=== PATIENT | female | born 1960 | race Caucasian/White ===

== ENCOUNTER 2019-06-28 13:17 | Emergency (ER) | payer OTHER, MEDICAID, SELFPAY ==
[2019-06-28 13:20] VITALS: BP 148/102; PULSE 70; RESP 16; TEMP 36.7; O2SAT 98; BMI 51.2
--- NOTE | 2019-06-28 13:37 | DI.CT.S_ITS ---
PROCEDURE: CT HEAD/BRAIN WO CON INDICATIONS: fall, left sided numbness x 1 week, drooling per patient TECHNIQUE: Noncontrast 4.5 mm thick angled axial sections acquired from the foramen magnum to the vertex, with coronal and sagittal reformats. For radiation dose reduction, the following was used: automated exposure control, adjustment of mA and/or kV according to patient size. COMPARISON: None. FINDINGS: Image quality: Excellent. CSF spaces: Basal cisterns are patent. No extra-axial fluid collections. The ventricles are symmetric in size and shape. Brain: No intracranial bleeds or masses. There is cerebral volume loss for age, with resultant ventricular and sulcal prominence. There are periventricular and deep white matter chronic small vessel ischemic changes. There is intracranial internal carotid artery atherosclerosis. Skull and face: Calvarium and visualized facial bones appear intact, without suspicious lesions. Sinuses: Visualized sinuses and mastoids are clear. IMPRESSION: CT head without acute intracranial abnormalities. No acute calvarial fracture. Age-related senescent changes and sequela of chronic small vessel ischemic disease. Dictated by: Thaddeus Domínguez M.D. on 06/28/2019 at 13:52 Approved by: Thaddeus Domínguez M.D. on 06/28/2019 at 13:55
[2019-06-28 14:09] LABS: Add Manual Diff / Slide Review NO; Basophils Absolute Auto 100 /uL (0-100); Basophils Percent Auto 0.8 % (0-2); Eosinophils Absolute Auto 300 /uL (0-450); Eosinophils Percent Auto 3.4 % (2-4); Hematocrit 35.5 % (36-46); Hemoglobin 12.1 g/dL (12.0-16.0); Lymphocytes Absolute Auto 2400 /uL (1100-4500); Lymphocytes Percent Auto 26.9 % (25-40); Mean Corpuscular HGB Conc 34.1 % (30-36); Mean Corpuscular Hemoglobin 31.9 PG (26-34); Mean Corpuscular Volume 93.5 fL (80-100); Monocytes Absolute Auto 600 /uL (0-900); Neutrophils Absolute Auto 5500 /uL (1500-7000); Neutrophils Percent Auto 61.9 % (50-75); Platelet Count 219 X10^3/uL (150-400); Red Cell Distribution Width 13.3 % (11.6-14.8); White Blood Cell Count 8.9 X10^3/uL (4.5-11.0)
[2019-06-28 14:16] LABS: Prothrombin Time 11.5 SECONDS (10.1-12.7)
[2019-06-28 14:18] LABS: PTT Partial Thromboplastin Tim 30 SECONDS (26.4-36.2)
[2019-06-28 14:21] LABS: HEMOLYSIS 17 (0-50); Sodium 141 mmol/L (137-145)
[2019-06-28 14:24] LABS: Alanine Aminotransferase 19 IU/L (9-52); Albumin 4.2 g/dL (3.5-5.0); Albumin Globulin Ratio 1.3 (1.0-2.8); Alkaline Phosphatase 31 U/L (38-126); Aspartate Aminotransferase 19 IU/L (14-36); Bilirubin Total 0.6 mg/dL (0.2-1.3); Blood Urea Nitrogen 20 mg/dL (7-17); Calcium 9.6 mg/dL (8.4-10.2); Carbon Dioxide 30 mmol/L (22-32); Chloride 100 mmol/L (98-107); Estimated Glomerular Filt Rate > 60.0 mL/min (>60); Globulin 3.3 g/dL (1.7-4.1); Glucose 131 mg/dL (80-110); Potassium 4.3 mmol/L (3.4-5.1); Total Protein 7.5 g/dL (6.3-8.2)
--- NOTE | 2019-06-28 14:42 | ED.NEUROSD ---
HPI - Neuro Symptoms/Deficit General Chief Complaint: Neuro Symptoms/Deficit Stated Complaint: Numbness in lft arm, leg, drooling, sent from dr Martinez Seen by Provider: 06/28/19 13:45 Source: patient and family (son) Limitations: no limitations History of Present Illness HPI Narrative: This is a 58-year-old female comes to the emergency department with complaint of falling out of bed a week ago Wednesday so 10 days ago. Patient states she had recently had an eye surgery for retinal bleed. She got into bed she felt very dizzy like the room was spinning. She had had history of vertigo in the past. She fell off the bed onto her left side. Since then she has felt like her left leg and arm have been tingly. And she has continued to have some sciatica pain in her left leg which is little bit worse. She has chronic neuropathy in her feet. She states she has been drooling intermittently on her right side. Patient states that she has generalized weakness but does not appreciate any right versus left-sided weakness and has been walking daily with a walker and doing extra steps on a workout step. Patient felt some chills but temperature was 97.6?. She has been nauseated constantly but states that that is a chronic issue. She has not been vomiting. She had diarrhea 4 times today and several times yesterday. No black or bright red blood in her stool. She had urine but it was cloudy. She states she has had some edema in her lower extremities intermittently and had had cellulitis and weeping blisters but that has improved. She states her vision has also continued to improve she has had some occasional floaters. She states initially she can only see light versus dark but now she can see 10 font on the computer, although reading gives her headache she states she has headache all the time. Patient has diabetes with neuropathy. Her A1c was 11 but she states that her fasting sugars have been 120s recently with daily sugars in the 150 range, she has hypertension, osteopenia, IBS and states she has a thickened heart but has had a cardiac catheterization x2 which was negative she has had a hernia repair, Tk fundoplication, hysterectomy and multiple ?tumors removed? she quit smoking in 2010. Occasional alcohol and no illicit. On Anticoagulants: Yes (ASA 325mg) Related Data Home Medications Medication Instructions Recorded Confirmed [place] 1 spray INTRANASAL DIRECTED 06/28/19 06/28/19 Vitamin D3 10,000 unit PO DAILY 06/28/19 06/28/19 aspirin 81 mg PO DAILY 06/28/19 06/28/19 calcium carbonate [Calcium 600] 600 mg PO DAILY 06/28/19 06/28/19 carvedilol 6.25 mg PO BID 06/28/19 06/28/19 coenzyme Q10 [Co Q-10] 100 mg PO QPM 06/28/19 06/28/19 empagliflozin [Jardiance] 25 mg PO DAILY 06/28/19 06/28/19 furosemide 80 mg PO DAILY 06/28/19 06/28/19 gabapentin 1,200 mg PO BID 06/28/19 06/28/19 glipizide 10 mg PO BID 06/28/19 06/28/19 insulin glargine [Lantus U-100 50 unit SUBCUT QPM 06/28/19 06/28/19 Insulin] insulin lispro [Humalog U-100 5 - 10 unit SUBCUT TID 06/28/19 06/28/19 Insulin] lisinopril 20 mg PO BID 06/28/19 06/28/19 potassium chloride 10 meq PO DAILY 06/28/19 06/28/19 rosuvastatin 5 mg PO BEDTIME 06/28/19 06/28/19 vitamin E 1 cap PO BEDTIME 06/28/19 06/28/19 Allergies Allergy/AdvReac Type Severity Reaction Status Date / Time amoxicillin [From Augmentin] Allergy Intermediate Hives Verified 06/28/19 13:32 azithromycin [From Zithromax] Allergy Intermediate Hives Verified 06/28/19 13:32 ciprofloxacin [From Cipro] Allergy Intermediate Rash Verified 06/28/19 13:32 clavulanic acid Allergy Intermediate Hives Verified 06/28/19 13:32 [From Augmentin] nitrofurantoin Allergy Intermediate Hives Verified 06/28/19 13:32 [From Macrobid] liraglutide [From Victoza] Allergy Unknown Verified 06/28/19 13:32 codeine AdvReac Intermediate Gastrointestinal Verified 06/28/19 13:32 Upset indomethacin [From Indocin] AdvReac Intermediate Gastrointestinal Verified 06/28/19 13:32 Upset metformin [From Glucophage] AdvReac Intermediate Gastrointestinal Verified 06/28/19 13:32 Upset Suamerk-Aph-Rvp Reductase AdvReac Intermediate Joint Pain Verified 06/28/19 13:32 Inhibitor Review of Systems Review of Systems ROS Unobtainable: All systems reviewed & are unremarkable except as noted in HPI and below Constitutional Constitutional: Denies chills, Denies fever(s), Denies frequent falls, Reports headache(s), Denies lethargy and Denies weakness Eyes Eyes: Reports change in vision (improving), Denies diplopia and Reports spots in vision ENT Ears, Nose, Mouth, and Throat: Reports as per HPI, Reports vertigo (resolved), Reports headache(s), Denies neck pain, Denies disequilibrium and Denies other (droop) Cardiovascular Cardiovascular: Denies chest pain, Denies syncope, Denies irregular heart rhythm, Denies lightheadedness, Denies palpitations, Denies dyspnea and Denies orthopnea Respiratory Respiratory: Denies change in phlegm color, Denies chest congestion, Denies cough and Denies dyspnea Gastrointestinal Gastrointestinal: Denies abdominal pain, Denies melena, Denies hematochezia, Denies change in bowel habits, Reports diarrhea, Denies nausea and Denies vomiting Genitourinary Genitourinary: Denies hematuria, Denies dysuria, Denies flank pain, Denies urinary incontinence, Denies urinary hesitancy, Denies urinary urgency and Reports other (cloudy urine) Musculoskeletal Musculoskeletal: Reports as per HPI, Denies back pain, Reports limited range of motion, Reports muscle weakness (generalized.), Denies neck pain, Denies numbness, Denies stiffness and Reports tingling Integumentary/Breasts Skin/Breast: Denies rash, Denies unusual bruising and Denies wounds Neurologic Neurologic: Reports as per HPI, Denies abnormal speech, Denies confusion, Reports vertigo (resolved), Denies syncope, Denies frequent falls, Reports headache(s), Denies focal weakness, Denies numbness, Reports radicular pain (left leg), Denies sensory deficit, Reports tingling, Denies disequilibrium and Denies weakness Psychiatric Psychiatric: Denies confusion Endocrine Endocrine: Denies palpitations [facility] Social History Smoking Status: Former smoker Social History Smoking Status: Former smoker Exam Narrative Exam Narrative: GEN: Obese female, alert and oriented x 3, patient appears to be in no acute distress. HEENT: Atraumatic, pupils are equal round reactive to light, extraocular movements are intact, nares are clear, no facial droop. Clear speech. HEART: Regular rate and rhythm without murmur, clicks, rubs. LUNGS:Lungs clear to auscultation, no wheezes, rales, crackles, chest moves symmetrically ABD:bowel sounds normal, soft, non-tender, no guarding, rebound, rigidity, no masses noted, no hepatosplenomegaly :No CVA tenderness MSCL: Non-tender, no muscle atrophy, muscles strength 5/5 upper and lower extremities, full range of motion, has pain with straight leg raise on the left. She is nontender to palpation of the greater trochanters, she has mild tenderness over the proximal femur. NEURO:CN 2-12 intact, sensation normal, reflexes 2/4 upper and lower extremities. finger nose finger test normal, heel gunderson test normal. SKIN: No petechiae, ecchymosis or other skin color changes. Initial Vital Signs Initial Vital Signs: Vital Signs Temperature 98.0 F 06/28/19 13:20 Pulse Rate 70 06/28/19 13:20 Respiratory Rate 16 06/28/19 13:20 Blood Pressure 148/102 H 06/28/19 13:20 Pulse Oximetry 98 06/28/19 13:20 Scores NIH Stroke Scale Level of Conciousness: Alert, keenly responsive Ask month/age: Answers both questions correctly. Open/close eyes, close hand: Performs both tasks correctly Best gaze horizontal: Normal Visual emerson: No visual loss Facial palsy: Normal symetrical movement Left arm drift: No drift for full 10 sec Right arm drift: No drift for full 10 sec Left leg drift: No drift for full 10 sec Right leg drift: No drift for full 10 sec Limb ataxia: Absent Sensory on face/arms/legs: Normal, no sensory loss Best language: No aphasia, normal Dysarthria: Normal Extinction or inattention: No abnormality Total NIH Stroke scale score: 0 Course Orders Ordered: ED Orders 06/28/19 13:33 EKG-12 Lead Stat 06/28/19 13:37 CT head/brain wo con Stat 06/28/19 13:55 Complete Blood Count AUTO DIFF Stat Comprehensive Metabolic Panel Stat Partial Thromboplastin Time Stat Prothrombin Time INR Stat 06/28/19 14:50 Urine Culture Stat Urine Microscopic Stat 06/28/19 15:10 XR chest 1V Stat XR hip w pel if done LT 2V Stat Vital Signs Vital signs: Vital Signs - 8 hr 06/28/19 13:20 06/28/19 15:00 06/28/19 15:45 Temperature 98.0 F Pulse Rate 70 69 68 Respiratory Rate 16 21 16 Blood Pressure 148/102 H Blood Pressure [Right Arm] 135/83 145/71 H Pulse Oximetry 98 98 95 06/28/19 16:30 06/28/19 17:03 Temperature Pulse Rate 67 68 Respiratory Rate 14 18 Blood Pressure 137/67 Blood Pressure [Right Arm] 137/57 L Pulse Oximetry 98 97 MDM - Neuro Symptoms/Deficit Lab Data Attestation: I reviewed the patient's lab results. Result diagrams: 06/28/19 13:55 06/28/19 13:55 Labs: Lab Results 06/28/19 06/28/19 06/28/19 Range/Units 13:55 13:55 13:55 WBC 8.9 (4.5-11.0) X10^3/uL RBC 3.80 L (4.0-5.2) X10^6/uL Hgb 12.1 (12.0-16.0) g/dL Hct 35.5 L (36-46) % MCV 93.5 (80-100) fL MCH 31.9 (26-34) PG MCHC 34.1 (30-36) % RDW 13.3 (11.6-14.8) % Plt Count 219 (150-400) X10^3/uL Neut % (Auto) 61.9 (50-75) % Lymph % (Auto) 26.9 (25-40) % Bradford % (Auto) 7.0 (3-14) % Eos % (Auto) 3.4 (2-4) % Baso % (Auto) 0.8 (0-2) % Neut # (Auto) 5500 (7462-4430) /uL Lymph # (Auto) 2400 (3746-2181) /uL Bradford # (Auto) 600 (0-900) /uL Eos # (Auto) 300 (0-450) /uL Baso # (Auto) 100 (0-100) /uL PT 11.5 (10.1-12.7) SECONDS INR 1.0 (0.9-1.3) APTT 30 (26.4-36.2) SECONDS Sodium 141 (137-145) mmol/L Potassium 4.3 (3.4-5.1) mmol/L Chloride 100 (98-107) mmol/L Carbon Dioxide 30 (22-32) mmol/L BUN 20 H (7-17) mg/dL Creatinine 0.80 (0.52-1.04) mg/dL Estimated GFR > 60.0 (>60) mL/min BUN/Creatinine Ratio 25.0 H (6-22) Glucose 131 H (80-110) mg/dL Calcium 9.6 (8.4-10.2) mg/dL Total Bilirubin 0.6 (0.2-1.3) mg/dL AST 19 (14-36) IU/L ALT 19 (9-52) IU/L Alkaline Phosphatase 31 L (38-126) U/L Total Protein 7.5 (6.3-8.2) g/dL Albumin 4.2 (3.5-5.0) g/dL Globulin 3.3 (1.7-4.1) g/dL Albumin/Globulin Ratio 1.3 (1.0-2.8) Urine RBC (0-5/HPF) Urine WBC (0-5/HPF) Ur Squamous Epith Cells (0-5/HPF) Urine Bacteria (None) Ur Culture Indicated? 06/28/19 Range/Units 14:50 WBC (4.5-11.0) X10^3/uL RBC (4.0-5.2) X10^6/uL Hgb (12.0-16.0) g/dL Hct (36-46) % MCV (80-100) fL MCH (26-34) PG MCHC (30-36) % RDW (11.6-14.8) % Plt Count (150-400) X10^3/uL Neut % (Auto) (50-75) % Lymph % (Auto) (25-40) % Bradford % (Auto) (3-14) % Eos % (Auto) (2-4) % Baso % (Auto) (0-2) % Neut # (Auto) (4183-9225) /uL Lymph # (Auto) (7652-1442) /uL Bradford # (Auto) (0-900) /uL Eos # (Auto) (0-450) /uL Baso # (Auto) (0-100) /uL PT (10.1-12.7) SECONDS INR (0.9-1.3) APTT (26.4-36.2) SECONDS Sodium (137-145) mmol/L Potassium (3.4-5.1) mmol/L Chloride (98-107) mmol/L Carbon Dioxide (22-32) mmol/L BUN (7-17) mg/dL Creatinine (0.52-1.04) mg/dL Estimated GFR (>60) mL/min BUN/Creatinine Ratio (6-22) Glucose (80-110) mg/dL Calcium (8.4-10.2) mg/dL Total Bilirubin (0.2-1.3) mg/dL AST (14-36) IU/L ALT (9-52) IU/L Alkaline Phosphatase (38-126) U/L Total Protein (6.3-8.2) g/dL Albumin (3.5-5.0) g/dL Globulin (1.7-4.1) g/dL Albumin/Globulin Ratio (1.0-2.8) Urine RBC 5-10/hpf H (0-5/HPF) Urine WBC 5-10/hpf H (0-5/HPF) Ur Squamous Epith Cells None seen (0-5/HPF) Urine Bacteria Moderate (10-30) H (None) Ur Culture Indicated? Specimen cultured Urine Dip Bedside Urine Glucose 500 mg/dl Bedside Urine Bilirubin - Negative Bedside Urine Ketone - Negative Urine Specific Chandler 1.015 Bedside Urine Occult Blood +/- Bedside Urine pH 6.0 Bedside Urine Protein - Negative Bedside Urine Urobilinogen - Negative Bedside Urine Nitrite - Negative Bedside Urine Leukocytes +++ [address] scan - head: Radiologist's impression: [address] [address] [address] Scan Report Signed Patient: Whitney Anderson LMR#: [id number] : 8Acct:[id number] Age/Sex: 58 / FDate of Service: 06/28/19 Loc: ED Accession Number: [id number] Procedure: CT head/brain wo con Ordering Provider: Jessika Finley D.O. PROCEDURE: CT HEAD/BRAIN WO CON INDICATIONS: fall, left sided numbness x 1 week, drooling per patient TECHNIQUE: Noncontrast 4.5 mm thick angled axial sections acquired from the foramen magnum to the vertex, with coronal and sagittal reformats. For radiation dose reduction, the following was used: automated exposure control, adjustment of mA and/or kV according to patient size. COMPARISON: None. FINDINGS: Image quality: Excellent. CSF spaces: Basal cisterns are patent. No extra-axial fluid collections. The ventricles are symmetric in size and shape. Brain: No intracranial bleeds or masses. There is cerebral volume loss for age, with resultant ventricular and sulcal prominence. There are periventricular and deep white matter chronic small vessel ischemic changes. There is intracranial internal carotid artery atherosclerosis. Skull and face: Calvarium and visualized facial bones appear intact, without suspicious lesions. Sinuses: Visualized sinuses and mastoids are clear. IMPRESSION: CT head without acute intracranial abnormalities. No acute calvarial fracture. Age-related senescent changes and sequela of chronic small vessel ischemic disease. Dictated by: Thaddeus Domínguez M.D. on 06/28/2019 at 13:52 Approved by: Thaddeus Domínguez M.D. on 06/28/2019 at 13:55 Chest x-ray: Radiologist's impression: [place] [id number] XRay Report Signed Patient: Whitney Anderson LMR#: [id number] : 8Acct:[id number] Age/Sex: 58 / FDate of Service: 06/28/19 Loc: ED Accession Number: [id number] Procedure: XR chest 1V Ordering Provider: Jessika Finley D.O. PROCEDURE: XR CHEST 1V INDICATIONS: fall, rib pain 1 week ago. TECHNIQUE: One view of the chest was acquired. COMPARISON: None. FINDINGS: Surgical changes and devices: None. Lungs and pleura: Lungs are abnormal with a generalized mild pulmonary edema pattern. No pleural effusions or pneumothorax. Mediastinum: Mediastinal contours appear normal. Heart size is globally enlarged, mildly. Bones and chest wall: No suspicious bony lesions. Overlying soft tissues appear unremarkable. IMPRESSION: Cardiomegaly with mild CHF, no pleural effusion found. No focal pneumonia seen. The clinical history indicates rib pain after trauma, and no rib fracture or pneumothorax can be identified. The patient body habitus is large, and the inspiratory volume is reduced. It is possible that the pulmonary edema intact is not present in that the appearance of the edema is artifactual related to the body habitus and reduced inspiration. Dictated by: Neville Amos M.D. on 06/28/2019 at 16:05 Approved by: Neville Amos M.D. on 06/28/2019 at 16:06 left hip xray: Radiologist's impression: [address] [address] XRay Report Signed Patient: Whitney Anderson LMR#: [id number] : 8Acct:[id number] Age/Sex: 58 / FDate of Service: 06/28/19 Loc: ED Accession Number: [id number] Procedure: XR hip w pel if done LT 2V Ordering Provider: Jessika Finley D.O. PROCEDURE: XR HIP W PEL IF DONE LT 2V INDICATIONS: right hip pain, s/p fall 1 week ago TECHNIQUE: AP pelvis with lateral view(s) of the left hip(s). COMPARISON: None. FINDINGS: Bones: No fractures or dislocations. Pelvic ring appears intact. No suspicious bony lesions. Soft tissues: The visualized bowel gas pattern is normal. No suspicious soft tissue calcifications. IMPRESSION: Large body habitus, and quality of visualization of the hip joints is somewhat limited. There appears to be moderate right sided hip joint osteoarthritis with lateral [id number]-[id number] articulation but only mild hip joint osteoarthritis on the left. Dictated by: Neville Amos M.D. on 06/28/2019 at 16:03 Approved by: Neville Amos M.D. on 06/28/2019 at 16:05 ECG Data Attestation: I personally reviewed and interpreted this ECG as follows: Interpretation: Sinus rhythm rate of 70 P are 158 QRS of 98 QTC of [address] changes appreciated. MDM Narrative Medical decision making narrative: Patient commands in with complaining of left upper and lower extremity tingling. Patient states symptoms started last Wednesday which is about 10 days ago. Patient's symptoms have not changed, no weakness that is lateralizing. On her NIH scale she is 0 without any change in sensation to light touch. Patient head CT is negative I would expect some changes 10 days out from initial symptomatology if she had had a stroke. Patient did have some pain with movement of her lower extremity and hip x-ray was ordered as she did have a fall. Patient has some [id number] changes that are arthritic but no fracture or dislocations. Chest x-ray shows cardiomegaly, with mild CHF although possibly that this is artifactual waited to body habitus and reduce inspiration. Patient has not had any symptoms consistent with CHF. Her lab work does not show any major electrolyte abnormalities. She does have a history of neuropathy bilateral lower extremities. She also has history of sciatica which would make sense by her lower extremities having some discomfort and tingling changes. This does not give us an exact reason why her upper extremity. We did discuss getting an MRI if she continues to have symptoms and to return if she is having any new or worsening symptoms. Discharge Plan Departure Patient Disposition: Home Clinical Impression: Numbness and tingling of left arm and leg Discharge Date/Time: 06/28/19 17:00 Instructions: DI for Numbness/tingling Activity Restrictions/Additional Instructions: Follow-up with your physician at your scheduled appointment. You can call for earlier appointment if you prefer. You can discussed with your physician about possibly getting MRI testing Continue your home medications as prescribed. You're urine culture is pending if positive you should expect a phone call regarding your results. Return to the emergency department for fevers greater 100.4 F, new difficulties with speech, new weakness, loss of sensation, passing out, lightheadedness, chest pain or pressure, shortness of breath or other new or concerning symptoms. Prescriptions: No Action carvedilol 6.25 mg tablet 6.25 mg PO BID RF: 0 lisinopril 20 mg tablet 20 mg PO BID RF: 0 glipizide 10 mg tablet 10 mg PO BID RF: 0 potassium chloride 10 mEq tablet extended release 10 meq PO DAILY RF: 0 rosuvastatin 5 mg tablet 5 mg PO BEDTIME RF: 0 Jardiance 25 mg tablet 25 mg PO DAILY RF: 0 Lantus U-100 Insulin 100 unit/mL solution 50 unit SUBCUT QPM RF: 0 aspirin 81 mg Tablet,Delayed Release (Dr/Ec) 81 mg PO DAILY RF: 0 calcium carbonate [Calcium 600] 600 mg calcium (1,500 mg) Tablet 600 mg PO DAILY RF: 0 gabapentin 300 mg capsule 1,200 mg PO BID RF: 0 insulin lispro [Humalog U-100 Insulin] 100 unit/mL solution 5 - 10 unit subcut TID RF: 0 coenzyme Q10 [Co Q-10] 100 mg Capsule 100 mg PO QPM RF: 0 [place] 1 spray intranasal DIRECTED RF: 0 vitamin E 1 cap PO BEDTIME RF: 0 furosemide 80 mg tablet 80 mg PO DAILY RF: 0 Vitamin D3 10,000 unit 10,000 unit PO DAILY RF: 0
[2019-06-28 15:00] VITALS: BP 135/83; PULSE 69; RESP 21; O2SAT 98
--- NOTE | 2019-06-28 15:10 | DI.RAD.S_ITS ---
PROCEDURE: XR CHEST 1V INDICATIONS: fall, rib pain 1 week ago. TECHNIQUE: One view of the chest was acquired. COMPARISON: None. FINDINGS: Surgical changes and devices: None. Lungs and pleura: Lungs are abnormal with a generalized mild pulmonary edema pattern. No pleural effusions or pneumothorax. Mediastinum: Mediastinal contours appear normal. Heart size is globally enlarged, mildly. Bones and chest wall: No suspicious bony lesions. Overlying soft tissues appear unremarkable. IMPRESSION: Cardiomegaly with mild CHF, no pleural effusion found. No focal pneumonia seen. The clinical history indicates rib pain after trauma, and no rib fracture or pneumothorax can be identified. The patient body habitus is large, and the inspiratory volume is reduced. It is possible that the pulmonary edema intact is not present in that the appearance of the edema is artifactual related to the body habitus and reduced inspiration. Dictated by: Neville Amos M.D. on 06/28/2019 at 16:05 Approved by: Neville Amos M.D. on 06/28/2019 at 16:06
--- NOTE | 2019-06-28 15:10 | DI.RAD.S_ITS ---
PROCEDURE: XR HIP W PEL IF DONE LT 2V INDICATIONS: right hip pain, s/p fall 1 week ago TECHNIQUE: AP pelvis with lateral view(s) of the left hip(s). COMPARISON: None. FINDINGS: Bones: No fractures or dislocations. Pelvic ring appears intact. No suspicious bony lesions. Soft tissues: The visualized bowel gas pattern is normal. No suspicious soft tissue calcifications. IMPRESSION: Large body habitus, and quality of visualization of the hip joints is somewhat limited. There appears to be moderate right sided hip joint osteoarthritis with lateral [id number] articulation but only mild hip joint osteoarthritis on the left. Dictated by: Neville Amos M.D. on 06/28/2019 at 16:03 Approved by: Neville Amos M.D. on 06/28/2019 at 16:05
[2019-06-28 15:36] LABS: Bacteria Urine Moderate (10-30); Culture Indicated Urine Specimen Cultured; RBC Urine 5-10/HPF (0-5/HPF); Squamous Epithelial Cell Urine None Seen (0-5/HPF); WBC Urine 5-10/HPF (0-5/HPF)
[2019-06-28 15:45] VITALS: BP 145/71; PULSE 68; RESP 16; O2SAT 95
[2019-06-28 16:30] VITALS: BP 137/57; PULSE 67; RESP 14; O2SAT 98
[2019-06-28 17:03] VITALS: BP 137/67; PULSE 68; RESP 18; O2SAT 97
== END 2019-06-28 17:00 | disposition home or self-care (01) ==
PROVIDERS: Emergency Provider Emergency Medicine; Family Provider Internal Medicine
DX: R20.2 Paresthesia of skin (principal); R20.0 Anesthesia of skin; R07.81 Pleurodynia; M25.551 Pain in right hip; W19.XXXA Unspecified fall, initial encounter
CPT/HCPCS: 36415; 36591; 70450; 71045; 73502; 80053; 81003; 81015; 85025; 85610; 85730; 87077; 87086; 87186; 93005; 99283; 99285

== ENCOUNTER 2020-08-07 14:30 | Outpatient (RCR) | payer OTHER, MEDICAID, SELFPAY ==
--- NOTE | 2020-06-14 16:00 | PT.OPPOC ---
Physical, Occupational & Speech Therapy At [facility] Current Diagnoses Other abnormalities of gait and mobility (06/14/20) Repeated falls (06/14/20) Dizziness and giddiness (06/14/20) Visit Care Team Role Provider Type Samara Alejandre PA-C Primary Care Provider Non-Staff Specialty: Medical Address: [address] [place] [address] [address], [place], [address] Email: Andrews Gomez MD Attending Provider Physician Referring Provider Specialty: Ear, Nose, Throat Address: [address] [place] [address], [id number] Email: [email or web address] Plan Of Care PT-OP-T Assessment and Plan Start: 06/17/20 09:29 Freq: Status: Active Protocol: Document 06/14/20 15:15 DCW (Rec: 06/17/20 10:16 DCW [id number]) Physical Therapy Assessment Rehab Potential Rehabilitation Potential Fair Evaluation Complexity Number of Personal Factors/Comorbidities 3 or More Number of Body Systems Impaired 4 or More Clinical Presentation at Evaluation Unstable Impairments Impairments Activity Tolerance,Balance, Functional Activities, Functional Mobility,Gait, Sensation,Soft Tissue Mobility ,Strength,Vestibular Other Concerns Fall Risk Yes, 37/56 Cleaning, Hx of multiple falls Goals Three Impairment Pt at an increased risk of falls, per Cleaning Balance scale Halfway Goal (LTG) Pt to score a 45/56 on the Cleaning Balance scale to demonstrate reduced risk of falls LTG Duration 08/23/20 Two Impairment Pt only able to stand on single leg 7 sec R and 3 sec L Decorator Mannequin Goal (LTG) Pt to stand SLS 15 seconds bilaterally LTG Duration 08/23/20 One Impairment Pt does not have an appropriate home exercise program Short Term Goal (STG) Pt to be independent and compliant with an appropriate HEP STG Duration 07/19/20 Assessment Summary Assessment Pt presents for a highly- complex PT evaluation, with multifactoral causes of imbalance/dizziness. Pt appears to have a decrease in vestibular function bilaterally, poor vision in her left eye, and DM II- induced neuropathy bilaterally , all of which affects her balance and stability. Due to time constraints, there are multiple tests that still need to be performed during her next visit, including DGI, Orthostatic BPs, and strength testing. Testing is significantly limited due to her ongoing left eye issues, which limit her positioning and her ability to participate in some of the vestibular tests. Pt should benefit from skilled therapy focusing on balance training, NMR, vestibular rehabilitation, and gait training. Physical Therapy Plan Frequency and Duration Frequency of Treatment 2x/Week Duration of Treatment 10 weeks Plan of Care Start Date 06/14/20 Plan of Care End Date 08/23/20 Therapeutic Interventions Therapeutic Interventions Balance Training,Home Exercise Program,Manual Therapy, Neuromuscular Re-education, Patient/Caregiver Education, Self-Care/Home Management, Therapeutic Activities, Therapeutic Exercises Next Visit Focus/Plan Next Note Type Treatment Note Next Visit Plan Orthostatic measurements, DGI, Strength testing, Balance training Plan of Care Dates Plan of Care Start Date 06/14/20 Plan of Care End Date 08/23/20 Electronically Signed by: Sandeep Alonso, PT 06/17/20 1017 Please Sign and Return: I have reviewed this Plan of Care and certify that the skilled therapy services above are required to meet the patient?s needs. Physician Signature Date Printed Name and Credentials Clinical Instructor Signature Printed Name and Credentials
--- NOTE | 2020-06-14 16:00 | PT.OIE ---
Current Diagnoses Other abnormalities of gait and mobility (06/14/20) Repeated falls (06/14/20) Dizziness and giddiness (06/14/20) Visit Care Team Role Provider Type Samara Alejandre PA-C Primary Care Provider Non-Staff Specialty: Medical Address: [facility] [address], [place], [address] Email: Andrews Gomez MD Attending Provider Physician Referring Provider Specialty: Ear, Nose, Throat Address: [address] [place] [address] [place], [address] Email: [email or web address] [facility] Initial Evaluation PT-OP-A Visit Information Start: 06/17/20 09:29 Freq: Status: Active Protocol: Document 06/14/20 15:15 DCW (Rec: 06/17/20 09:41 DCW [id number]) Out-Patient Physical Therapy Visit Information Visit Information Visit Type Initial Evaluation Visit Start Time 15:15 Visit Stop Time 16:00 Total Visit Minutes 45 Visit Number 1 Number of PRE[employer]ED [employer] TEAM MEMBER Visits 0 Evaluation Information Evaluation Date 06/14/20 PT-OP-B Current Condition Start: 06/17/20 09:29 Freq: Status: Active Protocol: Document 06/14/20 15:15 DCW (Rec: 06/17/20 09:41 DCW [id number]) Current Condition History of Current Condition Onset Date 10 year history Current Complaints Dizziness, imbalance, falls History of Current Condition Pt is a 59 year old female presenting with a 10 year history of imbalance and falls . Pt reports that when this began ten years ago, she had wildly out of control diabetes and blood pressure, which created a significant worsening of her symptoms. Pt notes that in the last decade, she has gotten them both under much better control, but she still has problems with dizziness and nausea. Pt especially has difficulty with standing up too fast, bending over, or walking across a parking lot or in a store without a cart or canes. Additionally, pt has a significant history of left eye problems, undergoing 5 eye surgeries over the last year, and she currently has a bubble on her eye, which causes pain and prevents her from lying supine, because that creates too much pressure. Pt was tested, and has a 50% blockage of her right carotid artery, although no one feels this is causing her problems. Pt reports she was diagnosed with orthostatic hypotension a number of years ago by a physical therapist, but then her physician disagreed with that assessment . Future Testing and Treatments Planned Audiogram on 06/18/20, follow- up with Dr Gomez later in the week Personal Factors Other Personal Factors That May Effect DM II /c LE neuropathy, vision Therapy/Recovery deficits, Hx of blood pressure instability PT-OP-C Subjective Start: 06/17/20 09:29 Freq: Status: Active Protocol: Document 06/14/20 15:15 DCW (Rec: 06/17/20 10:16 DCW [id number]) OP-PT Subjective Patient Comments Patient Comments I can't really lay down, and least not flat. I have a bubble on my left eye, so I can't lay down or bend forward , it puts too much pressure on it. Patient Questionnaires ABC- Activity Specific Balance Confidence Scale ABC Score 33.75% ABC Functional Impairment 60 to <80% Impaired (Score 21- 40) Dizziness Handicap Inventory DHI Score 62% DHI Functional Impairment 60 to 79% Impaired (Score 60- 79) PT-OP-D Balance Start: 06/17/20 09:29 Freq: Status: Active Protocol: Document 06/14/20 15:15 DCW (Rec: 06/17/20 10:16 DCW [id number]) OP-PT Balance Assessment Sitting Balance Static Sitting Balance Ability Normal Dynamic Sitting Balance Ability Good Standing Balance Static Standing Balance Ability Fair Balance Tests Cleaning Balance Test Cleaning Balance Test Score 37/56 Cleaning Impairment Rating 20 to 39% Impaired (Score 34- 44) Functional Reach Functional Reach Test 6 Functional Reach Impairment Rating 40 to <60% Impaired (Score 5-6 ) Single Limb Standing Single Limb- Right 3 sec Single Limb- Left 7 sec Cleaning Balance Assessment Evaluation Sitting to Standing Ability Independent w/Hands Unsupported Stance Safely- 2 minutes Sitting Unsupported, Feet on Floor Safely- 2 minutes Standing to Sitting Ability Assist, Control w/Hands Transfer Ability Safely, Hand Use Unsupported Stance- Eyes Closed Supervision, 10 seconds Unsupported Stance- Eyes Open Assist to attain,<15 secs Reaching Forward Standing Safely, 5 inches Pick- Up Object From Floor Within 2 inches, Unable Look Behind Shoulder - Standing Shifts Weight Well Turning 360 Degrees Turns slowly, but safely Unsupported Stance, Alternating Feet on 4 Steps w/Supervision Stair Unsupported Tandem Stance Small Step- 30 seconds Unilateral Leg Stance Lifts Leg/Holds > 3 secs Total Score Cleaning Total Score (out of 56 points) 37 Cleaning Impairment Rating 20 to 39% Impaired (Score 34- 44) Jones Fall Scale Copyright Permission PT-OP-O Vestibular Start: 06/17/20 09:29 Freq: Status: Active Protocol: Document 06/14/20 15:15 DCW (Rec: 06/17/20 10:16 DCW [id number]) Vestibular Assessment Screening Tests Vestibular Artery Screen Negative Auditory Tests Macdonald Test Within normal limits Rinne Test Negative Air Conduction Results Equal Visual Testing Smooth Pursuits Horizontal Negative Smooth Pursuits Vertical Negative Saccades Horizontal Negative Gaze Evoked Nystagmus With Fixation Negative Gaze Evoked Nystagmus Without Fixation Negative Heave Test Positive Bilateral Thrust Head Positive Bilateral Convergence Test Impaired Positional Testing Sidelying Test Negative Left,Negative Right Comments Vestibular Comments Thrust/Heave test: Positive bilaterally, appears to be more of an inattention than true positive, but pt has difficulty focusing on target. Convergence: Unable to test, pt does not use left eye for vision, does not converge. PT-OP-T Assessment and Plan Start: 06/17/20 09:29 Freq: Status: Active Protocol: Document 06/14/20 15:15 DCW (Rec: 06/17/20 10:16 DC [id number]) Physical Therapy Assessment Rehab Potential Rehabilitation Potential Fair Evaluation Complexity Number of Personal Factors/Comorbidities 3 or More Number of Body Systems Impaired 4 or More Clinical Presentation at Evaluation Unstable Impairments Impairments Activity Tolerance,Balance, Functional Activities, Functional Mobility,Gait, Sensation,Soft Tissue Mobility ,Strength,Vestibular Other Concerns Fall Risk Yes, 37/56 Cleaning, Hx of multiple falls Goals Three Impairment Pt at an increased risk of falls, per Cleaning Balance scale Alf Goal (LTG) Pt to score a 45/56 on the Cleaning Balance scale to demonstrate reduced risk of falls LTG Duration 08/23/20 Two Impairment Pt only able to stand on single leg 7 sec R and 3 sec L Alf Goal (LTG) Pt to stand SLS 15 seconds bilaterally LTG Duration 08/23/20 One Impairment Pt does not have an appropriate home exercise program Short Term Goal (STG) Pt to be independent and compliant with an appropriate HEP STG Duration 07/19/20 Assessment Summary Assessment Pt presents for a highly- complex PT evaluation, with multifactoral causes of imbalance/dizziness. Pt appears to have a decrease in vestibular function bilaterally, poor vision in her left eye, and DM II- induced neuropathy bilaterally , all of which affects her balance and stability. Due to time constraints, there are multiple tests that still need to be performed during her next visit, including DGI, Orthostatic BPs, and strength testing. Testing is significantly limited due to her ongoing left eye issues, which limit her positioning and her ability to participate in some of the vestibular tests. Pt should benefit from skilled therapy focusing on balance training, NMR, vestibular rehabilitation, and gait training. Physical Therapy Plan Frequency and Duration Frequency of Treatment 2x/Week Duration of Treatment 10 weeks Plan of Care Start Date 06/14/20 Plan of Care End Date 08/23/20 Therapeutic Interventions Therapeutic Interventions Balance Training,Home Exercise Program,Manual Therapy, Neuromuscular Re-education, Patient/Caregiver Education, Self-Care/Home Management, Therapeutic Activities, Therapeutic Exercises Next Visit Focus/Plan Next Note Type Treatment Note Next Visit Plan Orthostatic measurements, DGI, Strength testing, Balance training
--- NOTE | 2020-06-25 14:30 | PT.OTN ---
Current Diagnoses Other abnormalities of gait and mobility (06/28/20) Repeated falls (06/28/20) Dizziness and giddiness (06/28/20) Physical Therapy Treatment Note PT-OP-A Visit Information Start: 06/17/20 09:29 Freq: Status: Active Protocol: Document 07/09/20 13:45 DCW (Rec: 06/25/20 14:03 DCW [id number]) Out-Patient Physical Therapy Visit Information Visit Information Visit Type Treatment Note Visit Start Time 13:45 Visit Stop Time 14:30 Total Visit Minutes 45 Visit Number 2 Number of FACILITY COORDINATOR Visits 0 Evaluation Information Evaluation Date 06/14/20 PT-OP-B Current Condition Start: 06/17/20 09:29 Freq: Status: Active Protocol: Document 06/14/20 15:15 DCW (Rec: 06/17/20 09:41 DCW [id number]) Current Condition History of Current Condition Onset Date 10 year history Current Complaints Dizziness, imbalance, falls History of Current Condition Pt is a 59 year old female presenting with a 10 year history of imbalance and falls . Pt reports that when this began ten years ago, she had wildly out of control diabetes and blood pressure, which created a significant worsening of her symptoms. Pt notes that in the last decade, she has gotten them both under much better control, but she still has problems with dizziness and nausea. Pt especially has difficulty with standing up too fast, bending over, or walking across a parking lot or in a store without a cart or canes. Additionally, pt has a significant history of left eye problems, undergoing 5 eye surgeries over the last year, and she currently has a bubble on her eye, which causes pain and prevents her from lying supine, because that creates too much pressure. Pt was tested, and has a 50% blockage of her right carotid artery, although no one feels this is causing her problems. Pt reports she was diagnosed with orthostatic hypotension a number of years ago by a physical therapist, but then her physician disagreed with that assessment . Future Testing and Treatments Planned Audiogram on 06/18/20, follow- up with Dr Gomez later in the week Personal Factors Other Personal Factors That May Effect DM II /c LE neuropathy, vision Therapy/Recovery deficits, Hx of blood pressure instability PT-OP-C Subjective Start: 06/17/20 09:29 Freq: Status: Active Protocol: Document 07/09/20 13:45 DCW (Rec: 06/25/20 14:03 DCW [id number]) OP-PT Subjective Patient Comments Patient Comments I'm very weak today. PT-OP-D Balance Start: 06/17/20 09:29 Freq: Status: Active Protocol: Document 07/09/20 13:45 DCW (Rec: 06/25/20 14:03 DCW [id number]) Balance Tests Other Other Balance Tests Performed Orthostatic BPs: Sidelying - 120/62 Sitting - 114/70 Standing - 114/68 PT-OP-E Functional Tests Start: 06/25/20 14:03 Freq: Status: Active Protocol: Document 07/09/20 13:45 DCW (Rec: 06/25/20 14:31 DCW [id number]) Functional Tests Dynamic Gait Index (DGI) Score 10/17 DGI Impairment Rating 40 to <60% Impaired (Score 10- 14) PT-OP-M Strength Start: 06/25/20 14:03 Freq: Status: Active Protocol: Document 07/09/20 13:45 DCW (Rec: 06/25/20 14:31 DCW [id number]) Hip Strength Hip Manual Muscle Testing Right Flexion (L2) 4+ Good+ Abduction 4+ Good+ Adduction 4+ Good+ Left Flexion (L2) 3+ Fair+ Abduction 4+ Good+ Adduction 4+ Good+ Knee Strength Knee Manual Muscle Testing Right Flexion (S2) 4+ Good+ Extension (L3) 4+ Good+ Left Flexion (S2) 4+ Good+ Extension (L3) 4+ Good+ PT-OP-O Vestibular Start: 06/17/20 09:29 Freq: Status: Active Protocol: Document 06/14/20 15:15 DCW (Rec: 06/17/20 10:16 DCW [id number]) Vestibular Assessment Screening Tests Vestibular Artery Screen Negative Auditory Tests Macdonald Test Within normal limits Rinne Test Negative Air Conduction Results Equal Visual Testing Smooth Pursuits Horizontal Negative Smooth Pursuits Vertical Negative Saccades Horizontal Negative Gaze Evoked Nystagmus With Fixation Negative Gaze Evoked Nystagmus Without Fixation Negative Heave Test Positive Bilateral Thrust Head Positive Bilateral Convergence Test Impaired Positional Testing Sidelying Test Negative Left,Negative Right Comments Vestibular Comments Thrust/Heave test: Positive bilaterally, appears to be more of an inattention than true positive, but pt has difficulty focusing on target. Convergence: Unable to test, pt does not use left eye for vision, does not converge. PT-OP-Q Treatments Start: 06/17/20 09:29 Freq: Status: Active Protocol: Document 07/09/20 13:45 DCW (Rec: 06/25/20 14:31 DCW [id number]) Neuro Re-Education Treatment Balance Activities SLS Details SLS Equipment // bars Foam Stance Details NBOS Surface [place] Narrow JOSE Details EO/EC, Head Turns PT-OP-T Assessment and Plan Start: 06/17/20 09:29 Freq: Status: Active Protocol: Document 07/09/20 13:45 DCW (Rec: 06/25/20 14:31 DCW [id number]) Physical Therapy Assessment Impairments Impairments Activity Tolerance,Balance, Functional Activities, Functional Mobility,Gait, Sensation,Soft Tissue Mobility ,Strength,Vestibular Goals Three Impairment Pt at an increased risk of falls, per Cleaning Balance scale Softwood Faller Goal (LTG) Pt to score a 45/56 on the Cleaning Balance scale to demonstrate reduced risk of falls LTG Duration 08/23/20 Two Impairment Pt only able to stand on single leg 7 sec R and 3 sec L Softwood Faller Goal (LTG) Pt to stand SLS 15 seconds bilaterally LTG Duration 08/23/20 One Impairment Pt does not have an appropriate home exercise program Short Term Goal (STG) Pt to be independent and compliant with an appropriate HEP STG Duration 07/19/20 Assessment Summary Assessment Pt testing again shows limitations in balance, pt scores 12/24 on DGI, indicating an increased falls risk. Pt did well with balance exercises today, likely attempt to increase challenge next visit. Physical Therapy Plan Frequency and Duration Frequency of Treatment 2x/Week Duration of Treatment 10 weeks Plan of Care Start Date 06/14/20 Plan of Care End Date 08/23/20 Therapeutic Interventions Therapeutic Interventions Balance Training,Home Exercise Program,Manual Therapy, Neuromuscular Re-education, Patient/Caregiver Education, Self-Care/Home Management, Therapeutic Activities, Therapeutic Exercises Next Visit Focus/Plan Next Note Type Treatment Note Next Visit Plan Orthostatic measurements, DGI, Strength testing, Balance training
--- NOTE | 2020-06-28 14:35 | PT.OTN ---
Current Diagnoses Other abnormalities of gait and mobility (06/28/20) Repeated falls (06/28/20) Dizziness and giddiness (06/28/20) Physical Therapy Treatment Note PT-OP-A Visit Information Start: 06/17/20 09:29 Freq: Status: Active Protocol: Document 06/28/20 13:45 DCW (Rec: 06/28/20 14:34 DCW [id number]) Out-Patient Physical Therapy Visit Information Visit Information Visit Type Treatment Note Visit Start Time 13:45 Visit Stop Time 14:30 Total Visit Minutes 45 Visit Number 2 Number of BAG BUILDER Visits 0 Evaluation Information Evaluation Date 06/14/20 PT-OP-B Current Condition Start: 06/17/20 09:29 Freq: Status: Active Protocol: Document 06/14/20 15:15 DCW (Rec: 06/17/20 09:41 DCW [id number]) Current Condition History of Current Condition Onset Date 10 year history Current Complaints Dizziness, imbalance, falls History of Current Condition Pt is a 59 year old female presenting with a 10 year history of imbalance and falls . Pt reports that when this began ten years ago, she had wildly out of control diabetes and blood pressure, which created a significant worsening of her symptoms. Pt notes that in the last decade, she has gotten them both under much better control, but she still has problems with dizziness and nausea. Pt especially has difficulty with standing up too fast, bending over, or walking across a parking lot or in a store without a cart or canes. Additionally, pt has a significant history of left eye problems, undergoing 5 eye surgeries over the last year, and she currently has a bubble on her eye, which causes pain and prevents her from lying supine, because that creates too much pressure. Pt was tested, and has a 50% blockage of her right carotid artery, although no one feels this is causing her problems. Pt reports she was diagnosed with orthostatic hypotension a number of years ago by a physical therapist, but then her physician disagreed with that assessment . Future Testing and Treatments Planned Audiogram on 06/18/20, follow- up with Dr Gomez later in the week Personal Factors Other Personal Factors That May Effect DM II /c LE neuropathy, vision Therapy/Recovery deficits, Hx of blood pressure instability PT-OP-C Subjective Start: 06/17/20 09:29 Freq: Status: Active Protocol: Document 06/28/20 13:45 DCW (Rec: 06/28/20 14:34 DCW [id number]) OP-PT Subjective Patient Comments Patient Comments I have a lot of pain in my back, it kept me up most of the night. PT-OP-D Balance Start: 06/17/20 09:29 Freq: Status: Active Protocol: Document 06/25/20 13:45 DCW (Rec: 06/25/20 14:03 DCW [id number]) Balance Tests Other Other Balance Tests Performed Orthostatic BPs: Sidelying - 120/62 Sitting - 114/70 Standing - 114/68 PT-OP-E Functional Tests Start: 06/25/20 14:03 Freq: Status: Active Protocol: Document 06/25/20 13:45 DCW (Rec: 06/25/20 14:31 DCW [id number]) Functional Tests Dynamic Gait Index (DGI) Score 10/17 DGI Impairment Rating 40 to <60% Impaired (Score 10- 14) PT-OP-M Strength Start: 06/25/20 14:03 Freq: Status: Active Protocol: Document 06/25/20 13:45 DCW (Rec: 06/25/20 14:31 DCW [id number]) Hip Strength Hip Manual Muscle Testing Right Flexion (L2) 4+ Good+ Abduction 4+ Good+ Adduction 4+ Good+ Left Flexion (L2) 3+ Fair+ Abduction 4+ Good+ Adduction 4+ Good+ Knee Strength Knee Manual Muscle Testing Right Flexion (S2) 4+ Good+ Extension (L3) 4+ Good+ Left Flexion (S2) 4+ Good+ Extension (L3) 4+ Good+ PT-OP-O Vestibular Start: 06/17/20 09:29 Freq: Status: Active Protocol: Document 06/14/20 15:15 DCW (Rec: 06/17/20 10:16 DCW [id number]) Vestibular Assessment Screening Tests Vestibular Artery Screen Negative Auditory Tests Macdonald Test Within normal limits Rinne Test Negative Air Conduction Results Equal Visual Testing Smooth Pursuits Horizontal Negative Smooth Pursuits Vertical Negative Saccades Horizontal Negative Gaze Evoked Nystagmus With Fixation Negative Gaze Evoked Nystagmus Without Fixation Negative Heave Test Positive Bilateral Thrust Head Positive Bilateral Convergence Test Impaired Positional Testing Sidelying Test Negative Left,Negative Right Comments Vestibular Comments Thrust/Heave test: Positive bilaterally, appears to be more of an inattention than true positive, but pt has difficulty focusing on target. Convergence: Unable to test, pt does not use left eye for vision, does not converge. PT-OP-Q Treatments Start: 06/17/20 09:29 Freq: Status: Active Protocol: Document 06/28/20 13:45 DCW (Rec: 06/28/20 14:34 DCW [id number]) Gym Equipment Shuttle Balance Red Details Wide JOSE, Staggered Stance Therapeutic Exercises Standing Exercises 2 Standing Exercise Name Hamstring curls Side bilateral Resistance 2# Comments x20 1 Standing Exercise Name Toe taps Side bilateral Resistance 2# Equipment Used 6 step Comments x20 Other Exercises 1 Other Exercise Name Resisted ambulation Resistance Yellow Equipment Used T-band Reps/Minutes rail x2 each direction Comments Lateral, Fwd, Bkwd Neuro Re-Education Treatment Balance Activities Tandem Stance Details Tandem Stance Tandem Ambulation Details Tandem Amb SLS Details SLS Equipment // bars Foam Stance Details NBOS, Head Turns Surface [place] Narrow JOSE Details EO/EC, Head Turns PT-OP-T Assessment and Plan Start: 06/17/20 09:29 Freq: Status: Active Protocol: Document 06/28/20 13:45 DCW (Rec: 06/28/20 14:34 DCW [id number]) Physical Therapy Assessment Impairments Impairments Activity Tolerance,Balance, Functional Activities, Functional Mobility,Gait, Sensation,Soft Tissue Mobility ,Strength,Vestibular Goals Three Impairment Pt at an increased risk of falls, per Cleaning Balance scale Blueprint Cutter Goal (LTG) Pt to score a 45/56 on the Cleaning Balance scale to demonstrate reduced risk of falls LTG Duration 08/23/20 Two Impairment Pt only able to stand on single leg 7 sec R and 3 sec L Blueprint Cutter Goal (LTG) Pt to stand SLS 15 seconds bilaterally LTG Duration 08/23/20 One Impairment Pt does not have an appropriate home exercise program Short Term Goal (STG) Pt to be independent and compliant with an appropriate HEP STG Duration 07/19/20 Assessment Summary Assessment Pt did fairly well today, able to maintain balance during mild challenges. Physical Therapy Plan Frequency and Duration Frequency of Treatment 2x/Week Duration of Treatment 10 weeks Plan of Care Start Date 06/14/20 Plan of Care End Date 08/23/20 Therapeutic Interventions Therapeutic Interventions Balance Training,Home Exercise Program,Manual Therapy, Neuromuscular Re-education, Patient/Caregiver Education, Self-Care/Home Management, Therapeutic Activities, Therapeutic Exercises Next Visit Focus/Plan Next Note Type Treatment Note Next Visit Plan Orthostatic measurements, DGI, Strength testing, Balance training
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
--- NOTE | 2020-07-31 15:05 | PT.OTN ---
Current Diagnoses Other abnormalities of gait and mobility (07/31/20) Repeated falls (07/31/20) Dizziness and giddiness (07/31/20) Physical Therapy Treatment Note PT-OP-A Visit Information Start: 06/17/20 09:29 Freq: Status: Active Protocol: Document 07/31/20 14:30 DCW (Rec: 07/31/20 15:05 DCW [id number]) Out-Patient Physical Therapy Visit Information Visit Information Visit Type Treatment Note Visit Start Time 14:30 Visit Stop Time 15:00 Total Visit Minutes 30 Visit Number 5 Number of FELL CUTTER Visits 0 Evaluation Information Evaluation Date 06/14/20 PT-OP-B Current Condition Start: 06/17/20 09:29 Freq: Status: Active Protocol: Document 06/14/20 15:15 DCW (Rec: 06/17/20 09:41 DCW [id number]) Current Condition History of Current Condition Onset Date 10 year history Current Complaints Dizziness, imbalance, falls History of Current Condition Pt is a 59 year old female presenting with a 10 year history of imbalance and falls . Pt reports that when this began ten years ago, she had wildly out of control diabetes and blood pressure, which created a significant worsening of her symptoms. Pt notes that in the last decade, she has gotten them both under much better control, but she still has problems with dizziness and nausea. Pt especially has difficulty with standing up too fast, bending over, or walking across a parking lot or in a store without a cart or canes. Additionally, pt has a significant history of left eye problems, undergoing 5 eye surgeries over the last year, and she currently has a bubble on her eye, which causes pain and prevents her from lying supine, because that creates too much pressure. Pt was tested, and has a 50% blockage of her right carotid artery, although no one feels this is causing her problems. Pt reports she was diagnosed with orthostatic hypotension a number of years ago by a physical therapist, but then her physician disagreed with that assessment . Future Testing and Treatments Planned Audiogram on 06/18/20, follow- up with Dr Gomez later in the week Personal Factors Other Personal Factors That May Effect DM II /c LE neuropathy, vision Therapy/Recovery deficits, Hx of blood pressure instability PT-OP-C Subjective Start: 06/17/20 09:29 Freq: Status: Active Protocol: Document 07/31/20 14:30 DCW (Rec: 07/31/20 15:05 DCW [id number]) OP-PT Subjective Patient Comments Patient Comments I'm wobby. A very unsteady wobbly today. PT-OP-D Balance Start: 06/17/20 09:29 Freq: Status: Active Protocol: Document 06/25/20 13:45 DCW (Rec: 06/25/20 14:03 DCW [id number]) Balance Tests Other Other Balance Tests Performed Orthostatic BPs: Sidelying - 120/62 Sitting - 114/70 Standing - 114/68 PT-OP-E Functional Tests Start: 06/25/20 14:03 Freq: Status: Active Protocol: Document 06/25/20 13:45 DCW (Rec: 06/25/20 14:31 DCW [id number]) Functional Tests Dynamic Gait Index (DGI) Score 10/17 DGI Impairment Rating 40 to <60% Impaired (Score 10- 14) PT-OP-M Strength Start: 06/25/20 14:03 Freq: Status: Active Protocol: Document 06/25/20 13:45 DCW (Rec: 06/25/20 14:31 DCW [id number]) Hip Strength Hip Manual Muscle Testing Right Flexion (L2) 4+ Good+ Abduction 4+ Good+ Adduction 4+ Good+ Left Flexion (L2) 3+ Fair+ Abduction 4+ Good+ Adduction 4+ Good+ Knee Strength Knee Manual Muscle Testing Right Flexion (S2) 4+ Good+ Extension (L3) 4+ Good+ Left Flexion (S2) 4+ Good+ Extension (L3) 4+ Good+ PT-OP-O Vestibular Start: 06/17/20 09:29 Freq: Status: Active Protocol: Document 06/14/20 15:15 DCW (Rec: 06/17/20 10:16 DCW [id number]) Vestibular Assessment Screening Tests Vestibular Artery Screen Negative Auditory Tests Macdonald Test Within normal limits Rinne Test Negative Air Conduction Results Equal Visual Testing Smooth Pursuits Horizontal Negative Smooth Pursuits Vertical Negative Saccades Horizontal Negative Gaze Evoked Nystagmus With Fixation Negative Gaze Evoked Nystagmus Without Fixation Negative Heave Test Positive Bilateral Thrust Head Positive Bilateral Convergence Test Impaired Positional Testing Sidelying Test Negative Left,Negative Right Comments Vestibular Comments Thrust/Heave test: Positive bilaterally, appears to be more of an inattention than true positive, but pt has difficulty focusing on target. Convergence: Unable to test, pt does not use left eye for vision, does not converge. PT-OP-Q Treatments Start: 06/17/20 09:29 Freq: Status: Active Protocol: Document 07/31/20 14:30 DCW (Rec: 07/31/20 15:05 DCW [id number]) Gym Equipment Shuttle Balance Red Comments Wide JOSE (EO, EC, X1) Staggered Stance Therapeutic Exercises Standing Exercises 2 Standing Exercise Name Hamstring curls Side bilateral Resistance 4# R, 0# L d/t open sore on calf Comments x20 1 Standing Exercise Name Toe taps Side bilateral Resistance 4# R, 0# L d/t open sore on calf Equipment Used 6 step Comments x20 Other Exercises 1 Other Exercise Name Resisted ambulation Resistance Yellow Equipment Used T-band Reps/Minutes rail x2 each direction Comments Lateral, Fwd, Bkwd PT-OP-T Assessment and Plan Start: 06/17/20 09:29 Freq: Status: Active Protocol: Document 07/31/20 14:30 DCW (Rec: 07/31/20 15:05 DCW [id number]) Physical Therapy Assessment Impairments Impairments Activity Tolerance,Balance, Functional Activities, Functional Mobility,Gait, Sensation,Soft Tissue Mobility ,Strength,Vestibular Goals Three Impairment Pt at an increased risk of falls, per Cleaning Balance scale Fpc Goal (LTG) Pt to score a 45/56 on the Cleaning Balance scale to demonstrate reduced risk of falls LTG Duration 08/23/20 Two Impairment Pt only able to stand on single leg 7 sec R and 3 sec L Fpc Goal (LTG) Pt to stand SLS 15 seconds bilaterally LTG Duration 08/23/20 One Impairment Pt does not have an appropriate home exercise program Short Term Goal (STG) Pt to be independent and compliant with an appropriate HEP STG Duration 07/19/20 Assessment Summary Assessment Pt clearly fatiguing more quickly today, required increased rest breaks and showed less stability during balance challenges. Pt ended up admitting that she felt like crap, and decided that she would do better if she ended early. Physical Therapy Plan Frequency and Duration Frequency of Treatment 2x/Week Duration of Treatment 10 weeks Plan of Care Start Date 06/14/20 Plan of Care End Date 10/30/20 Therapeutic Interventions Therapeutic Interventions Balance Training,Home Exercise Program,Manual Therapy, Neuromuscular Re-education, Patient/Caregiver Education, Self-Care/Home Management, Therapeutic Activities, Therapeutic Exercises Next Visit Focus/Plan Next Note Type Treatment Note Next Visit Plan Orthostatic measurements, DGI, Strength testing, Balance training
--- NOTE | 2020-08-02 15:17 | PT.OTN ---
Current Diagnoses Other abnormalities of gait and mobility (08/02/20) Repeated falls (08/02/20) Dizziness and giddiness (08/02/20) Physical Therapy Treatment Note PT-OP-A Visit Information Start: 06/17/20 09:29 Freq: Status: Active Protocol: Document 08/02/20 14:30 DCW (Rec: 08/02/20 15:16 DCW [id number]) Out-Patient Physical Therapy Visit Information Visit Information Visit Type Treatment Note Visit Start Time 14:30 Visit Stop Time 15:15 Total Visit Minutes 45 Visit Number 6 Number of LIVESTOCK JUDGING COACH Visits 0 Evaluation Information Evaluation Date 06/14/20 PT-OP-B Current Condition Start: 06/17/20 09:29 Freq: Status: Active Protocol: Document 06/14/20 15:15 DCW (Rec: 06/17/20 09:41 DCW [id number]) Current Condition History of Current Condition Onset Date 10 year history Current Complaints Dizziness, imbalance, falls History of Current Condition Pt is a 59 year old female presenting with a 10 year history of imbalance and falls . Pt reports that when this began ten years ago, she had wildly out of control diabetes and blood pressure, which created a significant worsening of her symptoms. Pt notes that in the last decade, she has gotten them both under much better control, but she still has problems with dizziness and nausea. Pt especially has difficulty with standing up too fast, bending over, or walking across a parking lot or in a store without a cart or canes. Additionally, pt has a significant history of left eye problems, undergoing 5 eye surgeries over the last year, and she currently has a bubble on her eye, which causes pain and prevents her from lying supine, because that creates too much pressure. Pt was tested, and has a 50% blockage of her right carotid artery, although no one feels this is causing her problems. Pt reports she was diagnosed with orthostatic hypotension a number of years ago by a physical therapist, but then her physician disagreed with that assessment . Future Testing and Treatments Planned Audiogram on 06/18/20, follow- up with Dr Gomez later in the week Personal Factors Other Personal Factors That May Effect DM II /c LE neuropathy, vision Therapy/Recovery deficits, Hx of blood pressure instability PT-OP-C Subjective Start: 06/17/20 09:29 Freq: Status: Active Protocol: Document 08/02/20 14:30 DCW (Rec: 08/02/20 15:17 DCW [id number]) OP-PT Subjective Patient Comments Patient Comments Pt reports she is feeling much better today than she had been last visit. PT-OP-D Balance Start: 06/17/20 09:29 Freq: Status: Active Protocol: Document 06/25/20 13:45 DCW (Rec: 06/25/20 14:03 DCW [id number]) Balance Tests Other Other Balance Tests Performed Orthostatic BPs: Sidelying - 120/62 Sitting - 114/70 Standing - 114/68 PT-OP-E Functional Tests Start: 06/25/20 14:03 Freq: Status: Active Protocol: Document 06/25/20 13:45 DCW (Rec: 06/25/20 14:31 DCW [id number]) Functional Tests Dynamic Gait Index (DGI) Score 10/17 DGI Impairment Rating 40 to <60% Impaired (Score 10- 14) PT-OP-M Strength Start: 06/25/20 14:03 Freq: Status: Active Protocol: Document 06/25/20 13:45 DCW (Rec: 06/25/20 14:31 DCW [id number]) Hip Strength Hip Manual Muscle Testing Right Flexion (L2) 4+ Good+ Abduction 4+ Good+ Adduction 4+ Good+ Left Flexion (L2) 3+ Fair+ Abduction 4+ Good+ Adduction 4+ Good+ Knee Strength Knee Manual Muscle Testing Right Flexion (S2) 4+ Good+ Extension (L3) 4+ Good+ Left Flexion (S2) 4+ Good+ Extension (L3) 4+ Good+ PT-OP-O Vestibular Start: 06/17/20 09:29 Freq: Status: Active Protocol: Document 06/14/20 15:15 DCW (Rec: 06/17/20 10:16 DCW [id number]) Vestibular Assessment Screening Tests Vestibular Artery Screen Negative Auditory Tests Macdonald Test Within normal limits Rinne Test Negative Air Conduction Results Equal Visual Testing Smooth Pursuits Horizontal Negative Smooth Pursuits Vertical Negative Saccades Horizontal Negative Gaze Evoked Nystagmus With Fixation Negative Gaze Evoked Nystagmus Without Fixation Negative Heave Test Positive Bilateral Thrust Head Positive Bilateral Convergence Test Impaired Positional Testing Sidelying Test Negative Left,Negative Right Comments Vestibular Comments Thrust/Heave test: Positive bilaterally, appears to be more of an inattention than true positive, but pt has difficulty focusing on target. Convergence: Unable to test, pt does not use left eye for vision, does not converge. PT-OP-Q Treatments Start: 06/17/20 09:29 Freq: Status: Active Protocol: Document 08/02/20 14:30 DCW (Rec: 08/02/20 15:16 DCW [id number]) Gym Equipment Shuttle Balance Red Comments Wide JOSE (EO, EC) Staggered Stance Lateral Weight Shift Therapeutic Exercises Standing Exercises 3 Standing Exercise Name Heel stretch 2 Standing Exercise Name Hamstring curls Side bilateral Resistance 4# R, 0# L d/t open sore on calf Comments x20 1 Standing Exercise Name Toe taps Side bilateral Resistance 4# R, 0# L d/t open sore on calf Equipment Used 6 step Comments x20 Other Exercises 1 Other Exercise Name Resisted ambulation Resistance Yellow Equipment Used T-band Reps/Minutes rail x2 each direction Comments Lateral, Fwd, Bkwd Neuro Re-Education Treatment Balance Activities Tandem Stance Details Tandem Stance Tandem Ambulation Details Tandem Amb SLS Details SLS Equipment // bars Foam Stance Details NBOS Surface [place] Comments EO/EC Narrow JOSE Details EO/EC, Head Turns PT-OP-T Assessment and Plan Start: 06/17/20 09:29 Freq: Status: Active Protocol: Document 08/02/20 14:30 DCW (Rec: 08/02/20 15:16 DCW [id number]) Physical Therapy Assessment Impairments Impairments Activity Tolerance,Balance, Functional Activities, Functional Mobility,Gait, Sensation,Soft Tissue Mobility ,Strength,Vestibular Goals Three Impairment Pt at an increased risk of falls, per Cleaning Balance scale Piper Installer Goal (LTG) Pt to score a 45/56 on the Cleaning Balance scale to demonstrate reduced risk of falls LTG Duration 08/23/20 Two Impairment Pt only able to stand on single leg 7 sec R and 3 sec L Skilled Nursing Goal (LTG) Pt to stand SLS 15 seconds bilaterally LTG Duration 08/23/20 One Impairment Pt does not have an appropriate home exercise program Short Term Goal (STG) Pt to be independent and compliant with an appropriate HEP STG Duration 07/19/20 Assessment Summary Assessment Pt feeling much better today, able to tolerate full session. Pt unsure if she is seeing improvement with therapy, would like to work on her HEP over the weekend, and return Wednesday to determine if she would like to continue therapy or discharge. Physical Therapy Plan Frequency and Duration Frequency of Treatment 2x/Week Duration of Treatment 10 weeks Plan of Care Start Date 06/14/20 Plan of Care End Date 08/23/20 Therapeutic Interventions Therapeutic Interventions Balance Training,Home Exercise Program,Manual Therapy, Neuromuscular Re-education, Patient/Caregiver Education, Self-Care/Home Management, Therapeutic Activities, Therapeutic Exercises Next Visit Focus/Plan Next Note Type Treatment Note Next Visit Plan Orthostatic measurements, DGI, Strength testing, Balance training
--- NOTE | 2020-08-07 15:13 | PT.OTN ---
Current Diagnoses Other abnormalities of gait and mobility (08/07/20) Repeated falls (08/07/20) Dizziness and giddiness (08/07/20) Physical Therapy Treatment Note PT-OP-A Visit Information Start: 06/17/20 09:29 Freq: Status: Active Protocol: Document 08/07/20 14:30 DCW (Rec: 08/07/20 15:13 DCW [id number]) Out-Patient Physical Therapy Visit Information Visit Information Visit Type Discharge Summary Visit Start Time 14:30 Visit Stop Time 15:15 Total Visit Minutes 45 Visit Number 7 Number of SMOKE EATER Visits 0 Evaluation Information Evaluation Date 06/14/20 PT-OP-B Current Condition Start: 06/17/20 09:29 Freq: Status: Active Protocol: Document 06/14/20 15:15 DCW (Rec: 06/17/20 09:41 DCW [id number]) Current Condition History of Current Condition Onset Date 10 year history Current Complaints Dizziness, imbalance, falls History of Current Condition Pt is a 59 year old female presenting with a 10 year history of imbalance and falls . Pt reports that when this began ten years ago, she had wildly out of control diabetes and blood pressure, which created a significant worsening of her symptoms. Pt notes that in the last decade, she has gotten them both under much better control, but she still has problems with dizziness and nausea. Pt especially has difficulty with standing up too fast, bending over, or walking across a parking lot or in a store without a cart or canes. Additionally, pt has a significant history of left eye problems, undergoing 5 eye surgeries over the last year, and she currently has a bubble on her eye, which causes pain and prevents her from lying supine, because that creates too much pressure. Pt was tested, and has a 50% blockage of her right carotid artery, although no one feels this is causing her problems. Pt reports she was diagnosed with orthostatic hypotension a number of years ago by a physical therapist, but then her physician disagreed with that assessment . Future Testing and Treatments Planned Audiogram on 06/18/20, follow- up with Dr Gomez later in the week Personal Factors Other Personal Factors That May Effect DM II /c LE neuropathy, vision Therapy/Recovery deficits, Hx of blood pressure instability PT-OP-C Subjective Start: 06/17/20 09:29 Freq: Status: Active Protocol: Document 08/07/20 14:30 DCW (Rec: 08/07/20 15:13 DCW [id number]) OP-PT Subjective Patient Comments Patient Comments Pt reports that on Wednesday, she lost her balance and fell off the riser that she uses to get into and out of bed. Reports she landed on her right knee and hurt her right hip. Also, reports the blister on my calf is now an ulcer and is infected Per patient, ED told her to keep up with PT, we want you moving . Pt comes in today with a 4WW. PT-OP-D Balance Start: 06/17/20 09:29 Freq: Status: Active Protocol: Document 06/25/20 13:45 DCW (Rec: 06/25/20 14:03 DCW [id number]) Balance Tests Other Other Balance Tests Performed Orthostatic BPs: Sidelying - 120/62 Sitting - 114/70 Standing - 114/68 PT-OP-E Functional Tests Start: 06/25/20 14:03 Freq: Status: Active Protocol: Document 06/25/20 13:45 DCW (Rec: 06/25/20 14:31 DCW [id number]) Functional Tests Dynamic Gait Index (DGI) Score 10/17 DGI Impairment Rating 40 to <60% Impaired (Score 10- 14) PT-OP-M Strength Start: 06/25/20 14:03 Freq: Status: Active Protocol: Document 06/25/20 13:45 DCW (Rec: 06/25/20 14:31 DCW [id number]) Hip Strength Hip Manual Muscle Testing Right Flexion (L2) 4+ Good+ Abduction 4+ Good+ Adduction 4+ Good+ Left Flexion (L2) 3+ Fair+ Abduction 4+ Good+ Adduction 4+ Good+ Knee Strength Knee Manual Muscle Testing Right Flexion (S2) 4+ Good+ Extension (L3) 4+ Good+ Left Flexion (S2) 4+ Good+ Extension (L3) 4+ Good+ PT-OP-O Vestibular Start: 06/17/20 09:29 Freq: Status: Active Protocol: Document 06/14/20 15:15 DCW (Rec: 06/17/20 10:16 DCW [id number]) Vestibular Assessment Screening Tests Vestibular Artery Screen Negative Auditory Tests Macdonald Test Within normal limits Rinne Test Negative Air Conduction Results Equal Visual Testing Smooth Pursuits Horizontal Negative Smooth Pursuits Vertical Negative Saccades Horizontal Negative Gaze Evoked Nystagmus With Fixation Negative Gaze Evoked Nystagmus Without Fixation Negative Heave Test Positive Bilateral Thrust Head Positive Bilateral Convergence Test Impaired Positional Testing Sidelying Test Negative Left,Negative Right Comments Vestibular Comments Thrust/Heave test: Positive bilaterally, appears to be more of an inattention than true positive, but pt has difficulty focusing on target. Convergence: Unable to test, pt does not use left eye for vision, does not converge. PT-OP-Q Treatments Start: 06/17/20 09:29 Freq: Status: Active Protocol: Document 08/07/20 14:30 DCW (Rec: 08/07/20 15:13 DCW [id number]) Gym Equipment Shuttle Balance Red Comments Wide JOSE (EO, EC) Staggered Stance Lateral Weight Shift Therapeutic Exercises Standing Exercises 4 Standing Exercise Name Standing marching Side bilateral Resistance 5# R, 0# L 3 Standing Exercise Name Heel stretch Equipment Used TYRESE 2 Standing Exercise Name Hamstring curls Side bilateral Resistance 4# R, 0# L d/t open sore on calf Comments x20 1 Standing Exercise Name Toe taps Side bilateral Resistance 4# R, 0# L d/t open sore on calf Equipment Used 6 step Comments x20 Other Exercises 1 Other Exercise Name Resisted ambulation Resistance Yellow Equipment Used T-band Reps/Minutes rail x2 each direction Comments Lateral, Fwd, Bkwd Neuro Re-Education Treatment Balance Activities SLS Details SLS Equipment // bars Foam Stance Details NBOS Surface [place] Comments EO/EC PT-OP-T Assessment and Plan Start: 06/17/20 09:29 Freq: Status: Active Protocol: Document 08/07/20 14:30 DCW (Rec: 08/07/20 15:13 DCW [id number]) Physical Therapy Assessment Impairments Impairments Activity Tolerance,Balance, Functional Activities, Functional Mobility,Gait, Sensation,Soft Tissue Mobility ,Strength,Vestibular Goals Three Impairment Pt at an increased risk of falls, per Cleaning Balance scale Operator Command Support Systems Goal (LTG) Pt to score a 45/56 on the Cleaning Balance scale to demonstrate reduced risk of falls LTG Duration 08/23/20 Two Impairment Pt only able to stand on single leg 7 sec R and 3 sec L Senior Care Goal (LTG) Pt to stand SLS 15 seconds bilaterally LTG Duration 08/23/20 One Impairment Pt does not have an appropriate home exercise program Short Term Goal (STG) Pt to be independent and compliant with an appropriate HEP STG Duration 07/19/20 Assessment Summary Assessment At end of today's session, pt admitted that she has been having difficulty getting rides to therapy, and would prefer to attend PT closer to home in [place]. Notes she already has a referral for her neck to a therapy clinic near her house. Pt will be discharged from skilled therapy at this time. Physical Therapy Plan Frequency and Duration Frequency of Treatment 2x/Week Duration of Treatment 10 weeks Plan of Care Start Date 06/14/20 Plan of Care End Date 08/23/20 Therapeutic Interventions Therapeutic Interventions Balance Training,Home Exercise Program,Manual Therapy, Neuromuscular Re-education, Patient/Caregiver Education, Self-Care/Home Management, Therapeutic Activities, Therapeutic Exercises Discharge Physical Therapy Discharge Reasons Patient Request Next Visit Focus/Plan Next Note Type Discharge Summary
== END 2020-08-08 09:24 ==
LOC: PHYS 14:30
PROVIDERS: PCP Physician Assistant Medical; Referring Provider Otolaryngology; Visit Provider Otolaryngology
DX: R42 Dizziness and giddiness (principal); R26.89 Other abnormalities of gait and mobility; R29.6 Repeated falls
CPT/HCPCS: 97110; 97112; 97140; 97162

== ENCOUNTER → 2020-09-28 11:31 | Outpatient (CLI) | payer OTHER, MEDICAID, SELFPAY ==
[2020-09-28 12:26] LABS: COVID19 -Nasal RAPID Negative (Negative)
== END ==
PROVIDERS: PCP Physician Assistant Medical; Visit Provider Physician Assistant
DX: Z11.59 Encounter for screening for other viral diseases (principal)
CPT/HCPCS: 87635

== ENCOUNTER → 2020-11-23 09:41 | Outpatient (CLI) | payer OTHER, MEDICAID, SELFPAY ==
[2020-11-23 11:09] LABS: COVID19 -Nasal RAPID Negative (Negative)
== END ==
PROVIDERS: PCP Physician Assistant Medical; Visit Provider Physician Assistant
DX: Z20.822 Contact with and (suspected) exposure to COVID-19 (principal)
CPT/HCPCS: 87635

== ENCOUNTER → 2020-12-09 11:46 | Outpatient (CLI) | payer OTHER, MEDICAID, SELFPAY ==
[2020-12-09 12:53] LABS: COVID19 -Nasal RAPID Negative (Negative)
== END ==
PROVIDERS: PCP Physician Assistant Medical; Visit Provider Nurse Practitioner
DX: Z01.812 Encounter for preprocedural laboratory examination (principal); Z20.822 Contact with and (suspected) exposure to COVID-19
CPT/HCPCS: 87635

== ENCOUNTER 2021-06-07 08:16 | Inpatient (IN) | payer MEDICARE, MEDICAID, SELFPAY ==
[2021-06-07] VITALS (36 sets, daily range): BP systolic 103–170; BP diastolic 40–68; PULSE 59–82; RESP 9–33; TEMP 36.5–36.6; O2SAT 92–100; BMI 48.2
[2021-06-07] MEDS: HYDROMORPHONE 1 MG INJ 2 MG IM (08:35)
[2021-06-07] MEDS: SODIUM CHLORIDE 0.9% 1,000 ML 1000 ML IV ×4 (08:35→23:20)
--- NOTE | 2021-06-07 08:47 | DI.CT.S_ITS ---
PROCEDURE: CT ABDOMEN PELVIS WO CON INDICATIONS: severe abdominal pain TECHNIQUE: Noncontrast 5 mm thick sections acquired from the diaphragms to the symphysis. 5 mm coronal and sagittal reformats were then performed. For radiation dose reduction, the following was used: automated exposure control, adjustment of mA and/or kV according to patient size. COMPARISON: None. FINDINGS: Lower thorax: The lung bases are clear. Heart size normal. No hiatal hernia. Liver: Normal in size and attenuation. No contour deformity present. Biliary system: Cholecystectomy. No intra or extrahepatic bile duct dilation. Pancreas: Unremarkable without mass or inflammation evident. Spleen: 1.5 cm coarse splenic calcification probably reflects prior granulomatous disease. Adrenals: Normal morphology and density. Reproductive system: Unremarkable as visualized. Urinary system: Normal renal size and attenuation. No renal calculi, hydronephrosis, or solid mass present. Urinary bladder unremarkable. Gastrointestinal system: In the right lower quadrant, there is inflammatory change associated with several loops of small bowel, and there is a bilobed fluid collection measuring 6.7 by 3.2 cm overall closely associated with several adjacent bowel loops.. No evidence of obstruction. Bowel suture noted in the right lower quadrant associated with the cecum as well, and the appendix is not visualized, possibly reflecting prior appendectomy. Peritoneal spaces: There is a left-sided percutaneous peritoneal dialysis catheter noted associated with stippled free air. Vasculature: The IVC, aorta and iliac vasculature are unremarkable. Diffuse atherosclerotic vascular calcification noted involving the aorta and small vessels. Musculoskeletal: Normal bone mineralization. Degenerative disc disease and arthropathy noted in lower lumbar spine. No acute fractures. Abdominal wall intact without evidence of ventral or inguinal hernias. In the ventral right upper quadrant subcutaneous tissue, there is an encapsulated fluid collection measuring 1.5 x 4.6 x 3.6 cm. IMPRESSION: 1. Right lower quadrant inflammatory change associated with several loops of small bowel and a 6.7 x 3.2 cm bilobed fluid collection as above. Differential would include a right lower quadrant abscess and matted small bowel loops. Consider follow-up CT with IV and oral contrast to further evaluate. 2. Suture line in the right lower quadrant associated with the cecum consistent with prior appendectomy. 3. Stippled free air in the anterior abdomen probably related to percutaneous dialysis catheter. 4. Subcutaneous encapsulated fluid in the ventral right upper quadrant without adjacent inflammatory change probably reflects seroma from prior surgical intervention. Approved by: Karson Telles M.D. on 06/07/2021 at 10:01
--- NOTE | 2021-06-07 08:48 | DI.RAD.S_ITS ---
PROCEDURE: XR CHEST 1V INDICATIONS: line placement TECHNIQUE: One view of the chest was acquired. COMPARISON: [facility], CR, XR CHEST 1V, 06/28/2019, 15:11. FINDINGS: Heart size is enlarged. There is mild to moderate underlying vascular congestion. Low lung volumes accentuate pulmonary interstitium and heart size. No definitive pulmonary infiltrate. Right IJ central venous line tip at the cavoatrial junction. No pneumothorax. IMPRESSION: Right IJ central venous line tip at the cavoatrial junction. No pneumothorax. Low lung volumes accentuate pulmonary interstitium and heart size. Approved by: Karson Telles M.D. on 06/07/2021 at 9:39
[2021-06-07 08:54] LABS: PCO2 VBG 41.2 mmHg (45-50); PO2 VBG 36 mmHg (35-45); pH VBG 7.39 (7.33-7.43)
[2021-06-07 08:55] LABS: HCO3 VBG 25 mmol/L (23-28); Oxygen Saturation VBG 68 % (70-75); Total CO2 VBG 26 mmol/L (24-29)
[2021-06-07 09:08] LABS: Add Manual Diff / Slide Review NO; Basophils Absolute Auto 100 /uL (0-100); Basophils Percent Auto 0.7 % (0-2); Eosinophils Absolute Auto 200 /uL (0-450); Eosinophils Percent Auto 1.4 % (2-4); Hematocrit 27.6 % (36-46); Hemoglobin 9.1 g/dL (12.0-16.0); Lymphocytes Absolute Auto 1300 /uL (1100-4500); Mean Corpuscular HGB Conc 32.9 % (30-36); Mean Corpuscular Hemoglobin 30.5 PG (26-34); Mean Corpuscular Volume 92.6 fL (80-100); Monocytes Absolute Auto 1000 /uL (0-900); Monocytes Percent Auto 6.8 % (3-14); Neutrophils Absolute Auto 11600 /uL (1500-7000); Neutrophils Percent Auto 82.1 % (50-75); Platelet Count 267 X10^3/uL (150-400); Red Blood Cell Count 2.98 X10^6/uL (4.0-5.2); Red Cell Distribution Width 13.4 % (11.6-14.8); White Blood Cell Count 14.1 X10^3/uL (4.5-11.0)
[2021-06-07 09:27] LABS: Alanine Aminotransferase 10 IU/L (<35); Albumin 3.3 g/dL (3.5-5.0); Alkaline Phosphatase 37 U/L (38-126); Aspartate Aminotransferase 23 IU/L (14-36); BUN Creatinine Ratio 23.9 (6-22); Bilirubin Total 0.3 mg/dL (0.2-1.3); Blood Urea Nitrogen 45 mg/dL (7-17); Calcium 9.6 mg/dL (8.4-10.2); Carbon Dioxide 24 mmol/L (22-32); Chloride 101 mmol/L (98-107); Estimated Glomerular Filt Rate 27.1 mL/min (>60); Globulin 3.4 g/dL (1.7-4.1); Glucose 161 mg/dL (80-110); HEMOLYSIS < 15 (0-50); Lipase 156 U/L (23-300); Magnesium 2.4 mg/dL (1.6-2.3); Sodium 134 mmol/L (137-145); Total Protein 6.7 g/dL (6.3-8.2)
[2021-06-07 09:29] LABS: Potassium 6.1 mmol/L (3.4-5.1)
[2021-06-07 09:39] LABS: Troponin I < 0.012 ng/mL (0.01-0.034)
[2021-06-07 10:17] LABS: COVID19 - ADMIT (NP swab/PCR) Negative (Negative)
--- NOTE | 2021-06-07 10:28 | ED_ITS ---
HPI - GI Bleed General Chief complaint: GI Bleed Stated complaint: Syncope Time Seen by Provider: 06/07/21 08:17 Source: EMS Mode of arrival: EMS Limitations: physical limitation History of Present Illness HPI Narrative: 60-year-old woman with a history of poorly-controlled diabetes, history of gastric banding, hypertension, peripheral neuropathy, hyperlipidemia with a complicated appendicitis with surgical intervention at [facility] on May 13. Apparently there were complications with the appen dicitis she was treated with antibiotics she had of prolonged ICU stay and she was discharged with a drain remaining in place to [facility] long-term. At [facility] she apparently developed diarrhea which is been profuse and watery over the last 5 days. Today she had a syncopal episode on the toilet and was brought into [facility] for further evaluation. She is complaining of significant abdominal pain is obviously dehydrated continuing to watery bloody diarrhea. Related Data Home Medications Medication Instructions Recorded Confirmed Nose [place] 1 spray INTRANASAL DIRECTED 06/28/19 06/28/19 Vitamin D3 10,000 unit PO DAILY 06/28/19 06/28/19 aspirin 81 mg tablet,delayed 81 mg PO DAILY 06/28/19 06/28/19 release calcium carbonate 600 mg calcium 600 mg PO DAILY 06/28/19 06/28/19 (1,500 mg) tablet (Calcium) carvedilol 6.25 mg tablet 6.25 mg PO BID 06/28/19 06/28/19 coenzyme Q10 100 mg capsule (Co 100 mg PO QPM 06/28/19 06/28/19 Q-10) empagliflozin 25 mg tablet 25 mg PO DAILY 06/28/19 06/28/19 (Jardiance) furosemide 80 mg tablet 80 mg PO DAILY 06/28/19 06/28/19 gabapentin 300 mg capsule 1,200 mg PO BID 06/28/19 06/28/19 glipizide 10 mg tablet 10 mg PO BID 06/28/19 06/28/19 insulin glargine 100 unit/mL 50 unit SUBCUT QPM 06/28/19 06/28/19 subcutaneous solution (Lantus U-100 Insulin) insulin lispro 100 unit/mL 5 - 10 unit SUBCUT TID 06/28/19 06/28/19 subcutaneous solution (Humalog U-100 Insulin) lisinopril 20 mg tablet 20 mg PO BID 06/28/19 06/28/19 potassium chloride 10 mEq 10 meq PO DAILY 06/28/19 06/28/19 tablet,extended release rosuvastatin 5 mg tablet 5 mg PO BEDTIME 06/28/19 06/28/19 vitamin E 1 cap PO BEDTIME 06/28/19 06/28/19 Allergies Allergy/AdvReac Type Severity Reaction Status Date / Time amoxicillin [From Augmentin] Allergy Intermediate Hives Verified 06/28/19 13:32 azithromycin [From Zithromax] Allergy Intermediate Hives Verified 06/28/19 13:32 ciprofloxacin [From Cipro] Allergy Intermediate Rash Verified 06/28/19 13:32 clavulanic acid Allergy Intermediate Hives Verified 06/28/19 13:32 [From Augmentin] nitrofurantoin Allergy Intermediate Hives Verified 06/28/19 13:32 [From Macrobid] liraglutide [From Victoza] Allergy Unknown Verified 06/28/19 13:32 codeine AdvReac Intermediate Gastrointestinal Verified 06/28/19 13:32 Upset indomethacin [From Indocin] AdvReac Intermediate Gastrointestinal Verified 06/28/19 13:32 Upset metformin [From Glucophage] AdvReac Intermediate Gastrointestinal Verified 06/28/19 13:32 Upset Qvutlan-Bup-Cbb Reductase AdvReac Intermediate Joint Pain Verified 06/28/19 13:32 Inhibitor Review of Systems Review of Systems ROS Unobtainable: Unobtainable due to medical condition Patient History Medical History (Updated 06/07/21 @ 12:41 by Mary Hogan MD) Diabetes Hyperlipidemia Hypertension Surgical History (Updated 06/07/21 @ 12:14 by Mary Hogan MD) History of appendectomy Hx of cataract surgery Social History Smoking Status: Never smoker Smoking Status: Never smoker alcohol intake frequency: a few times a month Substance Use Type: does not use Exam Narrative Exam Narrative: General: Acutely ill-appearing, pale diaphoretic in obvious pain unable to cooperate fully with exam and history taking HEENT: Dry mucous membranes, normal sclera with reactive pupils, Neck: No JVD, supple Respiratory: Lungs are clear to auscultation, no wheezing no rales no rhonchi. Full and symmetrical air movement Cardiac: Regular rate and rhythm no murmurs no bruits Abdomen: Obese, diffusely tender, single JANAK drain in place, recent laparoscopic appendectomy incisions and trocar sites are free of infection Skin: Pale and diaphoretic Neurologic: Globally weak, Grossly neurologically intact with no obvious asymm etries or abnormalities Extremities: No trauma, Psych: Hurting him uncomfortable, unable/unwilling to cooperate with detailed history taking Initial Vital Signs Initial Vital Signs: Vital Signs Pulse Rate 59 L 06/07/21 09:00 Respiratory Rate 16 06/07/21 09:00 Blood Pressure 108/56 L 06/07/21 09:00 Pulse Oximetry 92 06/07/21 09:00 Procedures Central Line Placement Right IJ: Time of procedure: 08:00 Patient Placed on Monitor/Pulse Ox: Yes MD Prep: mask, gown and gloves Central Line Prep: Chlorhexidine scrub and sterile drapes applied Local Anesthetic: lidocaine 1% Amount of anesthesia used (mL): 4 Ultrasound Used for Placement: Yes Central Line Lumen Inserted: triple Post Procedure: sutured in place (Catheter retaining device used), good b lood return, all ports aspirated, flushed, capped and sterile dressing applied Post Procedure X-Ray: tip of catheter in good position and no pneumothorax seen Patient Tolerated Procedure: Well Complications: none Course Orders Ordered: ED Orders 06/07/21 08:30 GI Panel (Film Array) Stat 06/07/21 08:45 Venous Blood Gas Stat 06/07/21 08:47 CT abdomen pelvis wo con Stat 06/07/21 08:48 XR chest 1V Stat EKG-12 Lead Stat 06/07/21 09:00 Blood Culture Stat COVID19 - ADMIT (RESIDENT CARE ASSOCIATE swab/PCR) Stat Complete Blood Count AUTO DIFF Stat Comprehensive Metabolic Panel Stat Lactate (Lactic Acid) Stat Lipase Stat Magnesium Stat Troponin I Stat Type and Screen Stat 06/07/21 10:40 Urinalysis and Microscopic Stat Hydromorphone HCl (Hydromorphone 0.5 Mg Inj) 0.5 mg IV Q15MIN PRN PRN Reason: Pain, Last Admin: 06/07/21 12:40 Dose: 0.5 mg Documented by: Admin: 06/07/21 10:38 Dose: 0.5 mg Documented by: CHENCHO Vancomycin HCl (Vancomycin 125 Mg Capsule) 125 mg PO QID FELICE Last Admin: 06/07/21 13:03 Dose: 125 mg Documented by: CHENCHO Discontinued Medications Hydromorphone HCl (Hydromorphone 1 Mg Inj) 2 mg IM NOW ONE Stop: 06/07/21 08:30 Last Admin: 06/07/21 08:35 Dose: 2 mg Documented by: DYLAN Sodium Chloride (Normal Saline 0.9%) 1,000 mls @ 1,000 mls/hr IV BOLUS ONE Stop: 06/07/21 09:58 Last Infusion: 06/07/21 10:32 Dose: 0 mls/hr Documented by: Admin: 06/07/21 08:35 Dose: 1,000 mls/hr Documented by: DYLAN Sodium Chloride (Normal Saline 0.9%) 1,000 mls @ 1,000 mls/hr IV BOLUS ONE Stop: 06/07/21 11:38 Last Infusion: 06/07/21 13:17 Dose: 0 mls/hr Documented by: Admin: 06/07/21 12:00 Dose: 1,000 mls/hr Documented by: CHENCHO Ceftriaxone Sodium 2,000 mg/ (Sodium Chloride) 100 mls @ 200 mls/hr IV NOW ONE Stop: 06/07/21 12:44 Last Infusion: 06/07/21 14:20 Dose: 0 mls/hr Documented by: Admin: 06/07/21 13:03 Dose: 200 mls/hr Documented by: CHENCHO Metronidazole (Flagyl) 500 mg in 100 mls @ 100 mls/hr IV NOW ONE Stop: 06/07/21 13:42 Last Infusion: 06/07/21 14:21 Dose: 0 mls/hr Documented by: Admin: 06/07/21 13:03 Dose: 100 mls/hr Documented by: CHENCHO Ondansetron HCl (Ondansetron 4 Mg/2 Ml Inj) 4 mg IV NOW ONE Stop: 06/07/21 08:47 Last Admin: 06/07/21 10:33 Dose: 4 mg Documented by: CHENCHO Vital Signs Vital signs: Vital Signs - 8 hr 06/07/21 09:00 06/07/21 09:02 06/07/21 09:15 Pulse Rate 59 L 65 82 Respiratory Rate 16 22 17 Blood Pressure 108/56 L 108/56 L 110/57 L Pulse Oximetry 92 98 93 06/07/21 09:30 06/07/21 09:56 06/07/21 10:00 Pulse Rate 72 71 71 Respiratory Rate 16 13 Blood Pressure 129/60 Pulse Oximetry 93 94 100 06/07/21 10:03 06/07/21 10:30 06/07/21 10:38 Pulse Rate 71 70 68 Respiratory Rate 24 18 13 Blood Pressure 150/66 H 170/63 H 164/68 H Pulse Oximetry 100 97 100 06/07/21 11:00 06/07/21 11:01 06/07/21 11:30 Pulse Rate 69 69 70 Respiratory Rate 11 L 12 11 L Blood Pressure 132/56 L 136/60 Pulse Oximetry 100 100 100 06/07/21 12:00 06/07/21 12:01 06/07/21 12:30 Pulse Rate 66 66 72 Respiratory Rate 13 11 L 19 Blood Pressure 113/56 L Pulse Oximetry 100 100 100 06/07/21 12:31 06/07/21 13:00 06/07/21 13:01 Pulse Rate 74 71 71 Respiratory Rate 20 11 L 11 L Blood Pressure 138/62 140/60 Pulse Oximetry 100 100 100 06/07/21 13:30 06/07/21 13:31 06/07/21 14:00 Pulse Rate 71 70 73 Respiratory Rate 10 L 9 L 11 L Blood Pressure 108/51 L Pulse Oximetry 99 100 100 06/07/21 14:01 Pulse Rate 72 Respiratory Rate 10 L Blood Pressure 124/60 Pulse Oximetry 100 MDM - GI Bleed Lab Data Result diagrams: 06/07/21 09:00 06/07/21 09:00 Labs: Lab Results 06/07/21 06/07/21 06/07/21 Range/Units 08:30 08:45 09:00 WBC 14.1 H (4.5-11.0) X10^3/uL RBC 2.98 L (4.0-5.2) X10^6/uL Hgb 9.1 L (12.0-16.0) g/dL Hct 27.6 L (36-46) % MCV 92.6 (80-100) fL MCH 30.5 (26-34) PG MCHC 32.9 (30-36) % RDW 13.4 (11.6-14.8) % Plt Count 267 (150-400) X10^3/uL Neut % (Auto) 82.1 H (50-75) % Lymph % (Auto) 9.0 L (25-40) % [place] % (Auto) 6.8 (3-14) % Eos % (Auto) 1.4 L (2-4) % Baso % (Auto) 0.7 (0-2) % Neut # (Auto) 52960 H (3948-4200) /uL Lymph # (Auto) 1300 (2488-0347) /uL [place] # (Auto) 1000 H (0-900) /uL Eos # (Auto) 200 (0-450) /uL Baso # (Auto) 100 (0-100) /uL VBG pH 7.39 (7.33-7.43) VBG pCO2 41.2 L (45-50) mmHg VBG pO2 36 (35-45) mmHg VBG HCO3 25 (23-28) mmol/L VBG Total CO2 26 (24-29) mmol/L VBG O2 Saturation 68 L (70-75) % VBG Base Excess 0.0 (0-4) mmol/L Sodium (137-145) mmol/L Potassium (3.4-5.1) mmol/L Chloride (98-107) mmol/L Carbon Dioxide (22-32) mmol/L BUN (7-17) mg/dL Creatinine (0.52-1.04) mg/dL Estimated GFR (>60) mL/min BUN/Creatinine Ratio (6-22) Glucose (80-110) mg/dL Lactate (0.7-2.1) mmol/L Calcium (8.4-10.2) mg/dL Magnesium (1.6-2.3) mg/dL Total Bilirubin (0.2-1.3) mg/dL AST (14-36) IU/L ALT (<35) IU/L Alkaline Phosphatase (38-126) U/L Troponin I (0.01-0.034) ng/mL Total Protein (6.3-8.2) g/dL Albumin (3.5-5.0) g/dL Globulin (1.7-4.1) g/dL Albumin/Globulin Ratio (1.0-2.8) Lipase (23-300) U/L Urine Color Urine Appearance Urine pH (4.5-8.0) Ur Specific [place] (1.000-1.035) Urine Protein (Negative) Urine Glucose (UA) (Negative) g/dL Urine Ketones (NEGATIVE) Urine Occult Blood (Negative) Urine Nitrate (Negative) Urine Bilirubin (NEGATIVE) Urine Urobilinogen (0.2) E.U./dL Ur Leukocyte Esterase (NEGATIVE) Urine RBC (0-5/HPF) Urine WBC (0-5/HPF) Urine Bacteria (None) Ur Culture Indicated? Micro UA Comment Stl C. cayetanensis PCR Not detected (Not Detect) Stool Rotavirus (PCR) Not detected (Not Detect) Stool Adenovirus (PCR) Not detected (Not Detect) Stool Astrovirus (PCR) Not detected (Not Detect) Stool Cryptosporidium PCR Not detected (Not Detect) Stl E.coli Shiga Tox PCR Not detected (Not Detect) St Sh/Enteroin Ecoli PCR Not detected (Not Detect) Stool E coli O157 PCR Not detected (Not Detect) Stl Enterotoxigenic E PCR Not detected (Not Detect) Stool EPEC (PCR) Not detected (Not Detect) Stl E. histolytica PCR Not detected (Not Detect) Stool Giardia Lamblia PCR Not detected (Not Detect) Stool Sapovirus (PCR) Not detected (Not Detect) Stl P. shigelloides PCR Not detected (Not Detect) St Y.enterocolitica PCR Not detected (Not Detect) Stool Vibrio (PCR) Not detected (Not Detect) Stl Vibrio cholerae PCR Not detected (Not Detect) Stl Enteroaggr Ecoli PCR Not detected (Not Detect) Stl Norovirus GI/GII PCR Not detected (Not Detect) Campylobacter (PCR) Not detected (Not Detect) C. difficile Tox (PCR) Detected H (Not Detect) SARS-CoV-2 (PCR) (Negative) Salmonella (PCR) Not detected (Not Detect) Blood Type Antibody Screen 06/07/21 06/07/21 06/07/21 Range/Units 09:00 09:00 09:00 WBC (4.5-11.0) X10^3/uL RBC (4.0-5.2) X10^6/uL Hgb (12.0-16.0) g/dL Hct (36-46) % MCV (80-100) fL MCH (26-34) PG MCHC (30-36) % RDW (11.6-14.8) % Plt Count (150-400) X10^3/uL Neut % (Auto) (50-75) % Lymph % (Auto) (25-40) % [place] % (Auto) (3-14) % Eos % (Auto) (2-4) % Baso % (Auto) (0-2) % Neut # (Auto) (6161-5448) /uL Lymph # (Auto) (9843-2605) /uL [place] # (Auto) (0-900) /uL Eos # (Auto) (0-450) /uL Baso # (Auto) (0-100) /uL VBG pH (7.33-7.43) VBG pCO2 (45-50) mmHg VBG pO2 (35-45) mmHg VBG HCO3 (23-28) mmol/L VBG Total CO2 (24-29) mmol/L VBG O2 Saturation (70-75) % VBG Base Excess (0-4) mmol/L Sodium 134 L (137-145) mmol/L Potassium 6.1 H (3.4-5.1) mmol/L Chloride 101 (98-107) mmol/L Carbon Dioxide 24 (22-32) mmol/L BUN 45 H (7-17) mg/dL Creatinine 1.88 H (0.52-1.04) mg/dL Estimated GFR 27.1 L (>60) mL/min BUN/Creatinine Ratio 23.9 H (6-22) Glucose 161 H (80-110) mg/dL Lactate 1.0 (0.7-2.1) mmol/L Calcium 9.6 (8.4-10.2) mg/dL Magnesium 2.4 H (1.6-2.3) mg/dL Total Bilirubin 0.3 (0.2-1.3) mg/dL AST 23 (14-36) IU/L ALT 10 (<35) IU/L Alkaline Phosphatase 37 L (38-126) U/L Troponin I < 0.012 (0.01-0.034) ng/mL Total Protein 6.7 (6.3-8.2) g/dL Albumin 3.3 L (3.5-5.0) g/dL Globulin 3.4 (1.7-4.1) g/dL Albumin/Globulin Ratio 1.0 (1.0-2.8) Lipase 156 (23-300) U/L Urine Color Urine Appearance Urine pH (4.5-8.0) Ur Specific [place] (1.000-1.035) Urine Protein (Negative) Urine Glucose (UA) (Negative) g/dL Urine Ketones (NEGATIVE) Urine Occult Blood (Negative) Urine Nitrate (Negative) Urine Bilirubin (NEGATIVE) Urine Urobilinogen (0.2) E.U./dL Ur Leukocyte Esterase (NEGATIVE) Urine RBC (0-5/HPF) Urine WBC (0-5/HPF) Urine Bacteria (None) Ur Culture Indicated? Micro UA Comment Stl C. cayetanensis PCR (Not Detect) Stool Rotavirus (PCR) (Not Detect) Stool Adenovirus (PCR) (Not Detect) Stool Astrovirus (PCR) (Not Detect) Stool Cryptosporidium PCR (Not Detect) Stl E.coli Shiga Tox PCR (Not Detect) St Sh/Enteroin Ecoli PCR (Not Detect) Stool E coli O157 PCR (Not Detect) Stl Enterotoxigenic E PCR (Not Detect) Stool EPEC (PCR) (Not Detect) Stl E. histolytica PCR (Not Detect) Stool Giardia Lamblia PCR (Not Detect) Stool Sapovirus (PCR) (Not Detect) Stl P. shigelloides PCR (Not Detect) St Y.enterocolitica PCR (Not Detect) Stool Vibrio (PCR) (Not Detect) Stl Vibrio cholerae PCR (Not Detect) Stl Enteroaggr Ecoli PCR (Not Detect) Stl Norovirus GI/GII PCR (Not Detect) Campylobacter (PCR) (Not Detect) C. difficile Tox (PCR) (Not Detect) SARS-CoV-2 (PCR) (Negative) Salmonella (PCR) (Not Detect) Blood Type A Positive Antibody Screen Negative 06/07/21 06/07/21 Range/Units 09:00 10:40 WBC (4.5-11.0) X10^3/uL RBC (4.0-5.2) X10^6/uL Hgb (12.0-16.0) g/dL Hct (36-46) % MCV (80-100) fL MCH (26-34) PG MCHC (30-36) % RDW (11.6-14.8) % Plt Count (150-400) X10^3/uL Neut % (Auto) (50-75) % Lymph % (Auto) (25-40) % [place] % (Auto) (3-14) % Eos % (Auto) (2-4) % Baso % (Auto) (0-2) % Neut # (Auto) (1481-2099) /uL Lymph # (Auto) (1485-4791) /uL [place] # (Auto) (0-900) /uL Eos # (Auto) (0-450) /uL Baso # (Auto) (0-100) /uL VBG pH (7.33-7.43) VBG pCO2 (45-50) mmHg VBG pO2 (35-45) mmHg VBG HCO3 (23-28) mmol/L VBG Total CO2 (24-29) mmol/L VBG O2 Saturation (70-75) % VBG Base Excess (0-4) mmol/L Sodium (137-145) mmol/L Potassium (3.4-5.1) mmol/L Chloride (98-107) mmol/L Carbon Dioxide (22-32) mmol/L BUN (7-17) mg/dL Creatinine (0.52-1.04) mg/dL Estimated GFR (>60) mL/min BUN/Creatinine Ratio (6-22) Glucose (80-110) mg/dL Lactate (0.7-2.1) mmol/L Calcium (8.4-10.2) mg/dL Magnesium (1.6-2.3) mg/dL Total Bilirubin (0.2-1.3) mg/dL AST (14-36) IU/L ALT (<35) IU/L Alkaline Phosphatase (38-126) U/L Troponin I (0.01-0.034) ng/mL Total Protein (6.3-8.2) g/dL Albumin (3.5-5.0) g/dL Globulin (1.7-4.1) g/dL Albumin/Globulin Ratio (1.0-2.8) Lipase (23-300) U/L Urine Color Yellow Urine Appearance Clear Urine pH 5.0 (4.5-8.0) Ur Specific [place] <=1.005 (1.000-1.035) Urine Protein Negative (Negative) Urine Glucose (UA) Negative (Negative) g/dL Urine Ketones Negative (NEGATIVE) Urine Occult Blood Negative (Negative) Urine Nitrate Negative (Negative) Urine Bilirubin Negative (NEGATIVE) Urine Urobilinogen 0.2 (0.2) E.U./dL Ur Leukocyte Esterase Negative (NEGATIVE) Urine RBC None seen (0-5/HPF) Urine WBC None seen (0-5/HPF) Urine Bacteria None seen (None) Ur Culture Indicated? Cult not indicated Micro UA Comment Microscopic normal Stl C. cayetanensis PCR (Not Detect) Stool Rotavirus (PCR) (Not Detect) Stool Adenovirus (PCR) (Not Detect) Stool Astrovirus (PCR) (Not Detect) Stool Cryptosporidium PCR (Not Detect) Stl E.coli Shiga Tox PCR (Not Detect) St Sh/Enteroin Ecoli PCR (Not Detect) Stool E coli O157 PCR (Not Detect) Stl Enterotoxigenic E PCR (Not Detect) Stool EPEC (PCR) (Not Detect) Stl E. histolytica PCR (Not Detect) Stool Giardia Lamblia PCR (Not Detect) Stool Sapovirus (PCR) (Not Detect) Stl P. shigelloides PCR (Not Detect) St Y.enterocolitica PCR (Not Detect) Stool Vibrio (PCR) (Not Detect) Stl Vibrio cholerae PCR (Not Detect) Stl Enteroaggr Ecoli PCR (Not Detect) Stl Norovirus GI/GII PCR (Not Detect) Campylobacter (PCR) (Not Detect) C. difficile Tox (PCR) (Not Detect) SARS-CoV-2 (PCR) Negative (Negative) Salmonella (PCR) (Not Detect) Blood Type Antibody Screen Imaging Data Chest x-ray: Radiologist's Impression: FINDINGS: Heart size is enlarged. There is mild to moderate underlying vascular congestion. Low lung volumes accentuate pulmonary interstitium and heart size. No definitive pulmonary infiltrate. Right IJ central venous line tip at the cavoatrial junction. No pneumothorax. IMPRESSION: Right IJ central venous line tip at the cavoatrial junction. No pneumothorax. Low lung volumes accentuate pulmonary interstitium and heart size. Approved by: Karson Telles M.D. on 06/07/2021 at 9:39 CT scan - abdomen/pelvis: My Impression: note: drain from recent appendectomy - not percutaneous dialysis catheter Radiologist's Impression: FINDINGS: Lower thorax: The lung bases are clear. Heart size normal. No hiatal hernia. Liver: Normal in size and attenuation. No contour deformity present. Biliary system: Cholecystectomy. No intra or extrahepatic bile duct dilation. Pancreas: Unremarkable without mass or inflammation evident. Spleen: 1.5 cm coarse splenic calcification probably reflects prior granulomatous disease. Adrenals: Normal morphology and density. Reproductive system: Unremarkable as visualized. Urinary system: Normal renal size and attenuation. No renal calculi, hydronephrosis, or solid mass present. Urinary bladder unremarkable. Gastrointestinal system: In the right lower quadrant, there is inflammatory change associated with several loops of small bowel, and there is a bilobed fluid collection measuring 6.7 by 3.2 cm overall closely associated with several adjacent bowel loops.. No evidence of obstruction. Bowel suture noted in the right lower quadrant associated with the cecum as well, and the appendix is not visualized, possibly reflecting prior appendectomy. Peritoneal spaces: There is a left-sided percutaneous peritoneal dialysis catheter noted associated with stippled free air. Vasculature: The IVC, aorta and iliac vasculature are unremarkable. Diffuse atherosclerotic vascular calcification noted involving the aorta and small vessels. Musculoskeletal: Normal bone mineralization. Degenerative disc disease and arthropathy noted in lower lumbar spine. No acute fractures. Abdominal wall intact without evidence of ventral or inguinal hernias. In the ventral right upper quadrant subcuta neous tissue, there is an encapsulated fluid collection measuring 1.5 x 4.6 x 3.6 cm. IMPRESSION: 1. Right lower quadrant inflammatory change associated with several loops of small bowel and a 6.7 x 3.2 cm bilobed fluid collection as above. Differential would include a right lower quadrant abscess and matted small bowel loops. Consider follow-up CT with IV and oral contrast to further evaluate. 2. Suture line in the right lower quadrant associated with the cecum consistent with prior appendectomy. 3. Stippled free air in the anterior abdomen probably related to percutaneous dialysis catheter. 4. Subcutaneous encapsulated fluid in the ventral right upper quadrant without adjacent inflammatory change probably reflects seroma from prior surgical intervention. Approved by: Karson Telles M.D. on 06/07/2021 at 10:01 [facility] Narrative Medical decision making narrative: 60-year-old diabetic woman with complicated appendectomy on May 13 done at [facility] presents with profuse watery/bloody C diff positive diarrhea for the last 5 days, volume dehydrated with increasing abdominal pain. CT scan demonstrates the right lower quadrant abnormality 6.7 x 3.2 cm bilobed fluid collection that is presumably a postoperative abscess. White cell count is elevated however she is not septic and is responded nicely to fluid resuscitation. She is not needing intubation or pressors at this time. 1210 Care is reviewed with Dr. Pugh, surgeon on-call at [facility]. Given her already complex care with her appendectomy in prolonged recent ICU stay, presumed postoperative abscess that would best be managed with intervene with Interventional Radiology help and now Clostridium difficile as well as wor sening renal insufficiency(creatinine is 1.8, up from 0.8 6 months ago and 1.6 on discharge from the hospital last week) his recommendation is to transfer her to a tertiary care facility with immediate IR availability and ICU capacity if needed. 12:22 phone call to Yaneth Zheng, no bed capacity at all. Similar concerns at [facility] in [place] as well as [facility]. Will contact Intervent ional Radiology and see if they might be able to facilitate drain placement here at [facility] 1229 Boris Fisher, radiology reviews films and believes it would be percutaneously drainable however it is not yet developed enough to do the procedure today 1235 re-evaluated. Color is significantly better however she still having significant abdominal pain and continued profuse diarrhea. Close examination of the right upper quadrant abdominal wall and I a.m. unable to clinically find the small area of fluctuance appreciated on the CT scan. 1240 care is reviewed with Infectious Disease specialist, Dr. Petersen. Given the abscess and allergy list recommendation is ceftriaxone and Flagyl, given the significant Clostridium difficile recommendation is 125 mg 4 times a day of oral vancomycin to continue for 2 full weeks after completion of all IV antibiotics 105pm care is reviewed with general surgeon Dr. Lowe to discuss bed capacity issues throughout the entire regional network of [facility] to see if he would be willing to consider consult on her here at [facility] if additional options are not available. He states that he would but again recommends discussing with surgery at [facility] again 152pm again reviewed with Dr. Pugh, general surgeon [facility]. Diffic ulties with finding any appropriate bed capacity, need for IV antibiotics and observation with potential interventional radiology within the next 48 hours. States he will review with warehouse receiving clerk, but still recommends tertiary care facility transfer (again reiterated there were no tertiary care facility beds available now or anticipated within the next 12-24 hours at a minimum) 205pm returns call and warehouse receiving clerk has declined admission due to complexity and in appropriate resources with anticipated need for transfer in the near future 210 care is reviewed with [facility] hospitalist, Dr. Polo. Given capacity issues across the area will admit the patient for IV antibiotics for right lower quadrant abscess after recent appendectomy and Clostridium difficile without, bowel ischemia, ileus or megacolon, patient will be admitted to [facility] with Dr. Lowe as fundraising consultant 255pm care is reviewed with her son, Marco Anderson [phone]. Findings, concerns, interval development as well as lack of bed availability at tertiary care centers. Questions are answered. 400 continued significant bloody/watery diarrhea. Initial hemoglobin and hematocrit 9.1 and 27.6, hemoglobin had been 8.8 1 week ago at [facility]. With her fluid resuscitation and continued GI output secondary to her C diff, repeat H&H is ordered. In summary, 60-year-old woman with appendectomy immediate postop problems, prolonged ICU stay and now abscess formation with initial surgery at [facility], with concurrent C diff diarrhea without severe C diff colitis admitted at [facility] for both oral an IV antibiotic treatment further observation and may need transfer at some point in the next couple of days to tertiary care facility but currently no beds are available up and down the 1- 5 [place]. Critical Care Time Critical Care Time Critical Care Time: Yes Total Critical Care Time: 37 Attestation: Critical care time is separate from other billable procedures. There is a high probability of a significant, sudden or life-threatening deterioration that requires my full and direct attention, intervention and personal management. This critical care time includes consultation with family and other consulting doctors, review of records, and interpretation of data from labs, EKGs and imaging as well as managements of severe volume depletion, GI bleeding, severe abdominal pain with significant time spent in coordination of care Discharge Plan Departure Patient Disposition: Admitted As Inpatient Clinical Impression: Postoperative abscess, Acute renal insufficiency, C. difficile diarrhea Admit Date/Time: 06/07/21 14:12 Admit Provider: Hien Polo
[2021-06-07] MEDS: ONDANSETRON 4 MG/2 ML INJ IV ×2 (10:33→20:38)
[2021-06-07 10:37] LABS: Adenovirus F 40/41 Not Detected (Not Detect); Astrovirus Not Detected (Not Detect); Campylobacter Not Detected (Not Detect); Clostridium difficile toxin AB Detected (Not Detect); Cryptosporidium Not Detected (Not Detect); Cyclospora cayetanensis Not Detected (Not Detect); Entamoeba histolytica Not Detected (Not Detect); Enteroaggregative E.coli Not Detected (Not Detect); Enteropathogenic E.coli Not Detected (Not Detect); Enterotoxigenic E.coli It/st Not Detected (Not Detect); Giardia lamblia Not Detected (Not Detect); Norovirus GI/GII Not Detected (Not Detect); Plesiomonsa shigelloides Not Detected (Not Detect); Rotavirus A Not Detected (Not Detect); Salmonella Not Detected (Not Detect); Sapovirus Not Detected (Not Detect); Shiga-like toxin-prod E.coli Not Detected (Not Detect); Shigella/Enteroinvasive E.coli Not Detected (Not Detect); Vibrio Not Detected (Not Detect); Vibrio cholerae Not Detected (Not Detect); Yersinia enterocolitica Not Detected (Not Detect)
[2021-06-07] MEDS: HYDROMORPHONE 0.5 MG INJ IV ×3 (10:38→16:04)
[2021-06-07 10:44] LABS: Bacteria Urine None Seen; RBC Urine None Seen (0-5/HPF); WBC Urine None Seen (0-5/HPF)
--- NOTE | 2021-06-07 10:47 | PC.NURSE ---
Patient incontinent to bloody stool in bed, bed linens changed, patient cleaned.
[2021-06-07 11:07] LABS: Appearance Urine UA CLEAR; Bilirubin Urine UA NEGATIVE (NEGATIVE); Color Urine UA YELLOW; Glucose Urine UA NEGATIVE (Negative); Ketones Urine UA NEGATIVE (NEGATIVE); Leukocyte Esterase Urine UA NEGATIVE (NEGATIVE); Nitrite Urine UA NEGATIVE (Negative); Occult Blood Urine UA NEGATIVE (Negative); Protein Urine UA NEGATIVE (Negative); Specific Gravity Urine UA <=1.005 (1.000-1.035); Urobilinogen Urine UA 0.2 E.U./dL (0.2)
[2021-06-07 11:21] LABS: Culture Indicated Urine Cult Not Indicated; Urine Comments Microscopic Normal
[2021-06-07] MEDS: VANCOMYCIN 125 MG CAPSULE PO ×2 (13:03→17:40)
[2021-06-07] MEDS: cefTRIAXone 2,000 MG in SODIUM CHLORIDE 0.9% 100 ML 200 ML IV (13:03)
[2021-06-07] MEDS: metroNIDAZOLE 500 MG/100 ML PIGGYBACK 100 MG IV (13:03)
--- NOTE | 2021-06-07 15:03 | PC.NURSE ---
[facility]
[2021-06-07 16:19] LABS: Hematocrit 27.4 % (36-46)
--- NOTE | 2021-06-07 16:49 | P.CONS_ITS ---
History of Present Illness Consult details Chief complaint: Syncope Narrative: 60-year-old female with diabetes and morbid obesity admitted to the hospital for a intra-abdominal abscess. He she developed acute appendicitis underwent laparoscopic appendectomy with open umbilical hernia repair drainage of kimber[place] appendiceal abscess, 05/14/2021 at [facility]. During her hospitalization she developed acute kidney injury and bacteremia. She was discharged 05/19/21 to senior living facility. She has had 5 days of watery diarrhea at the nursing facility had a syncopal episode today and was t aken to the emergency room at [facility]. On arrival afebrile, WBC 14, hematocrit 27, potassium 6.1, creatinine 1.9 negative lactate and troponin stool demonstrate Clostridium difficile. CT abdomen pelvis demonstrates a foot 7 cm fluid collection in the right lower quadrant. Currently with complaint of abdominal pain in the lower mid abdomen, no nausea or vomiting. No chest pain, pressure or shortness of breath at rest. Perioperative relevant medical/surgical history 1. Morbid obesity BMI 48 2. Diabetes mellitus type 2 3. Acute kidney injury 4. Hypertension 5. Tk fundoplication 6. Umbilical and other unspecified abdominal wall ventral hernia repair Meds Home Medications and Allergies Home Medications Medication Instructions Recorded Confirmed Type Nose Wilmot 1 spray INTRANASAL DIRECTED 06/28/19 06/28/19 History Vitamin D3 10,000 unit PO DAILY 06/28/19 06/28/19 History aspirin 81 mg tablet,delayed 81 mg PO DAILY 06/28/19 06/28/19 History release calcium carbonate 600 mg calcium 600 mg PO DAILY 06/28/19 06/28/19 History (1,500 mg) tablet (Calcium) carvedilol 6.25 mg tablet 6.25 mg PO BID 06/28/19 06/28/19 History coenzyme Q10 100 mg capsule (Co 100 mg PO QPM 06/28/19 06/28/19 History Q-10) empagliflozin 25 mg tablet 25 mg PO DAILY 06/28/19 06/28/19 History (Jardiance) furosemide 80 mg tablet 80 mg PO DAILY 06/28/19 06/28/19 History gabapentin 300 mg capsule 1,200 mg PO BID 06/28/19 06/28/19 History glipizide 10 mg tablet 10 mg PO BID 06/28/19 06/28/19 History insulin glargine 100 unit/mL 50 unit SUBCUT QPM 06/28/19 06/28/19 History subcutaneous solution (Lantus U-100 Insulin) insulin lispro 100 unit/mL 5 - 10 unit SUBCUT TID 06/28/19 06/28/19 History subcutaneous solution (Humalog U-100 Insulin) lisinopril 20 mg tablet 20 mg PO BID 06/28/19 06/28/19 History potassium chloride 10 mEq 10 meq PO DAILY 06/28/19 06/28/19 History tablet,extended release rosuvastatin 5 mg tablet 5 mg PO BEDTIME 06/28/19 06/28/19 History vitamin E 1 cap PO BEDTIME 06/28/19 06/28/19 History Allergies Allergy/AdvReac Type Severity Reaction Status Date / Time amoxicillin [From Augmentin] Allergy Intermediate Hives Verified 06/28/19 13:32 azithromycin [From Zithromax] Allergy Intermediate Hives Verified 06/28/19 13:32 ciprofloxacin [From Cipro] Allergy Intermediate Rash Verified 06/28/19 13:32 clavulanic acid Allergy Intermediate Hives Verified 06/28/19 13:32 [From Augmentin] nitrofurantoin Allergy Intermediate Hives Verified 06/28/19 13:32 [From Macrobid] liraglutide [From Victoza] Allergy Unknown Verified 06/28/19 13:32 codeine AdvReac Intermediate Gastrointestinal Verified 06/28/19 13:32 Upset indomethacin [From Indocin] AdvReac Intermediate Gastrointestinal Verified 06/28/19 13:32 Upset metformin [From Glucophage] AdvReac Intermediate Gastrointestinal Verified 06/28/19 13:32 Upset Yvfevsh-Wgw-Mul Reductase AdvReac Intermediate Joint Pain Verified 06/28/19 13:32 Inhibitor Exam Vital Signs (past 8 hours): - 06/07/21 09:00 06/07/21 09:02 06/07/21 09:15 Pulse Rate 59 L 65 82 Respiratory Rate 16 22 17 Blood Pressure 108/56 L 108/56 L 110/57 L Pulse Oximetry 92 98 93 06/07/21 09:30 06/07/21 09:56 06/07/21 10:00 Pulse Rate 72 71 71 Respiratory Rate 16 13 Blood Pressure 129/60 Pulse Oximetry 93 94 100 06/07/21 10:03 06/07/21 10:30 06/07/21 10:38 Pulse Rate 71 70 68 Respiratory Rate 24 18 13 Blood Pressure 150/66 H 170/63 H 164/68 H Pulse Oximetry 100 97 100 06/07/21 11:00 06/07/21 11:01 06/07/21 11:30 Pulse Rate 69 69 70 Respiratory Rate 11 L 12 11 L Blood Pressure 132/56 L 136/60 Pulse Oximetry 100 100 100 06/07/21 12:00 06/07/21 12:01 06/07/21 12:30 Pulse Rate 66 66 72 Respiratory Rate 13 11 L 19 Blood Pressure 113/56 L Pulse Oximetry 100 100 100 06/07/21 12:31 06/07/21 13:00 06/07/21 13:01 Pulse Rate 74 71 71 Respiratory Rate 20 11 L 11 L Blood Pressure 138/62 140/60 Pulse Oximetry 100 100 100 06/07/21 13:30 06/07/21 13:31 06/07/21 14:00 Pulse Rate 71 70 73 Respiratory Rate 10 L 9 L 11 L Blood Pressure 108/51 L Pulse Oximetry 99 100 100 06/07/21 14:01 06/07/21 14:30 06/07/21 15:00 Pulse Rate 72 70 69 Respiratory Rate 10 L 12 11 L Blood Pressure 124/60 135/58 L Pulse Oximetry 100 100 100 06/07/21 15:01 Pulse Rate 70 Respiratory Rate 12 Blood Pressure 118/57 L Pulse Oximetry 100 Oxygen Delivery Method Room Air Narrative Exam Narrative: GENERAL-elderly woman BMI 48 appears uncomfortable HEENT-no scleral icterus, hearing intact NECK-no JVD, trachea midline CVS- regular rate, no peripheral edema RESP-unlabored respiratory effort, no audible wheezing GI-tender umbilicus no peritonitis, drain LLQ serous. Incisions CDI MSK-no cyanosis or clubbing, extremities without deformity SKIN-warm, dry NEURO-alert and oriented, no focal deficits PYSCH-Appropriate mood and affect Objective Labs Result Diagrams: 06/07/21 16:05 06/07/21 09:00 Labs: Laboratory Results - last 24 hr 06/07/21 06/07/21 06/07/21 08:30 08:45 09:00 WBC 14.1 H RBC 2.98 L Hgb 9.1 L Hct 27.6 L MCV 92.6 MCH 30.5 MCHC 32.9 RDW 13.4 Plt Count 267 Neut % (Auto) 82.1 H Lymph % (Auto) 9.0 L [facility] % (Auto) 6.8 Eos % (Auto) 1.4 L Baso % (Auto) 0.7 Neut # (Auto) 51241 H Lymph # (Auto) 1300 [facility] # (Auto) 1000 H Eos # (Auto) 200 Baso # (Auto) 100 VBG pH 7.39 VBG pCO2 41.2 L VBG pO2 36 VBG HCO3 25 VBG Total CO2 26 VBG O2 Saturation 68 L VBG Base Excess 0.0 Sodium Potassium Chloride Carbon Dioxide BUN Creatinine Estimated GFR BUN/Creatinine Ratio Glucose Lactate Calcium Magnesium Total Bilirubin AST ALT Alkaline Phosphatase Troponin I Total Protein Albumin Globulin Albumin/Globulin Ratio Lipase Urine Color Urine Appearance Urine pH Ur Specific [place] Urine Protein Urine Glucose (UA) Urine Ketones Urine Occult Blood Urine Nitrate Urine Bilirubin Urine Urobilinogen Ur Leukocyte Esterase Urine RBC Urine WBC Urine Bacteria Ur Culture Indicated? Micro UA Comment Stl C. cayetanensis PCR Not detected Stool Rotavirus (PCR) Not detected Stool Adenovirus (PCR) Not detected Stool Astrovirus (PCR) Not detected Stool Cryptosporidium PCR Not detected Stl E.coli Shiga Tox PCR Not detected St Sh/Enteroin Ecoli PCR Not detected Stool E coli O157 PCR Not detected Stl Enterotoxigenic E PCR Not detected Stool EPEC (PCR) Not detected Stl E. histolytica PCR Not detected Stool Giardia Lamblia PCR Not detected Stool Sapovirus (PCR) Not detected Stl P. shigelloides PCR Not detected St Y.enterocolitica PCR Not detected Stool Vibrio (PCR) Not detected Stl Vibrio cholerae PCR Not detected Stl Enteroaggr Ecoli PCR Not detected Stl Norovirus GI/GII PCR Not detected Campylobacter (PCR) Not detected C. difficile Tox (PCR) Detected H SARS-CoV-2 (PCR) Salmonella (PCR) Not detected Blood Type Antibody Screen 06/07/21 06/07/21 06/07/21 09:00 09:00 09:00 WBC RBC Hgb Hct MCV MCH MCHC RDW Plt Count Neut % (Auto) Lymph % (Auto) [facility]lor % (Auto) Eos % (Auto) Baso % (Auto) Neut # (Auto) Lymph # (Auto) [facility]lor # (Auto) Eos # (Auto) Baso # (Auto) VBG pH VBG pCO2 VBG pO2 VBG HCO3 VBG Total CO2 VBG O2 Saturation VBG Base Excess Sodium 134 L Potassium 6.1 H Chloride 101 Carbon Dioxide 24 BUN 45 H Creatinine 1.88 H Estimated GFR 27.1 L BUN/Creatinine Ratio 23.9 H Glucose 161 H Lactate 1.0 Calcium 9.6 Magnesium 2.4 H Total Bilirubin 0.3 AST 23 ALT 10 Alkaline Phosphatase 37 L Troponin I < 0.012 Total Protein 6.7 Albumin 3.3 L Globulin 3.4 Albumin/Globulin Ratio 1.0 Lipase 156 Urine Color Urine Appearance Urine pH Ur Specific [place] Urine Protein Urine Glucose (UA) Urine Ketones Urine Occult Blood Urine Nitrate Urine Bilirubin Urine Urobilinogen Ur Leukocyte Esterase Urine RBC Urine WBC Urine Bacteria Ur Culture Indicated? Micro UA Comment Stl C. cayetanensis PCR Stool Rotavirus (PCR) Stool Adenovirus (PCR) Stool Astrovirus (PCR) Stool Cryptosporidium PCR Stl E.coli Shiga Tox PCR St Sh/Enteroin Ecoli PCR Stool E coli O157 PCR Stl Enterotoxigenic E PCR Stool EPEC (PCR) Stl E. histolytica PCR Stool Giardia Lamblia PCR Stool Sapovirus (PCR) Stl P. shigelloides PCR St Y.enterocolitica PCR Stool Vibrio (PCR) Stl Vibrio cholerae PCR Stl Enteroaggr Ecoli PCR Stl Norovirus GI/GII PCR Campylobacter (PCR) C. difficile Tox (PCR) SARS-CoV-2 (PCR) Salmonella (PCR) Blood Type A Positive Antibody Screen Negative 06/07/21 06/07/21 06/07/21 09:00 10:40 16:05 WBC RBC Hgb 9.0 L Hct 27.4 L MCV MCH MCHC RDW Plt Count Neut % (Auto) Lymph % (Auto) [facility]lor % (Auto) Eos % (Auto) Baso % (Auto) Neut # (Auto) Lymph # (Auto) [facility]lor # (Auto) Eos # (Auto) Baso # (Auto) VBG pH VBG pCO2 VBG pO2 VBG HCO3 VBG Total CO2 VBG O2 Saturation VBG Base Excess Sodium Potassium Chloride Carbon Dioxide BUN Creatinine Estimated GFR BUN/Creatinine Ratio Glucose Lactate Calcium Magnesium Total Bilirubin AST ALT Alkaline Phosphatase Troponin I Total Protein Albumin Globulin Albumin/Globulin Ratio Lipase Urine Color Yellow Urine Appearance Clear Urine pH 5.0 Ur Specific [place] <=1.005 Urine Protein Negative Urine Glucose (UA) Negative Urine Ketones Negative Urine Occult Blood Negative Urine Nitrate Negative Urine Bilirubin Negative Urine Urobilinogen 0.2 Ur Leukocyte Esterase Negative Urine RBC None seen Urine WBC None seen Urine Bacteria None seen Ur Culture Indicated? Cult not indicated Micro UA Comment Microscopic normal Stl C. cayetanensis PCR Stool Rotavirus (PCR) Stool Adenovirus (PCR) Stool Astrovirus (PCR) Stool Cryptosporidium PCR Stl E.coli Shiga Tox PCR St Sh/Enteroin Ecoli PCR Stool E coli O157 PCR Stl Enterotoxigenic E PCR Stool EPEC (PCR) Stl E. histolytica PCR Stool Giardia Lamblia PCR Stool Sapovirus (PCR) Stl P. shigelloides PCR St Y.enterocolitica PCR Stool Vibrio (PCR) Stl Vibrio cholerae PCR Stl Enteroaggr Ecoli PCR Stl Norovirus GI/GII PCR Campylobacter (PCR) C. difficile Tox (PCR) SARS-CoV-2 (PCR) Negative Salmonella (PCR) Blood Type Antibody Screen Assessment & Plan Assessment and plan (1) Postoperative abscess: Status: Acute Assessment & Plan narrative: 60-year-old female morbidly obese, type 2 diabetes admitted with an intra-abdominal abscess 1 month following laparoscopic appendectomy at outside institution. She needs drainage of the intra-abdominal abscess. CT A/P reviewed demonstrates a 7 cm intra-abdominal abscess. According radiology fluid collection is not organized enough at this point for IR drainage. Recommended that we proceed with laparoscopic drainage of intra- abdominal abscess. -NPO IV fluids -review operative notes and hospital when received from transfer center -Clostridium difficile-antibiotic therapy, contact precaution -OR Friday 06/08 laparoscopic drainage of intra-abdominal abscess
--- NOTE | 2021-06-07 18:26 | PC.ADMIT ---
[email or web address] [place] 189 Admission Note: Patient admitted from the ER at 17:56 on 3 L oxygen via Nasal canula. Patient given call light and educated on use of call light. Patient on enteric precautions for C-diff. Brakes on bed are locked. The patient,Whitney Anderson,60 y/o, was given written information regarding hospital policies, unit procedures and contact persons. Patient's smoking status: Never smoker. Vital Signs - 8 hr 06/07/21 10:30 06/07/21 10:38 06/07/21 11:00 Pulse Rate 70 68 69 Respiratory Rate 18 13 11 L Blood Pressure 170/63 H 164/68 H Pulse Oximetry 97 100 100 06/07/21 11:01 06/07/21 11:30 06/07/21 12:00 Pulse Rate 69 70 66 Respiratory Rate 12 11 L 13 Blood Pressure 132/56 L 136/60 Pulse Oximetry 100 100 100 06/07/21 12:01 06/07/21 12:30 06/07/21 12:31 Pulse Rate 66 72 74 Respiratory Rate 11 L 19 20 Blood Pressure 113/56 L 138/62 Pulse Oximetry 100 100 100 06/07/21 13:00 06/07/21 13:01 06/07/21 13:30 Pulse Rate 71 71 71 Respiratory Rate 11 L 11 L 10 L Blood Pressure 140/60 Pulse Oximetry 100 100 99 06/07/21 13:31 06/07/21 14:00 06/07/21 14:01 Pulse Rate 70 73 72 Respiratory Rate 9 L 11 L 10 L Blood Pressure 108/51 L 124/60 Pulse Oximetry 100 100 100 06/07/21 14:30 06/07/21 15:00 06/07/21 15:01 Pulse Rate 70 69 70 Respiratory Rate 12 11 L 12 Blood Pressure 135/58 L 118/57 L Pulse Oximetry 100 100 100 06/07/21 15:30 06/07/21 15:31 06/07/21 16:00 Pulse Rate 74 73 59 L Respiratory Rate 33 H 27 H 31 H Blood Pressure 108/55 L Pulse Oximetry 94 100 100 06/07/21 16:30 06/07/21 17:00 06/07/21 17:30 Pulse Rate 70 75 75 Respiratory Rate 13 14 12 Blood Pressure 112/54 L 118/56 L 129/59 L Pulse Oximetry 100 100 100
--- NOTE | 2021-06-07 20:32 | PM.HP.1 ---
History of Present Illness History of Present Illness Date Patient Seen: 06/07/21 Time Patient Seen: 19:36 Chief complaint: Syncope Narrative: Patient is a 60-year-old woman Whitney Anderson with a history of poorly-controlled diabetes, history of gastric banding, hypertension, peripheral neuropathy, hyperlipidemia with a complicated appendicitis with surgical intervention. she developed acute appendicitis underwent laparoscopic appendectomy with open umbilical hernia repair drainage of mar appendiceal abscess, 05/14/2021 at [facility]. During her hospitalization she developed acute kidney injury and bacteremia. She was discharged 05/19/21 to snf facility. She has had 5 days of watery diarrhea at the nursing facility had a syncopal episode today and was taken to the emergency room at [facility]. Upon admit patient is afebrile, WBC 14, neutrophils 11,600, hematocrit 27, potassium 6.1, creatinine 1.9 negative lactate and troponin stool demonstrate Clostridium difficile. CT abdomen pelvis demonstrates a foot 7 cm fluid collection in the right lower quadrant. Currently with complaint of abdominal pain in the lower mid abdomen, having severe nausea but no vomiting. Patient denies chest pain, pressure or shortness of breath at rest, fever, body aches, or chills. Dr. Lowe consulted on the patient in the ED and is planning to take patient to surgery tomorrow to drain mar appendicecal abscess. Patient admitted with acute respiratory failure, Sepsis with PATRICK, positive Cdiff, and abdominal abscess. Patient History Medical History Diabetes Hyperlipidemia Hypertension Surgical History History of appendectomy Hx of cataract surgery Family & Social History Family History Mother Diabetes mellitus Hypertension Father Stroke Coronary atherosclerosis of artery bypass graft Social History: Prior Living Arrangements Skilled Nurse Facility Safety & Behavioral: Feels Safe in Current Yes Environment Been Physically Hurt or No Threatened By a Person Suicidal Ideation Description None Tobacco & Substance use: Smoking Status Never smoker alcohol intake frequency a few times a month Substance Use Type does not use Meds Home Medications and Allergies Home Medications Medication Instructions Recorded Confirmed Type aspirin 81 mg tablet,delayed 81 mg PO DAILY 06/28/19 06/07/21 History release calcium carbonate 600 mg calcium 600 mg PO DAILY 06/28/19 06/07/21 History (1,500 mg) tablet (Calcium) carvedilol 6.25 mg tablet 6.25 mg PO BID 06/28/19 06/07/21 History coenzyme Q10 100 mg capsule (Co 200 mg PO DAILY 06/28/19 06/07/21 History Q-10) furosemide 80 mg tablet 80 mg PO DAILY 06/28/19 06/07/21 History glipizide 10 mg tablet 10 mg PO BID 06/28/19 06/07/21 History insulin glargine 100 unit/mL 36 unit SUBCUT BEDTIME 06/28/19 06/07/21 History subcutaneous solution (Lantus U-100 Insulin) lisinopril 20 mg tablet 20 mg PO DAILY 06/28/19 06/07/21 History potassium chloride 10 mEq 10 meq PO BID 06/28/19 06/07/21 History tablet,extended release rosuvastatin 5 mg tablet 5 mg PO BEDTIME 06/28/19 06/07/21 History meclizine 12.5 mg tablet 12.5 mg PO DAILY 06/07/21 06/07/21 History montelukast 10 mg tablet 10 mg PO DAILY 06/07/21 06/07/21 History multivitamin with minerals 1 cap PO DAILY 06/07/21 06/07/21 History nystatin 100,000 unit/gram topical 1 applic TOPICAL BID 06/07/21 06/07/21 History powder oxybutynin chloride 5 mg tablet 5 mg PO BEDTIME 06/07/21 06/07/21 History Allergies Allergy/AdvReac Type Severity Reaction Status Date / Time egg Allergy Severe Anaphylaxis Verified 06/07/21 23:36 amoxicillin [From Augmentin] Allergy Intermediate Hives Verified 06/28/19 13:32 azithromycin [From Zithromax] Allergy Intermediate Hives Verified 06/28/19 13:32 ciprofloxacin [From Cipro] Allergy Intermediate Rash Verified 06/28/19 13:32 clavulanic acid Allergy Intermediate Hives Verified 06/28/19 13:32 [From Augmentin] nitrofurantoin Allergy Intermediate Hives Verified 06/28/19 13:32 [From Macrobid] liraglutide [From Victoza] Allergy Unknown Verified 06/28/19 13:32 codeine AdvReac Intermediate Gastrointestinal Verified 06/28/19 13:32 Upset gluten AdvReac Intermediate Gastrointestinal Verified 06/07/21 23:37 Upset indomethacin [From Indocin] AdvReac Intermediate Gastrointestinal Verified 06/28/19 13:32 Upset metformin [From Glucophage] AdvReac Intermediate Gastrointestinal Verified 06/28/19 13:32 Upset mushroom AdvReac Intermediate Gastrointestinal Verified 06/07/21 23:38 Upset shellfish derived AdvReac Intermediate Gastrointestinal Verified 06/07/21 23:38 Upset [id number] Reductase AdvReac Intermediate Joint Pain Verified 06/28/19 13:32 Inhibitor Review of Systems Review of Systems Narrative: All 12 point systems reviewed with the patient and are negative except otherwise documented. Exam Vital Signs (past 8 hours): - 06/07/21 13:00 06/07/21 13:01 06/07/21 13:30 Temperature Pulse Rate 71 71 71 Respiratory Rate 11 L 11 L 10 L Blood Pressure 140/60 Pulse Oximetry 100 100 99 06/07/21 13:31 06/07/21 14:00 06/07/21 14:01 Temperature Pulse Rate 70 73 72 Respiratory Rate 9 L 11 L 10 L Blood Pressure 108/51 L 124/60 Pulse Oximetry 100 100 100 06/07/21 14:30 06/07/21 15:00 06/07/21 15:01 Temperature Pulse Rate 70 69 70 Respiratory Rate 12 11 L 12 Blood Pressure 135/58 L 118/57 L Pulse Oximetry 100 100 100 06/07/21 15:30 06/07/21 15:31 06/07/21 16:00 Temperature Pulse Rate 74 73 59 L Respiratory Rate 33 H 27 H 31 H Blood Pressure 108/55 L Pulse Oximetry 94 100 100 06/07/21 16:30 06/07/21 17:00 06/07/21 17:30 Temperature Pulse Rate 70 75 75 Respiratory Rate 13 14 12 Blood Pressure 112/54 L 118/56 L 129/59 L Pulse Oximetry 100 100 100 06/07/21 17:55 06/07/21 19:24 Temperature 97.9 F Pulse Rate 81 Respiratory Rate 24 Blood Pressure 141/60 H Pulse Oximetry 100 100 Oxygen Delivery Method Nasal Cannula Oxygen Flow Rate 0 Narrative Exam Narrative: General: Acutely ill-appearing, pale diaphoretic in obvious pain unable to cooperate fully with exam and history taking HEENT: Dry mucous membranes, normal sclera with reactive pupils, Neck: No JVD, supple Respiratory: Lungs are clear to auscultation in all emerson, no wheezing no rales no rhonchi. Full and symmetrical air movement Cardiac: Regular rate and rhythm no murmurs no bruits Abdomen: Obese, diffusely tender, single JANAK drain in place, recent laparoscopic appendectomy incisions and trocar sites are free of infection, hyperactive BS in all 4 quadrants. Skin: Pale and diaphoretic Neurologic: Globally weak, Grossly neurologically intact with no obvious asymmetries or abnormalities Extremities: No trauma, Psych: In pain uncomfortable, unable/unwilling to cooperate with detailed history taking Objective Labs Result Diagrams: 06/07/21 16:05 06/07/21 09:00 Labs: Laboratory Results - last 24 hr 06/07/21 06/07/21 06/07/21 08:30 08:45 09:00 WBC 14.1 H RBC 2.98 L Hgb 9.1 L Hct 27.6 L MCV 92.6 MCH 30.5 MCHC 32.9 RDW 13.4 Plt Count 267 Neut % (Auto) 82.1 H Lymph % (Auto) 9.0 L Sully % (Auto) 6.8 Eos % (Auto) 1.4 L Baso % (Auto) 0.7 Neut # (Auto) 66035 H Lymph # (Auto) 1300 Sully # (Auto) 1000 H Eos # (Auto) 200 Baso # (Auto) 100 VBG pH 7.39 VBG pCO2 41.2 L VBG pO2 36 VBG HCO3 25 VBG Total CO2 26 VBG O2 Saturation 68 L VBG Base Excess 0.0 Sodium Potassium Chloride Carbon Dioxide BUN Creatinine Estimated GFR BUN/Creatinine Ratio Glucose Lactate Calcium Magnesium Total Bilirubin AST ALT Alkaline Phosphatase Troponin I Total Protein Albumin Globulin Albumin/Globulin Ratio Lipase Urine Color Urine Appearance Urine pH Ur Specific [place] Urine Protein Urine Glucose (UA) Urine Ketones Urine Occult Blood Urine Nitrate Urine Bilirubin Urine Urobilinogen Ur Leukocyte Esterase Urine RBC Urine WBC Urine Bacteria Ur Culture Indicated? Micro UA Comment Stl C. cayetanensis PCR Not detected Stool Rotavirus (PCR) Not detected Stool Adenovirus (PCR) Not detected Stool Astrovirus (PCR) Not detected Stool Cryptosporidium PCR Not detected Stl E.coli Shiga Tox PCR Not detected St Sh/Enteroin Ecoli PCR Not detected Stool E coli O157 PCR Not detected Stl Enterotoxigenic E PCR Not detected Stool EPEC (PCR) Not detected Stl E. histolytica PCR Not detected Stool Giardia Lamblia PCR Not detected Stool Sapovirus (PCR) Not detected Stl P. shigelloides PCR Not detected St Y.enterocolitica PCR Not detected Stool Vibrio (PCR) Not detected Stl Vibrio cholerae PCR Not detected Stl Enteroaggr Ecoli PCR Not detected Stl Norovirus GI/GII PCR Not detected Campylobacter (PCR) Not detected C. difficile Tox (PCR) Detected H SARS-CoV-2 (PCR) Salmonella (PCR) Not detected Blood Type Antibody Screen 06/07/21 06/07/21 06/07/21 09:00 09:00 09:00 WBC RBC Hgb Hct MCV MCH MCHC RDW Plt Count Neut % (Auto) Lymph % (Auto) Sully % (Auto) Eos % (Auto) Baso % (Auto) Neut # (Auto) Lymph # (Auto) Sully # (Auto) Eos # (Auto) Baso # (Auto) VBG pH VBG pCO2 VBG pO2 VBG HCO3 VBG Total CO2 VBG O2 Saturation VBG Base Excess Sodium 134 L Potassium 6.1 H Chloride 101 Carbon Dioxide 24 BUN 45 H Creatinine 1.88 H Estimated GFR 27.1 L BUN/Creatinine Ratio 23.9 H Glucose 161 H Lactate 1.0 Calcium 9.6 Magnesium 2.4 H Total Bilirubin 0.3 AST 23 ALT 10 Alkaline Phosphatase 37 L Troponin I < 0.012 Total Protein 6.7 Albumin 3.3 L Globulin 3.4 Albumin/Globulin Ratio 1.0 Lipase 156 Urine Color Urine Appearance Urine pH Ur Specific [place] Urine Protein Urine Glucose (UA) Urine Ketones Urine Occult Blood Urine Nitrate Urine Bilirubin Urine Urobilinogen Ur Leukocyte Esterase Urine RBC Urine WBC Urine Bacteria Ur Culture Indicated? Micro UA Comment Stl C. cayetanensis PCR Stool Rotavirus (PCR) Stool Adenovirus (PCR) Stool Astrovirus (PCR) Stool Cryptosporidium PCR Stl E.coli Shiga Tox PCR St Sh/Enteroin Ecoli PCR Stool E coli O157 PCR Stl Enterotoxigenic E PCR Stool EPEC (PCR) Stl E. histolytica PCR Stool Giardia Lamblia PCR Stool Sapovirus (PCR) Stl P. shigelloides PCR St Y.enterocolitica PCR Stool Vibrio (PCR) Stl Vibrio cholerae PCR Stl Enteroaggr Ecoli PCR Stl Norovirus GI/GII PCR Campylobacter (PCR) C. difficile Tox (PCR) SARS-CoV-2 (PCR) Salmonella (PCR) Blood Type A Positive Antibody Screen Negative 06/07/21 06/07/21 06/07/21 09:00 10:40 16:05 WBC RBC Hgb 9.0 L Hct 27.4 L MCV MCH MCHC RDW Plt Count Neut % (Auto) Lymph % (Auto) Sully % (Auto) Eos % (Auto) Baso % (Auto) Neut # (Auto) Lymph # (Auto) Sully # (Auto) Eos # (Auto) Baso # (Auto) VBG pH VBG pCO2 VBG pO2 VBG HCO3 VBG Total CO2 VBG O2 Saturation VBG Base Excess Sodium Potassium Chloride Carbon Dioxide BUN Creatinine Estimated GFR BUN/Creatinine Ratio Glucose Lactate Calcium Magnesium Total Bilirubin AST ALT Alkaline Phosphatase Troponin I Total Protein Albumin Globulin Albumin/Globulin Ratio Lipase Urine Color Yellow Urine Appearance Clear Urine pH 5.0 Ur Specific [place] <=1.005 Urine Protein Negative Urine Glucose (UA) Negative Urine Ketones Negative Urine Occult Blood Negative Urine Nitrate Negative Urine Bilirubin Negative Urine Urobilinogen 0.2 Ur Leukocyte Esterase Negative Urine RBC None seen Urine WBC None seen Urine Bacteria None seen Ur Culture Indicated? Cult not indicated Micro UA Comment Microscopic normal Stl C. cayetanensis PCR Stool Rotavirus (PCR) Stool Adenovirus (PCR) Stool Astrovirus (PCR) Stool Cryptosporidium PCR Stl E.coli Shiga Tox PCR St Sh/Enteroin Ecoli PCR Stool E coli O157 PCR Stl Enterotoxigenic E PCR Stool EPEC (PCR) Stl E. histolytica PCR Stool Giardia Lamblia PCR Stool Sapovirus (PCR) Stl P. shigelloides PCR St Y.enterocolitica PCR Stool Vibrio (PCR) Stl Vibrio cholerae PCR Stl Enteroaggr Ecoli PCR Stl Norovirus GI/GII PCR Campylobacter (PCR) C. difficile Tox (PCR) SARS-CoV-2 (PCR) Negative Salmonella (PCR) Blood Type Antibody Screen Assessment & Plan Assessment & Plan narrative: Patient is a 60-year-old woman Whitney Blackmer with a history of poorly-controlled diabetes, history of gastric banding, hypertension, peripheral neuropathy, hyperlipidemia with a complicated appendicitis with surgical intervention. she developed acute appendicitis underwent laparoscopic appendectomy with open umbilical hernia repair drainage of mar appendiceal abscess, 05/14/2021 at [facility]. During her hospitalization she developed acute kidney injury and bacteremia. Patient admitted with acute respiratory failure with hypoxia, sepsis with PATRICK, positive C diff infection, and abdominal abscess from 05/14/21 surgical procedure. Patient to have surgical intervention tomorrow by Dr. Lowe IV fluid hydration and antibiotics. 1. Acute respiratory failure with hypoxia, acute, present on admission -patient requiring oxygen currently on 2.5 L nasal cannula for an O2 saturation of 98%. VBG is a: PCO2 41.2, O2 saturation 68% -will attempt tapering of oxygen postoperatively 2. Positive C difficile colitis, acute, present on admission - stool demonstrate Clostridium difficile. -vital signs Q 4 hours, strict I&O Q shift, daily weights, diet: NPO, activity as tolerated -Flagyl 500 mg t.i.d. 3. Sepsis with PATRICK/bacteremia possibly secondary to abdominal abscess, acute, present on admission (surgery tomorrow for Mar appendicecal abscess) -Secondary complication of surgical appendectomy at [facility] 05/14/2021 WBC 14, hematocrit 27, potassium 6.1, creatinine 1.88, negative lactate and troponin. GFR 27.1, SOFA:5, without septic shock -CT abdomen pelvis demonstrates a foot 7 cm fluid collection in the right lower quadrant. -monitor for septic shock, respiratory arrest -Dr. Lowe consulted on the patient in the ED and is planned to take patient to surgery tomorrow for mar appendicecal abscess. -NPO After Midnight-sips of water, ice chips meds- until midnight -pain control, antiemetics -normal saline bolus 1000 cc x3 followed by NS at 100 cc/hour -oral vancomycin 125 mg p.o. q.i.d., Rocephin 1 g IV q.day -hold patient's Lasix 80 mg q.day, & potassium 4. Essential hypertension, chronic, well controlled, present on admission -continue patient's lisinopril and carvedilol 4. Insulin-dependent type 2 diabetes, with secondary hyperlipidemia, acute on chronic, present on admission -admitting glucose 161, A1C ordered, BS check Q6 while NPO, once patient is able to eat- ACHS -continuing patient's Lantus 36 units at bedtime, placed on diabetic protocol, low-dose sliding scale -continue patient's rosuvastatin -hold patient's glipizide Code status: Full code Surrogate decision maker: Paddy SHANKRA COVID PCR: Negative COVID vaccination: Moderna February 2021 DVT/VTE prophylaxis: Medication contraindicated due to surgery, SCDs only Estimated length of stay: Greater than 2 midnights due to complexity of current condition, comorbidities and surgical intervention. I have utilized all available immediate resources to obtain, update, or review the patient's current medications. I confirmed that the patient's advanced care plan is present, Code status is documented and/or surrogate decision maker is listed in the patient's medical record. Scores GCS Jess coma scale eye opening: Spontaneous Jess coma scale verbal response: Confused Jess coma scale motor response: Localising Jess coma scale total score: 13 Wells' Criteria for PE Clinical signs and symptoms of DVT: No PE is #1 Dx or equally likely: No Heart rate > 100: No Immobilization at least 3 days or surg in previous 4 weeks: Yes History of PE or DVT: No Hemoptysis: No Malignancy w/Treatment within 6 months or palliative: No Wells' PE Score total: 1.5 Quality MIPS - Admit I confirm the patient?s Advance Care Plan is present, Code status is documented, Surrogate decision maker is in patient?s record [If Yes, STOP here]: Yes
[2021-06-07] MEDS: SODIUM CHLORIDE 0.9% 1,000 ML 100 ML IV (20:37)
[2021-06-07] MEDS: KETOROLAC 30 MG/ML VIAL IV (20:38)
--- NOTE | 2021-06-07 21:23 | PC.NURSE ---
Addendum entered by Madhavi De Oliveira R.N. 06/07/21 23:08: RANJIT Raymundo aware of BP 103/40 and HR 68. Pt had to be awoken for vital sign check as per request by hospitalist Zackary. No further retching or moaning by pt. Liter bolus #2 infusing as per verbal order by hospitalist. Addendum entered by Madhavi De Oliveira R.N. 06/07/21 22:54: Clarified with RANJIT Raymundo pt to receive 36 units Lantus this hs. RANJIT Raymundo states to proceed with administration for blood sugar 201. Original Note: Pt moaning and c/o nausea with dry heaving following receipt of ice chips upon request. Held po antibiotics and RANJIT Raymundo informed. Administered zofran and toradol as per emar to manage nausea and pain. Bolus in progress as ordered. Labs drawn via central line. BL calf scd's in place.
[2021-06-07 21:24] LABS: Hematocrit 26.6 % (36-46); Hemoglobin 8.8 g/dL (12.0-16.0)
[2021-06-07 21:36] LABS: Hemoglobin A1C% w Est Avg Glu 6.5 % (4.0-6.0)
[2021-06-07] MEDS: SCOPOLAMINE 1 PATCH TOP (22:13)
[2021-06-07] MEDS: INSULIN LISPRO 100 UNIT/ML 3ML VIAL SUBCUT (22:18)
[2021-06-07] MEDS: INSULIN GLARGINE 100 UNIT/ML 3ML PEN 36 UNIT SUBCUT (22:20)
[2021-06-08] VITALS (22 sets, daily range): BP systolic 108–144; BP diastolic 26–68; PULSE 75–84; RESP 16–24; TEMP 36.2–37.2; O2SAT 96–100
[2021-06-08] MEDS: MECLIZINE HCL 12.5 MG TABLET PO (00:59)
[2021-06-08] MEDS: HYDROMORPHONE 1 MG INJ IV (01:00)
[2021-06-08 03:13] LABS: Add Manual Diff / Slide Review NO; Basophils Absolute Auto 100 /uL (0-100); Basophils Percent Auto 0.8 % (0-2); Eosinophils Absolute Auto 0 /uL (0-450); Eosinophils Percent Auto 0.2 % (2-4); Hematocrit 25.1 % (36-46); Hemoglobin 8.3 g/dL (12.0-16.0); Lymphocytes Absolute Auto 900 /uL (1100-4500); Lymphocytes Percent Auto 12.3 % (25-40); Mean Corpuscular HGB Conc 32.9 % (30-36); Mean Corpuscular Hemoglobin 30.6 PG (26-34); Mean Corpuscular Volume 92.9 fL (80-100); Monocytes Absolute Auto 900 /uL (0-900); Monocytes Percent Auto 12.1 % (3-14); Neutrophils Absolute Auto 5700 /uL (1500-7000); Neutrophils Percent Auto 74.6 % (50-75); Platelet Count 195 X10^3/uL (150-400); Red Cell Distribution Width 13.7 % (11.6-14.8); White Blood Cell Count 7.6 X10^3/uL (4.5-11.0)
[2021-06-08 03:17] LABS: Alanine Aminotransferase 9 IU/L (<35); Albumin 2.7 g/dL (3.5-5.0); Albumin Globulin Ratio 0.9 (1.0-2.8); Alkaline Phosphatase 27 U/L (38-126); Aspartate Aminotransferase 20 IU/L (14-36); BUN Creatinine Ratio 30.3 (6-22); Bilirubin Total 0.2 mg/dL (0.2-1.3); Blood Urea Nitrogen 46 mg/dL (7-17); Calcium 7.8 mg/dL (8.4-10.2); Carbon Dioxide 22 mmol/L (22-32); Chloride 111 mmol/L (98-107); Estimated Glomerular Filt Rate 34.7 mL/min (>60); Glucose 144 mg/dL (80-110); HEMOLYSIS < 15 (0-50); Potassium 4.9 mmol/L (3.4-5.1); Sodium 137 mmol/L (137-145); Total Protein 5.7 g/dL (6.3-8.2)
[2021-06-08 03:31] LABS: INR 1.3 (0.9-1.3); Prothrombin Time 14.6 SECONDS (10.1-12.7)
[2021-06-08 03:33] LABS: PTT Partial Thromboplastin Tim 28 SECONDS (26.4-36.2)
[2021-06-08] MEDS: SODIUM CHLORIDE 0.9% 1,000 ML 100 ML IV ×2 (07:05→11:45)
--- NOTE | 2021-06-08 08:22 | PM.PN.1 ---
Subjective Subjective Date Patient Seen: 06/08/21 Time Patient Seen: 09:44 Interval history: She is seen today to follow-up her recent syncope, C diff infection, bacteremia, appendectomy and abdominal abscess. She has gone to surgery this morning with Dr. Lowe for treatment of her 6 x 7 x 3.2 cm abdominal abscess. The white count is 7.6 with a hemoglobin low at 8.3. The INR is 1.3. The creatinine has dropped from 1.88 down to 1.52 and the albumin is low at 2.7. Exam Vital Signs (past 8 hours): - 06/08/21 01:16 06/08/21 02:40 06/08/21 03:00 Temperature 98.7 F Pulse Rate 75 Respiratory Rate Blood Pressure 120/66 Pulse Oximetry 100 100 06/08/21 05:26 Temperature 99.0 F Pulse Rate 83 Respiratory Rate 16 Blood Pressure 108/51 L Pulse Oximetry 96 Oxygen Delivery Method Nasal Cannula Oxygen Flow Rate 2 Narrative Exam Narrative: She is alert and oriented x3 but is quite sedated by pain medication and her abscess/infection. No apparent distress She appears quite weak. Abdomen is obese, mild diffuse tenderness is present Heart is regular rate and rhythm murmur Lungs are clear to auscultation bilaterally Extremities have no ankle edema. Objective Labs Result Diagrams: 06/08/21 02:56 06/08/21 02:50 Labs: Laboratory Results - last 24 hr 06/07/21 06/07/21 06/07/21 08:30 08:45 09:00 WBC 14.1 H RBC 2.98 L Hgb 9.1 L Hct 27.6 L MCV 92.6 MCH 30.5 MCHC 32.9 RDW 13.4 Plt Count 267 Neut % (Auto) 82.1 H Lymph % (Auto) 9.0 L [place] % (Auto) 6.8 Eos % (Auto) 1.4 L Baso % (Auto) 0.7 Neut # (Auto) 22561 H Lymph # (Auto) 1300 [place] # (Auto) 1000 H Eos # (Auto) 200 Baso # (Auto) 100 PT INR APTT VBG pH 7.39 VBG pCO2 41.2 L VBG pO2 36 VBG HCO3 25 VBG Total CO2 26 VBG O2 Saturation 68 L VBG Base Excess 0.0 Sodium Potassium Chloride Carbon Dioxide BUN Creatinine Estimated GFR BUN/Creatinine Ratio Glucose Hemoglobin A1c Lactate Calcium Magnesium Total Bilirubin AST ALT Alkaline Phosphatase Troponin I Total Protein Albumin Globulin Albumin/Globulin Ratio Lipase Urine Color Urine Appearance Urine pH Ur Specific [place] Urine Protein Urine Glucose (UA) Urine Ketones Urine Occult Blood Urine Nitrate Urine Bilirubin Urine Urobilinogen Ur Leukocyte Esterase Urine RBC Urine WBC Urine Bacteria Ur Culture Indicated? Micro UA Comment Stl C. cayetanensis PCR Not detected Stool Rotavirus (PCR) Not detected Stool Adenovirus (PCR) Not detected Stool Astrovirus (PCR) Not detected Stool Cryptosporidium PCR Not detected Stl E.coli Shiga Tox PCR Not detected St Sh/Enteroin Ecoli PCR Not detected Stool E coli O157 PCR Not detected Stl Enterotoxigenic E PCR Not detected Stool EPEC (PCR) Not detected Stl E. histolytica PCR Not detected Stool Giardia Lamblia PCR Not detected Stool Sapovirus (PCR) Not detected Stl P. shigelloides PCR Not detected St Y.enterocolitica PCR Not detected Stool Vibrio (PCR) Not detected Stl Vibrio cholerae PCR Not detected Stl Enteroaggr Ecoli PCR Not detected Stl Norovirus GI/GII PCR Not detected Campylobacter (PCR) Not detected C. difficile Tox (PCR) Detected H SARS-CoV-2 (PCR) Salmonella (PCR) Not detected Blood Type Antibody Screen 06/07/21 06/07/21 06/07/21 09:00 09:00 09:00 WBC RBC Hgb Hct MCV MCH MCHC RDW Plt Count Neut % (Auto) Lymph % (Auto) [place] % (Auto) Eos % (Auto) Baso % (Auto) Neut # (Auto) Lymph # (Auto) [place] # (Auto) Eos # (Auto) Baso # (Auto) PT INR APTT VBG pH VBG pCO2 VBG pO2 VBG HCO3 VBG Total CO2 VBG O2 Saturation VBG Base Excess Sodium 134 L Potassium 6.1 H Chloride 101 Carbon Dioxide 24 BUN 45 H Creatinine 1.88 H Estimated GFR 27.1 L BUN/Creatinine Ratio 23.9 H Glucose 161 H Hemoglobin A1c Lactate 1.0 Calcium 9.6 Magnesium 2.4 H Total Bilirubin 0.3 AST 23 ALT 10 Alkaline Phosphatase 37 L Troponin I < 0.012 Total Protein 6.7 Albumin 3.3 L Globulin 3.4 Albumin/Globulin Ratio 1.0 Lipase 156 Urine Color Urine Appearance Urine pH Ur Specific [place] Urine Protein Urine Glucose (UA) Urine Ketones Urine Occult Blood Urine Nitrate Urine Bilirubin Urine Urobilinogen Ur Leukocyte Esterase Urine RBC Urine WBC Urine Bacteria Ur Culture Indicated? Micro UA Comment Stl C. cayetanensis PCR Stool Rotavirus (PCR) Stool Adenovirus (PCR) Stool Astrovirus (PCR) Stool Cryptosporidium PCR Stl E.coli Shiga Tox PCR St Sh/Enteroin Ecoli PCR Stool E coli O157 PCR Stl Enterotoxigenic E PCR Stool EPEC (PCR) Stl E. histolytica PCR Stool Giardia Lamblia PCR Stool Sapovirus (PCR) Stl P. shigelloides PCR St Y.enterocolitica PCR Stool Vibrio (PCR) Stl Vibrio cholerae PCR Stl Enteroaggr Ecoli PCR Stl Norovirus GI/GII PCR Campylobacter (PCR) C. difficile Tox (PCR) SARS-CoV-2 (PCR) Salmonella (PCR) Blood Type A Positive Antibody Screen Negative 06/07/21 06/07/21 06/07/21 09:00 10:40 16:05 WBC RBC Hgb 9.0 L Hct 27.4 L MCV MCH MCHC RDW Plt Count Neut % (Auto) Lymph % (Auto) [place] % (Auto) Eos % (Auto) Baso % (Auto) Neut # (Auto) Lymph # (Auto) [place] # (Auto) Eos # (Auto) Baso # (Auto) PT INR APTT VBG pH VBG pCO2 VBG pO2 VBG HCO3 VBG Total CO2 VBG O2 Saturation VBG Base Excess Sodium Potassium Chloride Carbon Dioxide BUN Creatinine Estimated GFR BUN/Creatinine Ratio Glucose Hemoglobin A1c Lactate Calcium Magnesium Total Bilirubin AST ALT Alkaline Phosphatase Troponin I Total Protein Albumin Globulin Albumin/Globulin Ratio Lipase Urine Color Yellow Urine Appearance Clear Urine pH 5.0 Ur Specific [place] <=1.005 Urine Protein Negative Urine Glucose (UA) Negative Urine Ketones Negative Urine Occult Blood Negative Urine Nitrate Negative Urine Bilirubin Negative Urine Urobilinogen 0.2 Ur Leukocyte Esterase Negative Urine RBC None seen Urine WBC None seen Urine Bacteria None seen Ur Culture Indicated? Cult not indicated Micro UA Comment Microscopic normal Stl C. cayetanensis PCR Stool Rotavirus (PCR) Stool Adenovirus (PCR) Stool Astrovirus (PCR) Stool Cryptosporidium PCR Stl E.coli Shiga Tox PCR St Sh/Enteroin Ecoli PCR Stool E coli O157 PCR Stl Enterotoxigenic E PCR Stool EPEC (PCR) Stl E. histolytica PCR Stool Giardia Lamblia PCR Stool Sapovirus (PCR) Stl P. shigelloides PCR St Y.enterocolitica PCR Stool Vibrio (PCR) Stl Vibrio cholerae PCR Stl Enteroaggr Ecoli PCR Stl Norovirus GI/GII PCR Campylobacter (PCR) C. difficile Tox (PCR) SARS-CoV-2 (PCR) Negative Salmonella (PCR) Blood Type Antibody Screen 06/07/21 06/07/21 06/08/21 16:05 21:15 02:50 WBC RBC Hgb 8.8 L Hct 26.6 L MCV MCH MCHC RDW Plt Count Neut % (Auto) Lymph % (Auto) [place] % (Auto) Eos % (Auto) Baso % (Auto) Neut # (Auto) Lymph # (Auto) [place] # (Auto) Eos # (Auto) Baso # (Auto) PT 14.6 H INR 1.3 APTT 28 VBG pH VBG pCO2 VBG pO2 VBG HCO3 VBG Total CO2 VBG O2 Saturation VBG Base Excess Sodium Potassium Chloride Carbon Dioxide BUN Creatinine Estimated GFR BUN/Creatinine Ratio Glucose Hemoglobin A1c 6.5 H Lactate Calcium Magnesium Total Bilirubin AST ALT Alkaline Phosphatase Troponin I Total Protein Albumin Globulin Albumin/Globulin Ratio Lipase Urine Color Urine Appearance Urine pH Ur Specific [place] Urine Protein Urine Glucose (UA) Urine Ketones Urine Occult Blood Urine Nitrate Urine Bilirubin Urine Urobilinogen Ur Leukocyte Esterase Urine RBC Urine WBC Urine Bacteria Ur Culture Indicated? Micro UA Comment Stl C. cayetanensis PCR Stool Rotavirus (PCR) Stool Adenovirus (PCR) Stool Astrovirus (PCR) Stool Cryptosporidium PCR Stl E.coli Shiga Tox PCR St Sh/Enteroin Ecoli PCR Stool E coli O157 PCR Stl Enterotoxigenic E PCR Stool EPEC (PCR) Stl E. histolytica PCR Stool Giardia Lamblia PCR Stool Sapovirus (PCR) Stl P. shigelloides PCR St Y.enterocolitica PCR Stool Vibrio (PCR) Stl Vibrio cholerae PCR Stl Enteroaggr Ecoli PCR Stl Norovirus GI/GII PCR Campylobacter (PCR) C. difficile Tox (PCR) SARS-CoV-2 (PCR) Salmonella (PCR) Blood Type Antibody Screen 06/08/21 06/08/21 06/08/21 02:50 02:50 02:56 WBC 7.6 RBC 2.70 L Hgb Cancelled 8.3 L Hct Cancelled 25.1 L MCV 92.9 MCH 30.6 MCHC 32.9 RDW 13.7 Plt Count 195 Neut % (Auto) 74.6 Lymph % (Auto) 12.3 L [place] % (Auto) 12.1 Eos % (Auto) 0.2 L Baso % (Auto) 0.8 Neut # (Auto) 5700 Lymph # (Auto) 900 L [place] # (Auto) 900 Eos # (Auto) 0 Baso # (Auto) 100 PT INR APTT VBG pH VBG pCO2 VBG pO2 VBG HCO3 VBG Total CO2 VBG O2 Saturation VBG Base Excess Sodium 137 Potassium 4.9 D Chloride 111 H Carbon Dioxide 22 BUN 46 H Creatinine 1.52 H Estimated GFR 34.7 L BUN/Creatinine Ratio 30.3 H Glucose 144 H Hemoglobin A1c Lactate Calcium 7.8 L Magnesium 2.0 Total Bilirubin 0.2 AST 20 ALT 9 Alkaline Phosphatase 27 L Troponin I Total Protein 5.7 L Albumin 2.7 L Globulin 3.0 Albumin/Globulin Ratio 0.9 L Lipase Urine Color Urine Appearance Urine pH Ur Specific [place] Urine Protein Urine Glucose (UA) Urine Ketones Urine Occult Blood Urine Nitrate Urine Bilirubin Urine Urobilinogen Ur Leukocyte Esterase Urine RBC Urine WBC Urine Bacteria Ur Culture Indicated? Micro UA Comment Stl C. cayetanensis PCR Stool Rotavirus (PCR) Stool Adenovirus (PCR) Stool Astrovirus (PCR) Stool Cryptosporidium PCR Stl E.coli Shiga Tox PCR St Sh/Enteroin Ecoli PCR Stool E coli O157 PCR Stl Enterotoxigenic E PCR Stool EPEC (PCR) Stl E. histolytica PCR Stool Giardia Lamblia PCR Stool Sapovirus (PCR) Stl P. shigelloides PCR St Y.enterocolitica PCR Stool Vibrio (PCR) Stl Vibrio cholerae PCR Stl Enteroaggr Ecoli PCR Stl Norovirus GI/GII PCR Campylobacter (PCR) C. difficile Tox (PCR) SARS-CoV-2 (PCR) Salmonella (PCR) Blood Type Antibody Screen [facility] Medical History Diabetes Hyperlipidemia Hypertension Surgical History History of appendectomy Hx of cataract surgery Family History Mother Diabetes mellitus Hypertension Father Stroke Coronary atherosclerosis of artery bypass graft Social History Smoking Status: Never smoker Assessment & Plan Assessment & Plan narrative: Patient is a 60-year-old female with a history of poorly-controlled diabetes, history of gastric banding, hypertension, peripheral neuropathy, hyperlipidemia with a complicated appendicitis with surgical intervention. she developed acute appendicitis underwent laparoscopic appendectomy with open umbilical hernia repair and drainage of kimberli appendiceal abscess, 05/14/2021 at [facility]. During her hospitalization she developed acute kidney injury and bacteremia. Patient is now admitted with acute respiratory failure with hypoxia, sepsis with PATRICK, positive C diff infection, and abdominal abscess from her 05/14/21 surgical procedure. 1. Acute respiratory failure with hypoxia, acute, present on admission -patient was requiring oxygen at admission with 2.5 L nasal cannula for an O2 saturation of 98%. -Attempt tapering of oxygen postoperatively 2. Positive C difficile colitis, acute, present on admission - stool demonstrate Clostridium difficile. -Flagyl 500 mg PO t.i.d and PO Vancomycin, plan to stop Flagyl on 06/09 if continues to do well. 3. Sepsis with PATRICK/bacteremia possibly secondary to abdominal abscess, acute, present on admission -Secondary complication of surgical appendectomy at [facility] 05/14/2021 -CT abdomen pelvis demonstrated a 6.7 by 3.2 cm fluid collection in the right lower quadrant. -Dr. Lowe took her for surgery on 06/08. -pain control, antiemetics -NS at 100 cc/hour -oral vancomycin 125 mg p.o. q.i.d., Rocephin 1 g IV q.day -hold patient's Lasix 80 mg q.day, & potassium 4. Essential hypertension, chronic, well controlled, present on admission -continue patient's lisinopril and carvedilol 4. Insulin-dependent type 2 diabetes, with secondary hyperlipidemia, acute on chronic, present on admission -admitting glucose 161, A1C 6.5, BS check Q6 while NPO, once patient is able to eat- ACHS -continuing patient's Lantus 36 units at bedtime, placed on diabetic protocol, low-dose sliding scale -continue patient's rosuvastatin -hold patient's glipizide Code status: Full code Surrogate decision maker: Paddy Anderson Son POA COVID PCR: Negative COVID vaccination: Moderna February 2021 DVT/VTE prophylaxis: Medication contraindicated due to surgery, SCDs only
[2021-06-08] MEDS: LACTATED RINGERS 1,000 ML 42 ML IV (09:20)
--- NOTE | 2021-06-08 10:01 | SUR.OPER ---
Supine on padded OR bed, head on pillow, arms secured on padded arm boards at <90 degrees abduction, legs uncrossed, safety belt at thigh, tape over blanket over lower legs.
[2021-06-08] MEDS: BUPIVACAINE 0.25% (PF) VIAL 30 ML INJ (10:16)
--- NOTE | 2021-06-08 10:46 | SUR.PHASEI ---
1044 Recovered in OR 3 due to C-diff. Patient on her bed, continuous monitoring, O2 at 2LNP.
--- NOTE | 2021-06-08 10:54 | PM.OP.1 ---
Operative Date/Time/Diagnoses Date of procedure: 06/08/21 Time of procedure: 10:54 Pre-op diagnosis: Intra-abdominal fluid collection Post-op diagnosis: same Procedure & Clinicians Procedure: Diagnostic laparoscopy, drainage of intra-abdominal fluid collection Same procedure as scheduled: Yes Indications: 60-year-old female multiple prior abdominal surgeries 1 month status post laparoscopic appendectomy at outside facility for perforated appendicitis presents with abdominal pain and a 7 cm intra-abdominal fluid collection Surgeon: Ben Lowe Anesthesia Type: General Operative Notes Findings: Numerous intra abdominal adhesions. Organizing fluid collection in the mid upper abdomen, minimal. Purulence mostly retained hematoma Specimen(s): other (Intra-abdominal fluid) Estimated Blood Loss (mL): 20 Procedure in detail: Patient was brought to the operating room placed supine on the table. Bilateral lower extremity compression devices were applied. She received preoperative antibiotics on the floor prior to arrival. General anesthesia was induced she was intubated with an endotracheal tube. She was then prepped and draped in sterile fashion including removal of the prior left-sided abdominal drain. Time-out was performed. Began by making a skin incision at the left upper quadrant where the previous drain had been placed. The fascia was exposed and then the 11 mm trocar was then advanced through the fascia and into the abdomen with the camera inserted through the trocar under direct visualization. Abdomen was insufflated. The abdomen was notable for numerous adhesions involving the midline the umbilicus right lower quadrant and the upper abdomen. These adhesions were carefully taking down, an additional 5 mm port was placed in the left upper quadrant as well as the right lower quadrant. There were multiple pockets of organizing fluid collection along the midline and principally in the upper abdomen. The adhesions in the upper abdomen near the stomach at the liver were carefully lysed and there was a sizable fluid collection here which contained minimal purulent material mostly old hematoma. The area was suctioned and sent for culture was then copiously irrigated and gently debrided. A 19 [place] Paulino drain was then placed through the prior left upper quadrant incision to lay within the pre gin of the foot were as fluid collection secured with a nylon suture. The skin incisions were then irrigated and then closed with ambrocio. Patient tolerated the procedure well extubated transferred to recovery room stable condition. Complications: none Post-operative Condition: stable Disposition: Acute Care
[2021-06-08] MEDS: METOCLOPRAMIDE 10 MG/2 ML INJ IV (10:58)
[2021-06-08] MEDS: HYDROMORPHONE 2 MG INJ IV ×2 (10:59→11:06)
--- NOTE | 2021-06-08 11:02 | SUR.PHASEI ---
glucose was [address] arrival to recover the patient in the OR.
--- NOTE | 2021-06-08 11:08 | SUR.PHASEI ---
second dose of pain medication given. Patient states that the first dose didn't change the pain, but her behavior indicated improvement. No longer coughing (nausea?) after medication. Eyes closed, occasionally moaning, mostly quiet.
--- NOTE | 2021-06-08 11:22 | SUR.PHASEI ---
O2 90% room air, returned to 2LNP, Sat improved to 95%. Dozing quietly
--- NOTE | 2021-06-08 12:06 | SUR.PHASEI ---
1139 Left lateral dressings changed prior to detarting from the OR; Dr. Lowe aware. Abdoomen remains slightly firm; Dr. Lowe checked abdomen prior to departing for the floor. RN was informed up arrival to room 206, bed remains elevated at RN request, she will also give the call light. VSS, SCD's on, O2 at 2LNP.Dressings remain CDI other that a dime size shadow around drain site. Patient moaning intermittently as she did when going over the bumps during transfer. No further questions from the RN or patient. No further c/o nausea after the medications. She was mostly sleeping prior to transfer.
--- NOTE | 2021-06-08 12:10 | CM.DANOTE ---
DCP: Case received, EMR reviewed and checked on patient. She was moaning and uncomfortable, laying in bed. Was able to find out that patient came from [facility], and was able to obtain further information from Hanh at [facility]. DCP assessment completed with information currently available. Patient is a 60 year old female who admitted yesterday afternoon to the care of the hospitalist team. PCP: Dr. Samara Alejandre. Payer: confirmed: Medicaid. Patient was sent here to the hospital via ambulance from [facility]. Patient had been at the facility, and was developing increased pain, weakness, following a recent surgery for appendix removal. Patient had prior, gone to [facility] for appendicitis, and developed acute kidney injury and bacteremia. A surgical drain was placed, and she was sent to [facility] for rehab. Patient is here with diagnosis of acute respiratory failure, sepsis, PATRICK, and absess. She will be having surgery today. Spoke to Hanh at [facility]. She indicated that patient was getting close to discharge. Mentioned that her baseline status is one person assist, she has been able to ambulate with walker. Hanh indicated that they can accept patient back when she is medically stable. P: DCP to continue to follow. Patient is medically unstable at this time, but the goal is to get her back to [facility] for rehab, once she is stable. Karina Dubose RN/Transmissions Systems Operator
--- NOTE | 2021-06-08 12:34 | PC.NURSE ---
Patient arrived back to the floor at 1145 from PACU. VSS. 100% on 2L NC. Lap sites intact, minimal drainage noted on LUQ dressing. BS active x 4. JANAK intact and compressed. SCD's on bilaterally. Continuous pulse ox remains on. Fluids running. Patient denies pain at this time. Abdomen is distended, firm, MD aware per PACU nurse. Moore patent, draining clear urine.
[2021-06-08] MEDS: ASPIRIN EC 81 MG TABLET PO (13:40)
[2021-06-08] MEDS: CALCIUM CARBONATE 600 MG TABLET PO (13:40)
[2021-06-08] MEDS: cefTRIAXone 1,000 MG in SODIUM CHLORIDE 0.9% 100 ML 200 ML IV (13:41)
[2021-06-08] MEDS: MONTELUKAST 10 MG TABLET PO (13:41)
[2021-06-08] MEDS: NYSTATIN POWDER 15GM 1 APPLIC TOP ×2 (13:41→21:51)
[2021-06-08] MEDS: VANCOMYCIN 125 MG CAPSULE PO ×3 (13:42→21:29)
[2021-06-08] MEDS: POTASSIUM CHLORIDE 10 MEQ TAB PO (13:42)
[2021-06-08] MEDS: metroNIDAZOLE 500 MG TABLET PO ×2 (14:53→21:29)
[2021-06-08] MEDS: HYDROMORPHONE 0.5 MG INJ IV (16:01)
--- NOTE | 2021-06-08 16:27 | PC.NURSE ---
Pt lying in bed continuously moaning. 02 @ 1L per nc oxygen level per continuos monitor 100% while awake. Pt does not use words, but moans continually. Encouraged conversation and to rate pain level. Pt reports pain to legs BL with scd's inflation, c/o abdominal pain 04/03. Keeps eyes closed and does not meet this junior underwriter's gaze. Provided with water per request and encouraged to reach for this and do for self as able. Medicated with 0.5 mg iv dilaudid as per emar. Pt's moaning ceases and trial of room air fails when pt desats with sedation. Pt rouses easily to voice and does admit to h/o sleep apnea. Replaced 02 @ 2L/min and oxygen level increases to 100%. Scd's off at this time and will reapproach and reattempt.
[2021-06-08] MEDS: OXYBUTYNIN 5 MG TABLET PO (21:29)
[2021-06-08] MEDS: INSULIN GLARGINE 100 UNIT/ML 3ML PEN 36 UNIT SUBCUT (21:30)
--- NOTE | 2021-06-08 22:59 | PC.NURSE ---
Clarified with RANJIT Raymundo, give 36 U Lantus with BS 107.
[2021-06-09] VITALS (15 sets, daily range): BP systolic 120–164; BP diastolic 52–83; PULSE 69–82; RESP 12–24; TEMP 36.2–36.9; O2SAT 96–100
[2021-06-09] MEDS: HYDROMORPHONE 0.5 MG INJ IV ×4 (00:13→12:45)
[2021-06-09 06:56] LABS: INR 1.3 (0.9-1.3); Prothrombin Time 14.9 SECONDS (10.1-12.7)
[2021-06-09 06:59] LABS: PTT Partial Thromboplastin Tim 27 SECONDS (26.4-36.2)
[2021-06-09 07:04] LABS: Alanine Aminotransferase 29 IU/L (<35); Albumin 2.5 g/dL (3.5-5.0); Albumin Globulin Ratio 0.8 (1.0-2.8); Alkaline Phosphatase 27 U/L (38-126); Aspartate Aminotransferase 45 IU/L (14-36); BUN Creatinine Ratio 31.3 (6-22); Bilirubin Total 0.1 mg/dL (0.2-1.3); Blood Urea Nitrogen 30 mg/dL (7-17); Calcium 7.9 mg/dL (8.4-10.2); Carbon Dioxide 22 mmol/L (22-32); Chloride 113 mmol/L (98-107); Estimated Glomerular Filt Rate 58.9 mL/min (>60); Globulin 3.1 g/dL (1.7-4.1); Glucose 102 mg/dL (80-110); HEMOLYSIS < 15 (0-50); Potassium 4.7 mmol/L (3.4-5.1); Sodium 138 mmol/L (137-145); Total Protein 5.6 g/dL (6.3-8.2)
[2021-06-09 07:07] LABS: Add Manual Diff / Slide Review NO; Basophils Absolute Auto 0 /uL (0-100); Basophils Percent Auto 0.4 % (0-2); Eosinophils Absolute Auto 100 /uL (0-450); Eosinophils Percent Auto 1.5 % (2-4); Hematocrit 22.4 % (36-46); Hemoglobin 7.2 g/dL (12.0-16.0); Lymphocytes Absolute Auto 1500 /uL (1100-4500); Lymphocytes Percent Auto 15.9 % (25-40); Mean Corpuscular HGB Conc 32.4 % (30-36); Mean Corpuscular Hemoglobin 30.3 PG (26-34); Mean Corpuscular Volume 93.7 fL (80-100); Monocytes Absolute Auto 1100 /uL (0-900); Monocytes Percent Auto 11.3 % (3-14); Neutrophils Absolute Auto 6600 /uL (1500-7000); Neutrophils Percent Auto 70.9 % (50-75); Platelet Count 190 X10^3/uL (150-400); Red Blood Cell Count 2.39 X10^6/uL (4.0-5.2); Red Cell Distribution Width 13.8 % (11.6-14.8); White Blood Cell Count 9.3 X10^3/uL (4.5-11.0)
[2021-06-09] MEDS: SODIUM CHLORIDE 0.9% 1,000 ML 100 ML IV ×2 (07:26→20:35)
--- NOTE | 2021-06-09 07:48 | PM.PNPO.1 ---
Subjective Subjective Date Patient Seen: 06/09/21 Time Patient Seen: 07:48 Interval history: Incisional pain. Tolerated clears. Gram stain no organisms. Exam Vital Signs (past 8 hours): - 06/09/21 00:00 06/09/21 04:00 Temperature 98.4 F 98.4 F Pulse Rate 79 78 Respiratory Rate 22 18 Blood Pressure 132/83 137/52 L Pulse Oximetry 100 100 Oxygen Delivery Method Nasal Cannula Oxygen Flow Rate 2.5 Narrative Exam Narrative: Gen-Adult woman morbid obesity no distress Abdomen-Appropriately tender to palpation. Incisions CDI. Drain LUQ Serosanginous no purulence. Objective Labs Result Diagrams: 06/09/21 06:38 06/09/21 06:38 Labs: Laboratory Results - last 24 hr 06/09/21 06/09/21 06/09/21 06:38 06:38 06:38 WBC 9.3 RBC 2.39 L Hgb 7.2 L Hct 22.4 L MCV 93.7 MCH 30.3 MCHC 32.4 RDW 13.8 Plt Count 190 Neut % (Auto) 70.9 Lymph % (Auto) 15.9 L [place] % (Auto) 11.3 Eos % (Auto) 1.5 L Baso % (Auto) 0.4 Neut # (Auto) 6600 Lymph # (Auto) 1500 [place] # (Auto) 1100 H Eos # (Auto) 100 Baso # (Auto) 0 PT 14.9 H INR 1.3 APTT 27 Sodium 138 Potassium 4.7 Chloride 113 H Carbon Dioxide 22 BUN 30 H Creatinine 0.96 Estimated GFR 58.9 L BUN/Creatinine Ratio 31.3 H Glucose 102 Calcium 7.9 L Total Bilirubin 0.1 L AST 45 H ALT 29 Alkaline Phosphatase 27 L Total Protein 5.6 L Albumin 2.5 L Globulin 3.1 Albumin/Globulin Ratio 0.8 L PFSH Medical History Diabetes Hyperlipidemia Hypertension Surgical History History of appendectomy Hx of cataract surgery Family History Mother Diabetes mellitus Hypertension Father Stroke Coronary atherosclerosis of artery bypass graft Social History Smoking Status: Never smoker Assessment & Plan Post-op Postoperative Procedures: Procedures Operation Date: 06/08/21 09:00 Actual Procedure Side Surgeon p Laparoscopic drainage of intraabdominal abscess Ben Lowe MD Postoperative plan narrative: 60F sp appendectomy 1 month ago OSH admitted for intra abdominal fluid collection and C Diff. Laparoscopic drainage of intra abdominal fluid collection yesterday, mostly old hematoma, no saundra purulence. Gram stain no organisms. Can likely discharge back to facility with drain when medically clear. No further surgical needs. F/u final cultures although suspect sterile fluid collection. May follow up with her primary surgeon at [facility] Advance diet as tolerated
[2021-06-09] MEDS: ASPIRIN EC 81 MG TABLET PO (09:18)
[2021-06-09] MEDS: MONTELUKAST 10 MG TABLET PO (09:18)
[2021-06-09] MEDS: FUROSEMIDE 40 MG TABLET 80 MG PO (09:18)
[2021-06-09] MEDS: MULTIVITAMIN 1 TABLET 1 TAB PO (09:18)
[2021-06-09] MEDS: VANCOMYCIN 125 MG CAPSULE PO ×4 (09:19→20:42)
[2021-06-09] MEDS: NYSTATIN POWDER 15GM 1 APPLIC TOP ×2 (09:19→20:41)
[2021-06-09] MEDS: POTASSIUM CHLORIDE 10 MEQ TAB PO ×2 (09:19→20:42)
[2021-06-09] MEDS: CALCIUM CARBONATE 600 MG TABLET PO (09:19)
[2021-06-09] MEDS: metroNIDAZOLE 500 MG TABLET PO (09:19)
--- NOTE | 2021-06-09 11:19 | CM.DPC ---
DCP Cont: Discussed patient during team rounds. Dr. Bailey has not yet seen patient yet today, and will be determined if she is ready to go back to [facility]. Updated Hanh at [facility], who has been following patient, and her concern is the level of her HGB that is down, and she is still getting IV pain medications. Let her know that this therapeutic case manager will continue to update her. P: DCP to continue to follow, and will update Hanh at [facility] regarding her status. Karina Dubose RN/Barbed Wire Machine Operator
[2021-06-09] MEDS: cefTRIAXone 1,000 MG in SODIUM CHLORIDE 0.9% 100 ML 200 ML IV (12:38)
[2021-06-09 13:09] LABS: C difficie Toxins A and B, EIA Negative (Negative)
--- NOTE | 2021-06-09 14:05 | P.PN_ITS ---
Subjective Subjective Date Patient Seen: 06/09/21 Time Patient Seen: 09:00 Interval history: She currently has no pain. However she has not been eating much. She says she is tired and just wants to sleep. Exam Vital Signs (past 8 hours): - 06/09/21 07:50 06/09/21 08:00 06/09/21 09:57 Temperature 97.1 F L Pulse Rate 76 Respiratory Rate 12 Blood Pressure 121/58 L Pulse Oximetry 99 99 99 06/09/21 11:02 06/09/21 11:47 06/09/21 12:00 Temperature 97.1 F L Pulse Rate 75 Respiratory Rate 12 Blood Pressure 141/55 H Pulse Oximetry 98 98 100 Oxygen Delivery Method Room Air Oxygen Flow Rate 1 Narrative Exam Narrative: GEN: alert and oriented x3, but sleepy likely from pain medications and infection, no acute distress ABD: Abdomen is obese, mild diffuse tenderness is present CV: regular rate and rhythm murmur PULM: clear to auscultation bilaterally EXT: no edema. Objective Labs Result Diagrams: 06/09/21 06:38 06/09/21 06:38 Labs: Laboratory Results - last 24 hr 06/07/21 06/07/21 06/09/21 08:30 09:00 06:38 WBC 9.3 RBC 2.39 L Hgb 7.2 L Hct 22.4 L MCV 93.7 MCH 30.3 MCHC 32.4 RDW 13.8 Plt Count 190 Neut % (Auto) 70.9 Lymph % (Auto) 15.9 L [place] % (Auto) 11.3 Eos % (Auto) 1.5 L Baso % (Auto) 0.4 Neut # (Auto) 6600 Lymph # (Auto) 1500 [place] # (Auto) 1100 H Eos # (Auto) 100 Baso # (Auto) 0 PT INR APTT Sodium Potassium Chloride Carbon Dioxide BUN Creatinine Estimated GFR BUN/Creatinine Ratio Glucose Calcium Total Bilirubin AST ALT Alkaline Phosphatase Total Protein Albumin Globulin Albumin/Globulin Ratio C. diff Toxin A&B (EIA) Negative Blood Type A Positive Antibody Screen Negative Crossmatch See Detail 06/09/21 06/09/21 06:38 06:38 WBC RBC Hgb Hct MCV MCH MCHC RDW Plt Count Neut % (Auto) Lymph % (Auto) [place] % (Auto) Eos % (Auto) Baso % (Auto) Neut # (Auto) Lymph # (Auto) [place] # (Auto) Eos # (Auto) Baso # (Auto) PT 14.9 H INR 1.3 APTT 27 Sodium 138 Potassium 4.7 Chloride 113 H Carbon Dioxide 22 BUN 30 H Creatinine 0.96 Estimated GFR 58.9 L BUN/Creatinine Ratio 31.3 H Glucose 102 Calcium 7.9 L Total Bilirubin 0.1 L AST 45 H ALT 29 Alkaline Phosphatase 27 L Total Protein 5.6 L Albumin 2.5 L Globulin 3.1 Albumin/Globulin Ratio 0.8 L C. diff Toxin A&B (EIA) Blood Type Antibody Screen Crossmatch [facility] Medical History Diabetes Hyperlipidemia Hypertension Surgical History History of appendectomy Hx of cataract surgery Family History Mother Diabetes mellitus Hypertension Father Stroke Coronary atherosclerosis of artery bypass graft Social History Smoking Status: Never smoker Assessment & Plan Assessment & Plan narrative: 60W with PMH of poorly-controlled diabetes, history of gastric banding, hypertension, peripheral neuropathy, hyperlipidemia with recent complicated appendicitis for which she underwent laparoscopic appendecto my with open umbilical hernia repair and drainage of kimberli appendiceal abscess, 05/14/2021 at [facility]. During her hospitalization she developed acute kidney injury and bacteremia. Patient is now admitted with acute respiratory failure with hypoxia, sepsis with PATRICK, positive C diff infection, and abdominal abscess from her 05/14/21 surgical procedure. 1. Acute respiratory failure with hypoxia, acute, present on admission -patient was requiring oxygen at admission with 2.5 L nasal cannula for an O2 saturation of 98%. -Attempt tapering of oxygen postoperatively -etiology is possibly from atelectasis post-operatively, patient also has presumed CLAIRE and does not use CPAP 2. Positive C difficile colitis, acute, present on admission - stool demonstrate Clostridium difficile. - PO Vancomycin, plan to stop 2 weeks after finishing IV antibiotics 3. Sepsis with PATRICK/bacteremia possibly secondary to abdominal abscess, acute, present on admission -Secondary complication of surgical appendectomy at [facility] 05/14/2021 -CT abdomen pelvis demonstrated a 6.7 by 3.2 cm fluid collection in the right lower quadrant. -Dr. Lowe took her for surgery on 06/08. -pain control, antiemetics -NS at 100 cc/hour -Rocephin 1 g IV q.day, IV flagyl -follow up outpatient records for bacteremia to determine course of IV antibiotics -PATRICK resolved 4. Essential hypertension, chronic, well controlled, present on admission -continue patient's lisinopril and carvedilol -restart lasix 06/09 4. Insulin-dependent type 2 diabetes, with secondary hyperlipidemia, acute on chronic, present on admission -admitting glucose 161, A1C 6.5, BS check Q6 while NPO, once patient is able to eat- ACHS -continuing patient's Lantus 36 units at bedtime, placed on diabetic protocol, low-dose sliding scale -continue patient's rosuvastatin -hold patient's glipizide Code status: Full code Surrogate decision maker: Paddy Anderson Son POA COVID PCR: Negative COVID vaccination: Moderna February 2021 DVT/VTE prophylaxis: Medication contraindicated due to surgery, SCDs only
--- NOTE | 2021-06-09 14:09 | DI.RAD.S_ITS ---
PROCEDURE: XR CHEST 1V INDICATIONS: hypoxemia TECHNIQUE: One view of the chest was acquired. COMPARISON: [facility], CR, XR CHEST 1V, 06/07/2021, 9:18. FINDINGS: Surgical changes and devices: Surgical clips project over the left breast. Surgical drain projects over the upper abdomen.. Lungs and pleura: Patchy opacities noted in the lung bases bilaterally which could represent atelectasis or pneumonia. There is cephalization of pulmonary vasculature suspicious for CHF. No pleural effusions or pneumothorax. Mediastinum: Mediastinal contours appear normal. Heart is enlarged Bones and chest wall: No suspicious bony lesions. Overlying soft tissues appear unremarkable. IMPRESSION: 1. Cephalization pulmonary vascular suspicious for CHF. 2. Patchy opacities in the lung bases bilaterally compatible with atelectasis versus pneumonia. Dictated by: Maribell Reaves MD, PhD on 06/09/2021 at 15:06 Approved by: Maribell Reaves MD, PhD on 06/09/2021 at 15:11
[2021-06-09] MEDS: metroNIDAZOLE 500 MG/100 ML PIGGYBACK 100 MG IV (16:57)
[2021-06-09] MEDS: OXYBUTYNIN 5 MG TABLET PO (20:43)
--- NOTE | 2021-06-09 22:29 | PC.NURSE ---
Addendum entered by Siobhan Resendiz R.N. 06/09/21 22:42: Pt abdomen round, two dsg CDI, changed the destiny dsg x 1 this evening 2 PA to [facility] Original Note: Pt requires lots of encouragement to move Moans when in discomfort. Med w/ Dilaudid IVP x 2 w/relief. IVF infusing into the RIJ as per orders w/ incidence. CBG 88 AC & 80 HS, no coverage required. Call light w/in reach, bed alarm on for pt safety. Continue w/plan of care.
[2021-06-10] VITALS (13 sets, daily range): BP systolic 146–162; BP diastolic 58–66; PULSE 68–84; RESP 18–24; TEMP 36.2–36.6; O2SAT 92–97
[2021-06-10] MEDS: HYDROMORPHONE 0.5 MG INJ IV ×3 (00:13→06:55)
[2021-06-10] MEDS: metroNIDAZOLE 500 MG/100 ML PIGGYBACK 100 MG IV ×3 (00:14→16:58)
[2021-06-10] MEDS: SODIUM CHLORIDE 0.9% 1,000 ML 100 ML IV (06:56)
[2021-06-10 07:00] LABS: Add Manual Diff / Slide Review NO; Basophils Absolute Auto 100 /uL (0-100); Basophils Percent Auto 0.6 % (0-2); Eosinophils Absolute Auto 500 /uL (0-450); Hemoglobin 7.6 g/dL (12.0-16.0); Lymphocytes Absolute Auto 1700 /uL (1100-4500); Lymphocytes Percent Auto 17.5 % (25-40); Mean Corpuscular HGB Conc 33.3 % (30-36); Mean Corpuscular Hemoglobin 30.6 PG (26-34); Mean Corpuscular Volume 91.9 fL (80-100); Monocytes Absolute Auto 1000 /uL (0-900); Neutrophils Absolute Auto 6500 /uL (1500-7000); Neutrophils Percent Auto 66.9 % (50-75); Platelet Count 199 X10^3/uL (150-400); Red Cell Distribution Width 13.7 % (11.6-14.8); White Blood Cell Count 9.7 X10^3/uL (4.5-11.0)
[2021-06-10 07:11] LABS: Alanine Aminotransferase 19 IU/L (<35); Albumin 2.5 g/dL (3.5-5.0); Albumin Globulin Ratio 0.8 (1.0-2.8); Alkaline Phosphatase 31 U/L (38-126); Aspartate Aminotransferase 21 IU/L (14-36); BUN Creatinine Ratio 27.4 (6-22); Bilirubin Total 0.2 mg/dL (0.2-1.3); Blood Urea Nitrogen 20 mg/dL (7-17); Calcium 8.2 mg/dL (8.4-10.2); Carbon Dioxide 22 mmol/L (22-32); Chloride 112 mmol/L (98-107); Estimated Glomerular Filt Rate > 60.0 mL/min (>60); Glucose 105 mg/dL (80-110); HEMOLYSIS < 15 (0-50); Potassium 4.6 mmol/L (3.4-5.1); Sodium 137 mmol/L (137-145); Total Protein 5.5 g/dL (6.3-8.2)
[2021-06-10] MEDS: POTASSIUM CHLORIDE 10 MEQ TAB PO ×2 (09:13→20:46)
[2021-06-10] MEDS: MONTELUKAST 10 MG TABLET PO (09:13)
[2021-06-10] MEDS: VANCOMYCIN 125 MG CAPSULE PO ×4 (09:13→20:46)
[2021-06-10] MEDS: CALCIUM CARBONATE 600 MG TABLET PO (09:13)
[2021-06-10] MEDS: MULTIVITAMIN 1 TABLET 1 TAB PO (09:14)
[2021-06-10] MEDS: FUROSEMIDE 40 MG TABLET 80 MG PO (09:14)
[2021-06-10] MEDS: ASPIRIN EC 81 MG TABLET PO (09:14)
[2021-06-10] MEDS: NYSTATIN POWDER 15GM 1 APPLIC TOP (09:15)
[2021-06-10] MEDS: OXYCODONE IR 5 MG TABLET PO ×2 (10:45→15:54)
[2021-06-10] MEDS: ONDANSETRON 4 MG/2 ML INJ IV ×2 (10:45→15:55)
--- NOTE | 2021-06-10 11:05 | CM.DPC ---
Addendum entered by Teagan Becerra LPN 06/10/21 13:56: Insurance update: in course of EMR review noted that insurance was updated by admission counselor on 06/08 as Medicare and Medicaid. Received a call from pt's son Paddy, listed as POC. Checked in with pt to make sure it was ok to speak with him and found her moaning and tearful, stating she was in a great deal of pain. this whole thing has been just terrible. She said her nurse was aware of her current pain levels. Dr. Wiley was also alerted to same and said he was aware and was ordering some tests. At pt's ok placed a call to Paddy. Went over the plan for return to [facility] when pt is stable for same. He says his mother does have chronic pain at baseline and so any new pain is more difficult for her to bear. He says that she had been doing well at [facility] and was almost ready to d/c back to her apartment. Pt has [facility] caregivers , Paddy says this is with an agency called [facility] and he is hopeful that pt will d/c to home also with HH. He was uncertain if [facility] had this information. March/ was updated. Stated that pt had been very much able to speak for herself at the facility but that HH would likely be ordered. P: remains: return to [facility] when stable for same. Original Note: DCP: continued: case received, EMR reviewed. Plan to return to [facility] when stable for same noted. Pt remains with need for IV pain medication. Confirmed with March/[facility] that pt will need to be doing well overnight on oral pain meds before being stable to admit to their facility. Discussed same with Dr. Bailey in [place] who agreed that this was an appropriate request. P: remains: return to [facility] when stable for same. Will need updated - COVID test.
[2021-06-10] MEDS: cefTRIAXone 1,000 MG in SODIUM CHLORIDE 0.9% 100 ML 200 ML IV (13:07)
[2021-06-10] MEDS: ENOXAPARIN 40 MG/0.4 ML SYRINGE SUBCUT ×2 (13:07→20:46)
--- NOTE | 2021-06-10 13:12 | DI.CT.S_ITS ---
PROCEDURE: CT ABDOMEN PELVIS WO CON INDICATIONS: appendicitis c/b abscess, s/p drainage, now worse abd pain TECHNIQUE: Noncontrast 5 mm thick sections acquired from the diaphragms to the symphysis. 5 mm coronal and sagittal reformats were then performed. For radiation dose reduction, the following was used: automated exposure control, adjustment of mA and/or kV according to patient size. COMPARISON: [facility], CT, CT ABDOMEN PELVIS WO CON, 06/07/2021, 9:44. FINDINGS: Image quality: There is beam hardening artifact limiting evaluation. ABDOMEN: Lung bases: There are small bilateral pleural effusions with associated compressive atelectasis. Heart size is borderline enlarged. Solid organs: Noncontrast evaluation of the liver demonstrates no focal hepatic lesions. The gallbladder is surgically absent. Pancreas is normal in contours. Spleen is normal in size. No adrenal nodules. The kidneys demonstrate no hydronephrosis. Nonspecific perinephric stranding redemonstrated bilaterally. Peritoneum and bowel: There is intraluminal fluid throughout the small and large bowel with scattered air-fluid levels but no abnormal distention or transition point to suggest obstruction. The findings compatible with an adynamic ileus. There is a loculated bilobed collection redemonstrated in the right lower quadrant measuring approximately 5.1 x 3.4 cm in transverse dimension, similar in size to the prior study given differences in configuration of the collection. There is adjacent inflammatory fat stranding. Find or ngs again likely represent an abscess collection. There is nonspecific intraluminal calcification within the collection. A percutaneous catheter is redemonstrated with the tip in the right mid abdomen likely related to peritoneal dialysis. There are few small foci of intraperitoneal free air likely related to the dialysis catheter. There is minimal free fluid. Nodes and vessels: No retroperitoneal or mesenteric adenopathy by size criteria. Aorta and inferior vena cava are normal in caliber. Miscellaneous: No ventral hernias. There is a loculated peripherally enhancing subcutaneous collection within the right ventral abdominal wall measuring up to 5.1 x 1.9 cm in transverse dimension, similar in size to the prior study. There is mild fat stranding along the ventral abdominal wall inferiorly which is nonspecific but may reflect infection/cellulitis. PELVIS: Genitourinary: Bladder wall thickness is normal. There is a small amount of gas within the bladder. Miscellaneous: No inguinal hernias or adenopathy. Bones: No suspicious bony lesions. No vertebral body compression fractures. IMPRESSION: 1. Persistent bilobed loculated fluid collection in the right lower quadrant suspicious for an abscess which appears similar in size compared to the prior study. 2. Air-fluid levels demonstrated throughout nondilated loops of small and large bowel likely reflecting an ileus. No definite obstruction. 3. Peritoneal dialysis catheter redemonstrated with associated small foci of free air. 4. Intraluminal gas within the bladder may reflect sequelae of catheterization or infection from a gas-forming organism. 5. Small bilateral pleural effusions with associated compressive atelectasis. Dictated by: Daren Chilel M.D. on 06/10/2021 at 13:55 Approved by: Daren Chilel M.D. on 06/10/2021 at 14:10
--- NOTE | 2021-06-10 15:59 | PM.PN.1 ---
Subjective Subjective Date Patient Seen: 06/10/21 Time Patient Seen: 12:00 Interval history: Today she is complaining of abdominal pain, bloating, nausea. She did get a repeat CT scan which shows no significant change in biloculated fluid collection. She does have air fluid levels in the bowel with no evidence of obstruction. Most likely ileus. She has not had a bowel movement today, she is passing gas. Exam Vital Signs (past 8 hours): - 06/10/21 08:00 06/10/21 11:00 06/10/21 12:00 Temperature 97.9 F 97.1 F L Pulse Rate 79 72 Respiratory Rate 18 18 Blood Pressure 148/60 H 158/58 H Pulse Oximetry 92 92 92 06/10/21 15:31 Temperature 97.6 F Pulse Rate 83 Respiratory Rate 20 Blood Pressure 154/64 H Pulse Oximetry 95 Oxygen Delivery Method Room Air Oxygen Flow Rate 2 Narrative Exam Narrative: GEN: alert and oriented x3, but sleepy likely from pain medications and infection, no acute distress ABD: Abdomen is obese, mild diffuse tenderness is present, slightly distended, decreased bowel sounds, drain in place CV: regular rate and rhythm murmur PULM: clear to auscultation bilaterally EXT: no edema. Objective Labs Result Diagrams: 06/10/21 06:45 06/10/21 06:45 Labs: Laboratory Results - last 24 hr 06/07/21 06/10/21 06/10/21 09:00 06:45 06:45 WBC 9.7 RBC 2.50 L Hgb 7.6 L Hct 23.0 L MCV 91.9 MCH 30.6 MCHC 33.3 RDW 13.7 Plt Count 199 Neut % (Auto) 66.9 Lymph % (Auto) 17.5 L [place] % (Auto) 10.0 Eos % (Auto) 5.0 H Baso % (Auto) 0.6 Neut # (Auto) 6500 Lymph # (Auto) 1700 [place] # (Auto) 1000 H Eos # (Auto) 500 H Baso # (Auto) 100 Sodium 137 Potassium 4.6 Chloride 112 H Carbon Dioxide 22 BUN 20 H Creatinine 0.73 Estimated GFR > 60.0 BUN/Creatinine Ratio 27.4 H Glucose 105 Calcium 8.2 L Total Bilirubin 0.2 AST 21 ALT 19 Alkaline Phosphatase 31 L Total Protein 5.5 L Albumin 2.5 L Globulin 3.0 Albumin/Globulin Ratio 0.8 L Crossmatch See Detail PFSH Medical History Diabetes Hyperlipidemia Hypertension Surgical History History of appendectomy Hx of cataract surgery Family History Mother Diabetes mellitus Hypertension Father Stroke Coronary atherosclerosis of artery bypass graft Social History Smoking Status: Never smoker Assessment & Plan Assessment & Plan narrative: 60W with PMH of poorly-controlled diabetes, history of gastric banding, hypertension, peripheral neuropathy, hyperlipidemia with recent complicated appendicitis for which she underwent laparoscopic appendectomy with open umbilical hernia repair and drainage of kimberli appendiceal abscess, 05/14/2021 at [facility]. During her hospitalization she developed acute kidney injury and UTI. Patient is now admitted with acute respiratory failure with hypoxia, sepsis with PATRICK, positive C diff infection, and abdominal abscess from her 05/14/21 surgical procedure. 1. Acute respiratory failure with hypoxia, acute, present on admission -patient was requiring oxygen at admission with 2.5 L nasal cannula for an O2 saturation of 98%. -Attempt tapering of oxygen postoperatively -etiology is possibly from atelectasis post-operatively, patient also has presumed CLAIRE and does not use CPAP -chest xray shows possible fluid in lung likely from fluid resuscitation, will given increased dose of lasix 2. Positive C difficile colitis, acute, present on admission - stool demonstrate Clostridium difficile. - PO Vancomycin, plan to stop 2 weeks after finishing IV antibiotics 3. Sepsis with PATRICK/bacteremia possibly secondary to abdominal abscess now with post-operative ileus -Secondary complication of surgical appendectomy at [facility] 05/14/2021 -CT abdomen pelvis demonstrated a 6.7 by 3.2 cm fluid collection in the right lower quadrant. -Dr. Lowe took her for surgery on 06/08 and collection grossly appeared to be more likely hematoma -cultures negative to date -pain control, antiemetics -IV fluids stopped -Rocephin 1 g IV q.day, IV flagyl -follow up outpatient records for bacteremia to determine course of IV antibiotics, with records arriving patient documented to have bactiuria not bacteremia -PATRICK resolved -continue with advancing diet as tolerated for ileus -limit opiates -check potassium and magnesium as can contribute to ileus 4. Essential hypertension, chronic, well controlled, present on admission -continue patient's lisinopril and carvedilol -restart lasix 06/09 5. Insulin-dependent type 2 diabetes, with secondary hyperlipidemia, acute on chronic, present on admission -admitting glucose 161, A1C 6.5, BS check Q6 while NPO, once patient is able to eat- ACHS -continuing patient's Lantus 36 units at bedtime, placed on diabetic protocol, low-dose sliding scale -continue patient's rosuvastatin -hold patient's glipizide Code status: Full code Surrogate decision maker: Paddy SHANKAR DVT/VTE prophylaxis: SCDs
[2021-06-10] MEDS: FUROSEMIDE 40 MG/4 ML VIAL IV (16:58)
[2021-06-10] MEDS: OXYBUTYNIN 5 MG TABLET PO (20:46)
[2021-06-10] MEDS: INSULIN GLARGINE 100 UNIT/ML 3ML PEN 36 UNIT SUBCUT (21:04)
[2021-06-10] MEDS: glipiZIDE 5 MG TABLET 10 MG PO (21:10)
--- NOTE | 2021-06-10 22:14 | PC.NURSE ---
Pt condition remains essentially unchanged. Med for discomfort several times w/ relief. Repositioned more frequently, pt states she feels better. RIJ intact/patent Call light w/in reach, bed alarm on for pt safety. Continue w/plan of care.
[2021-06-11] VITALS (16 sets, daily range): BP systolic 139–178; BP diastolic 61–72; PULSE 69–86; RESP 16–20; TEMP 35.9–36.7; O2SAT 93–100
[2021-06-11] MEDS: metroNIDAZOLE 500 MG/100 ML PIGGYBACK 100 MG IV ×4 (00:23→23:53)
[2021-06-11] MEDS: OXYCODONE IR 5 MG TABLET PO ×3 (00:28→23:47)
--- NOTE | 2021-06-11 00:55 | PC.NURSE ---
Addendum entered by Suzan Jerome R.N. 06/11/21 07:00: Patient uses 1-2L NC at night since she threw and broke her CPAP machine. Patient used 1L throughout the night and was taken off around 0500 since O2 was at 99%. At 0700 patients O2 decreased to 80% and 1L was replaced on the patient. Patients O2 increased to 98%. This RN left the patient on 1L since she plans to sleep a little longer this morning. Will inform oncoming RN that patient can be RA while awake. Addendum entered by Suzan Jerome R.N. 06/11/21 06:20: At 0344 patients BG was 63, patient was given an Ensure from the [employer], 30 min later the BG was 58, patient was given 120 mL of Apple Juice from this RN, at recheck patient was 60, a lollipop was given to the patient but the patient did not like the taste and a jello cup was requested, at the recheck 30 min later the BG was 81. RANJIT Cook, was notified with no other orders given at this time. Patient is resting in bed with no other complaints at this time. Original Note: At 2330, Patients Paulino Drain Dressing was saturated with serosanguineous drainage, this RN removed old dressing and replaced with fresh gauze and tape at 2335. Will monitor for increase draining at site.
[2021-06-11] MEDS: METOCLOPRAMIDE 10 MG/2 ML INJ 5 MG IV ×4 (01:45→23:46)
[2021-06-11 05:17] LABS: Hematocrit 24.1 % (36-46); Mean Corpuscular Hemoglobin 30.1 PG (26-34); Mean Corpuscular Volume 91.3 fL (80-100); Platelet Count 246 X10^3/uL (150-400); Red Blood Cell Count 2.64 X10^6/uL (4.0-5.2); Red Cell Distribution Width 13.8 % (11.6-14.8); White Blood Cell Count 10.1 X10^3/uL (4.5-11.0)
[2021-06-11 05:23] LABS: BUN Creatinine Ratio 20.9 (6-22); Blood Urea Nitrogen 18 mg/dL (7-17); Calcium 8.2 mg/dL (8.4-10.2); Carbon Dioxide 23 mmol/L (22-32); Chloride 110 mmol/L (98-107); Estimated Glomerular Filt Rate > 60.0 mL/min (>60); Glucose 61 mg/dL (80-110); HEMOLYSIS < 15 (0-50); Magnesium 1.8 mg/dL (1.6-2.3); Potassium 4.2 mmol/L (3.4-5.1); Sodium 137 mmol/L (137-145)
[2021-06-11] MEDS: ONDANSETRON 4 MG/2 ML INJ IV (09:39)
[2021-06-11] MEDS: ENOXAPARIN 40 MG/0.4 ML SYRINGE SUBCUT ×2 (10:16→21:18)
[2021-06-11] MEDS: NYSTATIN POWDER 15GM 1 APPLIC TOP (10:18)
--- NOTE | 2021-06-11 12:49 | P.PN_ITS ---
Subjective Subjective Date Patient Seen: 06/11/21 Time Patient Seen: 09:00 Interval history: She still has nausea. She feels somewhat better than yesterday. She has no bowel movement today. She is passing gas. Very little abdominal pain. Exam Vital Signs (past 8 hours): - 06/11/21 07:00 06/11/21 08:00 06/11/21 08:16 Temperature 97.1 F L Pulse Rate 69 Respiratory Rate 18 Blood Pressure 158/67 H Pulse Oximetry 99 97 96 06/11/21 11:52 Temperature Pulse Rate Respiratory Rate Blood Pressure Pulse Oximetry 97 Oxygen Delivery Method Room Air Oxygen Flow Rate 1 Narrative Exam Narrative: GEN: alert and oriented x3, but sleepy likely from pain me dications and infection, no acute distress ABD: Abdomen is obese, mild diffuse tenderness is present, slightly distended, decreased bowel sounds, drain in place CV: regular rate and rhythm murmur PULM: clear to auscultation bilaterally EXT: no edema. Objective Labs Result Diagrams: 06/11/21 05:00 06/11/21 05:00 Labs: Laboratory Results - last 24 hr 06/11/21 06/11/21 05:00 05:00 WBC 10.1 RBC 2.64 L Hgb 8.0 L Hct 24.1 L MCV 91.3 MCH 30.1 MCHC 33.0 RDW 13.8 Plt Count 246 Sodium 137 Potassium 4.2 Chloride 110 H Carbon Dioxide 23 BUN 18 H Creatinine 0.86 Estimated GFR > 60.0 BUN/Creatinine Ratio 20.9 Glucose 61 L Calcium 8.2 L Magnesium 1.8 PFSH Medical History Diabetes Hyperlipidemia Hypertension Surgical History History of appendectomy Hx of cataract surgery Family History Mother Diabetes mellitus Hypertension Father Stroke Coronary atherosclerosis of artery bypass graft Social History Smoking Status: Never smoker Assessment & Plan Assessment & Plan narrative: 60W with PMH of poorly-controlled diabetes, history of gastric banding, hypertension, peripheral neuropathy, hyperlipidemia with recent complicated appendicitis for which she underwent laparoscopic appendectomy with open umbilical hernia repair and drainage of kimberli appendiceal abscess, 05/14/2021 at [facility]. During her hospitalization she developed acute kidney injury and UTI. Patient is now admitted with acute respiratory failure with hypoxia, sepsis with PATRICK, positive C diff infection, and abdominal abscess from her 05/14/21 surgical procedure. 1. Acute respiratory failure with hypoxia, acute, present on admission -patient was requiring oxygen at admission with 2.5 L nasal cannula for an O2 saturation of 98%. -Attempt tapering of oxygen postoperatively -etiology is possibly from atelectasis post-operatively, patient also has presum ed CLAIRE and does not use CPAP -chest xray shows possible fluid in lung likely from fluid resuscitation, will given increased dose of lasix 2. Positive C difficile colitis, acute, present on admission - stool demonstrate Clostridium difficile. - PO Vancomycin, plan to stop 2 weeks after finishing IV antibiotics 3. Sepsis with PATRICK/bacteremia possibly secondary to abdominal abscess now with post-operative ileus -Secondary complication of surgical appendectomy at [facility] 05/14/2021 -CT abdomen pelvis demonstrated a 6.7 by 3.2 cm fluid collection in the right lower quadrant. -Dr. Lowe took her for surgery on 06/08 and collection grossly appeared to be more likely hematoma -cultures negative to date -pain control, antiemetics -IV fluids stopped -Rocephin 1 g IV q.day, IV flagyl -follow up outpatient records for bacteremia to determine course of IV antibiotics, with records arriving patient documented to have bactiuria not bacteremia -PATRICK resolved -continue with advancing diet as tolerated for ileus -limit opiates -check potassium and magnesium as can contribute to ileus 4. Essential hypertension, chronic, well controlled, present on admission -continue patient's lisinopril and carvedilol -restart lasix 06/09 5. Insulin-dependent type 2 diabetes, with secondary hyperlipidemia, acute on chronic, present on admission -admitting glucose 161, A1C 6.5, BS check Q6 while NPO, once patient is able to eat- ACHS -continuing patient's Lantus 36 units at bedtime, placed on diabetic protocol, low-dose sliding scale -continue patient's rosuvastatin -hold patient's glipizide Code status: Full code Surrogate decision maker: Paddy Orellana POA DVT/VTE prophylaxis: SCDs
[2021-06-11] MEDS: LORazepam 2 MG/ML INJ 0.5 MG IV (13:21)
[2021-06-11] MEDS: cefTRIAXone 1,000 MG in SODIUM CHLORIDE 0.9% 100 ML 200 ML IV (13:22)
[2021-06-11] MEDS: MAGNESIUM SULFATE 2 GM/50 ML PIGGYBACK IV (14:21)
[2021-06-11] MEDS: ASPIRIN EC 81 MG TABLET PO (14:30)
[2021-06-11] MEDS: POTASSIUM CHLORIDE 10 MEQ TAB PO ×2 (14:30→21:18)
[2021-06-11] MEDS: MULTIVITAMIN 1 TABLET 1 TAB PO (14:30)
[2021-06-11] MEDS: FUROSEMIDE 40 MG TABLET 80 MG PO (14:30)
[2021-06-11] MEDS: VANCOMYCIN 125 MG CAPSULE PO ×3 (14:30→21:18)
[2021-06-11] MEDS: OXYBUTYNIN 5 MG TABLET PO (21:18)
--- NOTE | 2021-06-11 23:35 | PC.NURSE ---
Josh at 2100 was held due to blood sugar of 98 and recent low trend.
[2021-06-12 04:00] VITALS: O2SAT 93
[2021-06-12 05:05] VITALS: BP 164/72; PULSE 75; RESP 20; TEMP 36.9; O2SAT 93
[2021-06-12 05:30] LABS: BUN Creatinine Ratio 20.3 (6-22); Blood Urea Nitrogen 15 mg/dL (7-17); Carbon Dioxide 22 mmol/L (22-32); Chloride 108 mmol/L (98-107); Estimated Glomerular Filt Rate > 60.0 mL/min (>60); Glucose 81 mg/dL (80-110); HEMOLYSIS < 15 (0-50); Potassium 3.9 mmol/L (3.4-5.1); Sodium 134 mmol/L (137-145)
[2021-06-12 08:00] VITALS: BP 144/63; PULSE 75; RESP 16; TEMP 36.9; O2SAT 94
[2021-06-12] MEDS: metroNIDAZOLE 500 MG/100 ML PIGGYBACK 100 MG IV (09:16)
[2021-06-12] MEDS: ASPIRIN EC 81 MG TABLET PO (09:17)
[2021-06-12] MEDS: ENOXAPARIN 40 MG/0.4 ML SYRINGE SUBCUT (09:17)
[2021-06-12] MEDS: FUROSEMIDE 40 MG TABLET 80 MG PO (09:17)
[2021-06-12] MEDS: POTASSIUM CHLORIDE 10 MEQ TAB PO (09:17)
[2021-06-12] MEDS: CALCIUM CARBONATE 600 MG TABLET PO (09:17)
[2021-06-12] MEDS: VANCOMYCIN 125 MG CAPSULE PO ×2 (09:18→13:32)
[2021-06-12] MEDS: MONTELUKAST 10 MG TABLET PO (09:18)
[2021-06-12] MEDS: MULTIVITAMIN 1 TABLET 1 TAB PO (09:18)
[2021-06-12] MEDS: METOCLOPRAMIDE 10 MG/2 ML INJ 5 MG IV (09:18)
--- NOTE | 2021-06-12 09:38 | CM.DPC ---
Addendum entered by Karina Dubose R.N. 06/12/21 12:33: Patient reluctant to go back to [facility], due to her medical situation. This pigment weigher and nurse, Luis, went into room to discuss with patient. Let her know that there are no other facilities available at this time, and reminded her that patient will be there on a temporary basis. Her goal is to move with her daughter in [place]. At this time, she is willing to go. Orders still need to be confirmed. Gave nurseLuis, the phone number of [facility] to give report, for IV meds are in question. Already have the COVID results in. Original time of pickle water pump operator was 1315, but asked March if time can be pushed back until 1330, and she will check on this and call back. Addendum entered by Karina Dubose R.N. 06/12/21 10:31: Discussed patient during team rounds, and hospitalist indicated that patient should be ready to go back to [facility] today. It is uncertain if she will go back with drain at this time, Updated Hanh at [facility], who stated that they can pick her up between [id number]. She will need updated COVID test. Updated nurseLuis. Original Note: DCP Cont: Discussed patient during team rounds. She developed an ileus, and not ready for discharge. Updated Hanh at [facility], and let her know that she will be updated. Will discuss at team rounds this am, and will update Hanh today after team round. P: DCP to continue to follow. Plan is back to [facility] when she is deemed medically stable. Karina Dubose RN/Respooler
[2021-06-12] MEDS: SODIUM CHLORIDE 0.9% 250 ML 21 ML IV (09:42)
[2021-06-12 11:25] VITALS: BP 170/78; PULSE 80; RESP 20; TEMP 37.1; O2SAT 95
[2021-06-12] MEDS: ONDANSETRON 4 MG/2 ML INJ IV (11:43)
[2021-06-12] MEDS: SODIUM CHLORIDE 0.9% FLUSH 10 ML IV (11:43)
[2021-06-12] MEDS: NYSTATIN POWDER 15GM 1 APPLIC TOP ×2 (11:49)
[2021-06-12 11:51] LABS: COVID19 - ADMIT (NP swab/PCR) Negative (Negative)
--- NOTE | 2021-06-12 11:59 | P.DS_ITS ---
History of Present Illness History of Present Illness Chief complaint: Syncope Narrative: Per Krystle Raymundo: Patient is a 60-year-old woman Whitney Anderson with a history of poorly- controlled diabetes, history of gastric banding, hypertension, peripheral neuropathy, hyperlipidemia with a complicated appendicitis with surgical intervention. she developed acute appendicitis underwent laparoscopic appendectomy with open umbilical hernia repair drainage of kimberli appendiceal abscess, 05/14/2021 at [facility]. During her hospitalization she developed acute kidney injury and bacteremia. [facility] She has had 5 days of watery diarrhea at the nursing facility had a syncopal episode today and was taken to the emergency room at [facility]. Upon admit patient is afebrile, WBC 14, neutrophils 11,600, hematocrit 27, potassium 6.1, creatinine 1.9 negative lactate and troponin stool demonstrate Clostridium difficile. CT abdomen pelvis demonstrates a foot 7 cm fluid collection in the right lower quadrant. Currently with complaint of abdominal pain in the lower mid abdomen, having severe nausea but no vomiting. Patient denies chest pain, pressure or shortness of breath at rest, fever, body aches, or chills. Dr. Lowe consulted on the patient in the ED and is planning to take patient to surgery tomorrow to drain kimberli appendicecal abscess. Patient admitted with acute respiratory failure, Sepsis with PATRICK, positive Cdiff, and abdominal abscess. Discharge Providers Provider Date of admission: 06/07/21 14:12 Discharge Date: 06/12/21 Primary care physician: Samara Alejandre PA-C Consults: 06/07/21 18:57 Consult to Dietitian, Adult Routine Comment: Reason For Exam: obesity, diabetic 06/07/21 19:31 Consult to Physician Routine Comment: Consulting Provider: Ben Lowe Reason for consultation: Post appy abdominal abscess Discharge provider: Ant Bailey MD Summary Hospital Course Discharge Diagnosis: 1. C diff colitis with sepsis 2. Abdominal collection as complication from recent appendicitis and abdominal abscess 3. Ileus 4. Acute respirattory failure from atelectasis, IV fluid, and presumed CLAIRE not on CPAP 5. HTN 6. Type 2 Diabetes on insulin with hypoglycemia 7. Morbid obesity 8. PATRICK 9. Anemia Hospital Course: Please note previous records noted bacteremia on previous hospitalization, but upon review of records it appears patient had bactiuria. Ms. Anderson was admitted with findings of possible fluid collection noted on CT scan after surgery recently for appendicitis and abscess and [facility]. She had a laprascopic drainage which noted no saundra purulence and mostly adhesions and old hematoma. She was continued on IV antibiotics during her admission here and these were discontinued on discharge as her gram stain and cultures remained negative. In addition she was treated for C diff colitis. She had improvement in her diarrhea, but as she was again on antibiotics here for concern for abscess, she should have 14 days of oral vancomycin upon discharge to ensure adequate treatment. Post operatively she did have hypoxemia that resolved. It was likely multifactorial from fluid overload from significant IV fluids she initially received, and from post surgical atelectasis and possible CLAIRE given her body habitus. She should consider outpatient sleep study. She had PATRICK which improved with IV fluids. She also had ileus after her operation, either from post-operative vs opiates vs c diff infection. However, she was placed on liquids, her opiates were decreased and on discharge she was feeling much improved and having bowel movements. She is discharged to snf, to continue with a drain per surgery, and to follow up her surgeon at [facility] Dr. Pugh. In the hospital she had anemia and required 1U of PRBC, this was probably secondary to blood loss during surgery. She also had episodes of hypoglycemia due to poor appetite and her insulin was decreased from 36U to 26U and can likely be increased as her diet improves. Exam Vital Signs (past 8 hours): Oxygen Delivery Method Room Air Oxygen Flow Rate 0 Narrative Exam Narrative: GEN: alert and oriented x3, but sleepy likely from pain medicati ons and infection, no acute distress ABD: Abdomen is obese, mild diffuse tenderness is present, slightly distended, decreased bowel sounds, drain in place CV: regular rate and rhythm murmur PULM: clear to auscultation bilaterally EXT: no edema. Objective Labs Result Diagrams: 06/11/21 05:00 06/12/21 05:10 [facility] Medical History Diabetes Hyperlipidemia Hypertension Surgical History History of appendectomy Hx of cataract surgery Family History Mother Diabetes mellitus Hypertension Father Stroke Coronary atherosclerosis of artery bypass graft Social History Smoking Status: Never smoker Discharge Plan Discharge Plan Patient Disposition: SNF Provider Discharge Comment: Ms. Anderson came in with syncope after having significant diarrhea. She had been diagnosed with c diff. Here she had a CT scan that showed possible abscess, however it was mostly old hematoma from previous surgery. She did get a blood transfusion. She did not grow any bacteria in the wound. She had ileus after the surgery and that has improved. She should be on c diff treatment with oral vancomycin for 2 more weeks through 06/27. She should follow up with her [facility]. She was supposed to follow up 06/12, but she was still in the hospital so this needs to be arranged. Surgeon at [facility] recommended leaving the drain in place. She had some episode of low blood sugar because she was not eating normally and her insulin was dropped from 26U from her normal of 36U and may need to be increased as she eats more. Discharge orders & Medications Prescriptions: New vancomycin 125 mg Capsule 125 mg PO QID Qty: 56 RF: 0 oxycodone 5 mg Tablet 5 mg PO Q4HR PRN (Reason: Pain, Moderate (4-6)) Qty: 10 RF: 0 Lantus Solostar U-100 Insulin 100 unit/mL (3 mL) Insulin Pen 26 unit SUBCUT BEDTIME Qty: 3 RF: 0 ondansetron HCl [Zofran] 4 mg tablet 4 mg PO Q8H PRN (Reason: nausea and vomiting) Qty: 14 RF: 0 metoclopramide HCl [Reglan] 10 mg tablet 5 mg PO Q6H PRN (Reason: nausea and vomiting) Qty: 14 RF: 0 Continued meclizine 12.5 mg Tablet 12.5 mg PO DAILY RF: 0 montelukast 10 mg Tablet 10 mg PO DAILY RF: 0 multivitamin with minerals Capsule 1 cap PO DAILY RF: 0 oxybutynin chloride 5 mg Tablet 5 mg PO BEDTIME RF: 0 nystatin 100,000 unit/gram Powder 1 applic TOPICAL BID RF: 0 carvedilol 6.25 mg tablet 6.25 mg PO BID RF: 0 lisinopril 20 mg tablet 20 mg PO DAILY RF: 0 glipizide 10 mg tablet 10 mg PO BID RF: 0 potassium chloride 10 mEq tablet extended release 10 meq PO BID RF: 0 rosuvastatin 5 mg tablet 5 mg PO BEDTIME RF: 0 Lantus U-100 Insulin 100 unit/mL solution 36 unit SUBCUT BEDTIME RF: 0 aspirin 81 mg Tablet,Delayed Release (Dr/Ec) 81 mg PO DAILY RF: 0 calcium carbonate [Calcium 600] 600 mg calcium (1,500 mg) Tablet 600 mg PO DAILY RF: 0 coenzyme Q10 [Co Q-10] 100 mg Capsule 200 mg PO DAILY RF: 0 furosemide 80 mg tablet 80 mg PO DAILY RF: 0 Follow up/Referrals: Samara Alejandre PA-C [Primary Care Provider] - Discharge Health Status Multidrug resistant organism: Other Precautions: Contact Diet/Activity/Treatments Diet: Carb-consistent/Diabetic Liquid consistency: Normal/Thin Food texture: Regular [facility] Reason for rehabilitation: Post-operative therapy Rehab type: Physical therapy and Occupational therapy Visit Report/Discharge Packet Instructions: DI for Antibiotic -- associated Colitis -- C difficile, DI for Ileus, DI for [facility], [facility]: Wound Care Stand Alone Forms: Surgery Discharge Discharge Data Primary Care Provider: Samara Alejandre [facility] The patient has current or prior documentation of left ventricular ejection fraction (LVEF) less than 40%, or moderate or severely depressed left ventricular systolic function.: No
--- NOTE | 2021-06-12 15:47 | PC.NURSE ---
Patient discharge to [facility]. Triple lumen neckline dc'd intact, aptient tolerated well. Spoke with patient's son Marco over the phone in room with patient present per her request, discussed discharge. Patient and her son would like her to follow up with [facility] instead of returning to [facility] surgeons, this desire relayed to Vangie at [facility] to help patient establish follow up appointment. Paulino drain remains in place, emptied by BOX LIDDER and insertion site cleansed and sterile dressing applied. Patient had concern over her eye drops being ordered, Vangie at [facility] also verified that they have patient's eye drops and prescriptions available. Patient discharged to [facility], with her goal of care to ultimately be to return to home with one of her family members.
== END 2021-06-12 14:30 | DRG 853 ==
LOC: ED 09:18 → AC 14:12
PROVIDERS: Internal Medicine; Nurse Practitioner Family; Surgery; Admitting Provider Internal Medicine; Emergency Provider Emergency Medicine; PCP Physician Assistant Medical; Referring Provider Emergency Medicine; Visit Provider Internal Medicine
PROC: 0WCG4ZZ Extirpation of Matter from Peritoneal Cavity, Percutaneous Endoscopic Approach (ICD-10-PCS; principal; 2021-06-08 09:00)
DX: A41.9 Sepsis, unspecified organism (principal); J96.01 Acute respiratory failure with hypoxia; K91.871 Postprocedural hematoma of a digestive system organ or structure following other procedure; N17.9 Acute kidney failure, unspecified; A04.72 Enterocolitis due to Clostridium difficile, not specified as recurrent; Z68.42 Body mass index [BMI] 45.0-49.9, adult; K56.7 Ileus, unspecified; J98.11 Atelectasis; D62 Acute posthemorrhagic anemia; R65.20 Severe sepsis without septic shock; K66.0 Peritoneal adhesions (postprocedural) (postinfection); E86.0 Dehydration; E87.70 Fluid overload, unspecified; E66.01 Morbid (severe) obesity due to excess calories; E11.65 Type 2 diabetes mellitus with hyperglycemia; E11.42 Type 2 diabetes mellitus with diabetic polyneuropathy; Z79.4 Long term (current) use of insulin; I10 Essential (primary) hypertension; E78.5 Hyperlipidemia, unspecified; Z20.822 Contact with and (suspected) exposure to COVID-19; G47.33 Obstructive sleep apnea (adult) (pediatric)
CPT/HCPCS: 36415; 36430; 36556; 36592; 49322; 51702; 71045; 74176; 80048; 80053; 81001; 82805; 82962; 83036; 83605; 83690; 83735; 84484; 85014; 85018; 85025; 85027; 85610; 85730; 86850; 86900; 86901; 87040; 87070; 87075; 87176; 87205; 87324; 87507; 87635; 93005; 94760; 96361; 96365; 96368; 96372; 96375; 99222; 99285; 99291; C9803; P9016; J0330; J0696; J1170; J1642; J1650; J1815; J1885; J1940; J2060; J2250; J2405; J2704; J2765; J3010; J3475

== ENCOUNTER 2021-06-22 15:03 | Inpatient (IN) | payer MEDICARE, MEDICAID, SELFPAY ==
[2021-06-07 15:33] VITALS: BMI 48.2
[2021-06-22] VITALS (32 sets, daily range): BP systolic 104–164; BP diastolic 39–84; PULSE 59–80; RESP 14–26; TEMP 36.4–38.8; O2SAT 92–100; BMI 48.8
--- NOTE | 2021-06-22 15:21 | DI.CT.S_ITS ---
PROCEDURE: CT ABDOMEN PELVIS WO CON INDICATIONS: pain recent surgery with ab abcess TECHNIQUE: Noncontrast 5 mm thick sections acquired from the diaphragms to the symphysis. 5 mm coronal and sagittal reformats were then performed. For radiation dose reduction, the following was used: automated exposure control, adjustment of mA and/or kV according to patient size. COMPARISON: [facility], CT, CT ABDOMEN PELVIS WO [facility], 06/10/2021, 13:14. FINDINGS: Image quality: Excellent. Bibasilar atelectasis. No pleural effusion. Normal heart size. Normal appearance of the liver. Surgically absent gallbladder. Normal appearance of the pancreas and adrenal glands. Benign-appearing dystrophic calcification unchanged in the superior margin of the spleen. No kidney stones or hydronephrosis. Normal appearance of the ureters. Bladder is under distended. No hiatal hernia. No small bowel obstruction . Postsurgical changes of the proximal colon. Layering fluid throughout the colon. Uterus is anteverted. Ovaries not definitely visualized. Again seen is a hypodense structure in the right lower abdomen measuring approximately 4.3 x 4.3 x 3.2 centimeter on today's study. Structure has surrounding inflammatory changes in the adjacent fat. Additionally, this structure appears near the terminus of the right ovarian vein acute at least partially contained the right ovary if intact. No free air. Interval removal of previously seen peritoneal catheter. Mildly enlarged retroperitoneal lymph node measuring 1.3 centimeter short axis. (series 2, image 46). Aorta and inferior vena cava are normal in caliber. No acute bony abnormality. Degenerative changes of the spine. IMPRESSION: 1. Continued presence of a heterogeneous fluid collection in the right lower abdomen, slightly decreased in size from prior and remaining concerning for abscess. Additionally, the right ovary which is difficult to identify may be in this region if intact. 2. Small right anterior abdominal wall fluid collection, possibly infectious. 3. Layering fluid throughout the colon may reflect a diarrheal illness. 4. Mildly enlarged retroperitoneal lymph node, likely reactive. Dictated by: Radhames Chang M.D. on 06/22/2021 at 15:49 Approved by: Radhames Chang M.D. on 06/22/2021 at 16:05
--- NOTE | 2021-06-22 15:21 | DI.RAD.S_ITS ---
PROCEDURE: XR CHEST 1V INDICATIONS: weakenss fever TECHNIQUE: One view of the chest was acquired. COMPARISON: [facility], CR, XR CHEST 1V, 06/09/2021, 14:14. FINDINGS: Surgical changes and devices: None. Lungs and pleura: No focal consolidation. No pleural effusions or pneumothorax. Mediastinum: Moderate cardiomegaly. Calcified aortic knob.. Bones and chest wall: No suspicious bony lesions. Overlying soft tissues appear unremarkable. IMPRESSION: Moderate cardiomegaly. Dictated by: Radhames Chang M.D. on 06/22/2021 at 14:51 Approved by: Radhames Chang M.D. on 06/22/2021 at 14:53
--- NOTE | 2021-06-22 15:46 | PC.NURSE ---
US guided IV placed by Dr Gomez
[2021-06-22 15:53] LABS: Add Manual Diff / Slide Review NO; Basophils Absolute Auto 0 /uL (0-100); Basophils Percent Auto 0.3 % (0-2); Eosinophils Absolute Auto 200 /uL (0-450); Eosinophils Percent Auto 1.8 % (2-4); Lymphocytes Absolute Auto 1400 /uL (1100-4500); Lymphocytes Percent Auto 13.4 % (25-40); Mean Corpuscular HGB Conc 32.9 % (30-36); Mean Corpuscular Hemoglobin 29.6 PG (26-34); Monocytes Absolute Auto 1000 /uL (0-900); Monocytes Percent Auto 9.4 % (3-14); Neutrophils Absolute Auto 7900 /uL (1500-7000); Neutrophils Percent Auto 75.1 % (50-75); Platelet Count 289 X10^3/uL (150-400); Red Blood Cell Count 2.25 X10^6/uL (4.0-5.2); Red Cell Distribution Width 15.1 % (11.6-14.8); White Blood Cell Count 10.5 X10^3/uL (4.5-11.0)
--- NOTE | 2021-06-22 15:53 | ED_ITS ---
HPI - Weakness General Chief complaint: Weakness Stated complaint: Weakness Time Seen by Provider: 06/22/21 15:21 Source: patient and EMS Mode of arrival: EMS Limitations: no limitations History of Present Illness HPI Narrative: Female with history of poorly-controlled diabetes, gastric banding, hypertension, peripheral neuropathy, hyperlipidemia, complicated appendicitis a with surgery at [facility] on May 13 and to have abdominal abscess 06/07/2021 along with bacteremia and C diff. She was hos pitalized here for 5 days and treated with antibiotics. She presents today with generalized weakness. She says her legs are so weak they gave out from under her. She is currently febrile with a fever of 101. She denies any chest pain or cough. She says she is having some abdominal pain it hurt to ride in the back of the ambulance. Related Data Home Medications Medication Instructions Recorded Confirmed aspirin 81 mg tablet,delayed 81 mg PO DAILY 06/28/19 06/22/21 release calcium carbonate 600 mg calcium 600 mg PO DAILY 06/28/19 06/22/21 (1,500 mg) tablet (Calcium) carvedilol 6.25 mg tablet 6.25 mg PO BID 06/28/19 06/22/21 coenzyme Q10 100 mg capsule (Co 200 mg PO DAILY 06/28/19 06/22/21 Q-10) furosemide 80 mg tablet 80 mg PO DAILY 06/28/19 06/22/21 glipizide 10 mg tablet 10 mg PO BID 06/28/19 06/22/21 lisinopril 20 mg tablet 20 mg PO DAILY 06/28/19 06/22/21 potassium chloride 10 mEq 10 meq PO BID 06/28/19 06/22/21 tablet,extended release rosuvastatin 5 mg tablet 5 mg PO BEDTIME 06/28/19 06/22/21 meclizine 12.5 mg tablet 12.5 mg PO DAILY 06/07/21 06/22/21 montelukast 10 mg tablet 10 mg PO DAILY 06/07/21 06/22/21 multivitamin with minerals 1 cap PO DAILY 06/07/21 06/22/21 nystatin 100,000 unit/gram topical 1 applic TOPICAL BID 06/07/21 06/22/21 powder oxybutynin chloride 5 mg tablet 5 mg PO BEDTIME 06/07/21 06/22/21 gabapentin 600 mg tablet 600 mg PO TID 06/16/21 06/22/21 insulin lispro 100 unit/mL 3 unit SUBCUT TID ml 06/16/21 06/22/21 subcutaneous pen (Humalog KwikPen (U-100) Insulin) melatonin 3 mg capsule 3 mg PO BEDTIME PRN 06/16/21 06/22/21 Previous Rx's Medication Instructions Recorded insulin glargine 100 unit/mL (3 26 unit SUBCUT BEDTIME #3 ml 06/12/21 mL) subcutaneous pen (Lantus Solostar U-100 Insulin) metoclopramide HCl 10 mg tablet 5 mg PO Q6H PRN #14 tab 06/12/21 (Reglan) ondansetron HCl 4 mg tablet 4 mg PO Q8H PRN #14 tab 06/12/21 (Zofran) oxycodone 5 mg tablet 5 mg PO Q4HR PRN #10 tab 06/12/21 vancomycin 125 mg capsule 125 mg PO QID #56 cap 06/12/21 Allergies Allergy/AdvReac Type Severity Reaction Status Date / Time egg Allergy Severe Anaphylaxis Verified 06/16/21 15:06 amoxicillin [From Augmentin] Allergy Intermediate Hives Verified 06/16/21 15:06 azithromycin [From Zithromax] Allergy Intermediate Hives Verified 06/16/21 15:06 ciprofloxacin [From Cipro] Allergy Intermediate Rash Verified 06/16/21 15:06 clavulanic acid Allergy Intermediate Hives Verified 06/16/21 15:06 [From Augmentin] nitrofurantoin Allergy Intermediate Hives Verified 06/16/21 15:06 [From Macrobid] liraglutide [From Victoza] Allergy Unknown Verified 06/16/21 15:06 codeine AdvReac Intermediate Gastrointestinal Verified 06/16/21 15:06 Upset gluten AdvReac Intermediate Gastrointestinal Verified 06/16/21 15:06 Upset indomethacin [From Indocin] AdvReac Intermediate Gastrointestinal Verified 06/16/21 15:06 Upset metformin [From Glucophage] AdvReac Intermediate Gastrointestinal Verified 06/16/21 15:06 Upset mushroom AdvReac Intermediate Gastrointestinal Verified 06/16/21 15:06 Upset shellfish derived AdvReac Intermediate Gastrointestinal Verified 06/16/21 15:06 Upset [id number]-Pyx Reductase AdvReac Intermediate Joint Pain Verified 06/16/21 15:06 Inhibitor Review of Systems Review of Systems ROS Unobtainable: All systems reviewed & are unremarkable except as noted in HPI and below Constitutional Constitutional: Denies body ache(s), Denies chills, Reports fatigue, Reports fever(s) and Denies headache(s) Eyes Eyes: Denies blurry vision ENT Ears, Nose, Mouth, and Throat: Denies headache(s) Cardiovascular Cardiovascular: Denies chest pain and Denies edema Respiratory Respiratory: Denies cough and Denies pain with cough Gastrointestinal Gastrointestinal: Denies nausea and Denies vomiting Genitourinary Genitourinary: Denies urinary incontinence and Denies urinary hesitancy Musculoskeletal Musculoskeletal: Denies back pain Integumentary/Breasts Skin/Breast: Denies rash Neurologic Neurologic: Denies abnormal speech and Denies headache(s) Endocrine Endocrine: Reports fatigue Patient History Medical History Diabetes Hyperlipidemia Hypertension Surgical History History of appendectomy Hx of cataract surgery Family History Mother Diabetes mellitus Hypertension Father Stroke Coronary atherosclerosis of artery bypass graft Social History household members: other Smoking Status: Never smoker Smoking Status: Never smoker alcohol intake frequency: a few times a month Substance Use Type: does not use Exam Initial Vital Signs Initial Vital Signs: Vital Signs Temperature 100 F H 06/22/21 15:15 Pulse Rate 74 06/22/21 15:15 Respiratory Rate 18 06/22/21 15:15 Blood Pressure 135/77 06/22/21 15:15 Pulse Oximetry 97 06/22/21 15:15 GENERAL: Alert 60-year-old BMI 48 appears pale and weak HEENT: Head atraumatic,EOMI, pupils reactive, face symmetric, moist mucous membranes CARDIOVASCULAR: Regular rate and rhythm without murmurs, rubs or gallops. RESPIRATORY: Breath sounds equal bilaterally, no wheezes rales or rhonchi. ABDOMEN: Soft, mild lower abdominal pain and discomfort. Mostly healing surgical RECTAL: Guaiac-negative hemorrhoids present nontender EXTREMITIES: Normal range of motion, no clubbing or edema. Neurovascularly intact NEUROLOGICAL: Alert and oriented x4. SKIN: Healing wounds on abdomen there is 1 wound left upper quadrant that is pink with very mild drainage no surrounding erythema no fluctuation. Small scratch noted left calf. Course Orders Ordered: ED Orders 06/22/21 15:12 COVID19 - ADMIT (G[employer] PROVER swab/PCR) Stat 06/22/21 15:21 CT abdomen pelvis wo con Stat XR chest 1V Stat EKG-12 Lead Stat 06/22/21 15:45 Complete Blood Count AUTO DIFF Stat Comprehensive Metabolic Panel Stat Lactate (Lactic Acid) Stat Packed Cells Stat Procalcitonin Stat Troponin & CK Cardiac Panel Stat Type and Screen Stat 06/22/21 16:00 Blood Culture Stat 06/22/21 16:25 Urinalysis and Microscopic Stat 06/22/21 17:45 Consult After Hours PICC Line RN Stat 06/22/21 18:00 Consult to General Surgery Stat Discontinued Medications Acetaminophen (Acetaminophen 325 Mg Tablet) 975 mg PO NOW ONE Stop: 06/22/21 16:22 Last Admin: 06/22/21 16:36 Dose: 975 mg Documented by: KAREN Dextrose (Dextrose 50 % In Water 25 Gm/50 Ml Syringe) 25 gm IV NOW ONE Stop: 06/22/21 18:21 Last Admin: 06/22/21 18:18 Dose: 25 gm Documented by: KAREN Ceftriaxone Sodium 1,000 mg/ (Sodium Chloride) 100 mls @ 200 mls/hr IV NOW ONE Stop: 06/22/21 17:44 Last Admin: 06/22/21 18:05 Dose: Not Given Documented by: KAREN Metronidazole (Flagyl) 500 mg in 100 mls @ 100 mls/hr IV NOW ONE Stop: 06/22/21 18:58 Ceftriaxone Sodium 2,000 mg/ (Sodium Chloride) 100 mls @ 200 mls/hr IV NOW ONE Stop: 06/22/21 18:01 Vital Signs Vital signs: Vital Signs - 8 hr 06/22/21 15:15 06/22/21 15:24 06/22/21 15:30 Temperature 100 F H Pulse Rate 68 68 75 Respiratory Rate 20 20 20 Blood Pressure 135/77 135/77 138/64 Pulse Oximetry 97 95 96 06/22/21 16:00 06/22/21 16:12 06/22/21 16:34 Temperature 101.9 F H Pulse Rate 80 79 Respiratory Rate 22 22 Blood Pressure 140/58 L Pulse Oximetry 95 97 06/22/21 16:36 06/22/21 16:45 06/22/21 17:00 Temperature 101.9 F H Pulse Rate 80 79 Respiratory Rate 22 24 Blood Pressure 127/84 Pulse Oximetry 99 95 06/22/21 17:01 06/22/21 17:02 06/22/21 17:03 Temperature 99.9 F H Pulse Rate 79 79 79 Respiratory Rate 20 18 22 Blood Pressure 164/70 H 164/70 H 144/66 H Pulse Oximetry 95 94 06/22/21 17:06 06/22/21 17:15 06/22/21 17:23 Temperature 99.9 F H 99.9 F H Pulse Rate 79 79 77 Respiratory Rate 18 26 H 23 Blood Pressure 144/66 H 136/52 L 125/56 L Pulse Oximetry 92 94 06/22/21 17:28 06/22/21 17:30 06/22/21 17:45 Temperature 98.9 F Pulse Rate 69 76 73 Respiratory Rate 20 23 21 Blood Pressure 143/65 H 129/60 138/65 Pulse Oximetry 94 99 06/22/21 17:58 06/22/21 18:00 Temperature 99.9 F H Pulse Rate 72 Respiratory Rate 22 Blood Pressure 139/63 Pulse Oximetry 100 MDM - Weakness Lab Data Result diagrams: 06/22/21 15:45 06/22/21 15:45 Labs: Lab Results 06/22/21 06/22/21 06/22/21 Range/Units 15:12 15:45 15:45 WBC 10.5 (4.5-11.0) X10^3/uL RBC 2.25 L (4.0-5.2) X10^6/uL Hgb 6.7 L* (12.0-16.0) g/dL Hct 20.3 L* (36-46) % MCV 90.0 (80-100) fL MCH 29.6 (26-34) PG MCHC 32.9 (30-36) % RDW 15.1 H (11.6-14.8) % Plt Count 289 (150-400) X10^3/uL Neut % (Auto) 75.1 H (50-75) % Lymph % (Auto) 13.4 L (25-40) % Dickson % (Auto) 9.4 (3-14) % Eos % (Auto) 1.8 L (2-4) % Baso % (Auto) 0.3 (0-2) % Neut # (Auto) 7900 H (6810-9429) /uL Lymph # (Auto) 1400 (6314-6064) /uL Dickson # (Auto) 1000 H (0-900) /uL Eos # (Auto) 200 (0-450) /uL Baso # (Auto) 0 (0-100) /uL Sodium 130 L (137-145) mmol/L Potassium 5.8 H (3.4-5.1) mmol/L Chloride 101 (98-107) mmol/L Carbon Dioxide 25 (22-32) mmol/L BUN 20 H (7-17) mg/dL Creatinine 2.04 H (0.52-1.04) mg/dL Estimated GFR 24.7 L (>60) mL/min BUN/Creatinine Ratio 9.8 (6-22) Glucose 78 L (80-110) mg/dL Lactate (0.7-2.1) mmol/L Calcium 8.7 (8.4-10.2) mg/dL Total Bilirubin 0.2 (0.2-1.3) mg/dL AST 16 (14-36) IU/L ALT 9 (<35) IU/L Alkaline Phosphatase 30 L (38-126) U/L Total Creatine Kinase 49 (30-135) U/L CK-MB (CK-2) TNP CK-MB (CK-2) Rel Index TNP Troponin I < 0.012 (0.01-0.034) ng/mL Total Protein 6.5 (6.3-8.2) g/dL Albumin 3.1 L (3.5-5.0) g/dL Globulin 3.4 (1.7-4.1) g/dL Albumin/Globulin Ratio 0.9 L (1.0-2.8) Procalcitonin 0.08 (<0.5) ng/mL Urine Color Urine Appearance Urine pH (4.5-8.0) Ur Specific Alexis (1.000-1.035) Urine Protein (Negative) Urine Glucose (UA) (Negative) g/dL Urine Ketones (NEGATIVE) Urine Occult Blood (Negative) Urine Nitrate (Negative) Urine Bilirubin (NEGATIVE) Urine Urobilinogen (0.2) E.U./dL Ur Leukocyte Esterase (NEGATIVE) Urine RBC (0-5/HPF) Urine WBC (0-5/HPF) Ur Squamous Epith Cells (0-5/HPF) Urine Bacteria (None) Ur Culture Indicated? SARS-CoV-2 (PCR) Negative (Negative) Blood Type Antibody Screen Crossmatch 06/22/21 06/22/21 06/22/21 Range/Units 15:45 15:45 16:25 WBC (4.5-11.0) X10^3/uL RBC (4.0-5.2) X10^6/uL Hgb (12.0-16.0) g/dL Hct (36-46) % MCV (80-100) fL MCH (26-34) PG MCHC (30-36) % RDW (11.6-14.8) % Plt Count (150-400) X10^3/uL Neut % (Auto) (50-75) % Lymph % (Auto) (25-40) % Dickson % (Auto) (3-14) % Eos % (Auto) (2-4) % Baso % (Auto) (0-2) % Neut # (Auto) (6617-4977) /uL Lymph # (Auto) (4027-9979) /uL Dickson # (Auto) (0-900) /uL Eos # (Auto) (0-450) /uL Baso # (Auto) (0-100) /uL Sodium (137-145) mmol/L Potassium (3.4-5.1) mmol/L Chloride (98-107) mmol/L Carbon Dioxide (22-32) mmol/L BUN (7-17) mg/dL Creatinine (0.52-1.04) mg/dL Estimated GFR (>60) mL/min BUN/Creatinine Ratio (6-22) Glucose (80-110) mg/dL Lactate 1.8 (0.7-2.1) mmol/L Calcium (8.4-10.2) mg/dL Total Bilirubin (0.2-1.3) mg/dL AST (14-36) IU/L ALT (<35) IU/L Alkaline Phosphatase (38-126) U/L Total Creatine Kinase (30-135) U/L CK-MB (CK-2) CK-MB (CK-2) Rel Index Troponin I (0.01-0.034) ng/mL Total Protein (6.3-8.2) g/dL Albumin (3.5-5.0) g/dL Globulin (1.7-4.1) g/dL Albumin/Globulin Ratio (1.0-2.8) Procalcitonin (<0.5) ng/mL Urine Color Yellow Urine Appearance Clear Urine pH 5.0 (4.5-8.0) Ur Specific Alexis 1.015 (1.000-1.035) Urine Protein Trace H (Negative) Urine Glucose (UA) Negative (Negative) g/dL Urine Ketones Negative (NEGATIVE) Urine Occult Blood 1+ H (Negative) Urine Nitrate Negative (Negative) Urine Bilirubin Negative (NEGATIVE) Urine Urobilinogen 0.2 (0.2) E.U./dL Ur Leukocyte Esterase Negative (NEGATIVE) Urine RBC 0-1/hpf (0-5/HPF) Urine WBC None seen (0-5/HPF) Ur Squamous Epith Cells 0-1 /hpf (0-5/HPF) Urine Bacteria None seen (None) Ur Culture Indicated? Cult not indicated SARS-CoV-2 (PCR) (Negative) Blood Type A Positive Antibody Screen Negative Crossmatch See Detail Point of Care Testing Glucose POC [address] scan - abdomen/pelvis: Radiologist Impression: PROCEDURE: CT ABDOMEN PELVIS WO CON INDICATIONS: pain recent surgery with ab abcess TECHNIQUE: Noncontrast 5 mm thick sections acquired from the diaphragms to the symphysis. 5 mm coronal and sagittal reformats were then performed. For radiation dose reduction, the following was used: automated exposure control, adjustment of mA and/or kV according to patient size. COMPARISON: [facility], CT, CT ABDOMEN PELVIS WO CON, 06/10/2021, 13:14. FINDINGS: Image quality: Excellent. Bibasilar atelectasis. No pleural effusion. Normal heart size. Normal appearance of the liver. Surgically absent gallbladder. Normal appearance of the pancreas and adrenal glands. Benign-appearing dystrophic calcification unchanged in the superior margin of the spleen. No kidney stones or hydronephrosis. Normal appearance of the ureters. Bladder is under distended. No hiatal hernia. No small bowel obstruction . Postsurgical changes of the proximal colon. Layering fluid throughout the colon. Uterus is anteverted. Ovaries not definitely visualized. Again seen is a hypodense structure in the right lower abdomen measuring approximately 4.3 x 4.3 x 3.2 centimeter on today's study. Structure has surrounding inflammatory changes in the adjacent fat. Additionally, this structure appears near the terminus of the right ovarian vein acute at least partially contained the right ovary if intact. No free air. Interval removal of previously seen peritoneal catheter. Mildly enlarged retroperitoneal lymph node measuring 1.3 centimeter short axis. (series 2, image 46). Aorta and inferior vena cava are normal in caliber. No acute bony abnormality. Degenerative changes of the spine. IMPRESSION: 1. Continued presence of a heterogeneous fluid collection in the right lower abdomen, slightly decreased in size from prior and remaining concerning for abscess. Additionally, the right ovary which is difficult to identify may be in this region if intact. 2. Small right anterior abdominal wall fluid collection, possibly infectious. 3. Layering fluid throughout the colon may reflect a diarrheal illness. 4. Mildly enlarged retroperitoneal lymph node, likely reactive. Dictated by: Radhames Chang M.D. on 06/22/2021 at 15:49 Approved by: Radhames Chang M.D. on 06/22/2021 at 16:05 Chest x-ray: Radiologist Impression: PROCEDURE: XR CHEST 1V INDICATIONS: weakenss fever TECHNIQUE: One view of the chest was acquired. COMPARISON: [facility], , XR CHEST 1V, 06/09/2021, 14:14. FINDINGS: Surgical changes and devices: None. Lungs and pleura: No focal consolidation. No pleural effusions or pneumothorax. Mediastinum: Moderate cardiomegaly. Calcified aortic knob.. Bones and chest wall: No suspicious bony lesions. Overlying soft tissues appear unremarkable. IMPRESSION: Moderate cardiomegaly. Dictated by: Radhames Chang M.D. on 06/22/2021 at 14:51 ECG Data Interpretation: Sinus rhythm rate 81 OR interval 212 QRS [address] changes or T-wave inversions MDM Narrative Medical decision making narrative: She is a difficult IV start I did get a peripheral IV in her left arm using ultrasound guidance. Patient presents with generalized weakness fever and pale. Concern for infection. Chest x-ray and urine are negative. Concerning for intra-abdominal pathology. CT does show a right lower quadrant probable fluid collection along with anterior wall fluid collection. Due to patient's creatinine and renal function CT was done without contrast. Patient's renal function has significantly worsened since her last visit prior on 06/12/2021 was 0.7 today it is 2.0. She is also found to be anemic with a hemoglobin of 6.7 hematocrit 20.3 previously 8.0/24. Unclear where her blood loss is her rectal is hemoccult negative. She is hemodynamically stable she is not tachycardic or hypotensive. Patient also has a known infection of C diff and continues to be on oral vancomycin. Patient has multiple allergies to medications and she has a concurrent C diff infection. Previous antibiotics for Rocephin and Flagyl these are ordered again. Dr. Morrison surgery has been updated on patient's symptoms test results and new CT results. Concern that abscess may need to be drained again. Agrees with antibiotics and recommends admitting to hospitalist with multiple comorbidities and acute issues. Dr. polo updated on patient's symptoms and test results and happily accepted patient. PICC team consulted. Discharge Plan Departure Patient Disposition: Admitted As Inpatient Clinical Impression: Abdominal abscess Admit Date/Time: 06/22/21 18:01 Admit Provider: Hien Polo
[2021-06-22 15:54] LABS: Hematocrit 20.3 % (36-46); Hemoglobin 6.7 g/dL (12.0-16.0)
[2021-06-22 16:05] LABS: Lactate (Lactic Acid) 1.8 mmol/L (0.7-2.1)
[2021-06-22 16:06] LABS: Alanine Aminotransferase 9 IU/L (<35); Albumin 3.1 g/dL (3.5-5.0); Albumin Globulin Ratio 0.9 (1.0-2.8); Alkaline Phosphatase 30 U/L (38-126); Aspartate Aminotransferase 16 IU/L (14-36); BUN Creatinine Ratio 9.8 (6-22); Bilirubin Total 0.2 mg/dL (0.2-1.3); Blood Urea Nitrogen 20 mg/dL (7-17); Calcium 8.7 mg/dL (8.4-10.2); Carbon Dioxide 25 mmol/L (22-32); Chloride 101 mmol/L (98-107); Creatine Kinase 49 U/L (30-135); Estimated Glomerular Filt Rate 24.7 mL/min (>60); Globulin 3.4 g/dL (1.7-4.1); Glucose 78 mg/dL (80-110); HEMOLYSIS < 15 (0-50); Sodium 130 mmol/L (137-145); Total Protein 6.5 g/dL (6.3-8.2)
[2021-06-22 16:08] LABS: Potassium 5.8 mmol/L (3.4-5.1)
[2021-06-22 16:18] LABS: Troponin I < 0.012 ng/mL (0.01-0.034)
[2021-06-22 16:23] LABS: Procalcitonin 0.08 ng/mL (<0.5)
[2021-06-22 16:28] LABS: Bacteria Urine None Seen; WBC Urine None Seen (0-5/HPF)
[2021-06-22 16:29] LABS: Appearance Urine UA CLEAR; Bilirubin Urine UA NEGATIVE (NEGATIVE); Color Urine UA YELLOW; Glucose Urine UA NEGATIVE (Negative); Ketones Urine UA NEGATIVE (NEGATIVE); Leukocyte Esterase Urine UA NEGATIVE (NEGATIVE); Nitrite Urine UA NEGATIVE (Negative); Occult Blood Urine UA 1+ (Negative); Protein Urine UA TRACE (Negative); Specific Gravity Urine UA 1.015 (1.000-1.035); Urobilinogen Urine UA 0.2 E.U./dL (0.2)
[2021-06-22 16:33] LABS: COVID19 - ADMIT (NP swab/PCR) Negative (Negative)
[2021-06-22] MEDS: ACETAMINOPHEN 325 MG TABLET 975 MG PO (16:36)
[2021-06-22 16:41] LABS: Culture Indicated Urine Cult Not Indicated; RBC Urine 0-1/HPF (0-5/HPF); Squamous Epithelial Cell Urine 0-1 /HPF (0-5/HPF)
[2021-06-22] MEDS: DEXTROSE 50 % IN WATER 25 GM/50 ML SYRINGE IV (18:18)
[2021-06-22] MEDS: cefTRIAXone 2,000 MG in SODIUM CHLORIDE 0.9% 100 ML 200 ML IV (20:02)
[2021-06-22 20:54] LABS: Magnesium 2.1 mg/dL (1.6-2.3); Phosphorous 4.6 mg/dL (2.8-4.1)
[2021-06-22] MEDS: VANCOMYCIN 125 MG CAPSULE PO (21:27)
[2021-06-22] MEDS: LACTATED RINGERS 1,000 ML 100 ML IV (21:27)
[2021-06-22] MEDS: carvediloL 3.125 MG TABLET 6.25 MG PO (21:27)
[2021-06-22] MEDS: metroNIDAZOLE 500 MG TABLET PO (21:28)
[2021-06-22] MEDS: PANTOPRAZOLE 40 MG VIAL IV (21:28)
[2021-06-22] MEDS: ATORVASTATIN 20 MG TABLET 10 MG PO (21:28)
[2021-06-22] MEDS: metroNIDAZOLE 500 MG/100 ML PIGGYBACK 100 MG IV (21:36)
[2021-06-23] VITALS (14 sets, daily range): BP systolic 107–126; BP diastolic 48–99; PULSE 59–80; RESP 18–20; TEMP 36.4–37.4; O2SAT 92–100
--- NOTE | 2021-06-23 | DI.US.S_ITS ---
PROCEDURE: US ABDOMEN LIMITED INDICATIONS: RIGHT ANTERIOR ABDOMINAL WALL DRAIN - DIAGNOSTIC. TECHNIQUE: Real-time focused scanning was performed of the abdomen, with image documentation. COMPARISON: [facility], CT, CT ABDOMEN PELVIS WO CON, 06/22/2021, 16:18. [facility], CT, CT ABDOMEN PELVIS WO CON, 06/10/2021, 13:14. [facility], CT, CT ABDOMEN PELVIS WO CON, 06/07/2021, 9:44. FINDINGS: In the area of the findings described on the comparison CT , there is 3.1 x 6.0 x 1.6 cm hypoechoic and heterogeneous mass with internal vascularity. This corresponds to the CT appearance however no drainable fluid collection is seen, therefore no aspiration was attempted Incidentally noted simple appearing 1.5 cm fluid collection in the area. IMPRESSION: Heterogeneous mass involving the right upper abdominal wall(corresponding to the appearance on the prior comparison CTs), demonstrating internal vascularity. Therefore, no drainage was attempted. Findings are non-specific however cannot exclude metastatic or malignant soft tissue mass therefore recommend clinical correlation and management. Findings (including all critical results) and recommendations were personally telephoned and discussed with Dr. Morrison on 06-23-21 16:25 Dictated by: Preston Cook M.D. on 06/23/2021 at 16:22 Approved by: Preston Cook M.D. on 06/23/2021 at 16:26
--- NOTE | 2021-06-23 01:50 | P.HP_ITS ---
History of Present Illness History of Present Illness Date Patient Seen: 06/22/21 Time Patient Seen: 20:41 Chief complaint: Weakness Narrative: Patient is a 60-year-old woman Whitney Anderson with a history of poorly-controlled diabetes, history of gastric banding, hypertension, peripheral neuropathy, hyperlipidemia with a complicated appendicitis with surgical inte rvention. she developed acute appendicitis underwent laparoscopic appendectomy with open umbilical hernia repair drainage of mar appendiceal abscess, 05/14/2021 at [facility]. During her hospitalization she developed acute kidney injury and bactiuria. She was discharged 05/19/21 to shelter facility. She has had developed 5 days of watery diarrhea at the nursing facility had a syncopal episode and was readmitted to [facility] on 06/07- 06/12/2021 for diff colitis with sepsis, abdominal collection as complication from recent appendicitis and abdominal abscess, Ileus, acute respirattory failure from atelectasis, and presumed CLAIRE. Dr. Lowe performed a laparoscopic drainage of intra-abdominal fluid collection. Patient had follow- up with final drain removal on 06/16/2021 and was recovering well. Patient returned to [facility] ED today complaining of generalized weakness, legs are so weak they gave out from under her. She was febrile with a fever of 101. She was short of breath and desatting in the ED was placed on 2 L nasal cannula. She denied any chest pain or cough. Upon admit patient is lying in bed, pale, and moaning during most of the exam. Patient unwilling to open her eyes, is alert and orientated to self and place unable to assess any further. Patient demonstrates pain and discomfort all over, but denies chest pain, shortness of breath-though on 2 L nasal cannula patient is not normally on O2 at home. Patient does not participate in HPI or ROS adequately, this is unchanged from previous exam and admit. Patient demonstrates significantly less pain and discomfort than previous admit, she is not diaphoretic, only complaining of a mild diffuse abdominal discomfort, denies nausea, vomiting, or chills. Upon admit patient's vital signs stabilized but continues to require 2-3 L nasal cannula. Patient's WBCs are WNL, does have positive neutrophils# [id number], patient does present with significant anemia HGB 6.7, HCT 20.3, MCV platelets WNL. Patient denies melena, hematemesis, or hematuria, recent illness, injury or trauma beyond the above-stated. Unable to determine cause at this time, suspect possible intra-abdominal bleeding. Patient was typed and crossed (A+) in ED and 2 units ordered for transfusion. Mild hyponatremia sodium 130, with PATRICK BUN 20, potassium 5.8, creatinine 2.04 this is a significant increase from last recorded creatinine of 0.74, GFR significantly decreased 24.7, last> 60, glucose 78, lactate WNL albumin 3.1, procalcitonin WNL, UA WNL. Patient's EKG sinus rhythm with a ventricular rate o f [address] or T-wave changes, Hemoccult in the ED was negative, chest x-ray demonstrated moderate cardiomegaly. ABD /Pelvis CT demonstrated Continued presence of a heterogeneous fluid collection in the right lower abdomen, slightly decreased in size from prior and remaining concerning for abscess with a small right anterior abdominal wall fluid collection, possibly infectious, and layering fluid throughout the colon that may reflect a diarrheal illness. Dr. Morrison will graciously consult on the case and was notified in the ED. Patient admitted for acute respiratory failure with hypoxia, PATRICK, due to recurrence of intra-abdominal abscess, with anemia and mild hyponatremia. Patient History Medical History Diabetes Hyperlipidemia Hypertension Surgical History History of appendectomy Hx of cataract surgery Family & Social History Family History Mother Diabetes mellitus Hypertension Father Stroke Coronary atherosclerosis of artery bypass graft Social History: household members other Prior Living Arrangements House Safety & Behavioral: Feels Safe in Current Yes Environment Been Physically Hurt or No Threatened By a Person Suicidal Ideation Description None Suicide Plan Description No Plan Tobacco & Substance use: Smoking Status Never smoker alcohol intake frequency a few times a month Substance Use Type does not use Meds Home Medications and Allergies Home Medications Medication Instructions Recorded Confirmed Type aspirin 81 mg tablet,delayed 81 mg PO DAILY 06/28/19 06/22/21 History release calcium carbonate 600 mg calcium 600 mg PO DAILY 06/28/19 06/22/21 History (1,500 mg) tablet (Calcium) carvedilol 6.25 mg tablet 6.25 mg PO BID 06/28/19 06/22/21 History coenzyme Q10 100 mg capsule (Co 200 mg PO DAILY 06/28/19 06/22/21 History Q-10) furosemide 80 mg tablet 80 mg PO DAILY 06/28/19 06/22/21 History glipizide 10 mg tablet 10 mg PO BID 06/28/19 06/22/21 History lisinopril 20 mg tablet 20 mg PO DAILY 06/28/19 06/22/21 History potassium chloride 10 mEq 10 meq PO BID 06/28/19 06/22/21 History tablet,extended release rosuvastatin 5 mg tablet 5 mg PO BEDTIME 06/28/19 06/22/21 History meclizine 12.5 mg tablet 12.5 mg PO DAILY 06/07/21 06/22/21 History montelukast 10 mg tablet 10 mg PO DAILY 06/07/21 06/22/21 History multivitamin with minerals 1 cap PO DAILY 06/07/21 06/22/21 History nystatin 100,000 unit/gram topical 1 applic TOPICAL BID 06/07/21 06/22/21 History powder oxybutynin chloride 5 mg tablet 5 mg PO BEDTIME 06/07/21 06/22/21 History insulin glargine 100 unit/mL (3 26 unit SUBCUT BEDTIME #3 ml 06/12/21 06/22/21 Rx mL) subcutaneous pen (Lantus Solostar U-100 Insulin) metoclopramide HCl 10 mg tablet 5 mg PO Q6H PRN #14 tab 06/12/21 06/22/21 Rx (Reglan) ondansetron HCl 4 mg tablet 4 mg PO Q8H PRN #14 tab 06/12/21 06/22/21 Rx (Zofran) oxycodone 5 mg tablet 5 mg PO Q4HR PRN #10 tab 06/12/21 06/22/21 Rx vancomycin 125 mg capsule 125 mg PO QID #56 cap 06/12/21 06/22/21 Rx gabapentin 600 mg tablet 600 mg PO TID 06/16/21 06/22/21 History insulin lispro 100 unit/mL 3 unit SUBCUT TID ml 06/16/21 06/22/21 History subcutaneous pen (Humalog KwikPen (U-100) Insulin) melatonin 3 mg capsule 3 mg PO BEDTIME PRN 06/16/21 06/22/21 History Allergies Allergy/AdvReac Type Severity Reaction Status Date / Time egg Allergy Severe Anaphylaxis Verified 06/16/21 15:06 amoxicillin [From Augmentin] Allergy Intermediate Hives Verified 06/16/21 15:06 azithromycin [From Zithromax] Allergy Intermediate Hives Verified 06/16/21 15:06 ciprofloxacin [From Cipro] Allergy Intermediate Rash Verified 06/16/21 15:06 clavulanic acid Allergy Intermediate Hives Verified 06/16/21 15:06 [From Augmentin] nitrofurantoin Allergy Intermediate Hives Verified 06/16/21 15:06 [From Macrobid] liraglutide [From Victoza] Allergy Unknown Verified 06/16/21 15:06 codeine AdvReac Intermediate Gastrointestinal Verified 06/16/21 15:06 Upset gluten AdvReac Intermediate Gastrointestinal Verified 06/16/21 15:06 Upset indomethacin [From Indocin] AdvReac Intermediate Gastrointestinal Verified 06/16/21 15:06 Upset metformin [From Glucophage] AdvReac Intermediate Gastrointestinal Verified 06/16/21 15:06 Upset mushroom AdvReac Intermediate Gastrointestinal Verified 06/16/21 15:06 Upset shellfish derived AdvReac Intermediate Gastrointestinal Verified 06/16/21 15:06 Upset [id number] Reductase AdvReac Intermediate Joint Pain Verified 06/16/21 15:06 Inhibitor Review of Systems Review of Systems Narrative: All 12 point systems reviewed with the patient and are negative except otherwise documented. Exam Vital Signs (past 8 hours): - 06/22/21 17:58 06/22/21 18:00 06/22/21 18:15 Temperature 99.9 F H Pulse Rate 72 70 Respiratory Rate 22 20 Blood Pressure 139/63 150/67 H Pulse Oximetry 100 99 06/22/21 18:30 06/22/21 18:31 06/22/21 18:44 Temperature Pulse Rate 66 67 68 Respiratory Rate 20 22 21 Blood Pressure 118/68 150/68 H Pulse Oximetry 99 99 100 06/22/21 18:45 06/22/21 19:00 06/22/21 19:20 Temperature 98.9 F 98.6 F Pulse Rate 69 69 72 Respiratory Rate 21 22 18 Blood Pressure 143/65 H 143/65 H 117/63 Pulse Oximetry 100 100 93 06/22/21 19:30 06/22/21 22:33 06/22/21 23:00 Temperature 98.6 F 97.5 F L Pulse Rate 66 62 60 Respiratory Rate 18 14 18 Blood Pressure 117/63 112/39 L 106/45 L Pulse Oximetry 100 100 99 06/22/21 23:35 06/22/21 23:40 Temperature 97.6 F 97.6 F Pulse Rate 61 59 L Respiratory Rate 18 18 Blood Pressure 104/44 L 104/44 L Pulse Oximetry 99 Oxygen Delivery Method Room Air Oxygen Flow Rate 2 Narrative Exam Narrative: General:Patient is an obese female mildly ill-appearing, pale, not diaphoretic, unwilling to open her eyes and actively participate in HPI or ROS. The patient is selectively answers questions with the majority of the exam she is moaning in pain. HEENT: Normocephalic, atraumatic, mucous membranes are moist. Neck is supple and symmetric, trachea is midline, no adenopathy, no thyroid enlargement, no masses palpated. Negative for JVD Chest: no nasal flaring, retractions, or tachypneic labored Lungs: Auscultation of all lung emerson are clear without adventitious sounds, wheezes, rhonchi, or rales. Cardio: regular rate and rhythm without murmur, rubs, or gallops, no carotid bruit, no cardiac pulsations present. Abdomen: Soft diffuse generalized tenderness. Bowel sounds are hypoactive in all 4 quadrants, no CVA tenderness. Distention appears equal to last admit 06/07/21 Musculoskeletal: Globally weak, globally neurologically intact with no obvious deformity, crepitus, effusions, cyanosis, clubbing or edema present. Full range of motion intact radial and pedal pulses are normal. Skin: Warm dry pale and intact without rashes, ulcerations or petechiae. Neuro: Alert and orientated x3, sensation to touch intact, no gross deficits noted of cranial nerves observed. Psychological: Patient unwilling to fully participate in HPI in ROS. Unchanged from previous visit. Objective Labs Result Diagrams: 06/22/21 15:45 06/22/21 15:45 Labs: Laboratory Results - last 24 hr 06/22/21 06/22/21 06/22/21 15:12 15:45 15:45 WBC 10.5 RBC 2.25 L Hgb 6.7 L* Hct 20.3 L* MCV 90.0 MCH 29.6 MCHC 32.9 RDW 15.1 H Plt Count 289 Neut % (Auto) 75.1 H Lymph % (Auto) 13.4 L Caswell % (Auto) 9.4 Eos % (Auto) 1.8 L Baso % (Auto) 0.3 Neut # (Auto) 7900 H Lymph # (Auto) 1400 Caswell # (Auto) 1000 H Eos # (Auto) 200 Baso # (Auto) 0 Sodium 130 L Potassium 5.8 H Chloride 101 Carbon Dioxide 25 BUN 20 H Creatinine 2.04 H Estimated GFR 24.7 L BUN/Creatinine Ratio 9.8 Glucose 78 L Lactate Calcium 8.7 Phosphorus Magnesium Total Bilirubin 0.2 AST 16 ALT 9 Alkaline Phosphatase 30 L Total Creatine Kinase 49 CK-MB (CK-2) TNP CK-MB (CK-2) Rel Index TNP Troponin I < 0.012 Total Protein 6.5 Albumin 3.1 L Globulin 3.4 Albumin/Globulin Ratio 0.9 L Procalcitonin 0.08 Urine Color Urine Appearance Urine pH Ur Specific [place] Urine Protein Urine Glucose (UA) Urine Ketones Urine Occult Blood Urine Nitrate Urine Bilirubin Urine Urobilinogen Ur Leukocyte Esterase Urine RBC Urine WBC Ur Squamous Epith Cells Urine Bacteria Ur Culture Indicated? SARS-CoV-2 (PCR) Negative Blood Type Antibody Screen Crossmatch 06/22/21 06/22/21 06/22/21 15:45 15:45 15:45 WBC RBC Hgb Hct MCV MCH MCHC RDW Plt Count Neut % (Auto) Lymph % (Auto) Caswell % (Auto) Eos % (Auto) Baso % (Auto) Neut # (Auto) Lymph # (Auto) Caswell # (Auto) Eos # (Auto) Baso # (Auto) Sodium Potassium Chloride Carbon Dioxide BUN Creatinine Estimated GFR BUN/Creatinine Ratio Glucose Lactate 1.8 Calcium Phosphorus 4.6 H Magnesium 2.1 Total Bilirubin AST ALT Alkaline Phosphatase Total Creatine Kinase CK-MB (CK-2) CK-MB (CK-2) Rel Index Troponin I Total Protein Albumin Globulin Albumin/Globulin Ratio Procalcitonin Urine Color Urine Appearance Urine pH Ur Specific [place] Urine Protein Urine Glucose (UA) Urine Ketones Urine Occult Blood Urine Nitrate Urine Bilirubin Urine Urobilinogen Ur Leukocyte Esterase Urine RBC Urine WBC Ur Squamous Epith Cells Urine Bacteria Ur Culture Indicated? SARS-CoV-2 (PCR) Blood Type A Positive Antibody Screen Negative Crossmatch See Detail 06/22/21 16:25 WBC RBC Hgb Hct MCV MCH MCHC RDW Plt Count Neut % (Auto) Lymph % (Auto) Caswell % (Auto) Eos % (Auto) Baso % (Auto) Neut # (Auto) Lymph # (Auto) Caswell # (Auto) Eos # (Auto) Baso # (Auto) Sodium Potassium Chloride Carbon Dioxide BUN Creatinine Estimated GFR BUN/Creatinine Ratio Glucose Lactate Calcium Phosphorus Magnesium Total Bilirubin AST ALT Alkaline Phosphatase Total Creatine Kinase CK-MB (CK-2) CK-MB (CK-2) Rel Index Troponin I Total Protein Albumin Globulin Albumin/Globulin Ratio Procalcitonin Urine Color Yellow Urine Appearance Clear Urine pH 5.0 Ur Specific [place] 1.015 Urine Protein Trace H Urine Glucose (UA) Negative Urine Ketones Negative Urine Occult Blood 1+ H Urine Nitrate Negative Urine Bilirubin Negative Urine Urobilinogen 0.2 Ur Leukocyte Esterase Negative Urine RBC 0-1/hpf Urine WBC None seen Ur Squamous Epith Cells 0-1 /hpf Urine Bacteria None seen Ur Culture Indicated? Cult not indicated SARS-CoV-2 (PCR) Blood Type Antibody Screen Crossmatch Assessment & Plan Assessment & Plan narrative: Patient is a 60-year-old woman Whitney Blackanum with a history of poorly-controlled diabetes, history of gastric banding, hypertension, peripheral neuropathy, hyperlipidemia with a complicated appendicitis with surgical intervention. she developed acute appendicitis underwent laparoscopic appendectomy with open umbilical hernia repair drainage of mar appendiceal abscess, 05/14/2021 at [facility]. During her hospitalization she developed acute kidney injury and bactiuria. She was discharged 05/19/21 to shelter facility. She has had developed 5 days of watery diarrhea at the nursing facility had a syncopal episode and was readmitted to [facility] on 06/07/2021 for diff colitis with sepsis with PATRICK, abdominal collection as complication from recent appendicitis and abdominal abscess, Ileus, acute respirattory failure from atelectasis, and presumed CLAIRE. Dr. Lowe performed a laparoscopic drainage of intra-abdominal fluid collection, and patient was d/c 06/12/2021. Patient had outpatient follow-up with Dr. Lowe, drain removal on 06/16/2021 and was recovering well. Patient was readmitted today with acute respiratory failure with hypoxia, acute anemia, PATRICK, C diff infection, and recurrence of intra-abdominal abscess. 1. Acute respiratory failure with hypoxia, acute, present on admission -patient requiring oxygen currently on 2.0 L nasal cannula for an O2 saturation of 93%. Patient not on O2 at home. -will attempt tapering of oxygen as soon as possible. -suspect acute respiratory failure secondary to atelectasis, possible CLAIRE, and complicated by acute onset anemia. 2. Anemia, acute, present on admission -etiology unclear patient demonstrates no melena, hematemesis, hematuria or any other sources of active bleeding. Occult blood negative. -admitting HGB 6.7, HCT 20.3 -patient typed and crossed in ED blood type: A positive, 2 units were ordered for transfusion -will repeat H&H following 2nd unit transfusion. -midline placed in ED 3. PATRICK without sepsis or shock, with hyponatremia mild, possibly secondary to intra- abdominal abscess reoccurance, acute, present on admission (Mar appendicecal abscess)- stable -Secondary complication of surgical appendectomy at [facility] 05/14/2021 - Dr. Lowe performed a laparoscopic drainage of intra-abdominal fluid collection 06/08/2021- drain removal 06/16/2021 -temp 101? WBC WNL, neutrophils#[id number], potassium 5.8, creatinine 2.04 last was 0.74, negative lactate and troponin. GFR 24.7, last was >60, SOFA:2 -Na+130. Fluids: NS@60cc/hr -monitor for septic shock, respiratory arrest -Dr. Morrison notified in the ED and will consult regarding mar appendicecal abscess. -NPO After Midnight-sips of water, ice chips meds- until midnight -pain control, antiemetics -BS check Q6hrs while NPO - Rocephin 1 g IV q.day -hold patient's Lasix 80 mg q.day, & potassium 4. Positive C difficile colitis, acute on chronic, present on admission - stool demonstrate Clostridium difficile.- 06/07/2021 -vital signs Q 4 hours, strict I&O Q shift, daily weights, diet: NPO, activity as tolerated - Flagyl 500 mg t.i.d.oral vancomycin 125 mg p.o. q.i.d. 5. Essential hypertension, chronic, well controlled, present on admission -continue patient's lisinopril and carvedilol 6. Insulin-dependent type 2 diabetes, with secondary hyperlipidemia, acute on chronic, present on admission -admitting glucose 78, A1C ordered, BS check Q6 while NPO, once patient is able to eat- ACHS -continuing patient's Lantus 26 units at bedtime, placed on diabetic protocol, low-dose sliding scale -continue patient's rosuvastatin -hold patient's glipizide 7. Obesity as evidence by BMI of 48.8, acute on chronic, present on admission -consideration will be given to dietary counseling Code status: Full code Surrogate decision maker: Paddy RANKINJosie COVID PCR: Negative COVID vaccination: Moderna February 2021 DVT/VTE prophylaxis: Medication contraindicated due to surgery, SCDs only Estimated length of stay: Greater than 2 midnights due to complexity of current condition, comorbidities and surgical intervention. I have utilized all available immediate resources to obtain, update, or review the patient's current medications. I confirmed that the patient's advanced care plan is present, Code status is documented and/or surrogate decision maker is listed in the patient's medical record.
--- NOTE | 2021-06-23 02:44 | PM.PEDHP.1 ---
History of Present Illness History of Present Illness Date Patient Seen: 06/23/21 Chief complaint: Weakness Narrative: Readmitted from SNF where she was placed recently. Compliant of weakness, documented fever. H/o lap appy for ruptured appendicitis at [facility], admitted [place] after discharge from [facility] with IAA and recieved Lap washout (Chrissy). Acquired C dif for which she is still positive for. + abdominal tenderness w/o guarding at RLQ and incisions. Pale. Washout showed infected hematoma which explains her progressive anemia on this admission and weakness. CT scan shows persistent fluid collection in RLQ (4.3 cm) and new Subcutaneous collection, both suspect for infection however her WBC is normal. Patient History Medical History Diabetes Hyperlipidemia Hypertension Surgical History History of appendectomy Hx of cataract surgery Family & Social History Family History Mother Diabetes mellitus Hypertension Father Stroke Coronary atherosclerosis of artery bypass graft Tobacco & Substance Use Smoking Status: Never smoker Meds Home Medications and Allergies Home Medications Medication Instructions Recorded Confirmed Type aspirin 81 mg tablet,delayed 81 mg PO DAILY 06/28/19 06/22/21 History release calcium carbonate 600 mg calcium 600 mg PO DAILY 06/28/19 06/22/21 History (1,500 mg) tablet (Calcium) carvedilol 6.25 mg tablet 6.25 mg PO BID 06/28/19 06/22/21 History coenzyme Q10 100 mg capsule (Co 200 mg PO DAILY 06/28/19 06/22/21 History Q-10) furosemide 80 mg tablet 80 mg PO DAILY 06/28/19 06/22/21 History glipizide 10 mg tablet 10 mg PO BID 06/28/19 06/22/21 History lisinopril 20 mg tablet 20 mg PO DAILY 06/28/19 06/22/21 History potassium chloride 10 mEq 10 meq PO BID 06/28/19 06/22/21 History tablet,extended release rosuvastatin 5 mg tablet 5 mg PO BEDTIME 06/28/19 06/22/21 History meclizine 12.5 mg tablet 12.5 mg PO DAILY 06/07/21 06/22/21 History montelukast 10 mg tablet 10 mg PO DAILY 06/07/21 06/22/21 History multivitamin with minerals 1 cap PO DAILY 06/07/21 06/22/21 History nystatin 100,000 unit/gram topical 1 applic TOPICAL BID 06/07/21 06/22/21 History powder oxybutynin chloride 5 mg tablet 5 mg PO BEDTIME 06/07/21 06/22/21 History insulin glargine 100 unit/mL (3 26 unit SUBCUT BEDTIME #3 ml 06/12/21 06/22/21 Rx mL) subcutaneous pen (Lantus Solostar U-100 Insulin) metoclopramide HCl 10 mg tablet 5 mg PO Q6H PRN #14 tab 06/12/21 06/22/21 Rx (Reglan) ondansetron HCl 4 mg tablet 4 mg PO Q8H PRN #14 tab 06/12/21 06/22/21 Rx (Zofran) oxycodone 5 mg tablet 5 mg PO Q4HR PRN #10 tab 06/12/21 06/22/21 Rx vancomycin 125 mg capsule 125 mg PO QID #56 cap 06/12/21 06/22/21 Rx gabapentin 600 mg tablet 600 mg PO TID 06/16/21 06/22/21 History insulin lispro 100 unit/mL 3 unit SUBCUT TID ml 06/16/21 06/22/21 History subcutaneous pen (Humalog KwikPen (U-100) Insulin) melatonin 3 mg capsule 3 mg PO BEDTIME PRN 06/16/21 06/22/21 History Allergies Allergy/AdvReac Type Severity Reaction Status Date / Time egg Allergy Severe Anaphylaxis Verified 06/16/21 15:06 amoxicillin [From Augmentin] Allergy Intermediate Hives Verified 06/16/21 15:06 azithromycin [From Zithromax] Allergy Intermediate Hives Verified 06/16/21 15:06 ciprofloxacin [From Cipro] Allergy Intermediate Rash Verified 06/16/21 15:06 clavulanic acid Allergy Intermediate Hives Verified 06/16/21 15:06 [From Augmentin] nitrofurantoin Allergy Intermediate Hives Verified 06/16/21 15:06 [From Macrobid] liraglutide [From Victoza] Allergy Unknown Verified 06/16/21 15:06 codeine AdvReac Intermediate Gastrointestinal Verified 06/16/21 15:06 Upset gluten AdvReac Intermediate Gastrointestinal Verified 06/16/21 15:06 Upset indomethacin [From Indocin] AdvReac Intermediate Gastrointestinal Verified 06/16/21 15:06 Upset metformin [From Glucophage] AdvReac Intermediate Gastrointestinal Verified 06/16/21 15:06 Upset mushroom AdvReac Intermediate Gastrointestinal Verified 06/16/21 15:06 Upset shellfish derived AdvReac Intermediate Gastrointestinal Verified 06/16/21 15:06 Upset Pippolu-Wxk-Mlk Reductase AdvReac Intermediate Joint Pain Verified 06/16/21 15:06 Inhibitor Review of Systems Review of Systems Narrative: still having loose stools ROS: Yes All systems reviewed with the patient and are negative except as otherwise documented Exam - Pediatric Vital Signs Vital Signs: Vital Signs Temp Pulse Resp BP Pulse Ox 100 F H 74 18 135/77 97 06/22/21 15:15 06/22/21 15:15 06/22/21 15:15 06/22/21 15:15 06/22/21 15:15 General Appearance General appearance: ill appearing and no distress Constitutional Constitutional: overweight HEENT Head: normocephalic Lungs Auscultation: clear and equal Cardiovascular Pulse volume: normal Cardiovascular: regular rate and tachycardic Gastrointestinal Abdomen: other (obese, non tender) Neurological Neurological: CN II-XII intact and decreased strength Psychiatric Psychiatric: other (depressed affect) Additional Exam Additional findings: no skin changes or palpable abscess of right abdominal wall exam unreliable due to size. Objective Labs Result Diagrams: 06/23/21 04:15 06/23/21 03:05 Labs: Laboratory Results - last 24 hr 06/22/21 06/22/21 06/22/21 15:12 15:45 15:45 WBC 10.5 RBC 2.25 L Hgb 6.7 L* Hct 20.3 L* MCV 90.0 MCH 29.6 MCHC 32.9 RDW 15.1 H Plt Count 289 Neut % (Auto) 75.1 H Lymph % (Auto) 13.4 L Emmons % (Auto) 9.4 Eos % (Auto) 1.8 L Baso % (Auto) 0.3 Neut # (Auto) 7900 H Lymph # (Auto) 1400 Emmons # (Auto) 1000 H Eos # (Auto) 200 Baso # (Auto) 0 Sodium 130 L Potassium 5.8 H Chloride 101 Carbon Dioxide 25 BUN 20 H Creatinine 2.04 H Estimated GFR 24.7 L BUN/Creatinine Ratio 9.8 Glucose 78 L Lactate Calcium 8.7 Phosphorus Magnesium Total Bilirubin 0.2 AST 16 ALT 9 Alkaline Phosphatase 30 L Total Creatine Kinase 49 CK-MB (CK-2) TNP CK-MB (CK-2) Rel Index TNP Troponin I < 0.012 Total Protein 6.5 Albumin 3.1 L Globulin 3.4 Albumin/Globulin Ratio 0.9 L Procalcitonin 0.08 Urine Color Urine Appearance Urine pH Ur Specific [place] Urine Protein Urine Glucose (UA) Urine Ketones Urine Occult Blood Urine Nitrate Urine Bilirubin Urine Urobilinogen Ur Leukocyte Esterase Urine RBC Urine WBC Ur Squamous Epith Cells Urine Bacteria Ur Culture Indicated? SARS-CoV-2 (PCR) Negative Blood Type Antibody Screen Crossmatch 06/22/21 06/22/21 06/22/21 15:45 15:45 15:45 WBC RBC Hgb Hct MCV MCH MCHC RDW Plt Count Neut % (Auto) Lymph % (Auto) Emmons % (Auto) Eos % (Auto) Baso % (Auto) Neut # (Auto) Lymph # (Auto) Emmons # (Auto) Eos # (Auto) Baso # (Auto) Sodium Potassium Chloride Carbon Dioxide BUN Creatinine Estimated GFR BUN/Creatinine Ratio Glucose Lactate 1.8 Calcium Phosphorus 4.6 H Magnesium 2.1 Total Bilirubin AST ALT Alkaline Phosphatase Total Creatine Kinase CK-MB (CK-2) CK-MB (CK-2) Rel Index Troponin I Total Protein Albumin Globulin Albumin/Globulin Ratio Procalcitonin Urine Color Urine Appearance Urine pH Ur Specific [place] Urine Protein Urine Glucose (UA) Urine Ketones Urine Occult Blood Urine Nitrate Urine Bilirubin Urine Urobilinogen Ur Leukocyte Esterase Urine RBC Urine WBC Ur Squamous Epith Cells Urine Bacteria Ur Culture Indicated? SARS-CoV-2 (PCR) Blood Type A Positive Antibody Screen Negative Crossmatch See Detail 06/22/21 16:25 WBC RBC Hgb Hct MCV MCH MCHC RDW Plt Count Neut % (Auto) Lymph % (Auto) Emmons % (Auto) Eos % (Auto) Baso % (Auto) Neut # (Auto) Lymph # (Auto) Emmons # (Auto) Eos # (Auto) Baso # (Auto) Sodium Potassium Chloride Carbon Dioxide BUN Creatinine Estimated GFR BUN/Creatinine Ratio Glucose Lactate Calcium Phosphorus Magnesium Total Bilirubin AST ALT Alkaline Phosphatase Total Creatine Kinase CK-MB (CK-2) CK-MB (CK-2) Rel Index Troponin I Total Protein Albumin Globulin Albumin/Globulin Ratio Procalcitonin Urine Color Yellow Urine Appearance Clear Urine pH 5.0 Ur Specific [place] 1.015 Urine Protein Trace H Urine Glucose (UA) Negative Urine Ketones Negative Urine Occult Blood 1+ H Urine Nitrate Negative Urine Bilirubin Negative Urine Urobilinogen 0.2 Ur Leukocyte Esterase Negative Urine RBC 0-1/hpf Urine WBC None seen Ur Squamous Epith Cells 0-1 /hpf Urine Bacteria None seen Ur Culture Indicated? Cult not indicated SARS-CoV-2 (PCR) Blood Type Antibody Screen Crossmatch Assessment & Plan Assessment & Plan narrative: US guided drainage of abdominal wall fluid, send for culture Bowel rest no required Intra abdominal fluid collection will need transfer for IR drain if it clinically behaves like abscess that does not respond with antibiotics Cdif per medical team agree with antibiotic selection. COVID-19 COVID-19 status: Negative Time Spent With Patient Time with patient: 25 - 35 minutes
[2021-06-23] MEDS: VANCOMYCIN 125 MG CAPSULE PO ×4 (02:50→20:14)
--- NOTE | 2021-06-23 02:58 | PC.NURSE ---
Addendum entered by Suzan Jerome R.N. 06/23/21 06:24: Patients BG at 0245 was 80, patients daughter in the room stated that her mom normally is symptomatic with 80 and below. Provider RANJIT Raymundo was notified due to patient being NPO. Verbal okay was given for patient to have some orange juice. 2cc of orange juice was given and at the 30 min recheck the patients BG was 101. Original Note: Provider RANJIT Raymundo called this RN with orders to DC LR @ 100 mL/hr and to start NS @ 60 mL/hr. Orders repeated and verified. No other requests at this time.
[2021-06-23] MEDS: SODIUM CHLORIDE 0.9% 1,000 ML 60 ML IV (03:15)
[2021-06-23 03:27] LABS: INR 1.3 (0.9-1.3)
[2021-06-23 03:29] LABS: PTT Partial Thromboplastin Tim 26 SECONDS (26.4-36.2)
[2021-06-23 03:30] LABS: Alanine Aminotransferase 8 IU/L (<35); Albumin 2.8 g/dL (3.5-5.0); Albumin Globulin Ratio 0.9 (1.0-2.8); Alkaline Phosphatase 29 U/L (38-126); Aspartate Aminotransferase 16 IU/L (14-36); BUN Creatinine Ratio 10.7 (6-22); Bilirubin Total 0.5 mg/dL (0.2-1.3); Blood Urea Nitrogen 20 mg/dL (7-17); Calcium 8.3 mg/dL (8.4-10.2); Carbon Dioxide 25 mmol/L (22-32); Chloride 101 mmol/L (98-107); Estimated Glomerular Filt Rate 27.3 mL/min (>60); Globulin 3.2 g/dL (1.7-4.1); Glucose 84 mg/dL (80-110); HEMOLYSIS < 15 (0-50); Sodium 130 mmol/L (137-145)
[2021-06-23 04:20] LABS: Hemoglobin 7.5 g/dL (12.0-16.0)
[2021-06-23 04:23] LABS: Hematocrit 22.6 % (36-46)
[2021-06-23] MEDS: PANTOPRAZOLE DR 40 MG TABLET PO ×2 (06:40→20:17)
--- NOTE | 2021-06-23 09:18 | PC.NURSE ---
Day shift: Per Dr Melani zurita for Pt to have AM meds.
[2021-06-23] MEDS: lisinopriL 20 MG TABLET PO (09:27)
[2021-06-23] MEDS: carvediloL 3.125 MG TABLET 6.25 MG PO ×2 (09:27→20:14)
[2021-06-23] MEDS: POTASSIUM CHLORIDE 10 MEQ TAB PO ×2 (09:27→20:17)
[2021-06-23] MEDS: metroNIDAZOLE 500 MG TABLET PO ×3 (09:27→20:17)
[2021-06-23] MEDS: SODIUM CHLORIDE 0.9% FLUSH 10 ML IV ×2 (09:28→22:10)
--- NOTE | 2021-06-23 15:03 | PC.NURSE ---
Day shift: Pt off unit for procedure at approx 1500.
--- NOTE | 2021-06-23 15:54 | PC.NURSE ---
Addendum entered by Cecilia Queen R.N. 06/23/21 16:27: OK per Dr. Polo to give vanco and metronidazole that were originally due at 1500. She and she put in order for heart healthy diet. Original Note: Patient brought back to AC unit after 20 minutes. I was told by day shift RN that it wasnt what they were expecting. Informed Dr. Polo and she will determine next steps as patient is requesting food and drink.
[2021-06-23] MEDS: ONDANSETRON 4 MG ODT PO (16:04)
[2021-06-23] MEDS: prednisoLONE OPHTH SUSP 1 DROPS EYE-LEFT ×4 (16:04→22:11)
--- NOTE | 2021-06-23 16:29 | PC.NURSE ---
Patient brought back up to AC from US guided needle aspiration after 20 minutes. Was told by day shift RN that it was not what they expected and they brought her back. Informed Dr. Polo and she was going to review and determine diet as patient is requesting food and drink. Dr. Polo ordered heart healthy diet and OK'd to give 1500 vanco and metronidazole a little late as patient was off unit and unclear about PO status. Patient also complaining of nausea so given zofran.
--- NOTE | 2021-06-23 18:17 | DI.RAD.S_ITS ---
PROCEDURE: XR CHEST 1V INDICATIONS: chf TECHNIQUE: One view of the chest was acquired. COMPARISON: [facility], CR, XR CHEST 1V, 06/22/2021, 15:30. FINDINGS: Surgical changes and devices: None. Lungs and pleura: Mildly increased interstitial markings. No consolidation. No pleural effusions or pneumothorax. Mediastinum: Mediastinal contours appear normal. Heart size is normal. Bones and chest wall: No suspicious bony lesions. Overlying soft tissues appear unremarkable. IMPRESSION: Mildly increased interstitial markings in both lungs, which can indicate pulmonary edema. Dictated by: Carlos Fatima M.D. on 06/23/2021 at 19:26 Approved by: Carlos Fatima M.D. on 06/23/2021 at 19:26
[2021-06-23 19:22] LABS: Hematocrit 22.1 % (36-46); Hemoglobin 7.4 g/dL (12.0-16.0)
[2021-06-23 19:43] LABS: NT-proBNP (BNP-Adult 18+) 2040 pg/mL (<125)
--- NOTE | 2021-06-23 20:04 | PM.PN.1 ---
Subjective Subjective Interval history: 60 y/o female admitted with weakness, dehydration, acute renal failure, anemia and possible intraabdominal infection Exam Vital Signs (past 8 hours): - 06/23/21 12:08 06/23/21 16:00 Temperature 99.4 F Pulse Rate 80 Respiratory Rate 20 Blood Pressure 126/99 H Pulse Oximetry 95 94 Oxygen Delivery Method Room Air Oxygen Flow Rate 0 Narrative Exam Narrative: Patient feels a bit better today. She has no complaints of pain She looks short of breath Const Other: obese ill appearing female Resp Other: Lungs: decreased breath sounds with scattered crackles Cardio Other: RRR nl Sl S2 2/6 dudley GI Other: Abdomen: obese/ soft/ non tender/ non distended, healed surgical scars Extrem Other: 2+ edema Objective Labs Result Diagrams: 06/23/21 19:10 06/23/21 03:05 Labs: Laboratory Results - last 24 hr 06/22/21 06/22/21 06/23/21 15:45 15:45 03:05 WBC 10.9 RBC 1.89 L Hgb 5.6 L* Hct 17.0 L* MCV 89.8 MCH 29.7 MCHC 33.1 RDW 14.9 H Plt Count 279 Neut % (Auto) 69.5 Lymph % (Auto) 17.1 L Floyd % (Auto) 9.8 Eos % (Auto) 2.9 Baso % (Auto) 0.7 Neut # (Auto) 7600 H Lymph # (Auto) 1900 Floyd # (Auto) 1100 H Eos # (Auto) 300 Baso # (Auto) 100 RBC Morphology Not Reportable PT INR APTT Sodium Potassium Chloride Carbon Dioxide BUN Creatinine Estimated GFR BUN/Creatinine Ratio Glucose Calcium Phosphorus 4.6 H Magnesium 2.1 Total Bilirubin AST ALT Alkaline Phosphatase NT-Pro-B Natriuret Pep Total Protein Albumin Globulin Albumin/Globulin Ratio Blood Type A Positive Antibody Screen Negative Crossmatch See Detail 06/23/21 06/23/21 06/23/21 03:05 03:05 04:15 WBC RBC Hgb 7.5 L Hct 22.6 L MCV MCH MCHC RDW Plt Count Neut % (Auto) Lymph % (Auto) Floyd % (Auto) Eos % (Auto) Baso % (Auto) Neut # (Auto) Lymph # (Auto) Floyd # (Auto) Eos # (Auto) Baso # (Auto) RBC Morphology PT 15.0 H INR 1.3 APTT 26 L Sodium 130 L Potassium 5.0 Chloride 101 Carbon Dioxide 25 BUN 20 H Creatinine 1.87 H Estimated GFR 27.3 L BUN/Creatinine Ratio 10.7 Glucose 84 Calcium 8.3 L Phosphorus Magnesium Total Bilirubin 0.5 AST 16 ALT 8 Alkaline Phosphatase 29 L NT-Pro-B Natriuret Pep Total Protein 6.0 L Albumin 2.8 L Globulin 3.2 Albumin/Globulin Ratio 0.9 L Blood Type Antibody Screen Crossmatch 06/23/21 06/23/21 19:10 19:10 WBC RBC Hgb 7.4 L Hct 22.1 L MCV MCH MCHC RDW Plt Count Neut % (Auto) Lymph % (Auto) Floyd % (Auto) Eos % (Auto) Baso % (Auto) Neut # (Auto) Lymph # (Auto) Floyd # (Auto) Eos # (Auto) Baso # (Auto) RBC Morphology PT INR APTT Sodium Potassium Chloride Carbon Dioxide BUN Creatinine Estimated GFR BUN/Creatinine Ratio Glucose Calcium Phosphorus Magnesium Total Bilirubin AST ALT Alkaline Phosphatase NT-Pro-B Natriuret Pep 2040 H Total Protein Albumin Globulin Albumin/Globulin Ratio Blood Type Antibody Screen Crossmatch [facility] Medical History Diabetes Hyperlipidemia Hypertension Surgical History History of appendectomy Hx of cataract surgery Family History Mother Diabetes mellitus Hypertension Father Stroke Coronary atherosclerosis of artery bypass graft Social History household members: other Smoking Status: Never smoker Assessment & Plan Assessment & Plan narrative: 60-year-old woman Whitney Anderson with a history of poorly-controlled diabetes, history of gastric banding, hypertension, peripheral neuropathy, hyperlipidemia with a complicated appendicitis with surgical intervention. she developed acute appendicitis underwent laparoscopic appendectomy with open umbilical hernia repair drainage of mar appendiceal abscess, 05/14/2021 at [facility]. During her hospitalization she developed acute kidney injury and bactiuria. She was discharged 05/19/21 to intermediate facility. She has had developed 5 days of watery diarrhea at the nursing facility had a syncopal episode and was readmitted to [facility] on 06/07/2021 for diff colitis with sepsis with PATRICK, abdominal collection as complication from recent appendicitis and abdominal abscess, Ileus, acute respirattory failure from atelectasis, and presumed CLAIRE. Dr. Lowe performed a laparoscopic drainage of intra-abdominal fluid collection, and patient was d/c 06/12/2021. Patient had outpatient follow-up with Dr. Lowe, drain removal on 06/16/2021 and was recovering well. Patient was readmitted today with acute respiratory failure with hypoxia, acute anemia, PATRICK, C diff infection, and recurrence of intra-abdominal abscess. 1. Acute respiratory failure with hypoxia, acute, present on admission -patient requiring oxygen currently on 2.0 L nasal cannula for an O2 saturation of 93%. Patient not on O2 at home. -will attempt tapering of oxygen as soon as possible. -suspect acute respiratory failure secondary to atelectasis, possible CLAIRE, and complicated by acute onset anemia. -patient has known CLAIRE/OHS, but does not wear Cpap, patient known to be hypoxic when sleeping, improved with oxygen 2. Anemia, acute, present on admission -etiology unclear patient demonstrates no melena, hematemesis, hematuria or any other sources of active bleeding. Occult blood negative. -admitting HGB 6.7, HCT 20.3 -patient typed and crossed in ED blood type: A positive, 2 units were ordered for transfusion -will repeat H&H following 2nd unit transfusion. -midline placed in ED -symptomatic, H/H 7.4-22, will monitor, no further transfusions now 3. PATRICK without sepsis or shock, with hyponatremia mild, possibly secondary to intra- abdominal abscess reoccurance, acute, present on admission (Mar appendicecal abscess)- stable -Secondary complication of surgical appendectomy at [facility] 05/14/2021 - Dr. Lowe performed a laparoscopic drainage of intra-abdominal fluid collection 06/08/2021- drain removal 06/16/2021 -temp 101? WBC WNL, neutrophils#[id number], potassium 5.8, creatinine 2.04 last was 0.74, negative lactate and troponin. GFR 24.7, last was >60, SOFA:2 -Na+130. will follow, - -Dr. Morrison notified in the ED and will consult regarding mar appendicecal abscess. -NPO After Midnight-sips of water, ice chips meds- until midnight -pain control, antiemetics -BS check Q6hrs while NPO - Rocephin 1 g IV q.day, continue flagyl 4. Positive C difficile colitis, acute on chronic, present on admission - stool demonstrate Clostridium difficile.- 06/07/2021 -vital signs Q 4 hours, strict I&O Q shift, daily weights, diet: NPO, activity as tolerated -continue oral vanco 5. Essential hypertension, chronic, well controlled, present on admission -continue patient's lisinopril and carvedilol 6. Insulin-dependent type 2 diabetes, with secondary hyperlipidemia, acute on chronic, present on admission -admitting glucose 78, A1C ordered, BS check Q6 while NPO, once patient is able to eat- ACHS -continuing patient's Lantus 26 units at bedtime, placed on diabetic protocol, low-dose sliding scale -continue patient's rosuvastatin -hold patient's glipizide 7. Obesity as evidence by BMI of 48.8, acute on chronic, present on admission -consideration will be given to dietary counseling I have utilized all available resources to review, update, and confirm patients current medications.
[2021-06-23] MEDS: cefTRIAXone 1,000 MG in SODIUM CHLORIDE 0.9% 100 ML 200 ML IV (20:10)
[2021-06-23] MEDS: ATORVASTATIN 20 MG TABLET 10 MG PO (20:15)
[2021-06-23] MEDS: OXYCODONE IR 5 MG TABLET PO ×2 (20:15→22:11)
[2021-06-23] MEDS: MELATONIN 3 MG TABLET PO (20:16)
[2021-06-24] VITALS (14 sets, daily range): BP systolic 96–121; BP diastolic 37–67; PULSE 56–65; RESP 16–19; TEMP 36.3–37.1; O2SAT 91–100
[2021-06-24] MEDS: VANCOMYCIN 125 MG CAPSULE PO ×4 (02:05→21:18)
[2021-06-24 05:04] LABS: Add Manual Diff / Slide Review NO; Basophils Absolute Auto 100 /uL (0-100); Basophils Percent Auto 0.5 % (0-2); Eosinophils Absolute Auto 200 /uL (0-450); Eosinophils Percent Auto 1.9 % (2-4); Hematocrit 22.2 % (36-46); Hemoglobin 7.2 g/dL (12.0-16.0); Lymphocytes Absolute Auto 2000 /uL (1100-4500); Lymphocytes Percent Auto 18.2 % (25-40); Mean Corpuscular HGB Conc 32.3 % (30-36); Mean Corpuscular Hemoglobin 29.4 PG (26-34); Mean Corpuscular Volume 90.7 fL (80-100); Monocytes Absolute Auto 1100 /uL (0-900); Monocytes Percent Auto 10.2 % (3-14); Neutrophils Absolute Auto 7600 /uL (1500-7000); Neutrophils Percent Auto 69.2 % (50-75); Platelet Count 245 X10^3/uL (150-400); Red Blood Cell Count 2.45 X10^6/uL (4.0-5.2); Red Cell Distribution Width 15.1 % (11.6-14.8); White Blood Cell Count 10.9 X10^3/uL (4.5-11.0)
[2021-06-24 05:12] LABS: INR 1.5 (0.9-1.3); Prothrombin Time 16.7 SECONDS (10.1-12.7)
[2021-06-24 05:15] LABS: PTT Partial Thromboplastin Tim 25 SECONDS (26.4-36.2)
[2021-06-24 05:16] LABS: Alanine Aminotransferase 7 IU/L (<35); Albumin 2.7 g/dL (3.5-5.0); Albumin Globulin Ratio 0.8 (1.0-2.8); Alkaline Phosphatase 27 U/L (38-126); Aspartate Aminotransferase 15 IU/L (14-36); Bilirubin Total 0.2 mg/dL (0.2-1.3); Blood Urea Nitrogen 22 mg/dL (7-17); Calcium 8.2 mg/dL (8.4-10.2); Carbon Dioxide 24 mmol/L (22-32); Chloride 104 mmol/L (98-107); Globulin 3.2 g/dL (1.7-4.1); Glucose 108 mg/dL (80-110); HEMOLYSIS < 15 (0-50); Sodium 131 mmol/L (137-145); Total Protein 5.9 g/dL (6.3-8.2)
[2021-06-24 05:19] LABS: Potassium 5.8 mmol/L (3.4-5.1)
[2021-06-24 05:21] LABS: Prealbumin 8.7 mg/dL (17.6-36.0)
[2021-06-24] MEDS: prednisoLONE OPHTH SUSP 1 DROPS EYE-LEFT ×8 (05:59→21:10)
[2021-06-24] MEDS: PANTOPRAZOLE DR 40 MG TABLET PO ×2 (06:00→21:18)
[2021-06-24] MEDS: metroNIDAZOLE 500 MG TABLET PO ×2 (08:06→14:17)
[2021-06-24] MEDS: carvediloL 3.125 MG TABLET 6.25 MG PO ×2 (08:06→21:12)
[2021-06-24] MEDS: SODIUM CHLORIDE 0.9% FLUSH 10 ML IV ×2 (08:06→21:15)
[2021-06-24] MEDS: lisinopriL 20 MG TABLET PO (08:08)
--- NOTE | 2021-06-24 10:19 | CM.DPNOTE ---
Addendum entered by Suni Copeland R.N. 06/24/21 10:30: DC assessment note continues: I: Medicare and Medicaid P: DC SNF ([facility] reviewing) Vs Home with HH reestablished- patient does not know who [facility] set up to be HH provider- CM will follow up with [facility] and verify HH provider. Patients daughter would prefer sending patient to [facility] v[facility] Home with HH at this time Suni Copeland Original Note: DC Assessment note: Patient is a 60 yr old female who was admitted for anemia - patient is a readmit following DC earlier this month. patient was DC to [facility] 06/12/21 for SNF services and was then DC to [facility] 06/20/21. Patient does [place] use of [facility], was DC from [facility] to her daughters home as a 1 person assist. CM met with patient at the bedside and explained CM role. Patient stated understanding - Patient was alert and oriented however very tired and looks pale and unwell. Patients daughter was present during meeting with CM to disscuss plan for DC. Patients daughter expressed concerns for her Catheter cleanliness and her concerns were communicated with patients RN. Patient at baseline lives with a roommate. but has been with her daughter since DC from [facility] 06/20/21 Patient stated she is open to going back to [facility] if it is determined she needs SNF, CM contacted Hanh at [facility] and she is reviewing for potential DC plan. CM also disscussed HH with patient and she stated that was her preferred plan but is open to either. Suni Copeland CM, art history instructor Planning/Care Management CM Discharge Assessment Start: 06/24/21 10:07 Freq: Status: Active Protocol: Document 06/24/21 10:07 (Rec: 06/24/21 10:19 [id number]) Discharge Planning Assessment Assigned Stockbroker Suni Copeland RN DPOA/Assigned Designee Name Paddy DIAZ)- SON Contact Information [phone] Advance Directives? No History Provided By Patient,Family Member,Medical Record Has Patient been admitted in last 30 Yes days? Comment Mal was last admitted 06/08 Prior Living Arrangements Apartment/Condo Comment Patient lives independently [place] [facility] [place] with roomate- but was currently staying at [facility] to daughters house on wednesday Household Members other Independent with ADL's No: daughter helped with ADLs Is patient alert and oriented? Yes: However very groggy when talking with CM Caregiver for Another No Comment Dose not use DME Patient/Family Preference [facility] Facility,Home with Home Health Comment pending OT evaluation Discharge Plan [facility] Transportation Arrangement Facility Referrals Initiated [facility] Additional Comment Called [facility] at [facility] who is reviewing patient for possible placement if needed PT evaluation pending If patient plan is home with home health If SNF not needed patient has : Has signed face to face form been agreed to home with HH completed? Medicare Choice List Provided Yes SNF/HH Preference [facility] Contact Name/Phone March [phone] Has Agency SNF been contacted Yes Whiteboard Updated in Patient Room with Yes name and ext. # of Stockbroker Review Status In Process Next Review Type Continued Stay Review
[2021-06-24] MEDS: ACETAMINOPHEN 325 MG TABLET 650 MG PO ×2 (11:20→21:20)
[2021-06-24] MEDS: ONDANSETRON 4 MG ODT PO ×2 (11:20→19:38)
[2021-06-24] MEDS: INSULIN LISPRO 100 UNIT/ML 3ML VIAL SUBCUT ×2 (12:34→16:56)
--- NOTE | 2021-06-24 12:34 | CM.DPNOTE ---
Kirsty, [facility] called and said they are following her. Please contact them if pt. is discharged. Yumiko Osborne CM Asst.
[2021-06-24 12:45] LABS: Appearance Urine UA TURBID; Bilirubin Urine UA 1+ (NEGATIVE); Color Urine UA YELLOW; Glucose Urine UA TRACE g/dL (Negative); Ketones Urine UA TRACE (NEGATIVE); Leukocyte Esterase Urine UA 2+ (NEGATIVE); Nitrite Urine UA NEGATIVE (Negative); Occult Blood Urine UA 3+ (Negative); Protein Urine UA 3+ (Negative); Specific Gravity Urine UA 1.025 (1.000-1.035); Urobilinogen Urine UA 0.2 E.U./dL (0.2); pH Urine UA 5.5 (4.5-8.0)
[2021-06-24 12:46] LABS: Ictotest Urine Negative (Negative); RBC Urine 30-100/HPF (0-5/HPF); WBC Urine >100/HPF (0-5/HPF)
[2021-06-24 12:47] LABS: Bacteria Urine Many (>30); Culture Indicated Urine Specimen Cultured
--- NOTE | 2021-06-24 16:10 | PT.IIE ---
Medical History (Last Reviewed 06/23/21 @ 02:24 by Krystle Raymundo [facility]) Diabetes Hyperlipidemia Hypertension Physical Therapy Inpatient Evaluation/Re-Eval M1 PT/OT-IP Prior Functional Status Start: 06/24/21 17:54 Freq: NEEDED Status: Active Protocol: Document 06/24/21 16:10 AB (Rec: 06/24/21 18:08 AB [id number]) Medical Review Prior Functional Status Medical History Reviewed Yes Communication pt is drowsy but able to follow directions Mobility and Gait daughter in room and provided some info regarding pt. daughter stated that pt was hospitalized ~ 1 month ago due to appendicitis and was d/c to SNF and went home. pt has just been home for ~ 2days and now back to the hospital. pt was independent with all mobilities prior to first hospitalization and was using a 4WW for ambulation at all times. Social History Household Members other Living Arrangements House Number of Floors (Floors) One Floor Number of Stairs To Enter/Railing? ramp to enter Home Environment High Toilet,Walk in Shower, Built-In Shower Seat,Ramp Home Equipment Four Wheel Walker,Hand Held Shower,Grab Bars In Shower Additional Social History Comment has an adjustable bed without rails M2 PT-IP Current Condition Start: 06/24/21 17:54 Freq: NEEDED Status: Active Protocol: Document 06/24/21 16:10 AB (Rec: 06/24/21 18:08 AB [email or web address]) Physical Therapy Current Condition Current Condition Evaluation Date 06/24/21 Treatment Diagnosis sepsis; PATRICK;abdominal abscess; c-diff; difficulty in walking Onset Date 06/22/21 Precautions Other Precautions contact precautions(c-diff) M3 PT-IP Subjective Start: 06/24/21 17:54 Freq: NEEDED Status: Active Protocol: Document 06/24/21 16:10 AB (Rec: 06/24/21 18:08 AB [email or web address]) Subjective Physical Therapy Visit Type Type Initial Evaluation Visit Start Time 16:10 Visit Stop Time 16:55 Total Visit Minutes 45 Number of SCOOPER Visits 0 Physical Therapy Visit Comments Patient Comments agreeable to do PT Therapy Pain Assessment Pain When Pain Assessed At Rest Pain Present Pain Present Pain Reported Location Lower Back Intensity 4 Scale Used increases with mobility Pain Management Techniques Distraction,Modification of Treatment,Re-positioning, Timing of Activity with Medications M4 PT-IP Mobility and Gait Start: 06/24/21 17:54 Freq: NEEDED Status: Active Protocol: Document 06/24/21 16:10 AB (Rec: 06/24/21 18:08 AB [id number]) PT-Bed Mobility Assessment Rolling Type of Rolling Roll to Left Level of Assist Maximal Assistance,1 Person Assistance,2 Person Assistance Supine to Sit Supine to Sit 1 Person Assistance,2 Person Assistance,Head of Bed Elevated,Bedrails Scooting Scooting to Edge of Bed Dependent PT-Transfer Assessment Sit to and From Stand Sit to and from Stand Maximum Assistance,2 Person Assistance,Use of Upper Extremities Equipment Transfer Assistive Device Front Wheeled Walker Orthotic/Prosthetic Devices or Brace: No Transfers Transfer Destination Chair Transfer Ability Level of Assist Maximum Assistance,2 Person Assistance,Use of Upper Extremities Comments Mobility Comments Dr. Polo just saw the pt and stated that pt will receive another unit of blood but is ok to mobilize with PT. pt agreed to do PT. agreed to sit on EOB but refuse to stand. completed supine to with HOB elevated max A x 1-2 and max cues and also used bed rail to assist. initial max A for sitting balance and after positioning min A and max cues. pt sat on EOB without c/o dizziness. BP 96/ 41. pt was able to sit on EOB for ~ 5 min. pt stated that she wants to sit on the chair and stated that she will try to stand. completed sit to stand max A and max cues. completed step transfer using FWW to the chair max A x 2 and max cues. total A x 2 for positioning on the chair. call light and table placed within reach. Gait Assessment Comments Gait Comments unable at this time PT-Balance Assessment Sitting Balance and Reactions Static Sitting Balance Ability Fair Dynamic Sitting Balance Ability Fair Standing Balance and Reactions Static Standing Balance Ability Poor Dynamic Standing Balance Ability Poor Device Used FWW M5 PT-IP Objective Assessments Start: 06/24/21 17:54 Freq: NEEDED Status: Active Protocol: Document 06/24/21 16:10 AB (Rec: 06/24/21 18:08 AB [id number]) Orientation Orientation/Cognition Level of Alertness Lethargic Orientation Name Safety Awareness Decreased Safety Awareness Memory Description Short Term Impaired Strength Lower Extremity Strength Assessment Bilaterally Impaired Hip 3-/5 Knee 3+/5 Muscle Tone Muscle Tone WNL Yes M6 PT-IP Treatment Start: 06/24/21 17:54 Freq: NEEDED Status: Active Protocol: Document 06/24/21 16:10 AB (Rec: 06/24/21 18:08 AB [email or web address]) Physical Therapy Treatment Education Education Provided Safety M7 PT-IP Assessment and Plan Start: 06/24/21 17:54 Freq: NEEDED Status: Active Protocol: Document 06/24/21 16:10 AB (Rec: 06/24/21 18:08 AB [email or web address]) PT Summary Assessment and Plan Potential Rehabilitation Potential Fair Status of Condition at Evaluation Evolving Summary Impairments Pain,ROM,Strength,Balance, Coordination,Sensation,Tone, Cognition,Bed Mobility, Transfers,Gait,Activity Tolerance Assessment Summary pt requiring max Ax 2 with mobility and unable to ambulate at this time. recommending mechanical lift transfer when mobilizing with nurses' at this time due to pt 's decrease activity tolerance affecting mobility. pt will require SNF rehab to improve overall strength and independence. Goals Bed Mobility Goal Minimal Assistance Transfer Goal Minimal Assistance,Front Wheeled Walker Gait Goal Minimal Assistance,Front Wheel Walker Gait Distance 50 Other Goals improve bed mobility, transfers using FWW SBA, ambulation using FWW SBA 100 ft Days to Meet Goals 10 Frequency of Treatment Frequency Of Treatment Once a Day Treatment Plan Physical Therapy Treatment Plan Bed Mobility Training,Transfer Training,Gait Training, Therapeutic Exercise,Balance Retraining,Discharge Planning, Hot or Cold Pack,Neuromuscular Re-ed,Coordination Retraining Precautions Other Precautions contact precautions(c-diff) Recommendations To Nursing Amount of Assist Needed Mechanical Lift Discharge Recommendations PT Discharge Recommendations SNF Rehab Transportation Needs at Discharge Wheelchair/Cabulance,Stretcher /Ambulance
--- NOTE | 2021-06-24 16:32 | P.PN_ITS ---
Subjective Subjective Date Patient Seen: 06/24/21 Time Patient Seen: 16:33 Interval history: No acute events overnight. Tolerating diet no abdominal pain. No fever. Exam Vital Signs (past 8 hours): - 06/24/21 11:47 06/24/21 12:00 06/24/21 14:58 Temperature 98.0 F Pulse Rate 60 Respiratory Rate 16 Blood Pressure 112/42 L Pulse Oximetry 98 92 93 Oxygen Delivery Method Room Air Oxygen Flow Rate 0 Narrative Exam Narrative: General alert oriented no acute distress Abdomen obese nontender Objective Labs Result Diagrams: 06/24/21 04:50 06/24/21 04:50 Labs: Laboratory Results - last 24 hr 06/22/21 06/23/21 06/23/21 15:45 19:10 19:10 WBC RBC Hgb 7.4 L Hct 22.1 L MCV MCH MCHC RDW Plt Count Neut % (Auto) Lymph % (Auto) [place] % (Auto) Eos % (Auto) Baso % (Auto) Neut # (Auto) Lymph # (Auto) [place] # (Auto) Eos # (Auto) Baso # (Auto) PT INR APTT Sodium Potassium Chloride Carbon Dioxide BUN Creatinine Estimated GFR BUN/Creatinine Ratio Glucose Calcium Total Bilirubin AST ALT Alkaline Phosphatase C-Reactive Protein NT-Pro-B Natriuret Pep 2040 H Total Protein Albumin Globulin Albumin/Globulin Ratio Prealbumin Urine Color Urine Appearance Urine pH Ur Specific [place] Urine Protein Urine Glucose (UA) Urine Ketones Urine Occult Blood Urine Nitrate Urine Bilirubin Ur Bilirubin Confirm Urine Urobilinogen Ur Leukocyte Esterase Urine RBC Urine WBC Urine Bacteria Ur Culture Indicated? Crossmatch See Detail 06/24/21 06/24/21 06/24/21 04:50 04:50 04:50 WBC 10.9 RBC 2.45 L Hgb 7.2 L Hct 22.2 L MCV 90.7 MCH 29.4 MCHC 32.3 RDW 15.1 H Plt Count 245 Neut % (Auto) 69.2 Lymph % (Auto) 18.2 L [place] % (Auto) 10.2 Eos % (Auto) 1.9 L Baso % (Auto) 0.5 Neut # (Auto) 7600 H Lymph # (Auto) 2000 [place] # (Auto) 1100 H Eos # (Auto) 200 Baso # (Auto) 100 PT 16.7 H INR 1.5 H APTT 25 L Sodium 131 L Potassium 5.8 H Chloride 104 Carbon Dioxide 24 BUN 22 H Creatinine 1.83 H Estimated GFR 28.0 L BUN/Creatinine Ratio 12.0 Glucose 108 Calcium 8.2 L Total Bilirubin 0.2 AST 15 ALT 7 Alkaline Phosphatase 27 L C-Reactive Protein 8.0 H NT-Pro-B Natriuret Pep Total Protein 5.9 L Albumin 2.7 L Globulin 3.2 Albumin/Globulin Ratio 0.8 L Prealbumin 8.7 L Urine Color Urine Appearance Urine pH Ur Specific [place] Urine Protein Urine Glucose (UA) Urine Ketones Urine Occult Blood Urine Nitrate Urine Bilirubin Ur Bilirubin Confirm Urine Urobilinogen Ur Leukocyte Esterase Urine RBC Urine WBC Urine Bacteria Ur Culture Indicated? Crossmatch 06/24/21 11:29 WBC RBC Hgb Hct MCV MCH MCHC RDW Plt Count Neut % (Auto) Lymph % (Auto) [place] % (Auto) Eos % (Auto) Baso % (Auto) Neut # (Auto) Lymph # (Auto) [place] # (Auto) Eos # (Auto) Baso # (Auto) PT INR APTT Sodium Potassium Chloride Carbon Dioxide BUN Creatinine Estimated GFR BUN/Creatinine Ratio Glucose Calcium Total Bilirubin AST ALT Alkaline Phosphatase C-Reactive Protein NT-Pro-B Natriuret Pep Total Protein Albumin Globulin Albumin/Globulin Ratio Prealbumin Urine Color Yellow Urine Appearance Turbid Urine pH 5.5 Ur Specific [place] 1.025 Urine Protein 3+ H Urine Glucose (UA) Trace H Urine Ketones Trace H Urine Occult Blood 3+ H Urine Nitrate Negative Urine Bilirubin 1+ H Ur Bilirubin Confirm Negative Urine Urobilinogen 0.2 Ur Leukocyte Esterase 2+ H Urine RBC 30-100/hpf H Urine WBC >100/hpf H Urine Bacteria Many (>30) H Ur Culture Indicated? Specimen cultured Crossmatch [facility] Medical History Diabetes Hyperlipidemia Hypertension Surgical History History of appendectomy Hx of cataract surgery Family History Mother Diabetes mellitus Hypertension Father Stroke Coronary atherosclerosis of artery bypass graft Social History household members: other Smoking Status: Never smoker Assessment & Plan Assessment & Plan narrative: 60-year-old female with recent complicated appendectomy performed at an outside institution admitted to the hospital for anemia. Reviewed the CT abdomen pelvis from the medicine flowed demonstrates fully intra-abdominal fluid collection in the right lower quadrant. She was taken to the operating room a week ago for drainage of similar intra-abdominal fluid collection microbiology resulted in no organisms admission not on antibiotics. she was afebrile white blood cell count 11 and without abdominal pain. I do not think this is a active intra-abdominal infection I suspect she has a sterile hematoma as she did previously. No need for antibiotic therapy for intra-abdominal fluid collection. No need for percutaneous or surgical drainage. will sign off at this time please contact with questions.
[2021-06-24] MEDS: OXYCODONE IR 5 MG TABLET PO (18:06)
--- NOTE | 2021-06-24 19:51 | P.PN_ITS ---
Subjective Subjective Interval history: 60-year-old female admitted to the hospital for progressive weakness, following intra-abdominal surgery, and short stay at [facility]. Patient continues to have poor appetite. She continues to be significantly weak. She did receive 2 units of packed RBCs and had improvement of her hemoglobin from 6-7. Dr. Lowe reviewed her CT of her abdomen and feels that there is no drainable collection of abscess. There was concern that there may be a formed hematoma. Patient remains weak. Urinalysis abnormal, sent for culture Exam Vital Signs (past 8 hours): - 06/24/21 12:00 06/24/21 14:58 06/24/21 16:00 Temperature 98.0 F Pulse Rate 60 Respiratory Rate 16 Blood Pressure 112/42 L Pulse Oximetry 92 93 94 06/24/21 16:45 06/24/21 17:38 Temperature 97.4 F L 97.4 F L Pulse Rate 56 L 56 L Respiratory Rate 19 19 Blood Pressure 96/41 L 96/41 L Pulse Oximetry 91 Oxygen Delivery Method Room Air Oxygen Flow Rate 0 Narrative Exam Narrative: Ill-appearing female lying in bed Resp Other: Decreased breath sounds, with occasional scattered crackle Cardio Other: Cardiac exam: Regular rate and rhythm normal S1-S2 GI Other: Abdomen: Obese, mildly tender to palpation, no rebound tenderness, no board-like rigidity Skin Other: Left upper extremity significant ecchymoses from PICC line placement, patient has bilateral edema of the upper and lower extremity Objective Labs Result Diagrams: 06/24/21 04:50 06/24/21 04:50 Labs: Laboratory Results - last 24 hr 06/22/21 06/24/21 06/24/21 15:45 04:50 04:50 WBC 10.9 RBC 2.45 L Hgb 7.2 L Hct 22.2 L MCV 90.7 MCH 29.4 MCHC 32.3 RDW 15.1 H Plt Count 245 Neut % (Auto) 69.2 Lymph % (Auto) 18.2 L [place] % (Auto) 10.2 Eos % (Auto) 1.9 L Baso % (Auto) 0.5 Neut # (Auto) 7600 H Lymph # (Auto) 2000 [place] # (Auto) 1100 H Eos # (Auto) 200 Baso # (Auto) 100 PT 16.7 H INR 1.5 H APTT 25 L Sodium Potassium Chloride Carbon Dioxide BUN Creatinine Estimated GFR BUN/Creatinine Ratio Glucose Calcium Total Bilirubin AST ALT Alkaline Phosphatase C-Reactive Protein Total Protein Albumin Globulin Albumin/Globulin Ratio Prealbumin Urine Color Urine Appearance Urine pH Ur Specific [place] Urine Protein Urine Glucose (UA) Urine Ketones Urine Occult Blood Urine Nitrate Urine Bilirubin Ur Bilirubin Confirm Urine Urobilinogen Ur Leukocyte Esterase Urine RBC Urine WBC Urine Bacteria Ur Culture Indicated? Blood Type A Positive Antibody Screen Negative Crossmatch See Detail 06/24/21 06/24/21 04:50 11:29 WBC RBC Hgb Hct MCV MCH MCHC RDW Plt Count Neut % (Auto) Lymph % (Auto) [place] % (Auto) Eos % (Auto) Baso % (Auto) Neut # (Auto) Lymph # (Auto) [place] # (Auto) Eos # (Auto) Baso # (Auto) PT INR APTT Sodium 131 L Potassium 5.8 H Chloride 104 Carbon Dioxide 24 BUN 22 H Creatinine 1.83 H Estimated GFR 28.0 L BUN/Creatinine Ratio 12.0 Glucose 108 Calcium 8.2 L Total Bilirubin 0.2 AST 15 ALT 7 Alkaline Phosphatase 27 L C-Reactive Protein 8.0 H Total Protein 5.9 L Albumin 2.7 L Globulin 3.2 Albumin/Globulin Ratio 0.8 L Prealbumin 8.7 L Urine Color Yellow Urine Appearance Turbid Urine pH 5.5 Ur Specific [place] 1.025 Urine Protein 3+ H Urine Glucose (UA) Trace H Urine Ketones Trace H Urine Occult Blood 3+ H Urine Nitrate Negative Urine Bilirubin 1+ H Ur Bilirubin Confirm Negative Urine Urobilinogen 0.2 Ur Leukocyte Esterase 2+ H Urine RBC 30-100/hpf H Urine WBC >100/hpf H Urine Bacteria Many (>30) H Ur Culture Indicated? Specimen cultured Blood Type Antibody Screen Crossmatch [facility] Medical History Diabetes Hyperlipidemia Hypertension Surgical History History of appendectomy Hx of cataract surgery Family History Mother Diabetes mellitus Hypertension Father Stroke Coronary atherosclerosis of artery bypass graft Social History household members: other Smoking Status: Never smoker Assessment & Plan Assessment & Plan narrative: 60-year-old woman Whitney Anderson with a history of poorly-controlled diabetes, history of gastric banding, hypertension, peripheral neuropathy, hyperlipidemia with a complicated appendicitis with surgical intervention. she developed acute appendicitis underwent laparoscopic appendectomy with open umbilical hernia repair drainage of mar appendiceal abscess, 05/14/2021 at [facility]. During her hospitalization she developed acute kidney injury and bactiuria. She was [facility] She has had developed 5 days of watery diarrhea at the nursing facility had a syncopal episode and was readmitted to [facility] on 06/07/2021 for diff colitis with sepsis with PATRICK, abdominal collection as complication from recent appendicitis and abdominal abscess, Ileus, acute respirattory failure from atelectasis, and presumed CLAIRE. Dr. Lowe performed a laparoscopic drainage of intra-abdominal fluid collection, and patient was d/c 06/12/2021. Patient had outpatient follow-up with Dr. Lowe, drain removal on 06/16/2021 and was recovering well. Patient was readmitted today with acute respiratory failure with hypoxia, acute anemia, PATRICK, C diff infection, and recurrence of intra-abdominal abscess. 1. Acute respiratory failure with hypoxia, acute, present on admission -patient requiring oxygen currently on 2.0 L nasal cannula for an O2 saturation of 93%. Patient not on O2 at home. -will attempt tapering of oxygen as soon as possible. -suspect acute respiratory failure secondary to atelectasis, possible CLAIRE, and complicated by acute onset anemia. -patient has known CLAIRE/OHS, but does not wear Cpap, patient known to be hypoxic when sleeping, improved with oxygen - oxygenation improved 2. Anemia, acute, present on admission -etiology unclear patient demonstrates no melena, hematemesis, hematuria or any other sources of active bleeding. Occult blood negative. -admitting HGB 6.7, HCT 20.3 -patient typed and crossed in ED blood type: A positive, 2 units were ordered for transfusion -will repeat H&H following 2nd unit transfusion. -midline placed in ED -symptomatic, H/H 7.4-22, patient continues to be very weak -?organized intrabominal hematoma, transfuse 1 unit this evening 3. PATRICK without sepsis or shock, with hyponatremia mild, possibly secondary to intra- abdominal abscess reoccurance, acute, present on admission (Mar ap pendicecal abscess)- stable -Secondary complication of surgical appendectomy at [facility] 05/14/2021 - Dr. Lowe performed a laparoscopic drainage of intra-abdominal fluid collection 06/08/2021- drain removal 06/16/2021 -temp 101? WBC WNL, neutrophils#[id number], potassium 5.8, creatinine 2.04 last was 0.74, negative lactate and troponin. GFR 24.7, last was >60, SOFA:2 -Na+130. will follow, -resume lasix -follow creatinine -low urine output - -Dr. Morrison notified in the ED and will consult regarding mar appendicecal abscess. -NPO After Midnight-sips of water, ice chips meds- until midnight -pain control, antiemetics -BS check Q6hrs while NPO - no intrabdominal infection 4. Positive C difficile colitis, acute on chronic, present on admission - stool demonstrate Clostridium difficile.- 06/07/2021 -vital signs Q 4 hours, strict I&O Q shift, daily weights, diet: NPO, activity as tolerated -continue oral vanco 5. Essential hypertension, chronic, well controlled, present on admission -continue patient's lisinopril and carvedilol 6. Insulin-dependent type 2 diabetes, with secondary hyperlipidemia, acute on chronic, present on admission -admitting glucose 78, A1C ordered, BS check Q6 while NPO, once patient is able to eat- ACHS -continuing patient's Lantus 26 units at bedtime, placed on diabetic protocol, low-dose sliding scale -continue patient's rosuvastatin -hold patient's glipizide 7. Obesity as evidence by BMI of 48.8, acute on chronic, present on admission -consideration will be given to dietary counseling, despite this patient with poor appetite 8. U/A highly suggestive of infection -resume ceftriaxone, await urine culture
[2021-06-24 20:32] LABS: HEMOLYSIS < 15 (0-50)
[2021-06-24 20:34] LABS: Iron < 10 ug/dL (37-170)
[2021-06-24 20:42] LABS: Total Iron Binding Capacity 140 ug/dL (265-497); Transferrin 101 mg/dL (206-381)
[2021-06-24 20:49] LABS: Percent Iron Saturation < 7 % (15-50)
[2021-06-24] MEDS: cefTRIAXone 1,000 MG in SODIUM CHLORIDE 0.9% 100 ML 200 ML IV (21:10)
[2021-06-24] MEDS: ATORVASTATIN 20 MG TABLET 10 MG PO (21:11)
[2021-06-24] MEDS: INSULIN GLARGINE 100 UNIT/ML 3ML PEN 26 UNIT SUBCUT (21:13)
--- NOTE | 2021-06-24 22:06 | PC.NURSE ---
Addendum entered by Taylor Suarez R.N. 06/24/21 23:36: Bilateral LE +2 pitting edema with intact, scattered blisters to bilateral gunderson areas. Addendum entered by Taylor Suarez R.N. 06/24/21 23:32: pt restless in bed and requesting assistance with repositioning. SOLE PAINTER and myself utilizing pillows and the bed to help reposition and rotate pt. Original Note: Evening shift note. I assumed responsibility of patient at 1900. pt AO and receptive to care. pt is anxious and moans often before communicating needs. States she is not using her hands because she does not want to contaminate anything. I informed her that she can use her hands and encouraged her to wash them with soap and water often. pt has RUE mid-line infusing blood products at start of shift. DC'ed blood around 1999, pt tolerated well. IV ABX infusion started and has since completed. pt arabella transfer from chair to bed at 1900. Reporting pain to bilateral LE and coccyx, 650mg Tylenol administered. CBG at 2030 150, no coverage. Tele sinus philip. Moore draining to gravity with frothy, straw/lev colored urine, IV ABX initiated for UTI. Daughter Mary, left for the night but active it pt care. Hx of c.diff but no BM since admission. Prednisone eye drops Q2H but pt declining if she is asleep. Educated pt on how to use bed so she can manipulate.
[2021-06-25] VITALS (15 sets, daily range): BP systolic 106–133; BP diastolic 46–87; PULSE 53–67; RESP 16–20; TEMP 36.2–36.7; O2SAT 88–100
[2021-06-25] MEDS: prednisoLONE OPHTH SUSP 1 DROPS EYE-LEFT ×7 (00:02→21:09)
[2021-06-25] MEDS: OXYCODONE IR 5 MG TABLET PO ×2 (00:22→10:57)
[2021-06-25] MEDS: VANCOMYCIN 125 MG CAPSULE PO ×4 (03:59→20:29)
[2021-06-25] MEDS: SODIUM CHLORIDE 0.9% FLUSH 10 ML IV ×3 (04:00→20:33)
[2021-06-25 04:45] LABS: Hematocrit 24.3 % (36-46); Mean Corpuscular Hemoglobin 28.9 PG (26-34); Mean Corpuscular Volume 87.5 fL (80-100); Platelet Count 217 X10^3/uL (150-400); Red Blood Cell Count 2.78 X10^6/uL (4.0-5.2); Red Cell Distribution Width 16.7 % (11.6-14.8)
[2021-06-25 04:48] LABS: INR 1.6 (0.9-1.3); Prothrombin Time 18.1 SECONDS (10.1-12.7)
[2021-06-25 04:51] LABS: PTT Partial Thromboplastin Tim 23 SECONDS (26.4-36.2)
[2021-06-25 04:52] LABS: Add Manual Diff / Slide Review YES
[2021-06-25 06:32] LABS: Alanine Aminotransferase 9 IU/L (<35); Albumin 2.7 g/dL (3.5-5.0); Albumin Globulin Ratio 0.8 (1.0-2.8); Alkaline Phosphatase 28 U/L (38-126); Aspartate Aminotransferase 22 IU/L (14-36); BUN Creatinine Ratio 12.4 (6-22); Bilirubin Total 0.4 mg/dL (0.2-1.3); Blood Urea Nitrogen 29 mg/dL (7-17); Calcium 8.2 mg/dL (8.4-10.2); Carbon Dioxide 23 mmol/L (22-32); Chloride 101 mmol/L (98-107); Estimated Glomerular Filt Rate 21.2 mL/min (>60); Globulin 3.2 g/dL (1.7-4.1); Glucose 113 mg/dL (80-110); HEMOLYSIS 22 (0-50); Sodium 129 mmol/L (137-145); Total Protein 5.9 g/dL (6.3-8.2)
--- NOTE | 2021-06-25 06:39 | PC.NURSE ---
NOC Pt has been challenging to participate in her own care this shift, needs significant enc in order to do any type of self care. Education provided re: improved outcomes with participating in self care. I am too sick I can't do any of that Requesting Pt assist in reposition. Trapeze/overhead lift provided. You can do it for me Education again provided as such. Reposition for comfort, only with patient assist, as physically she is quite capable. Pt continues with confusion/forgetfulness at times. What am I even doing here? Diaphoretic, checked CBG 151, and 118 this shift. Afebrile. Pt continues with discomfort when woke, requesting to sleep if able. Oxy PO x1 Requests that eye drops be held if asleep. 1L NC placed for Spo2 88% at rest. Add-Pt reporting SOB generalized pain @ 0000, Enc DB & C, Spo2 100% on 1L, Denies chest pain, this occurance was after repositioning onto back, at Pt request. HOB elevated with improved WOB. Pt continues with eyes closed during assessment unless directly told to open. Im too tired and sick
[2021-06-25 06:56] LABS: Potassium 5.9 mmol/L (3.4-5.1)
[2021-06-25 07:46] LABS: Neutrophils Absolute Manual 5200 /uL (3000-5900); Total Cells Counted 100
[2021-06-25 07:47] LABS: RBC Morphology Normal Morphology
[2021-06-25] MEDS: PANTOPRAZOLE DR 40 MG TABLET PO ×2 (08:49→20:29)
[2021-06-25] MEDS: carvediloL 3.125 MG TABLET 6.25 MG PO ×2 (08:50→20:29)
--- NOTE | 2021-06-25 11:45 | PT.IPTN ---
Current Diagnoses Infection following a procedure, organ and space surgical site, initial encounter (06/22/21) Physical Therapy Treatment Note M2 PT-IP Current Condition Start: 06/24/21 17:54 Freq: NEEDED Status: Active Protocol: Document 06/25/21 11:45 MA (Rec: 06/25/21 11:53 MA [email or web address]) Physical Therapy Current Condition Current Condition Evaluation Date 06/24/21 Treatment Diagnosis sepsis; PATRICK;abdominal abscess; c-diff; difficulty in walking Onset Date 06/22/21 Precautions Other Precautions contact precautions(c-diff) M3 PT-IP Subjective Start: 06/24/21 17:54 Freq: NEEDED Status: Active Protocol: Document 06/25/21 11:45 MA (Rec: 06/25/21 11:53 MA [email or web address]) Subjective Physical Therapy Visit Type Type Treatment Note Visit Start Time 11:15 Visit Stop Time 11:45 Total Visit Minutes 30 Number of AUDIT CONTROL CLERK Visits 1 Physical Therapy Visit Comments Patient Comments Agreeable to PT and sitting up in room chair Therapy Pain Assessment Pain When Pain Assessed At Rest Pain Present Pain Present Pain Reported M4 PT-IP Mobility and Gait Start: 06/24/21 17:54 Freq: NEEDED Status: Active Protocol: Document 06/25/21 11:45 MA (Rec: 06/25/21 11:53 MA [email or web address]) PT-Bed Mobility Assessment Rolling Type of Rolling Roll to Left Level of Assist Maximal Assistance,1 Person Assistance,2 Person Assistance Supine to Sit Supine to Sit 1 Person Assistance,2 Person Assistance,Head of Bed Elevated,Bedrails Scooting Scooting to Edge of Bed Maximum Assistance,Dependent PT-Transfer Assessment Sit to and From Stand Sit to and from Stand Maximum Assistance,2 Person Assistance,Use of Upper Extremities Equipment Transfer Assistive Device Front Wheeled Walker Orthotic/Prosthetic Devices or Brace: No Transfers Transfer Destination Chair Transfer Ability Level of Assist Maximum Assistance,2 Person Assistance,Use of Upper Extremities Comments Mobility Comments Pt is able to move in bed MAX A varying from 1-2 person assist. She is Max A initially scooting to EOB, then has pain and becomes dependent. She is able to stand MAX Ax1 today and ambulate 2 ft to chair Max Ax2. She has difficulty lifting RLE and states that it stopped working on her two days ago. Pt stood a second time from chair Max Ax2 for pericare and then was positioned with waffle cushion under sacrum for pain management. Gait Assessment Comments Gait Comments unable at this time PT-Balance Assessment Sitting Balance and Reactions Static Sitting Balance Ability Fair Dynamic Sitting Balance Ability Fair Standing Balance and Reactions Static Standing Balance Ability Poor Dynamic Standing Balance Ability Poor Device Used FWW M5 PT-IP Objective Assessments Start: 06/24/21 17:54 Freq: NEEDED Status: Active Protocol: Document 06/24/21 16:10 AB (Rec: 06/24/21 18:08 AB [id number]) Orientation Orientation/Cognition Level of Alertness Lethargic Orientation Name Safety Awareness Decreased Safety Awareness Memory Description Short Term Impaired Strength Lower Extremity Strength Assessment Bilaterally Impaired Hip 3-/5 Knee 3+/5 Muscle Tone Muscle Tone WNL Yes M6 PT-IP Treatment Start: 06/24/21 17:54 Freq: NEEDED Status: Active Protocol: Document 06/25/21 11:45 MA (Rec: 06/25/21 11:53 MA [email or web address]) Physical Therapy Treatment Exercises Exercises Ankle Pumps,Seated Knee Flexion/Extension Education Education Provided Safety Other Treatments Other Treatment Performed Had pt perform ankle pumps and LAQ seated in chair. Encouraged pt to perform ankle pumps throughout the day and try SLR when supine in bed. She is unable to complete SLR when reclined in chair due to pain. M7 PT-IP Assessment and Plan Start: 06/24/21 17:54 Freq: NEEDED Status: Active Protocol: Document 06/25/21 11:45 MA (Rec: 06/25/21 11:53 MA [email or web address]) PT Summary Assessment and Plan Potential Rehabilitation Potential Fair Status of Condition at Evaluation Evolving Summary Impairments Pain,ROM,Strength,Balance, Coordination,Sensation,Tone, Cognition,Bed Mobility, Transfers,Gait,Activity Tolerance Assessment Summary Pt requiring max Ax 1-2 with bed mobility and unable to ambulate at this time. Transferred pt to chair Max A x2 with waffle cushion under sacrum for pain managemnet. Had pt perform seated LAQ and ankle pumps before reclining pt. Encouraged pt to keep moving throughout the day for improving strength and LE circulation. Pt will require SNF rehab to improve overall strength and independence once d/c. Goals Bed Mobility Goal Minimal Assistance Transfer Goal Minimal Assistance,Front Wheeled Walker Gait Goal Minimal Assistance,Front Wheel Walker Gait Distance 50 Other Goals improve bed mobility, transfers using FWW SBA, ambulation using FWW SBA 100 ft Days to Meet Goals 10 Frequency of Treatment Frequency Of Treatment Once a Day Treatment Plan Physical Therapy Treatment Plan Bed Mobility Training,Transfer Training,Gait Training, Therapeutic Exercise,Balance Retraining,Discharge Planning, Hot or Cold Pack,Neuromuscular Re-ed,Coordination Retraining Precautions Other Precautions contact precautions(c-diff) Recommendations To Nursing Amount of Assist Needed Mechanical Lift Discharge Recommendations PT Discharge Recommendations SNF Rehab Transportation Needs at Discharge Wheelchair/Cabulance,Stretcher /Ambulance
--- NOTE | 2021-06-25 14:13 | DIET.CONS ---
Dietary Consultation Note Admission Date: 06/22/2021 18:01 Assessment: 60y F admitted for weakness and prolonged wound healing referred to nutrition for poor appetite. Pt has multiple food allergies: egg, gluten, mushrooms and multiple food sensitivities: dairy, shellfish limiting food choices during hospital and SNF stay. Additionally, pt is feeling weak and food not tasting good. Pts creatinine elevated at 2.3. Pt consuming 50% of past 3 meals. While at SNF pt eating fruit c yogurt, bananas. States only sugary things taste good to me right now. Ht: 154.94 cm Wt: 117.208 kg BMI: 48.8 UBW: 119kg Last BM: 06/25/21 (06/25/21 13:01) MNA: 13 Fredo Score: 13 Diet: 06/23/21 Lunch Carbohydrate Consistent Diet Diet Modifications: carb control. No eggs, dairy or gluten (Allergies) Safety Tray needed?: No Carbohydrate level: Medium (3 CHO) Bedtime snack: Yes 06/23/21 Dinner Heart Healthy Diet Diet Modifications: Sodium Level: 2 gm Sodium Percent of last meal consumed (last 48h) Percent Meal Consumed 50% 06/25/21 13:24 Percent Meal Consumed 50% 06/25/21 10:00 Percent Meal Consumed 50% 06/24/21 08:30 Labs: RBC 2.78 X10^6/uL (4.0-5.2) L 06/25/21 04:20 Hgb 8.0 g/dL (12.0-16.0) L 06/25/21 04:20 Hct 24.3 % (36-46) L 06/25/21 04:20 Creatinine 2.33 mg/dL (0.52-1.04) H 06/25/21 04:20 Lactate 1.8 mmol/L (0.7-2.1) 06/22/21 15:45 Iron < 10 ug/dL (37-170) L 06/23/21 19:10 % Saturation < 7 % (15-50) L 06/23/21 19:10 NT-Pro-B Natriuret Pep 2040 pg/mL (<125) H 06/23/21 19:10 Interventions: 1. Educated pt and her daughter, Mary, on nutrients for healing including protein, Vit A, C, zinc. Educated pt on role of high sugar intake o delayed wound healing in DM2. Pt trialed ONS Ren and likes flavor, willing to drink BID while hospitalized and pts daughter will purchase case for SNF use. Discussed soy yogurt c berries, lees soups like chili as good options for healing. 2. Went over menu taking care to identify food choices which fit pts dietary needs. Monitoring/Evaluations: POs
--- NOTE | 2021-06-25 14:21 | P.PN_ITS ---
Subjective Subjective Interval history: The patient is a 60-year-old female admitted to the hospital after discharge from [facility]. The patient was found to be markedly anemic, fatigue, with generalized malaise. CT of the abdomen did show some abnormal findings. However it was felt that these did not guaiac require interventional drainage or surgical intervention. The patient was markedly ane eliseo on admission with a hemoglobin of 6, she received 3 units of blood with a hemoglobin now of 8.4. In addition she had a PICC line placed in the left arm and has sustained a significant hematoma in the left upper extremity. She also has a Moore catheter placed in place with significant milky drainage. However urine cultures have been negative. She has been afebrile. Her white count has been normal. Patient is currently on treatment for C diff. This was due to discontinue in and on June 26. Patient is at times tearful over her slow progress. She does not have any abdominal pain. She does complain of left upper extremity pain Exam Vital Signs (past 8 hours): - 06/25/21 07:00 06/25/21 08:00 06/25/21 08:50 Temperature 97.2 F L Pulse Rate 53 L 53 L Respiratory Rate 20 Blood Pressure 118/46 L 118/46 L Pulse Oximetry 97 96 06/25/21 12:00 Temperature 97.9 F Pulse Rate 55 L Respiratory Rate 17 Blood Pressure 106/61 Pulse Oximetry 94 Oxygen Delivery Method Room Air Oxygen Flow Rate 0 Narrative Exam Narrative: Ill-appearing female sitting up in a chair Resp Other: Decreased breath sounds but clear to auscultation Cardio Other: Cardiac exam: Regular rate rhythm normal S1-S2 GI Other: Abdomen: Soft obese nontender Other: Moore catheter in place Skin Other: Left upper extremity with a huge hematoma from a prior PICC lying placement, this is exquisitely tender to palpation Extrem Other: Lower extremity reveals 1+ edema bilaterally Objective Labs Result Diagrams: 06/25/21 04:20 06/25/21 04:20 Labs: Laboratory Results - last 24 hr 06/22/21 06/23/21 06/23/21 15:45 03:05 19:10 WBC Cancelled RBC Cancelled Hgb Cancelled Hct Cancelled MCV Cancelled MCH Cancelled MCHC Cancelled RDW Cancelled Plt Count Cancelled Neut % (Auto) Cancelled Lymph % (Auto) Cancelled [place] % (Auto) Cancelled Eos % (Auto) Cancelled Baso % (Auto) Cancelled Neut # (Auto) Cancelled Lymph # (Auto) Cancelled [place] # (Auto) Cancelled Eos # (Auto) Cancelled Baso # (Auto) Cancelled Total Counted Seg Neutrophils % Band Neutrophils % Lymphocytes % (Manual) Atypical Lymphs % Monocytes % (Manual) Eosinophils % (Manual) Neutrophils # (Manual) Nucleated RBCs Cancelled Hypersegmented Neuts Cancelled Hypogranular Neuts Cancelled Reactive Lymphocytes Cancelled Smudge Cells Cancelled Other Cell Type Cancelled Toxic Granulation Cancelled Toxic Vacuolation Cancelled Dohle Bodies Cancelled Ana Rods Cancelled WBC Morphology Comment Cancelled Platelet Estimate Cancelled Clumped Platelets Cancelled Plt Morphology Comment Cancelled RBC Morphology Cancelled Dimorphic RBCs Cancelled Polychromasia Cancelled Hypochromasia Cancelled Poikilocytosis Cancelled Basophilic Stippling Cancelled Anisocytosis Cancelled Microcytosis Cancelled Macrocytosis Cancelled Spherocytes Cancelled Pappenheimer Bodies Cancelled Sickle Cells Cancelled Target Cells Cancelled Tear Drop Cells Cancelled Ovalocytes Cancelled Stomatocytes Cancelled Helmet Cells Cancelled [place] Bodies Cancelled [place] Rings Cancelled Magno Cells Cancelled Acanthocytes (Spur) Cancelled Rouleaux Cancelled Schistocytes Cancelled PT INR APTT Sodium Potassium Chloride Carbon Dioxide BUN Creatinine Estimated GFR BUN/Creatinine Ratio Glucose Calcium Iron < 10 L TIBC 140 L % Saturation < 7 L Transferrin 101 L Total Bilirubin AST ALT Alkaline Phosphatase Total Protein Albumin Globulin Albumin/Globulin Ratio Blood Type A Positive Antibody Screen Negative Crossmatch See Detail 06/24/21 06/25/21 06/25/21 04:50 04:20 04:20 WBC 10.9 8.0 RBC 2.78 L Hgb 8.0 L Hct 24.3 L MCV 90.7 87.5 D MCH 28.9 MCHC 32.3 33.0 RDW 16.7 H Plt Count 217 Neut % (Auto) 69.2 Not Reportable Lymph % (Auto) 18.2 L Not Reportable [place] % (Auto) Not Reportable Eos % (Auto) Not Reportable Baso % (Auto) Not Reportable Neut # (Auto) Lymph # (Auto) Not Reportable [place] # (Auto) Not Reportable Eos # (Auto) Baso # (Auto) Not Reportable Total Counted 100 Seg Neutrophils % 62.0 Band Neutrophils % 3.0 Lymphocytes % (Manual) 20.0 L Atypical Lymphs % 2.0 H Monocytes % (Manual) 8.0 Eosinophils % (Manual) 5.0 H Neutrophils # (Manual) 5200 Nucleated RBCs Hypersegmented Neuts Hypogranular Neuts Reactive Lymphocytes Smudge Cells Other Cell Type Toxic Granulation Toxic Vacuolation Dohle Bodies Ana Rods WBC Morphology Comment Platelet Estimate Clumped Platelets Plt Morphology Comment RBC Morphology Normal morphology Dimorphic RBCs Polychromasia Hypochromasia Poikilocytosis Basophilic Stippling Anisocytosis Microcytosis Macrocytosis Spherocytes Pappenheimer Bodies Sickle Cells Target Cells Tear Drop Cells Ovalocytes Stomatocytes Helmet Cells [place] Bodies [place] Rings Magno Cells Acanthocytes (Spur) Rouleaux Schistocytes PT 18.1 H INR 1.6 H APTT 23 L Sodium Potassium Chloride Carbon Dioxide BUN Creatinine Estimated GFR BUN/Creatinine Ratio Glucose Calcium Iron TIBC % Saturation Transferrin Total Bilirubin AST ALT Alkaline Phosphatase Total Protein Albumin Globulin Albumin/Globulin Ratio Blood Type Antibody Screen Crossmatch 06/25/21 04:20 WBC RBC Hgb Hct MCV MCH MCHC RDW Plt Count Neut % (Auto) Lymph % (Auto) [place] % (Auto) Eos % (Auto) Baso % (Auto) Neut # (Auto) Lymph # (Auto) [place] # (Auto) Eos # (Auto) Baso # (Auto) Total Counted Seg Neutrophils % Band Neutrophils % Lymphocytes % (Manual) Atypical Lymphs % Monocytes % (Manual) Eosinophils % (Manual) Neutrophils # (Manual) Nucleated RBCs Hypersegmented Neuts Hypogranular Neuts Reactive Lymphocytes Smudge Cells Other Cell Type Toxic Granulation Toxic Vacuolation Dohle Bodies Ana Rods WBC Morphology Comment Platelet Estimate Clumped Platelets Plt Morphology Comment RBC Morphology Dimorphic RBCs Polychromasia Hypochromasia Poikilocytosis Basophilic Stippling Anisocytosis Microcytosis Macrocytosis Spherocytes Pappenheimer Bodies Sickle Cells Target Cells Tear Drop Cells Ovalocytes Stomatocytes Helmet Cells [place] Bodies [place] Rings [place] Cells Acanthocytes (Spur) Rouleaux Schistocytes PT INR APTT Sodium 129 L Potassium 5.9 H Chloride 101 Carbon Dioxide 23 BUN 29 H Creatinine 2.33 H Estimated GFR 21.2 L BUN/Creatinine Ratio 12.4 Glucose 113 H Calcium 8.2 L Iron TIBC % Saturation Transferrin Total Bilirubin 0.4 AST 22 ALT 9 Alkaline Phosphatase 28 L Total Protein 5.9 L Albumin 2.7 L Globulin 3.2 Albumin/Globulin Ratio 0.8 L Blood Type Antibody Screen Crossmatch [facility] Medical History Diabetes Hyperlipidemia Hypertension Surgical History History of appendectomy Hx of cataract surgery Family History Mother Diabetes mellitus Hypertension Father Stroke Coronary atherosclerosis of artery bypass graft Social History household members: other Smoking Status: Never smoker Assessment & Plan Assessment & Plan narrative: 60-year-old woman Whitney Anderson with a history of poorly-controlled diabetes, history of gastric banding, hypertension, peripheral neuropathy, hyperlipidemia with a complicated appendicitis with surgical intervention. she developed acute appendicitis underwent laparoscopic appendectomy with open umbilical hernia repair drainage of mar appendiceal abscess, 05/14/2021 at [facility].? During her hospitalization she developed acute kidney injury and bactiuria. She was discharged 05/19/21 to shelter facility.? She has had developed 5 days of watery diarrhea at the nursing facility had a syncopal episode and was readmitted to [facility] on 06/07/2021 for diff colitis with sepsis with PATRICK, abdominal collection as complication from recent appendicitis and abdominal abscess, Ileus, acute respirattory failure from atelectasis, and presumed CLAIRE.? Dr. Lowe performed a laparoscopic drainage of intra-abdominal fluid collection, and patient was d/c 06/12/2021.? Patient had outpatient follow-up with Dr. Lowe,? drain removal on 06/16/2021 and was recovering well.? Patient was readmitted today with acute respiratory failure with hypoxia, acute anemia, PATRICK, C diff infection, and recurrence of intra-abdominal abscess. 1. Acute respiratory failure with hypoxia, acute, present on admission -patient requiring oxygen currently on 2.0 L nasal cannula for an O2 saturation of 93%.? Patient not on O2 at home. -will attempt tapering of oxygen as soon as possible. -suspect acute respiratory failure secondary to atelectasis, possible CLAIRE, and complicated by acute onset anemia. -patient has known CLAIRE/OHS, but does not wear Cpap, patient known to be hypoxic when sleeping, improved with oxygen - oxygenation improved, patient no longer requiring oxygen 2. Anemia, acute, present on admission, suspect acute blood loss anemia from a intra-abdominal hematoma from her prior surgery -etiology unclear patient demonstrates no melena, hematemesis, hematuria or any other sources of active bleeding.? Occult blood negative., suspect the patient developed an intra-abdominal hematoma during her prior surgical intervention. In addition she has a huge hematoma over the left upper extremity likely contributing to her anemia. -admitting HGB 6.7, HCT 20.3 -patient typed and crossed in ED blood type:? A positive, 2 units were ordered for transfusion -will repeat H&H following 2nd unit transfusion. -midline placed in ED -symptomatic, H/H 7.4-22, patient continues to be very weak -patient received 3 units of packed RBCs -?organized intrabominal hematoma, transfuse 1 unit this evening -patient with anemia, and acute renal failure, although unlikely lab sent for SPEP and UPEP to rule out the possibility of multiple myeloma versus amyloidosis 3. PATRICK without sepsis or shock, with hyponatremia mild, possibly secondary to intra- abdominal abscess reoccurance, acute, present on admission (Mar appendicecal abscess)- stable -Secondary complication of surgical appendectomy at [facility] 05/14/2021 - Dr. Lowe performed a laparoscopic drainage of intra-abdominal fluid collection 06/08/2021- drain removal 06/16/2021 -temp 101? WBC WNL, neutrophils#[id number], potassium 5.8, creatinine 2.04 last was 0.74,? negative lactate and troponin.? GFR 24.7, last was >60, SOFA:2 -Na+130. will follow, -resume lasix -follow creatinine -low urine output -patient's urine output low at 2300 since admission suspect ATN from hypotension and anemia -patient received 40 mg of IV Lasix yesterday with worsening of her renal function, Lasix discontinue -await SPEP UPEP, outpatient Nephrology consultation -will obtain renal ultrasound to evaluate kidney function further 4. Positive C difficile colitis, acute on chronic, present on admission - stool demonstrate Clostridium difficile.- 06/07/2021 -vital signs Q 4 hours, strict I&O Q shift, daily weights, diet: NPO, activity as tolerated -continue oral vanco, patient initially to discontinue on . However she did receive antibiotics again -would continue C diff treatment until discharge 5. Essential hypertension, chronic, well controlled, present on admission -continue patient's lisinopril and carvedilol 6. Insulin-dependent type 2 diabetes, with secondary hyperlipidemia, acute on chronic, present on admission -admitting glucose 78, A1C ordered, BS check Q6 while NPO, once patient is able to eat- ACHS -continuing patient's Lantus 26 units at bedtime, placed on diabetic protocol, low-dose sliding scale -continue patient's rosuvastatin -hold patient's glipizide 7. Obesity as evidence by BMI of 48.8, acute on chronic, present on admission -consideration will be given to dietary counseling, despite this patient with poor appetite 8. U/A highly suggestive of infection -urine culture shows no evidence of infection -will discontinue ceftriaxone -will discontinue Moore catheter -discontinue telemetry Continue PT OT Anticipate discharge to [facility] in 1-2 days Time Spent With Patient Critical Care time: I spent a total of [] minutes of critical care time on this patient's care today; this time is exclusive of procedural time.
--- NOTE | 2021-06-25 14:32 | DI.US.S_ITS ---
PROCEDURE: US RENAL COMPLETE INDICATIONS: ACUTE RENAL FAILURE TECHNIQUE: Real-time scanning was performed of the kidneys and bladder, with image documentation. COMPARISON: None. FINDINGS: Kidneys: Left kidney not visualized due to bowel gas and patient body habitus and cannot be evaluated. Right kidney measures 11.0 cm long. Right renal cortical thickness is 1.4 cm. Right renal cortical echotexture is normal. No right-sided hydronephrosis or nephrolithiasis. No suspicious solid mass lesions. Bladder: Decompressed by Moore catheter. Miscellaneous: No free pelvic fluid. IMPRESSION: 1. Nonvisualization of left kidney which cannot be evaluated. 2. No right-sided hydronephrosis. No sonographic abnormality identified in the right kidney. Dictated by: Maribell Reaves MD, PhD on 06/25/2021 at 16:42 Approved by: Maribell Reaves MD, PhD on 06/25/2021 at 16:44
--- NOTE | 2021-06-25 16:43 | CM.DANOTE ---
DCP/continued: Received verbal referral this AM indicating family requesting to speak with CURB MACHINE OPERATOR. Met with daughter/Mary and patient per request. Patient requesting that conversation about her plan be done with her present. Daughter with multiple medical questions pertaining to anemia, labs, hematoma and more. Notified daughter that CM team would relay her questions to provider/Dr. Polo for follow up. Dr. Polo notified and reports that she will meet with patient/daughter some time this afternoon. In the meantime, both patient and daughter aware and agreeable for patient to go to [facility] when medically stable. PASRR will be needed. Patient discharged from [facility] last Wednesday and spent very minimal amount of time at home. P: [facility] when stable. MARGIE
[2021-06-25] MEDS: ACETAMINOPHEN 325 MG TABLET 650 MG PO (20:29)
[2021-06-25] MEDS: ATORVASTATIN 20 MG TABLET 10 MG PO (20:29)
[2021-06-25] MEDS: ONDANSETRON 4 MG/2 ML INJ IV (20:33)
[2021-06-25] MEDS: INSULIN GLARGINE 100 UNIT/ML 3ML PEN 26 UNIT SUBCUT (21:10)
[2021-06-25] MEDS: ALBUTEROL 2.5 MG/3 ML NEB (ADULT) INH (22:00)
[2021-06-25] MEDS: IRON SUCROSE 200 MG in SODIUM CHLORIDE 0.9% 100 ML 220 ML IV (23:11)
[2021-06-26] VITALS (7 sets, daily range): BP systolic 105–132; BP diastolic 55–73; PULSE 56–60; RESP 17–19; TEMP 36.1–36.4; O2SAT 94–100
[2021-06-26] MEDS: OXYCODONE IR 5 MG TABLET PO ×3 (00:20→13:44)
[2021-06-26] MEDS: MELATONIN 3 MG TABLET PO (00:22)
--- NOTE | 2021-06-26 03:45 | PC.NURSE ---
Pt is A and O x 4, depondent at times 2/2 her injuries and hospitalizations. She rated her pain 7/10 and found relief with 5 mg oxycodone po. VSS, LS course in bases. HRR. Able to sleep.
[2021-06-26] MEDS: VANCOMYCIN 125 MG CAPSULE PO ×3 (03:56→14:22)
[2021-06-26] MEDS: prednisoLONE OPHTH SUSP 1 DROPS EYE-LEFT ×3 (06:33→13:44)
[2021-06-26] MEDS: PANTOPRAZOLE DR 40 MG TABLET PO (06:33)
--- NOTE | 2021-06-26 06:39 | PC.NURSE ---
Urine output this shift >300 mLs, very cloudy. Pt has been tearful and depressed this shift. She is unsure of her future and the success of medical treatment. Will advis on coming RN to consider a social consult.
[2021-06-26 08:44] LABS: Add Manual Diff / Slide Review NO; Basophils Absolute Auto 100 /uL (0-100); Eosinophils Absolute Auto 500 /uL (0-450); Hematocrit 26.3 % (36-46); Hemoglobin 8.6 g/dL (12.0-16.0); Lymphocytes Absolute Auto 1600 /uL (1100-4500); Lymphocytes Percent Auto 23.1 % (25-40); Mean Corpuscular HGB Conc 32.9 % (30-36); Mean Corpuscular Hemoglobin 29.1 PG (26-34); Mean Corpuscular Volume 88.3 fL (80-100); Monocytes Absolute Auto 800 /uL (0-900); Monocytes Percent Auto 11.3 % (3-14); Neutrophils Absolute Auto 4000 /uL (1500-7000); Neutrophils Percent Auto 57.6 % (50-75); Platelet Count 254 X10^3/uL (150-400); Red Blood Cell Count 2.98 X10^6/uL (4.0-5.2); Red Cell Distribution Width 15.9 % (11.6-14.8)
[2021-06-26] MEDS: carvediloL 3.125 MG TABLET 6.25 MG PO (08:58)
[2021-06-26] MEDS: SODIUM CHLORIDE 0.9% FLUSH 10 ML IV (09:00)
[2021-06-26 09:36] LABS: Alanine Aminotransferase 8 IU/L (<35); Albumin 2.7 g/dL (3.5-5.0); Albumin Globulin Ratio 0.9 (1.0-2.8); Alkaline Phosphatase 31 U/L (38-126); Aspartate Aminotransferase 16 IU/L (14-36); BUN Creatinine Ratio 15.2 (6-22); Bilirubin Total 0.3 mg/dL (0.2-1.3); Blood Urea Nitrogen 33 mg/dL (7-17); Calcium 8.5 mg/dL (8.4-10.2); Carbon Dioxide 23 mmol/L (22-32); Chloride 103 mmol/L (98-107); Globulin 3.1 g/dL (1.7-4.1); Glucose 77 mg/dL (80-110); HEMOLYSIS < 15 (0-50); Potassium 5.3 mmol/L (3.4-5.1); Sodium 130 mmol/L (137-145); Total Protein 5.8 g/dL (6.3-8.2)
[2021-06-26 09:58] LABS: INR 1.5 (0.9-1.3)
[2021-06-26 10:01] LABS: PTT Partial Thromboplastin Tim 32 SECONDS (26.4-36.2)
--- NOTE | 2021-06-26 10:51 | P.DS_ITS ---
History of Present Illness History of Present Illness Date Patient Seen: 06/26/21 Time Patient Seen: 10:51 Chief complaint: Weakness Narrative: Per Krystle Raymundo, MACHINE II CUTTER-BC: Patient is a 60-year-old woman Whitney Anderson with a history of poorly- controlled diabetes, history of gastric banding, hypertension, peripheral neuropathy, hyperlipidemia with a complicated appendicitis with surgical intervention. she developed acute appendicitis underwent laparoscopic appendectomy with open umbilical hernia repair drainage of kimberli appendiceal abscess, 05/14/[address] [facility].? During her hospitalization she developed acute kidney injury and bactiuria.? She was discharged 05/19/21 to longterm facility.? She has had developed 5 days of watery diarrhea at the nursing facility had a syncopal episode and was readmitted to [facility] on 06/07- 06/12/2021 for diff colitis with sepsis, abdominal collection as complication from recent appendicitis and abdominal abscess, Ileus, acute respirattory failure from atelectasis, and presumed CLAIRE.? Dr. Lowe performed a laparoscopic drainage of intra-abdominal fluid c ollection.? Patient had follow-up with final drain removal on 06/16/2021 and was recovering well.? Patient returned to [facility] ED today complaining of generalized weakness, legs are so weak they gave out from under her.? She was febrile with a fever of 101.? She was short of breath and desatting in the ED was placed on 2 L nasal cannula. She denied any chest pain or cough.? Upon admit patient is lying in bed, pale, and moaning during most of the exam.? Patient unwilling to open her eyes, is alert and orientated to self and place unable to assess any further.? Patient demonstrates pain and discomfort all over, but denies chest pain, shortness of breath-though on 2 L nasal cannula pat ient is not normally on O2 at home.? Patient does not participate in HPI or ROS adequately, this is unchanged from previous exam and admit.? Patient demonstrates significantly less pain and discomfort than previous admit, she is not diaphoretic, only complaining of a mild diffuse abdominal discomfort, denies nausea, vomiting, or chills.? Upon admit patient's vital signs stabilized but continues to require 2-3 L nasal cannula.? Patient's WBCs are WNL, does have positive neutrophils# [id number], patient does present with significant anemia HGB 6.7, HCT 20.3, MCV platelets WNL.? Patient denies melena, hematemesis, or hematuria, recent illness, injury or trauma beyond the above-stated. Unable to determine cause at this time, suspect possible intra-abdominal bleeding. Patient was typed and crossed (A+) in ED and 2 units ordered for transfusion.? Mild hyponatremia sodium 130,? with PATRICK BUN 20, potassium 5.8, creatinine 2.04 this is a significant increase from last recorded creatinine of 0.74, GFR significantly decreased 24.7, last> 60, glucose 78, lactate WNL albumin 3.1, procalcitonin WNL, UA WNL.? Patient's EKG sinus rhythm with a ventricular rate of [address] or T-wave changes, Hemoccult in the ED was negative, chest x- ray demonstrated moderate cardiomegaly. ABD /Pelvis CT demonstrated Continued presence of a heterogeneous fluid collection in the right lower abdomen, slightly decreased in size from prior and remaining concerning for abscess with a small right anterior abdominal wall fluid collection, possibly infectious, and layering fluid throughout the colon that may reflect a diarrheal illness.? Dr. Morrison will graciously consult on the case and was notified in the ED. Patient admitted for acute respiratory failure with hypoxia, PATRICK, due to recurrence of intra-abdominal abscess, with anemia and mild hyponatremia. Discharge Providers Provider Date of admission: 06/22/21 18:01 Discharge Date: 06/26/21 Primary care physician: Samara Alejandre PA-C Consults: 06/22/21 17:45 Consult After Hours PICC Line RN Stat Comment: 06/22/21 18:00 Consult to General Surgery Stat Comment: Consulting Provider: Rissa Morrison Reason for consultation: intraabdominal abcess Has provider been notified: Yes 06/22/21 20:39 Consult to Physician Routine Comment: Consulting Provider: Rissa Morrison Reason for consultation: Abd abcess Has provider been notified: Yes 06/24/21 10:17 Consult to Physical Therapy Evaluate & Treat Comment: Physician Instructions: Evaluate and Treat 06/24/21 16:19 Consult to Dietitian, Adult Routine Comment: Reason For Exam: poor appetite 06/25/21 00:31 Consult to Respiratory Therapy Evaluate & Treat Comment: Hypoxia at noc Physician Instructions: Evaluate and treat Discharge provider: Guillermo Thorpe DO Summary Hospital Course Discharge Diagnosis: Please see hospital course by problem list noted below. Hospital Course: 60-year-old woman Whitney Anderson with a history of poorly-c ontrolled diabetes, history of gastric banding, hypertension, peripheral neuropathy, hyperlipidemia with a complicated appendicitis with surgical intervention. she developed acute appendicitis underwent laparoscopic appendectomy with open umbilical hernia repair drainage of kimberli appendiceal abscess, 05/14/[address] [facility].? During her hospitalization she developed acute kidney injury and bactiuria. She was discharged 05/19/21 to longterm facility.? She has had developed 5 days of watery diarrhea at the nursing facility had a syncopal episode and was readmitted to [facility] on 06/07/2021 for diff colitis with sepsis with PATRICK, abdominal collection as complication from recent appendicitis and abdominal abscess, Ileus, acute respirattory failure from atelectasis, and presumed CLAIRE.? Dr. Lowe performed a laparoscopic drainage of intra-abdominal fluid collecti on, and patient was d/c 06/12/2021.? Patient had outpatient follow-up with Dr. Lowe,? drain removal on 06/16/2021 and was recovering well.? Patient was readmitted with acute respiratory failure with hypoxia, acute anemia, PATRICK, C diff infection, and likely hematoma after surgery. 1. Acute respiratory failure with hypoxia, acute, present on admission, improved -patient requiring oxygen currently on 2.0 L nasal cannula for an O2 saturation of 93%.? Patient not on O2 at home. -continue to wean O2 as tolerated at SNF, though suspect low need given 98% currently on 2L. -suspect acute respiratory failure secondary to atelectasis, possible CLAIRE, and complicated by acute onset anemia. -patient has known CLAIRE/OHS, but does not wear Cpap, patient known to be hypoxic when sleeping, improved with oxygen. -suspect 2. Anemia, acute, present on admission, suspect acute blood loss anemia from a intra-abdominal hematoma from her prior surgery -suspect the patient developed an intra-abdominal hematoma during her prior surgical intervention.? In addition she has a large hematoma over the left upper extremity likely contributing to her anemia. -admitting HGB 6.7, HCT 20.3 -patient received 3 units of packed RBCs, Hg now uptending without additional blood. -patient with anemia, and acute renal failure, although unlikely lab sent for SPEP and UPEP to rule out the possibility of multiple myeloma versus amyloidosis -recommend repeat CBC in approx 3 days at SNF. 3. PATRICK without sepsis or shock, with hyponatremia mild, acute- stable -Secondary complication of surgical appendectomy at [facility] 05/14/2021, sepsis, and anemia. - Dr. Lowe performed a laparoscopic drainage of intra-abdominal fluid collection 06/08/2021- drain removal 06/16/2021 -await SPEP UPEP, outpatient Nephrology consultation recommended -renal ultrasound unable to visualize L kidney, but no R hydronephrosis and CT on admission also without obstruction. -bae removed 06/26. -creatinine has remained stable since admission, worsened slightly after resuming lasix. would continue to hold lasix for the next few days. Recommend BMP in 3 days as well with CBC as above. 4. C difficile colitis, acute on chronic, present on admission - stool demonstrate Clostridium difficile.- 06/07/2021 -vital signs Q 4 hours, strict I&O Q shift, daily weights, diet: NPO, activity as tolerated -continue oral vanco, patient to discontinue on therapy 06/26/2021, today. Stable for discharge today. Yesterday she had a formed stool according to staff. 5. Essential hypertension, chronic, well controlled, present on admission -continued patient's lisinopril and carvedilol 6. Insulin-dependent type 2 diabetes, with secondary hyperlipidemia, acute on chronic, present on admission -admitting glucose 78, A1C ordered, BS check Q6 while NPO, once patient is able to eat- ACHS -continuing patient's Lantus 26 units at bedtime, placed on diabetic protocol, low-dose sliding scale -continue patient's rosuvastatin -held patient's glipizide during admission -resume home medications on discharge 7. Obesity as evidence by BMI of 48.8, acute on chronic, present on admission - contributes to risk of infection and complications after her surgery. 8. asymptomatic bacteruria. - patient without urinary symptoms. UA appeared grossly infected and given weakness initially started on antibiotics. Urine cultures negative. Antibiotics discontinued. Dispo: Stable for transfer to SNF today. Time Spent with Patient Time spent: Greater than 30 minutes Exam Vital Signs (past 8 hours): - 06/26/21 04:00 06/26/21 05:00 06/26/21 08:00 Temperature 96.9 F L 97.2 F L Pulse Rate 56 L 60 Respiratory Rate 17 19 Blood Pressure 132/61 126/73 Pulse Oximetry 100 94 98 06/26/21 08:58 Temperature Pulse Rate 57 L Respiratory Rate Blood Pressure 123/67 Pulse Oximetry Oxygen Delivery Method Room Air Oxygen Flow Rate 2 Narrative Exam Narrative: chronically ill appearing, but improving, pleasant, female sitting up in a chair Resp Other:?Decreased breath sounds but clear to auscultation Cardio Other:?Cardiac exam:? Regular rate rhythm normal S1-S2 GI Other:?Abdomen:? Soft obese nontender Other:?Bae catheter in place Skin Other:?Left upper extremity with a huge hematoma from a prior PICC lying placement, this is exquisitely tender to palpation Extrem Other:?Lower extremity reveals 1+ edema bilaterally Objective Labs Result Diagrams: 06/26/21 08:04 06/26/21 08:04 Labs: Laboratory Results - last 24 hr 06/22/21 06/26/21 06/26/21 15:45 08:04 08:04 WBC 7.0 RBC 2.98 L Hgb 8.6 L Hct 26.3 L MCV 88.3 MCH 29.1 MCHC 32.9 RDW 15.9 H Plt Count 254 Neut % (Auto) 57.6 Lymph % (Auto) 23.1 L [place] % (Auto) 11.3 Eos % (Auto) 7.0 H Baso % (Auto) 1.0 Neut # (Auto) 4000 Lymph # (Auto) 1600 [place] # (Auto) 800 Eos # (Auto) 500 H Baso # (Auto) 100 PT 17.0 H INR 1.5 H APTT 32 D Sodium Potassium Chloride Carbon Dioxide BUN Creatinine Estimated GFR BUN/Creatinine Ratio Glucose Calcium Total Bilirubin AST ALT Alkaline Phosphatase Total Protein Albumin Globulin Albumin/Globulin Ratio Crossmatch See Detail 06/26/21 08:04 WBC RBC Hgb Hct MCV MCH MCHC RDW Plt Count Neut % (Auto) Lymph % (Auto) [place] % (Auto) Eos % (Auto) Baso % (Auto) Neut # (Auto) Lymph # (Auto) [place] # (Auto) Eos # (Auto) Baso # (Auto) PT INR APTT Sodium 130 L Potassium 5.3 H Chloride 103 Carbon Dioxide 23 BUN 33 H Creatinine 2.17 H Estimated GFR 23.0 L BUN/Creatinine Ratio 15.2 Glucose 77 L Calcium 8.5 Total Bilirubin 0.3 AST 16 ALT 8 Alkaline Phosphatase 31 L Total Protein 5.8 L Albumin 2.7 L Globulin 3.1 Albumin/Globulin Ratio 0.9 L Crossmatch [facility] Medical History Diabetes Hyperlipidemia Hypertension Surgical History History of appendectomy Hx of cataract surgery Family History Mother Diabetes mellitus Hypertension Father Stroke Coronary atherosclerosis of artery bypass graft Social History household members: other Smoking Status: Never smoker Discharge Plan Discharge Plan Patient Disposition: SNF Transfer to: [facility] Provider Discharge Comment: Patient admitted to the hospital with anemia secondary to likely hematoma from prior surgeries. Also with PATRICK. Recommended repeat BMP and CBC in 3 days to check Hg and creatinine. Discharge orders & Medications Prescriptions: New prednisolone acetate 1 % Drops,Suspension 1 drp EYE-LEFT Q2HRWA Qty: 10 RF: 0 Continued gabapentin 600 mg tablet 600 mg PO TID RF: 0 insulin lispro [Humalog KwikPen Insulin] 100 unit/mL insulin pen 3 unit SUBCUT TID RF: 0 melatonin 3 mg capsule 3 mg PO BEDTIME PRN (Reason: sleep) RF: 0 meclizine 12.5 mg Tablet 12.5 mg PO DAILY RF: 0 montelukast 10 mg Tablet 10 mg PO DAILY RF: 0 multivitamin with minerals Capsule 1 cap PO DAILY RF: 0 oxybutynin chloride 5 mg Tablet 5 mg PO BEDTIME RF: 0 nystatin 100,000 unit/gram Powder 1 applic TOPICAL BID RF: 0 vancomycin 125 mg Capsule 125 mg PO QID Qty: 56 RF: 0 Lantus Solostar U-100 Insulin 100 unit/mL (3 mL) Insulin Pen 26 unit SUBCUT BEDTIME Qty: 3 RF: 0 ondansetron HCl [Zofran] 4 mg tablet 4 mg PO Q8H PRN (Reason: nausea and vomiting) Qty: 14 RF: 0 metoclopramide HCl [Reglan] 10 mg tablet 5 mg PO Q6H PRN (Reason: nausea and vomiting) Qty: 14 RF: 0 oxycodone 5 mg Tablet 5 mg PO Q4HR PRN (Reason: Pain, Moderate (4-6)) Qty: 10 RF: 0 carvedilol 6.25 mg tablet 6.25 mg PO BID RF: 0 lisinopril 20 mg tablet 20 mg PO DAILY RF: 0 glipizide 10 mg tablet 10 mg PO BID RF: 0 rosuvastatin 5 mg tablet 5 mg PO BEDTIME RF: 0 calcium carbonate [Calcium 600] 600 mg calcium (1,500 mg) Tablet 600 mg PO DAILY RF: 0 coenzyme Q10 [Co Q-10] 100 mg Capsule 200 mg PO DAILY RF: 0 Discontinued potassium chloride 10 mEq tablet extended release 10 meq PO BID RF: 0 aspirin 81 mg Tablet,Delayed Release (Dr/Ec) 81 mg PO DAILY RF: 0 furosemide 80 mg tablet 80 mg PO DAILY RF: 0 Medication counseling provided by Pharmacist: No Pharmacist Comment: snif Follow up/Referrals: Samara Alejandre PA-C [Primary Care Provider] - Discharge Health Status Multidrug resistant organism: Other Precautions: Contact Diet/Activity/Treatments Diet: Diet as Tolerated Activity: As tolerated Special Rehabilitation Services Reason for rehabilitation: Post-operative therapy Rehab type: Physical therapy and Occupational therapy Discharge Data Primary Care Provider: Samara Alejandre
--- NOTE | 2021-06-26 11:05 | PC.NURSE ---
Patient without symptoms of cdiff for several days. No diarrhea since admission, normal, formed BM yesterday. Vanco completed and patient now off isolation.
--- NOTE | 2021-06-26 12:49 | PT.IPTN ---
Current Diagnoses Infection following a procedure, organ and space surgical site, initial encounter (06/22/21) Physical Therapy Treatment Note M2 PT-IP Current Condition Start: 06/24/21 17:54 Freq: NEEDED Status: Discharge Protocol: Document 06/25/21 11:45 MA (Rec: 06/25/21 11:53 MA [id number]) Physical Therapy Current Condition Current Condition Evaluation Date 06/24/21 Treatment Diagnosis sepsis; PATRICK;abdominal abscess; c-diff; difficulty in walking Onset Date 06/22/21 Precautions Other Precautions contact precautions(c-diff) M3 PT-IP Subjective Start: 06/24/21 17:54 Freq: NEEDED Status: Discharge Protocol: Document 06/26/21 12:28 CLB (Rec: 06/26/21 15:42 CLB [id number]) Subjective Physical Therapy Visit Type Type Treatment Note Visit Start Time 12:28 Visit Stop Time 12:49 Total Visit Minutes 21 Number of MARKETING CONSULTANT Visits 2 Physical Therapy Visit Comments Patient Comments Pt needing to use BSC Therapy Pain Assessment Pain When Pain Assessed At Rest Pain Present Pain Present Pain Reported M4 PT-IP Mobility and Gait Start: 06/24/21 17:54 Freq: NEEDED Status: Discharge Protocol: Document 06/26/21 12:28 CLB (Rec: 06/26/21 15:42 CLB [id number]) PT-Bed Mobility Assessment Rolling Type of Rolling Roll to Left Level of Assist Maximal Assistance,1 Person Assistance,2 Person Assistance Scooting Scooting to Edge of Bed Maximum Assistance,Dependent PT-Transfer Assessment Sit to and From Stand Sit to and from Stand Maximum Assistance,2 Person Assistance,Use of Upper Extremities Equipment Transfer Assistive Device Front Wheeled Walker Orthotic/Prosthetic Devices or Brace: No Transfers Transfer Destination Chair,Bedside Commode Transfer Technique Stand Step Pivot Transfer Ability Level of Assist Moderate Assistance,2 Person Assistance,Use of Upper Extremities Comments Mobility Comments Pt requiring Max A for LR and scooting to EOB, pt requiring Max A x2 for sit-stand from bed and BSC. Pt able to take steps to pivot from bed-BSC- chair. SAIL LAY OUT WORKER present for assist with mobility and pericare while MARKETING CONSULTANT assisted Min A for standing balance. Pt left in chair with feet on pullout stool, all needs within reach and SAIL LAY OUT WORKER present. Gait Assessment Comments Gait Comments unable at this time M5 PT-IP Objective Assessments Start: 06/24/21 17:54 Freq: NEEDED Status: Discharge Protocol: Document 06/24/21 16:10 AB (Rec: 06/24/21 18:08 AB [id number]) Orientation Orientation/Cognition Level of Alertness Lethargic Orientation Name Safety Awareness Decreased Safety Awareness Memory Description Short Term Impaired Strength Lower Extremity Strength Assessment Bilaterally Impaired Hip 3-/5 Knee 3+/5 Muscle Tone Muscle Tone WNL Yes M6 PT-IP Treatment Start: 06/24/21 17:54 Freq: NEEDED Status: Discharge Protocol: Document 06/25/21 11:45 MA (Rec: 06/25/21 11:53 MA [id number]) Physical Therapy Treatment Exercises Exercises Ankle Pumps,Seated Knee Flexion/Extension Education Education Provided Safety Other Treatments Other Treatment Performed Had pt perform ankle pumps and LAQ seated in chair. Encouraged pt to perform ankle pumps throughout the day and try SLR when supine in bed. She is unable to complete SLR when reclined in chair due to pain. M7 PT-IP Assessment and Plan Start: 06/24/21 17:54 Freq: NEEDED Status: Discharge Protocol: Document 06/26/21 12:28 CLB (Rec: 06/26/21 15:42 CLB [id number]) PT Summary Assessment and Plan Potential Rehabilitation Potential Fair Status of Condition at Evaluation Evolving Summary Impairments Pain,ROM,Strength,Balance, Coordination,Sensation,Tone, Cognition,Bed Mobility, Transfers,Gait,Activity Tolerance Assessment Summary Pt continues to require Max A x2 for bed mobility and Mod A x2 for transfers. Pt has decreased activity tolerance and fatigues quickly. Pt will benefit from SNF rehab to improve strength and functional mobility. Goals Bed Mobility Goal Minimal Assistance Transfer Goal Minimal Assistance,Front Wheeled Walker Gait Goal Minimal Assistance,Front Wheel Walker Gait Distance 50 Other Goals improve bed mobility, transfers using FWW SBA, ambulation using FWW SBA 100 ft Days to Meet Goals 10 Frequency of Treatment Frequency Of Treatment Once a Day Treatment Plan Physical Therapy Treatment Plan Bed Mobility Training,Transfer Training,Gait Training, Therapeutic Exercise,Balance Retraining,Discharge Planning, Hot or Cold Pack,Neuromuscular Re-ed,Coordination Retraining Precautions Other Precautions contact precautions(c-diff) Recommendations To Nursing Amount of Assist Needed 2 Person Assist Discharge Recommendations PT Discharge Recommendations SNF Rehab Transportation Needs at Discharge Wheelchair/Cabulance,Stretcher /Ambulance
--- NOTE | 2021-06-26 12:49 | PT-OP ANOTE ---
Attempted to see pt at 1150 am and was notified that pt is going to be transferred to [place] at 130pm. She would like to get OOB to at that point to conserve her energy.
--- NOTE | 2021-06-26 13:32 | PC.NURSE ---
Called and left a message with Vangie at [facility] asking for her to call back to receive report for this patient. Patient is ready for d/c to [facility]. Daughter in room aware of transfer plans. Midline removed. Patient up to BSC and then to chair.
[2021-06-26 13:46] LABS: COVID19 -Nasal RAPID Negative (Negative)
--- NOTE | 2021-06-26 14:50 | PC.NURSE ---
Report given to Vangie at [facility]. Vangie with clarifying med questions on vanco and eye drops, as well as asking for script for oxycodone. Script for oxy written and placed in packet. Per Dr. Thorpe pt to d/c vanco and continue eyedrops. RAG INSPECTOR to fax Mar when updated. Vangie aware. Patient ready for d/c and taken down via w/c with facility rep.
--- NOTE | 2021-06-26 15:56 | CM.DPNOTE ---
DC Note DC order in place for SNF, reviewed plan w/patient, dtr and w/ Sergei at [facility]- all agreeable COVID-19 PCR updated BRITTNI Calderon faxed signed med list and PASRR to [facility]. CHONG Johns given number for report. Patient now off isolation/contact precautions from C diff Plan: DC to [facility] via w/c today. P/u scheduled for 1430 JW
[2021-06-27 13:38] LABS: Albumin 2.1 g/dL (2.9-4.4); Alpha-1-Globulin 0.4 g/dL (0.0-0.4); Gamma Globulin 1.1 g/dL (0.4-1.8); Globulin Total 3.1 g/dL (2.2-3.9); Protein, Total 5.2 g/dL (6.0-8.5)
== END 2021-06-26 14:54 | DRG 811 ==
LOC: ED 15:53 → AC 18:03
PROVIDERS: Internal Medicine; Nurse Practitioner Family; Surgery; Admitting Provider Internal Medicine; Emergency Provider Emergency Medicine; PCP Physician Assistant Medical; Referring Provider Emergency Medicine; Visit Provider Internal Medicine
DX: D62 Acute posthemorrhagic anemia (principal); J96.01 Acute respiratory failure with hypoxia; K91.870 Postprocedural hematoma of a digestive system organ or structure following a digestive system procedure; J98.11 Atelectasis; N17.9 Acute kidney failure, unspecified; E87.1 Hypo-osmolality and hyponatremia; A04.72 Enterocolitis due to Clostridium difficile, not specified as recurrent; Z68.42 Body mass index [BMI] 45.0-49.9, adult; G47.33 Obstructive sleep apnea (adult) (pediatric); E86.0 Dehydration; E66.9 Obesity, unspecified; R82.71 Bacteriuria; I10 Essential (primary) hypertension; E13.69 Other specified diabetes mellitus with other specified complication; Z79.4 Long term (current) use of insulin; E78.5 Hyperlipidemia, unspecified; Z20.822 Contact with and (suspected) exposure to COVID-19
CPT/HCPCS: 36415; 36430; 36592; 51702; 71045; 74176; 76705; 76770; 80053; 81001; 82550; 82962; 83540; 83550; 83605; 83735; 83880; 84100; 84134; 84145; 84155; 84156; 84165; 84166; 84484; 85007; 85014; 85018; 85025; 85610; 85730; 86140; 86850; 86900; 86901; 87040; 87086; 87635; 93005; 94640; 94760; 96374; 97110; 97162; 97530; 99284; 99285; C9803; P9016; C9113; J0696; J1642; J1756; J1815; J2405; J7613

== ENCOUNTER → 2021-07-03 12:31 | Outpatient (ROUT) | payer SELFPAY ==
[2021-06-22 18:51] VITALS: BMI 48.8
[2021-07-03 14:09] LABS: Clostridium Difficile Tox PCR Negative for C. diff (Negative)
== END ==
PROVIDERS: PCP Physician Assistant Medical; Visit Provider Nurse Practitioner
DX: R19.7 Diarrhea, unspecified (principal); D64.9 Anemia, unspecified; N17.9 Acute kidney failure, unspecified; Z86.19 Personal history of other infectious and parasitic diseases
CPT/HCPCS: 87493

== ENCOUNTER → 2021-07-09 10:49 | Outpatient (ROUT) | payer SELFPAY ==
[2021-06-22 18:51] VITALS: BMI 48.8
[2021-07-09 12:36] LABS: Clostridium Difficile Tox PCR Positive for C. diff (Negative)
[2021-07-10 16:17] LABS: C difficie Toxins A and B, EIA Positive (Negative)
== END ==
PROVIDERS: PCP Physician Assistant Medical; Visit Provider Emergency Medicine
DX: R19.5 Other fecal abnormalities (principal)
CPT/HCPCS: 87324; 87493

== ENCOUNTER → 2021-07-20 18:31 | Outpatient (ROUT) | payer SELFPAY ==
[2021-06-22 18:51] VITALS: BMI 48.8
[2021-07-20 18:39] LABS: Appearance Urine UA SL CLOUDY; Bilirubin Urine UA NEGATIVE (NEGATIVE); Color Urine UA YELLOW; Glucose Urine UA NEGATIVE (Negative); Ketones Urine UA NEGATIVE (NEGATIVE); Leukocyte Esterase Urine UA 2+ (NEGATIVE); Nitrite Urine UA NEGATIVE (Negative); Occult Blood Urine UA 3+ (Negative); Protein Urine UA 2+ (Negative); Urobilinogen Urine UA 0.2 E.U./dL (0.2)
[2021-07-20 18:47] LABS: Amorphous Sediment Urine 2+; Bacteria Urine Moderate (10-30); Culture Indicated Urine Specimen Cultured; RBC Urine 10-30/HPF (0-5/HPF); Squamous Epithelial Cell Urine 1-5 /HPF (0-5/HPF); WBC Urine >100/HPF (0-5/HPF)
== END ==
PROVIDERS: PCP Physician Assistant Medical; Visit Provider Emergency Medicine
DX: N39.0 Urinary tract infection, site not specified (principal)
CPT/HCPCS: 81001; 87077; 87086

== ENCOUNTER → 2021-07-27 09:31 | Outpatient (ROUT) | payer SELFPAY ==
[2021-06-22 18:51] VITALS: BMI 48.8
[2021-07-27 10:21] LABS: Clostridium Difficile Tox PCR Negative for C. diff (Negative)
== END ==
PROVIDERS: PCP Physician Assistant Medical; Visit Provider Emergency Medicine
DX: Z11.9 Encounter for screening for infectious and parasitic diseases, unspecified (principal)
CPT/HCPCS: 87493

== ENCOUNTER → 2021-07-29 10:06 | Outpatient (CLI) | payer MEDICARE, MEDICAID, SELFPAY ==
[2021-06-22 18:51] VITALS: BMI 48.8
--- NOTE | 2021-07-29 | DI.CT.S_ITS ---
PROCEDURE: CT ABDOMEN PELVIS WO [facility] INDICATIONS: ABDOMINAL PAIN TECHNIQUE: Noncontrast 5 mm thick sections acquired from the diaphragms to the symphysis. 5 mm coronal and sagittal reformats were then performed. For radiation dose reduction, the following was used: automated exposure control, adjustment of mA and/or kV according to patient size. COMPARISON: [facility], CT, CT ABDOMEN PELVIS [facility], 06/10/2021, 13:14. [facility], CT, CT ABDOMEN PELVIS WO [facility], 06/22/2021, 16:18. FINDINGS: Image quality: Excellent. ABDOMEN: Lung bases: There is a small right-sided pleural effusion and a trace left-sided pleural effusion. Heart size is normal. Solid organs: Liver is normal in size. Gallbladder has been removed. Pancreas is normal in contours. Spleen is normal in size. No adrenal nodules. Kidneys are normal in size, without hydronephrosis or nephrolithiasis. Peritoneum and bowel: The previously seen right lower quadrant intra-abdominal fluid collection is no longer seen. Unenhanced bowel loops demonstrate normal wall thickness and caliber. No free air. There is mild ascites. Nodes and vessels: Borderline prominent retroperitoneal lymph nodes are seen. Aorta and inferior vena cava are normal in caliber. Miscellaneous: No ventral hernias. Generalized anasarca can be seen. Within the soft tissues of the right upper quadrant, soft tissue nodules and areas of fluid can be seen, which are similar to the prior CT. PELVIS: Genitourinary: Bladder wall thickness is normal. This patient is status post hysterectomy. No adnexal masses are seen. Miscellaneous: No inguinal hernias or adenopathy. Bones: No suspicious bony lesions. No vertebral body compression fractures. Degenerative changes are seen throughout, which are worst involving the lower lumbar spine. IMPRESSION: Resolution of the previously seen right lower quadrant abdominal fluid collection. There is mild ascites. There is a small right-sided pleural effusion and a trace left-sided pleural effusion. Generalized anasarca can be seen. There are borderline prominent retroperitoneal lymph nodes noted. Stable soft tissue nodules and fluid of the right upper quadrant abdominal wall. Incidental note is made of: Cholecystectomy Hysterectomy Focal lower lumbar spine degenerative change Dictated by: Trav Steward M.D. on 07/29/2021 at 9:53 Approved by: Trav Steward M.D. on 07/29/2021 at 9:57
== END ==
PROVIDERS: PCP Physician Assistant Medical; Referring Provider Nurse Practitioner; Visit Provider Nurse Practitioner
DX: R10.9 Unspecified abdominal pain (principal); J90 Pleural effusion, not elsewhere classified; R18.8 Other ascites; R59.0 Localized enlarged lymph nodes; M47.816 Spondylosis without myelopathy or radiculopathy, lumbar region; Z90.49 Acquired absence of other specified parts of digestive tract; Z90.710 Acquired absence of both cervix and uterus
CPT/HCPCS: 74176

== ENCOUNTER 2021-08-04 11:30 | Emergency (ER) | payer MEDICARE, MEDICAID, SELFPAY ==
[2021-06-22 18:51] VITALS: BMI 48.8
--- NOTE | 2021-08-04 11:44 | ED_ITS ---
HPI - CPR General Chief Complaint: Cardiac Arrest/CPR Stated Complaint: Cardiac Arrest Time Seen by Provider: 08/04/21 11:42 Source: EMS Mode of arrival: EMS Limitations: other (Cardiac arrest, intubated) History of Present Illness HPI narrative: Patient is a 60-year-old female. Was brought by EMS with CPR in progress. Received a call from EMS stated that they were called to the patient's living facility secondary to patient being found down without a pulse and apneic. The patient was found approximately 40 minutes prior to arrival here in the ER. EMS reports that approximately 5 minutes prior to her being found by the living facility staff she was helped to the bathroom by the staff. Is reported that she return to her room. Lie down and then when they checked on her a few minutes later they found her apneic and without a pulse. EMS arrived. They started CPR. Patient is received 5 rounds of epinephrine and also 1 amp of bicarb prior to arrival. EMS reports that on at least 1 occasion and pote ntially to the did have an organized rhythm with return of spontaneous circulation. This was only very short lived when the patient again became pulseless. She was intubated by EMS. Current time of resuscitation is approximately 40 minutes upon arrival to the emergency department. Related Data Home Medications Medication Instructions Recorded Confirmed calcium carbonate 600 mg calcium 600 mg PO DAILY 06/28/19 06/22/21 (1,500 mg) tablet (Calcium) carvedilol 6.25 mg tablet 6.25 mg PO BID 06/28/19 06/22/21 coenzyme Q10 100 mg capsule (Co 200 mg PO DAILY 06/28/19 06/22/21 Q-10) glipizide 10 mg tablet 10 mg PO BID 06/28/19 06/22/21 lisinopril 20 mg tablet 20 mg PO DAILY 06/28/19 06/22/21 rosuvastatin 5 mg tablet 5 mg PO BEDTIME 06/28/19 06/22/21 meclizine 12.5 mg tablet 12.5 mg PO DAILY 06/07/21 06/22/21 montelukast 10 mg tablet 10 mg PO DAILY 06/07/21 06/22/21 multivitamin with minerals 1 cap PO DAILY 06/07/21 06/22/21 nystatin 100,000 unit/gram topical 1 applic TOPICAL BID 06/07/21 06/22/21 powder oxybutynin chloride 5 mg tablet 5 mg PO BEDTIME 06/07/21 06/22/21 gabapentin 600 mg tablet 600 mg PO TID 06/16/21 06/22/21 insulin lispro 100 unit/mL 3 unit SUBCUT TID ml 06/16/21 06/22/21 subcutaneous pen (Humalog KwikPen (U-100) Insulin) melatonin 3 mg capsule 3 mg PO BEDTIME PRN 06/16/21 06/22/21 Previous Rx's Medication Instructions Recorded insulin glargine 100 unit/mL (3 26 unit SUBCUT BEDTIME #3 ml 06/12/21 mL) subcutaneous pen (Lantus Solostar U-100 Insulin) metoclopramide HCl 10 mg tablet 5 mg PO Q6H PRN #14 tab 06/12/21 (Reglan) ondansetron HCl 4 mg tablet 4 mg PO Q8H PRN #14 tab 06/12/21 (Zofran) vancomycin 125 mg capsule 125 mg PO QID #56 cap 06/12/21 oxycodone 5 mg tablet 5 mg PO Q4HR PRN #10 tab 06/26/21 prednisolone acetate 1 % eye 1 drp EYE-LEFT Q2HRWA #10 ml 06/26/21 drops,suspension Allergies Allergy/AdvReac Type Severity Reaction Status Date / Time egg Allergy Severe Anaphylaxis Verified 06/16/21 15:06 amoxicillin [From Augmentin] Allergy Intermediate Hives/vomit Verified 06/23/21 11:14 ing azithromycin [From Zithromax] Allergy Intermediate Hives Verified 06/16/21 15:06 ciprofloxacin [From Cipro] Allergy Intermediate Rash Verified 06/16/21 15:06 clavulanic acid Allergy Intermediate Hives Verified 06/16/21 15:06 [From Augmentin] nitrofurantoin Allergy Intermediate Hives Verified 06/16/21 15:06 [From Macrobid] liraglutide [From Victoza] Allergy Unknown Verified 06/16/21 15:06 codeine AdvReac Intermediate Gastrointestinal Verified 06/16/21 15:06 Upset gluten AdvReac Intermediate Gastrointestinal Verified 06/16/21 15:06 Upset indomethacin [From Indocin] AdvReac Intermediate Gastrointestinal Verified 06/16/21 15:06 Upset metformin [From Glucophage] AdvReac Intermediate Gastrointestinal Verified 06/16/21 15:06 Upset mushroom AdvReac Intermediate Gastrointestinal Verified 06/16/21 15:06 Upset shellfish derived AdvReac Intermediate Gastrointestinal Verified 06/16/21 15:06 Upset Kwglilq-Mym-Big Reductase AdvReac Intermediate Joint Pain Verified 06/16/21 15:06 Inhibitor Review of Systems Review of Systems ROS Unobtainable: Unobtainable due to medical condition Patient History Medical History Diabetes Hyperlipidemia Hypertension Surgical History History of appendectomy Hx of cataract surgery Family History Mother Diabetes mellitus Hypertension Father Stroke Coronary atherosclerosis of artery bypass graft Social History household members: other Smoking Status: Never smoker Smoking Status: Never smoker alcohol intake frequency: a few times a month Substance Use Type: does not use Exam Const Limitations: other limitations (Intubated, CPR in progress) [facility] Head: normal to inspection and normocephalic Face and sinus: normal facial exam Eyes Other: Right pupil 7 mm, left pupil 4 mm Chest Other: Bruising most likely secondary to chest compressions Resp Other: No respiratory effort, patient intubated, breath sounds equal bilateral on auscultation. Cardio Other: CPR in progress, no organized rhythm seen on monitor during pulse checks. No pulses felt. GI Other: Patient is overweight, abdomen is soft, no bruising Skin Other: Well-healed surgical scars on her abdomen. No signs of trauma. Bruising on her chest secondary to compressions Neuro Other: Patient is unresponsive, does not respond to noxious stimuli, Extrem Other: Extremities intact, no obvious deformities Course Orders Ordered: ED Orders 08/04/21 11:42 COVID19 -Nasal swab/Pre-Proc Stat MDM - Cardiac Arrest/CPR Lab Data Labs: Lab Results 08/04/21 Range/Units 11:30 SARS-CoV-2 (PCR) Negative (Negative) MDM Narrative Medical decision making narrative: Prior to arrival the emergency department patient had received 5 rounds of epinephrine and 1 round of bicarbonate by EMS. She had been intubated by EMS as well. They had at least 1 episode if not 2 episodes of return of spontaneous circulation that were very short-lived. There was no signs of trauma. Patient was unresponsive. Right pupil dilated compared to left pupil. Respiratory status was aided by by bagging. Breath sounds equal bilateral. There was some report about acute renal failure in the patient so she was given calcium. Received 2 rounds of epinephrine with chest compressions in the emergency department. Bedside ultrasound did show an obvious non perfusing bowl slow cardiac rhythm. She had no pulses. No detectable blood pressure. Resuscitative efforts have now been going on for approximately 55 minutes and at least 30 minute since last time there was any indication of return of spontaneous circulation. After discussion with the group in the resu scitation room decision was made to and resuscitative efforts. Time of was 1141. The patient's son eventually arrived to the emergency department. He was informed of the situation. All questions were answered to apparent satisfaction. Discharge Plan Departure Patient Disposition: Clinical Impression: Cardiac arrest
[2021-08-04 12:08] LABS: COVID19 -Nasal RAPID Negative (Negative)
[2021-08-04 13:34] VITALS: PULSE 30; RESP 12; O2SAT 95
--- NOTE | 2021-08-04 13:44 | PC.NURSE ---
Pt arrived with EMS in PEA arrest, CPR in progress. EMS report from [facility] was pt was assisted to BR ambulatory and upon arriving back to bed went unresponsive and pulseless. CPR was initiated by [facility] staff and pt was coded x 50 min prehospital. EMS reports achieving ROSC x 2 which was reason for transport. Pt rec'd Epi 1mg IO x 5 and 1 amp Sodium Bicarbonate IO. Arrived intubated GCS 3, 7.5 ETT 19cm at lip, assisted ventilations with BVM at 12 bpm. ETCO2 65-75 with CPR. R pupil fixed and dilated. Please see COD BLUE paper flow sheet for additional information. TOD called by Dr Arriola at 1141 after 1 hour of continuous CPR and cardiac U/S showing no perfusing cardiac rhythm.
--- NOTE | 2021-08-04 14:31 | PC.NURSE ---
pricing coordinator notified within 1hr of pt's TOD and pt is a candidate for Organ/Tissue donation. Case # [id number]. Spoke to Sarah, Procure[facility]inators. [facility]--[facility] # [id number]. Pt was transferred to [facility] in [place] at the request of family. [phone]. Pt left ED at 1433 and transferred to Home. Procurement Center updated of pt's departure.
== END 2021-08-04 14:36 | disposition expired ==
PROVIDERS: Emergency Provider Emergency Medicine; PCP Physician Assistant Medical
DX: I46.9 Cardiac arrest, cause unspecified (principal); Z20.822 Contact with and (suspected) exposure to COVID-19
CPT/HCPCS: 87635; 92950; 99284; C9803; J0171